=== PATIENT | female | born 1940 | race African-American/Black ===

== ENCOUNTER 2016-08-03 15:34 | Emergency (ER) | payer MEDICARE, OTHER ==
[~2016-08-03] VITALS: Ht 154.9 cm; Wt 51.3 kg
[~2016-08-03 15:34] MED LIST: ACYCLOVIR400 MG ORAL; AMLODIPINE BESY10 MG ORAL; AMOXICILLIN500 MG ORAL; ASPIRIN81 MG ORAL; GUAIFENESIN1200 MG PO; IBUPROFEN600 MG ORAL; KEFLEX500 MG ORAL; NKM; PRAVASTATIN SOD20 M1 ORAL; PROMETHAZINE-C118 M1 ORAL; PROMETHAZINE-D118 ML ORAL; TRAMADOL HCL50 MG ORAL; ZITHROMAX250 MG ORAL
--- NOTE | 2016-08-03 16:23 | Emergency Room Report ---
History of Present Illness General Chief Complaint: Earache Source: Patient Present Illness HPI 75 YO Female presents to ED c/o right ear fullness and nasal congestion/ rhinorrhea x 2 days. denies pain, fevers, chills, cough, INIGUEZ, changes in vision, pt. states hearing is muffled in the affected ear. denies d/c from the ear. Denies CP, Palpitations, LOC, AMS, dizziness, Changes in Vision, Sensation, paresthesias, or a sudden severe headache. Allergies: Coded Allergies: No Known Allergies (Verified Allergy, Unknown, 02/26/08) Patient History Past Medical History: see triage record Past Surgical History: none Pertinent Family History: none Now: No Immunizations: UTD Reviewed Nursing Documentation: PMH: Agreed, PSxH: Agreed Nursing Documentation-PMH Past Medical History: No History, Except For Hx Cardiac Problems: Yes - heart murmur Hx Hypertension: Yes - HIGH COLESTEROL Hx Cancer: Yes - Leukemia since 2003 Review of Systems All Other Systems: negative except mentioned in HPI Physical Exam Vital Signs Date Time Temp Pulse Resp B/P Pulse Ox O2 Delivery O2 Flow Rate FiO2 08/03/16 16:03 98.1 49 16 169/69 99 Room Air Sp02 EP Interpretation: reviewed, normal, abnormal - pt bradycardic General Appearance: no apparent distress, alert, GCS 15, non-toxic Head: normocephalic, atraumatic Eyes: bilateral eye PERRL, bilateral eye normal inspection ENT: normal ENT inspection, hearing grossly normal, normal pharynx, normal voice, uvula midline, moist mucus membranes, other - fluid level noted behind the right TM, TM is non-bulging, and non erythematous. Neck: full range of motion, no meningismus, no bony tend, supple/symm/no masses Respiratory: chest non-tender, lungs clear, normal breath sounds, speaking full sentences Cardiovascular #1: regular rate, rhythm, no edema Musculoskeletal: back normal, gait/station normal, normal range of motion, non- tender Neurologic: alert, oriented x3, responsive, motor strength/tone normal, sensory intact, cerebellar normal, normal gait, speech normal Psychiatric: judgement/insight normal, memory normal, mood/affect normal Skin: normal color, no rash, warm/dry, well hydrated Lymphatic: no adenopathy Medical Decision Making PA Attestation Dr. Goodson is my supervising Physician whom patient management has been discussed with. ER Course 75 YO Female presents to ED c/o right ear fullness and nasal congestion/ rhinorrhea x 2 days. denies pain, fevers, chills, cough, INIGUEZ, changes in vision, pt. states hearing is muffled in the affected ear. denies d/c from the ear. Ddx considered but are not limited to OM, OE, mastoiditis, TM perforation, FB, serous otitis media Vital signs: are WNL, pt. is afebrile H&PE are most consistent with serous otitis media, no evidence of infection at this time. ORDERS: none required at this time, the diagnosis is clinical -OTOSCOPY: fluid level noted behind the right TM, TM is non-bulging, and non erythematous. ED INTERVENTIONS: None required at this time. d/w pt. Conservative treatment, and to follow up with PCP/ ENT specialist. DISCHARGE: At this time pt. is stable for d/c to home. With Conservative treatment.. Will provide printed patient care instructions, and any necessary prescriptions. Care plan and follow up instructions have been discussed with the patient prior to discharge. Last Vital Signs Date Time Temp Pulse Resp B/P Pulse Ox O2 Delivery O2 Flow Rate FiO2 08/03/16 16:03 98.1 49 16 169/69 99 Room Air Disposition: HOME, SELF-CARE Condition: Stable Scripts Pseudoephedrine Hcl* (NEXAFED*) 30 Mg Tablet 30 MG ORAL Q6H Y for congestion for 5 Days, #20 TAB Prov: Tavia Brandno 08/03/16 Cetirizine Hcl* (ZYRTEC*) 10 Mg Tablet 10 MG ORAL DAILY for 30 Days, #30 TAB 0 Refills Prov: Tavia Brandon 08/03/16 Patient Instructions: Serous Otitis Media Additional Instructions: Take medications as directed. Follow up with PCP in 3-5 days, May require ENT evaluation if symptoms persist. Return sooner to ED if new symptoms occur, or current symptoms become worse. - Please note that this Emergency Department Report was dictated using [email or web address] application engineer technology software, occasionally this can lead to erroneous entry secondary to interpretation by the dictation equipment. Tavia Brandon Aug 03, 2016 16:23
[2016-08-03] MEDS ORDERED: ZYRTEC10 MG ORAL (16:24)
[2016-08-03] MEDS ORDERED: NEXAFED30 MG ORAL (16:24)
[2016-08-03 16:32] VITALS: BP 149/73
[2016-08-03 16:34] VITALS: BP 149/73
== END 2016-08-03 16:34 | disposition home or self-care (01) ==
LOC: EMR 16:30
DX: H65.91 Unspecified nonsuppurative otitis media, right ear (principal); R09.81 Nasal congestion; J34.89 Other specified disorders of nose and nasal sinuses
CPT/HCPCS: 99284

== ENCOUNTER 2016-08-11 16:24 | Emergency (ER) | payer MEDICARE, OTHER ==
[~2016-08-11] VITALS: Ht 154.9 cm; Wt 52.2 kg
[~2016-08-11 16:24] MED LIST changes: +NEXAFED30 MG ORAL; +ZYRTEC10 MG ORAL
--- NOTE | 2016-08-11 17:12 | Emergency Room Report ---
History of Present Illness General Chief Complaint: Earache Present Illness HPI 75 YO Female presents to the ED c/o recently being treated with decongestants for serous otitis media. Patient states her symptoms have for the most part resolved denies fevers or chills reports increase in ability to hear out of the affected ear. Patient denies discharge, rashes, tenderness to the ear, or tinnitus. Denies CP, Palpitations, LOC, AMS, dizziness, Changes in Vision, Sensation, paresthesias, or a sudden severe headache. Allergies: Coded Allergies: No Known Allergies (Verified Allergy, Unknown, 02/26/08) Patient History Past Medical History: see triage record Past Surgical History: none Pertinent Family History: none Now: No Immunizations: UTD Reviewed Nursing Documentation: PMH: Agreed, PSxH: Agreed Nursing Documentation-PMH Past Medical History: No History, Except For Hx Hypertension: Yes Hx Cancer: Yes - Leukemia since 2003 Review of Systems All Other Systems: negative except mentioned in HPI Physical Exam Vital Signs Date Time Temp Pulse Resp B/P Pulse Ox O2 Delivery O2 Flow Rate FiO2 08/11/16 16:42 97.9 56 14 169/68 98 Room Air Sp02 EP Interpretation: reviewed, normal General Appearance: no apparent distress, alert, GCS 15, non-toxic Head: normocephalic, atraumatic Eyes: bilateral eye PERRL, bilateral eye normal inspection ENT: hearing grossly normal, normal pharynx, no angioedema, normal voice, uvula midline, moist mucus membranes, other - small fluid level noted behind the right TM, no tragal TTP, no erythema of the TM no bulging noted. Neck: full range of motion, supple/symm/no masses Respiratory: lungs clear, normal breath sounds, speaking full sentences Cardiovascular #1: regular rate, rhythm, no edema Musculoskeletal: back normal, gait/station normal, normal range of motion, non- tender Neurologic: alert, oriented x3, responsive, motor strength/tone normal, sensory intact, speech normal Psychiatric: judgement/insight normal, memory normal, mood/affect normal Skin: normal color, no rash, warm/dry, well hydrated Medical Decision Making PA Attestation Dr. Henderson is my supervising Physician whom patient management has been discussed with. Diagnostic Impression: Primary Impression: Encounter for medical screening examination ER Course Pt. presents to the ED c/o recently being treated with decongestants for serous otitis media. pt. was seen by myself on several prior visits to this ED. pt. is always highly encouraged to follow up with PCP or ENT. pt. states she has an appt. with her doctor on the th of this month. Ddx considered but are not limited to OM, OE, mastoiditis, TM perforation, FB Vital signs: are WNL, pt. is afebrile H&PE are most consistent with improved serous otitis media of the right ear. ORDERS: none required at this time, the diagnosis is clinical ED INTERVENTIONS: None required at this time. - D/w pt. that follow up is to be with PMD or ENT specialist. To return to the ED only with worsening or new symptoms. DISCHARGE: At this time pt. is stable for d/c to home. Will provide printed patient care instructions, and any necessary prescriptions. Care plan and follow up instructions have been discussed with the patient prior to discharge. Last Vital Signs Date Time Temp Pulse Resp B/P Pulse Ox O2 Delivery O2 Flow Rate FiO2 08/11/16 16:42 97.9 56 14 169/68 98 Room Air Disposition: HOME, SELF-CARE Condition: Stable Patient Instructions: Medical Screening Exam Additional Instructions: Take previously prescribed medications as directed if needed. Follow up with your PCP or ears, nose throat specialist in 7 days - Please note that this Emergency Department Report was dictated using PeopleMatterpaint tester technology software, occasionally this can lead to erroneous entry secondary to interpretation by the dictation equipment. Tavia Brandon August 11, 2016 17:12
[2016-08-11 17:21] VITALS: BP 158/70
== END 2016-08-11 17:21 | disposition home or self-care (01) ==
LOC: EMR 17:10
DX: H65.90 Unspecified nonsuppurative otitis media, unspecified ear (principal); I10 Essential (primary) hypertension; Z85.6 Personal history of leukemia
CPT/HCPCS: 99281

== ENCOUNTER 2017-03-03 12:03 | Inpatient (IN) | payer MEDICARE, OTHER ==
[~2017-03-03] VITALS: Ht 154.9 cm; Wt 49.9 kg
[2017-03-03] MEDS ORDERED: Albuterol ud Inhalation HHN ONE (12:15)
[2017-03-03] MEDS ORDERED: Ipratropium 0.02% Inh Soln 2.5ml UD HHN ONE (12:15)
--- NOTE | 2017-03-03 12:28 | Emergency Room Report ---
History of Present Illness General Chief Complaint: Upper Respiratory Illness Source: Patient Present Illness HPI Patient reports that she was seen recently by her physician told that she likely has a bronchitis Her cough however continues Patient has had previous CML is in remission Last chemotherapy was about one year ago Denies any obvious fevers she had some chest tightness from her cough denies any recent travel denies any pleurisy Denies any vomiting or diarrhea Allergies: Coded Allergies: No Known Allergies (Verified Allergy, Unknown, 02/26/08) Patient History Past Medical History: see triage record Pertinent Family History: none Reviewed Nursing Documentation: PMH: Agreed, PSxH: Agreed Nursing Documentation-PMH Hx Hypertension: Yes Hx Cancer: Yes - Leukemia since 2003 Review of Systems All Other Systems: negative except mentioned in HPI Physical Exam Vital Signs Date Time Temp Pulse Resp B/P (MAP) Pulse Ox O2 Delivery O2 Flow Rate FiO2 03/03/17 12:12 98.2 82 20 125/66 93 Room Air Sp02 EP Interpretation: reviewed, normal General Appearance: no apparent distress Head: normocephalic, atraumatic Eyes: bilateral eye PERRL, bilateral eye EOMI ENT: hearing grossly normal, normal pharynx, TMs + canals normal, uvula midline Neck: full range of motion, supple, no meningismus, no bony tend Respiratory: no respiratory distress, no retraction, no accessory muscle use, crackles, wheezing Cardiovascular #1: normal peripheral pulses, regular rate, rhythm, no edema, no gallop, no JVD, no murmur Gastrointestinal: normal bowel sounds, non tender, soft, no mass, no organomegaly, non-distended, no guarding, no hernia, no pulsatile mass, no rebound Genitourinary: no CVA tenderness Musculoskeletal: normal inspection Neurologic: oriented x3, responsive, visually impaired teacher III-XII nml as tested, motor strength/ tone normal, sensory intact Psychiatric: mood/affect normal Skin: normal color, no rash, warm/dry, palpation normal Lymphatic: normal inspection, no adenopathy Medical Decision Making Diagnostic Impression: Primary Impression: Upper respiratory infection Additional Impressions: Hypoxia Leukocytosis Hypokalemia ER Course Patient is a fairly complex patient with multiple differential to consideration including but not limited to cardiac cardiopulmonary and vascular emergencies Patient was observed throughout her stay having hypoxic episodes on room air At this time requiring nasal cannula oxygenation Patient's white blood for count is elevated however the patient has had CML with significant elevation before Unclear the etiology of this Patient with covered with antibiotics and admitted for further care Labs Test 03/03/17 12:25 White Blood Count 18.3 K/UL (4.8-10.8) Red Blood Count 4.33 M/UL (4.20-5.40) Hemoglobin 13.3 G/DL (12.0-16.0) Hematocrit 40.3 % (37.0-47.0) Mean Corpuscular Volume 93 FL (80-99) Mean Corpuscular Hemoglobin 30.7 PG (27.0-31.0) Mean Corpuscular Hemoglobin Concent 33.1 G/DL (32.0-36.0) Red Cell Distribution Width 13.7 % (11.6-14.8) Platelet Count 139 K/UL (150-450) Mean Platelet Volume 7.3 FL (6.5-10.1) Neutrophils (%) (Auto) % (45.0-75.0) Lymphocytes (%) (Auto) % (20.0-45.0) Monocytes (%) (Auto) % (1.0-10.0) Eosinophils (%) (Auto) % (0.0-3.0) Basophils (%) (Auto) % (0.0-2.0) Differential Total Cells Counted 100 Neutrophils % (Manual) 16 % (45-75) Lymphocytes % (Manual) 79 % (20-45) Monocytes % (Manual) 5 % (1-10) Eosinophils % (Manual) 0 % (0-3) Basophils % (Manual) 0 % (0-2) Band Neutrophils 0 % (0-8) Reactive Lymphocytes 1+ Platelet Estimate Decreased Platelet Morphology Normal Red Blood Cell Morphology Normal Sodium Level 141 MMOL/L (136-145) Potassium Level 3.1 MMOL/L (3.5-5.1) Chloride Level 103 MMOL/L (98-107) Carbon Dioxide Level 27 MMOL/L (21-32) Anion Gap 11 mmol/L (5-15) Blood Urea Nitrogen 11 mg/dL (7-18) Creatinine 1.0 MG/DL (0.55-1.30) Estimat Glomerular Filtration Rate mL/min (>60) Glucose Level 112 MG/DL (74-106) Calcium Level 9.1 MG/DL (8.5-10.1) Total Bilirubin 0.3 MG/DL (0.2-1.0) Aspartate Amino Transf (AST/SGOT) 29 U/L (15-37) Alanine Aminotransferase (ALT/SGPT) 25 U/L (12-78) Alkaline Phosphatase 112 U/L (46-116) Total Creatine Kinase 185 U/L (26-308) Creatine Kinase MB 1.9 NG/ML (0.0-3.6) Creatine Kinase MB Relative Index 1.0 Troponin I 0.000 ng/mL (0.000-0.056) Pro-B-Type Natriuretic Peptide 150 pg/mL (0-125) Total Protein 8.1 G/DL (6.4-8.2) Albumin 4.1 G/DL (3.4-5.0) Globulin 4.0 g/dL Albumin/Globulin Ratio 1.0 (1.0-2.7) Lipase 102 U/L (73-393) Rhythm Strip Diag. Results EP Interpretation: yes Rate: 66 Rhythm: NSR, no PVC's, no ectopy Chest X-Ray Diagnostic Results Chest X-Ray Diagnostic Results : Chest X-Ray Ordered: Yes # of Views/Limited/Complete: 1 View Indication: Shortness of Breath EP Interpretation: Yes Interpretation: no consolidation, no effusion, no pneumothorax, no acute cardiopulmonary disease Impression: No acute disease Electronically Signed by: DO Yosi Tavarez Vital Signs Date Time Temp Pulse Resp B/P (MAP) Pulse Ox O2 Delivery O2 Flow Rate FiO2 03/03/17 12:12 98.2 82 20 125/66 93 Room Air Status: improved Disposition: ADMITTED INPATIENT Condition: Serious BERTHA MARUCS D.O. Mar 03, 2017 12:28
[2017-03-03 12:30] VITALS: BP 141/117
[2017-03-03 13:02] LABS: ANION GAP 11 mmol/L (5-15); CALCIUM 9.1 MG/DL (8.5-10.1); CARBON DIOXIDE 27 MMOL/L (21-32); CHLORIDE 103 MMOL/L (98-107); POTASSIUM 3.1 MMOL/L (3.5-5.1); SODIUM 141 MMOL/L (136-145)
[2017-03-03] MEDS ORDERED: FERROUS SULFAT325 MG ORAL (13:02)
[2017-03-03] MEDS ORDERED: VENTOLIN HFA18 GM INH (13:02)
[2017-03-03 13:08] LABS: MEAN CORPUSCULAR HEMOGLOBIN 30.7 PG (27.0-31.0); MEAN CORPUSCULAR HGB CONC 33.1 G/DL (32.0-36.0); MEAN CORPUSCULAR VOLUME 93 FL (80-99); MEAN PLATELET VOLUME 7.3 FL (6.5-10.1); PLATELET COUNT 139 K/UL (150-450); RED BLOOD COUNT 4.33 M/UL (4.20-5.40); RED CELL DISTRIBUTION WIDTH 13.7 % (11.6-14.8); WHITE BLOOD COUNT 18.3 K/UL (4.8-10.8)
[2017-03-03 13:15] LABS: ALANINE AMINOTRANSFERASE 25 U/L (12-78); ASPARTATE AMINO TRANSFERASE 29 U/L (15-37); CKMB 1.9 NG/ML (0.0-3.6); LIPASE 102 U/L (73-393); TOTAL PROTEIN 8.1 G/DL (6.4-8.2)
--- NOTE | 2017-03-03 13:29 | Diagnostic Imaging Report ---
Indication: SOB Technique: One view of the chest Comparison: 03/05/2016 Findings: Lungs and pleural spaces are clear. Heart size is normal. The aorta is elongated tortuous and calcified. There is no significant change Impression: No acute process
[2017-03-03 13:34] LABS: BAND NEUTROPHILS % (MANUAL) 0 % (0-8); BASOPHILS % (MANUAL) 0 % (0-2); EOSINOPHILS % (MANUAL) 0 % (0-3); LYMPHOCYTES % (MANUAL) 79 % (20-45); NEUTROPHILS % (MANUAL) 16 % (45-75); PLATELET ESTIMATE DECREASED; PLATELET MORPHOLOGY NORMAL; TOTAL CELLS COUNTED 100
[2017-03-03 13:36] LABS: REACTIVE LYMPHOCYTES 1+
[2017-03-03] MEDS ORDERED: LORazepam Inj 2mg/ml 1ml IV PRN (15:15)
[2017-03-03] MEDS ORDERED: Albuterol/Ipratropium 3ml neb HHN PRN (15:15)
[2017-03-03] MEDS ORDERED: Morphine Sulfate 4mg/ml Inj IVP PRN (15:15)
[2017-03-03] MEDS ORDERED: Miralax 17gm pkt ORAL PRN (15:15)
[2017-03-03] MEDS ORDERED: traMADol 50mg tab ORAL PRN (15:15)
[2017-03-03 15:55] VITALS: BP 145/67
[2017-03-03] MEDS ORDERED: Vancomycin 1gm/D5W 275ml IVPB ONE ×2 (17:00)
[2017-03-03] MEDS ORDERED: Flu Vaccine Quadrivalent 0.5ml IM ONE (17:30)
[2017-03-03] MEDS ORDERED: Pneumococcal Vaccine 25mcg/0.5ml IM ONE (17:30)
[2017-03-03] MEDS ORDERED: Cefepime HCl 2 GM in D5W 55 ML IV SCH (19:30)
[2017-03-03] MEDS ORDERED: Cefepime HCl 2 GM in D5W 110 ML IV SCH (19:30)
[2017-03-03 20:00] VITALS: BP 119/50
[2017-03-03] MEDS: Heparin 5000 units/ml inj SUBQ SCH (20:49)
--- NOTE | 2017-03-03 22:13 | History and Physical ---
History of Present Illness General Date patient seen: Mar 03, 2017 Reason for Hospitalization: Upper Respiratory Illness Present Illness HPI 76 year old female with hx of CML is in remission presented to ER with cc of cough for a protracted time. she was told that she likely has a bronchitis and received abx from PMD but her cough however continued. She denies any obvious fevers she had some chest tightness from her cough denies any recent travel denies any pleurisy she was found to have leukocytosis and admitted for further work up. Allergies: Coded Allergies: No Known Allergies (Verified Allergy, Unknown, 02/26/08) Medication History Scheduled Acyclovir* (Acyclovir*), 400 MG ORAL BID, (Reported) Albuterol Sulfate (Ventolin Hfa), 1 PUFF INH EVERY 6 HOURS, (Reported) Amlodipine Besylate* (Amlodipine Besylate*), 10 MG ORAL DAILY, (Reported) Amoxicillin* (Amoxil*), 500 MG ORAL THREE TIMES A DAY Aspirin* (Aspirin*), 81 MG ORAL DAILY, (Reported) Azithromycin* (Zithromax*), 250 MG ORAL DAILY Cephalexin* (Keflex*), 500 MG ORAL EVERY 12 HOURS Cetirizine Hcl* (Zyrtec*), 10 MG ORAL DAILY Ferrous Sulfate* (Ferrous Sulfate*), 325 MG ORAL DAILY, (Reported) Guaifenesin (Guaifenesin), 1,200 MG PO Q12HR No Known Medications* (NKM - No Known Medications*), 0 ., (Reported) Pravastatin Sod* (Pravastatin Sod*), 10 MG ORAL BEDTIME, (Reported) Scheduled PRN Codeine/Promethazine Hcl* (Promethazine-Codeine Syrup*), 5 ML ORAL Q6H PRN for For Cough D-Methorphan Hb/Prometh Hcl* (Promethazine-Dm Syrup*), 5 ML ORAL Q6H PRN for For Cough Ibuprofen* (Motrin*), 600 MG ORAL Q6H PRN for For Pain Pseudoephedrine Hcl* (Nexafed*), 30 MG ORAL Q6H PRN for congestion Tramadol Hcl* (Ultram*), 50 MG ORAL Q6H PRN for For Pain Tramadol Hcl* (Ultram*), 50 MG ORAL Q6H PRN for For Pain Patient History Healthcare decision maker Joshua Young (son) Resuscitation status Full Code Advanced Directive on File Past Medical/Surgical History Past Medical/Surgical History: (1) CML (chronic myeloid leukemia) Review of Systems Constitutional: Reports: malaise Respiratory: Reports: cough, [facility] All Other Systems: negative except mentioned in HPI Physical Exam General Appearance: cachetic Lines, tubes and drains: peripheral HEENT: normocephalic, atraumatic Neck: non-tender, normal alignment Respiratory/Chest: chest wall non-tender, lungs clear Cardiovascular/Chest: normal peripheral pulses, normal rate Abdomen: normal bowel sounds, non tender Last 24 Hour Vital Signs Date Time Temp Pulse Resp B/P (MAP) Pulse Ox O2 Delivery O2 Flow Rate FiO2 03/03/17 20:00 58 03/03/17 20:00 97.0 61 18 119/50 93 Nasal Cannula 2.0 28 03/03/17 20:00 Nasal Cannula 2.0 28 03/03/17 20:00 94 Nasal Cannula 2.0 28 03/03/17 16:00 68 03/03/17 15:55 97.0 74 18 145/67 94 03/03/17 14:41 98.2 20 133/109 93 Room Air 2.0 21 03/03/17 12:46 82 20 93 Room Air 21 03/03/17 12:31 21 03/03/17 12:31 82 20 Room Air 21 03/03/17 12:31 82 20 93 Room Air 21 03/03/17 12:30 82 20 Room Air 03/03/17 12:30 98.2 20 141/117 93 Nasal Cannula 2.0 03/03/17 12:12 98.2 82 20 125/66 93 Room Air Intake and Output 03/03/17 03/04/17 19:00 07:00 Intake Total 352 ml 100 ml Balance 352 ml 100 ml Intake Oral 240 ml IV Total 112 ml 100 ml # Bowel Movements 1 Laboratory Tests Test 03/03/17 12:25 White Blood Count 18.3 K/UL (4.8-10.8) H Red Blood Count 4.33 M/UL (4.20-5.40) Hemoglobin 13.3 G/DL (12.0-16.0) Hematocrit 40.3 % (37.0-47.0) Mean Corpuscular Volume 93 FL (80-99) Mean Corpuscular Hemoglobin 30.7 PG (27.0-31.0) Mean Corpuscular Hemoglobin Concent 33.1 G/DL (32.0-36.0) Red Cell Distribution Width 13.7 % (11.6-14.8) Platelet Count 139 K/UL (150-450) L Mean Platelet Volume 7.3 FL (6.5-10.1) Neutrophils (%) (Auto) % (45.0-75.0) Lymphocytes (%) (Auto) % (20.0-45.0) Monocytes (%) (Auto) % (1.0-10.0) Eosinophils (%) (Auto) % (0.0-3.0) Basophils (%) (Auto) % (0.0-2.0) Differential Total Cells Counted 100 Neutrophils % (Manual) 16 % (45-75) L Lymphocytes % (Manual) 79 % (20-45) H Monocytes % (Manual) 5 % (1-10) Eosinophils % (Manual) 0 % (0-3) Basophils % (Manual) 0 % (0-2) Band Neutrophils 0 % (0-8) Reactive Lymphocytes 1+ Platelet Estimate Decreased L Platelet Morphology Normal Red Blood Cell Morphology Normal Sodium Level 141 MMOL/L (136-145) Potassium Level 3.1 MMOL/L (3.5-5.1) L Chloride Level 103 MMOL/L (98-107) Carbon Dioxide Level 27 MMOL/L (21-32) Anion Gap 11 mmol/L (5-15) Blood Urea Nitrogen 11 mg/dL (7-18) Creatinine 1.0 MG/DL (0.55-1.30) Estimat Glomerular Filtration Rate mL/min (>60) Glucose Level 112 MG/DL (74-106) H Calcium Level 9.1 MG/DL (8.5-10.1) Total Bilirubin 0.3 MG/DL (0.2-1.0) Aspartate Amino Transf (AST/SGOT) 29 U/L (15-37) Alanine Aminotransferase (ALT/SGPT) 25 U/L (12-78) Alkaline Phosphatase 112 U/L (46-116) Total Creatine Kinase 185 U/L (26-308) Creatine Kinase MB 1.9 NG/ML (0.0-3.6) Creatine Kinase MB Relative Index 1.0 Troponin I 0.000 ng/mL (0.000-0.056) Pro-B-Type Natriuretic Peptide 150 pg/mL (0-125) H Total Protein 8.1 G/DL (6.4-8.2) Albumin 4.1 G/DL (3.4-5.0) Globulin 4.0 g/dL Albumin/Globulin Ratio 1.0 (1.0-2.7) Lipase 102 U/L (73-393) Height (Feet): 5 Height (Inches): 1.00 Weight (Pounds): 110 Medications Current Medications Medications (Trade) Dose Ordered Sig/Adalgisa Route PRN Reason Start Time Stop Time Status Last Admin Dose Admin Acetaminophen (Tylenol) 650 mg Q4H PRN ORAL T>100.5 F 03/03/17 15:15 04/02/17 15:14 Albuterol/ Ipratropium (Albuterol/ Ipratropium) 3 ml Q4H PRN HHN Shortness of Breath 03/03/17 15:15 03/08/17 15:14 Amlodipine Besylate (Norvasc) 10 mg DAILY ORAL 03/04/17 09:00 04/03/17 08:59 Cefepime HCl 2 gm/ Dextrose 55 ml @ 110 mls/hr Q24H IV 03/03/17 19:30 03/10/17 19:29 03/03/17 20:47 Dextrose (Dextrose 50%) STAT PRN IV Hypoglycemia 03/03/17 15:15 04/02/17 15:14 Heparin Sodium (Porcine) (Heparin 5000 units/ml) 5,000 units EVERY 12 HOURS SUBQ 03/03/17 21:00 04/02/17 20:59 03/03/17 20:49 Lorazepam (Ativan 2mg/ml 1ml) 2 mg Q2H PRN IV For Anxiety 03/03/17 15:15 03/10/17 15:14 Morphine Sulfate (Morphine Sulfate) 4 mg Q4H PRN IVP Severe Pain (Pain Scale 7-10) 03/03/17 15:15 03/10/17 15:14 Ondansetron HCl (Zofran) 4 mg Q6H PRN IVP Nausea & Vomiting 03/03/17 15:15 04/02/17 15:14 Polyethylene Glycol (Miralax) 17 gm DAILYPRN PRN ORAL Constipation 03/03/17 15:15 04/02/17 15:14 Pravastatin Sodium (Pravachol) 10 mg BEDTIME ORAL 03/03/17 21:00 04/02/17 20:59 03/03/17 20:47 Sodium Chloride 1,000 ml @ 50 mls/hr Q20H IV 03/03/17 16:00 04/02/17 15:59 03/03/17 16:33 Tramadol HCl (Ultram) 50 mg Q6H PRN ORAL Moderate Pain (Pain Scale 4-6) 03/03/17 15:15 03/10/17 15:14 Vancomycin HCl (Vanco rx to dose) 1 ea DAILY PRN MISC . 03/03/17 15:30 04/02/17 15:29 Vancomycin/Sodium Chloride 250 ml @ 166.667 mls/hr Q24H IVPB 03/04/17 17:00 03/09/17 16:59 Assessment/Plan Problem List: (1) Purulent bronchitis ICD Codes: J41.1 - Mucopurulent chronic bronchitis SNOMED: 36608074 (2) CML (chronic myeloid leukemia) ICD Codes: C92.90 - Myeloid leukemia, unspecified, not having achieved remission SNOMED: 33931469 (3) Leukocytosis ICD Codes: D72.829 - Elevated white blood cell count, unspecified SNOMED: 877568400, 847308416 (4) Upper respiratory infection ICD Codes: J06.9 - Acute upper respiratory infection, unspecified SNOMED: 99330795 Assessment/Plan check sputum Iv abx check cultures blood smear by pathology hematology evaluation LOW CARTWRIGHT Mar 03, 2017 22:13
[2017-03-03] MEDS ORDERED: Vancomycin 1 GM in D5W 275 ML IV SCH (23:00)
[2017-03-04] VITALS (7 sets, daily range): BP systolic 120–141; BP diastolic 55–117
[2017-03-04 08:15] LABS: MEAN CORPUSCULAR HEMOGLOBIN 31.7 PG (27.0-31.0); MEAN CORPUSCULAR VOLUME 93 FL (80-99); MEAN PLATELET VOLUME 7.6 FL (6.5-10.1); PLATELET COUNT 122 K/UL (150-450); RED BLOOD COUNT 3.89 M/UL (4.20-5.40); RED CELL DISTRIBUTION WIDTH 13.7 % (11.6-14.8); WHITE BLOOD COUNT 15.7 K/UL (4.8-10.8)
[2017-03-04] MEDS: Heparin 5000 units/ml inj SUBQ SCH ×2 (08:46→21:17)
[2017-03-04 09:17] LABS: ANION GAP 7 mmol/L (5-15); CALCIUM 8.9 MG/DL (8.5-10.1); CARBON DIOXIDE 27 MMOL/L (21-32); CHLORIDE 105 MMOL/L (98-107); CREATININE 0.9 MG/DL (0.55-1.30); PHOSPHORUS 3.1 MG/DL (2.5-4.9); POTASSIUM 4.6 MMOL/L (3.5-5.1); SODIUM 139 MMOL/L (136-145)
[2017-03-04 09:31] LABS: LYMPHOCYTES % (MANUAL) 78 % (20-45); NEUTROPHILS % (MANUAL) 20 % (45-75); TOTAL CELLS COUNTED 100
[2017-03-04 09:32] LABS: BAND NEUTROPHILS % (MANUAL) 0 % (0-8); BASOPHILS % (MANUAL) 0 % (0-2); EOSINOPHILS % (MANUAL) 0 % (0-3); PLATELET ESTIMATE DECREASED; PLATELET MORPHOLOGY NORMAL
--- NOTE | 2017-03-04 10:28 | Pulmonology Progress Note ---
Assessment/Plan Problems: (1) Purulent bronchitis (2) CML (chronic myeloid leukemia) (3) Leukocytosis (4) Upper respiratory infection (5) Protein-calorie malnutrition, severe Assessment/Plan improving check sputum IV abx titrate fio2 to sat of 92% chest pt respiratory treatment Subjective Interval Events: doing better Allergies: Coded Allergies: No Known Allergies (Verified Allergy, Unknown, 02/26/08) Objective Last 24 Hour Vital Signs Date Time Temp Pulse Resp B/P (MAP) Pulse Ox O2 Delivery O2 Flow Rate FiO2 03/04/17 08:44 60 120/55 03/04/17 08:00 54 03/04/17 08:00 98.4 60 18 120/55 95 Nasal Cannula 2.0 28 03/04/17 07:43 Nasal Cannula 2.0 28 03/04/17 07:42 96 Nasal Cannula 2.0 28 03/04/17 04:00 56 03/04/17 04:00 97.9 75 20 141/117 95 Nasal Cannula 2.0 03/04/17 00:00 58 03/04/17 00:00 98.1 66 18 122/62 94 Nasal Cannula 2.0 28 03/03/17 20:00 58 03/03/17 20:00 97.0 61 18 119/50 93 Nasal Cannula 2.0 28 03/03/17 20:00 Nasal Cannula 2.0 28 03/03/17 20:00 94 Nasal Cannula 2.0 28 03/03/17 16:00 68 03/03/17 15:55 97.0 74 18 145/67 94 03/03/17 14:41 98.2 20 133/109 93 Room Air 2.0 21 03/03/17 12:46 82 20 93 Room Air 21 03/03/17 12:31 21 03/03/17 12:31 82 20 Room Air 21 03/03/17 12:31 82 20 93 Room Air 21 03/03/17 12:30 82 20 Room Air 03/03/17 12:30 98.2 20 141/117 93 Nasal Cannula 2.0 03/03/17 12:12 98.2 82 20 125/66 93 Room Air General Appearance: cachetic HEENT: normocephalic, atraumatic Respiratory/Chest: chest wall non-tender, lungs clear Breasts: no masses Cardiovascular: normal rate Abdomen: normal bowel sounds, soft, non tender Genitourinary: normal external genitalia Extremities: no cyanosis Skin: no rash Laboratory Tests 03/03/17 12:25: White Blood Count 18.3H, Red Blood Count 4.33, Hemoglobin 13.3, Hematocrit 40.3 , Mean Corpuscular Volume 93, Mean Corpuscular Hemoglobin 30.7, Mean Corpuscular Hemoglobin Concent 33.1, Red Cell Distribution Width 13.7, Platelet Count 139L, Mean Platelet Volume 7.3, Neutrophils (%) (Auto) , Lymphocytes (%) ( Auto) , Monocytes (%) (Auto) , Eosinophils (%) (Auto) , Basophils (%) (Auto) , Differential Total Cells Counted 100, Neutrophils % (Manual) 16L, Lymphocytes % (Manual) 79H, Monocytes % (Manual) 5, Eosinophils % (Manual) 0, Basophils % ( Manual) 0, Band Neutrophils 0, Reactive Lymphocytes 1+, Platelet Estimate DecreasedL, Platelet Morphology Normal, Red Blood Cell Morphology Normal, Sodium Level 141, Potassium Level 3.1L, Chloride Level 103, Carbon Dioxide Level 27, Anion Gap 11, Blood Urea Nitrogen 11, Creatinine 1.0, Estimat Glomerular Filtration Rate , Glucose Level 112H, Calcium Level 9.1, Total Bilirubin 0.3, Aspartate Amino Transf (AST/SGOT) 29, Alanine Aminotransferase ( ALT/SGPT) 25, Alkaline Phosphatase 112, Total Creatine Kinase 185, Creatine Kinase MB 1.9, Creatine Kinase MB Relative Index 1.0, Troponin I 0.000, Pro-B- Type Natriuretic Peptide 150H, Total Protein 8.1, Albumin 4.1, Globulin 4.0, Albumin/Globulin Ratio 1.0, Lipase 102 03/04/17 07:32: White Blood Count 15.7H, Red Blood Count 3.89L, Hemoglobin 12.4, Hematocrit 36.3L, Mean Corpuscular Volume 93, Mean Corpuscular Hemoglobin 31.7H, Mean Corpuscular Hemoglobin Concent 34.0, Red Cell Distribution Width 13.7, Platelet Count 122L, Mean Platelet Volume 7.6, Neutrophils (%) (Auto) , Lymphocytes (%) ( Auto) , Monocytes (%) (Auto) , Eosinophils (%) (Auto) , Basophils (%) (Auto) , Differential Total Cells Counted 100, Neutrophils % (Manual) 20L, Lymphocytes % (Manual) 78H, Monocytes % (Manual) 2, Eosinophils % (Manual) 0, Basophils % ( Manual) 0, Band Neutrophils 0, Platelet Estimate DecreasedL, Platelet Morphology Normal, Red Blood Cell Morphology Normal, Sodium Level 139, Potassium Level 4.6, Chloride Level 105, Carbon Dioxide Level 27, Anion Gap 7, Blood Urea Nitrogen 10, Creatinine 0.9, Estimat Glomerular Filtration Rate , Glucose Level 88, Calcium Level 8.9, Troponin I 0.005, Albumin 3.5, Phosphorus Level 3.1 Current Medications Medications (Trade) Dose Ordered Sig/Adalgisa Route PRN Reason Start Time Stop Time Status Last Admin Dose Admin Acetaminophen (Tylenol) 650 mg Q4H PRN ORAL T>100.5 F 03/03/17 15:15 04/02/17 15:14 Albuterol/ Ipratropium (Albuterol/ Ipratropium) 3 ml Q4H PRN HHN Shortness of Breath 03/03/17 15:15 03/08/17 15:14 Amlodipine Besylate (Norvasc) 10 mg DAILY ORAL 03/04/17 09:00 04/03/17 08:59 03/04/17 08:44 Cefepime HCl 2 gm/ Dextrose 55 ml @ 110 mls/hr Q24H IV 03/03/17 19:30 03/10/17 19:29 03/03/17 20:47 Dextrose (Dextrose 50%) STAT PRN IV Hypoglycemia 03/03/17 15:15 04/02/17 15:14 Heparin Sodium (Porcine) (Heparin 5000 units/ml) 5,000 units EVERY 12 HOURS SUBQ 03/03/17 21:00 04/02/17 20:59 03/04/17 08:46 Lorazepam (Ativan 2mg/ml 1ml) 2 mg Q2H PRN IV For Anxiety 03/03/17 15:15 03/10/17 15:14 Morphine Sulfate (Morphine Sulfate) 4 mg Q4H PRN IVP Severe Pain (Pain Scale 7-10) 03/03/17 15:15 03/10/17 15:14 Ondansetron HCl (Zofran) 4 mg Q6H PRN IVP Nausea & Vomiting 03/03/17 15:15 04/02/17 15:14 Polyethylene Glycol (Miralax) 17 gm DAILYPRN PRN ORAL Constipation 03/03/17 15:15 04/02/17 15:14 Pravastatin Sodium (Pravachol) 10 mg BEDTIME ORAL 03/03/17 21:00 04/02/17 20:59 03/03/17 20:47 Sodium Chloride 1,000 ml @ 50 mls/hr Q20H IV 03/03/17 16:00 04/02/17 15:59 03/03/17 16:33 Tramadol HCl (Ultram) 50 mg Q6H PRN ORAL Moderate Pain (Pain Scale 4-6) 03/03/17 15:15 03/10/17 15:14 Vancomycin HCl (Vanco rx to dose) 1 ea DAILY PRN MISC . 03/03/17 15:30 04/02/17 15:29 Vancomycin/Sodium Chloride 250 ml @ 166.667 mls/hr Q24H IVPB 03/04/17 17:00 03/09/17 16:59 LOW CARTWRIGHT Mar 04, 2017 10:28
--- NOTE | 2017-03-04 13:36 | History & Physical ---
History and Physical History & Physicial Dictated for Int Med-Dr Galarza no. [id number]. OBI DAWSON Mar 04, 2017 13:36
--- NOTE | 2017-03-04 15:21 | Cardiology Progress Note ---
Assessment/Plan Assessment/Plan [id number] cxr neg but exam shows sig crakles on th left side ekg abn trop all neg will repeat trop and ekg in am may need stress testign at some point in future Objective Last 24 Hour Vital Signs Date Time Temp Pulse Resp B/P (MAP) Pulse Ox O2 Delivery O2 Flow Rate FiO2 03/04/17 12:00 79 03/04/17 12:00 98.2 67 18 137/67 94 Nasal Cannula 2.0 03/04/17 08:44 60 120/55 03/04/17 08:00 54 03/04/17 08:00 98.4 60 18 120/55 95 Nasal Cannula 2.0 28 03/04/17 07:43 Nasal Cannula 2.0 28 03/04/17 07:42 96 Nasal Cannula 2.0 28 03/04/17 04:00 56 03/04/17 04:00 97.9 75 20 141/117 95 Nasal Cannula 2.0 03/04/17 00:00 58 03/04/17 00:00 98.1 66 18 122/62 94 Nasal Cannula 2.0 28 03/03/17 20:00 58 03/03/17 20:00 97.0 61 18 119/50 93 Nasal Cannula 2.0 28 03/03/17 20:00 Nasal Cannula 2.0 28 03/03/17 20:00 94 Nasal Cannula 2.0 28 03/03/17 16:00 68 03/03/17 15:55 97.0 74 18 145/67 94 Intake and Output 03/04/17 03/05/17 19:00 07:00 Intake Total 930 ml Balance 930 ml Intake Oral 530 ml IV Total 400 ml # Voids 2 Laboratory Tests Test 03/04/17 07:32 White Blood Count 15.7 K/UL (4.8-10.8) H Red Blood Count 3.89 M/UL (4.20-5.40) L Hemoglobin 12.4 G/DL (12.0-16.0) Hematocrit 36.3 % (37.0-47.0) L Mean Corpuscular Volume 93 FL (80-99) Mean Corpuscular Hemoglobin 31.7 PG (27.0-31.0) H Mean Corpuscular Hemoglobin Concent 34.0 G/DL (32.0-36.0) Red Cell Distribution Width 13.7 % (11.6-14.8) Platelet Count 122 K/UL (150-450) L Mean Platelet Volume 7.6 FL (6.5-10.1) Neutrophils (%) (Auto) % (45.0-75.0) Lymphocytes (%) (Auto) % (20.0-45.0) Monocytes (%) (Auto) % (1.0-10.0) Eosinophils (%) (Auto) % (0.0-3.0) Basophils (%) (Auto) % (0.0-2.0) Differential Total Cells Counted 100 Neutrophils % (Manual) 20 % (45-75) L Lymphocytes % (Manual) 78 % (20-45) H Monocytes % (Manual) 2 % (1-10) Eosinophils % (Manual) 0 % (0-3) Basophils % (Manual) 0 % (0-2) Band Neutrophils 0 % (0-8) Platelet Estimate Decreased L Platelet Morphology Normal Red Blood Cell Morphology Normal Sodium Level 139 MMOL/L (136-145) Potassium Level 4.6 MMOL/L (3.5-5.1) Chloride Level 105 MMOL/L (98-107) Carbon Dioxide Level 27 MMOL/L (21-32) Anion Gap 7 mmol/L (5-15) Blood Urea Nitrogen 10 mg/dL (7-18) Creatinine 0.9 MG/DL (0.55-1.30) Estimat Glomerular Filtration Rate mL/min (>60) Glucose Level 88 MG/DL (74-106) Calcium Level 8.9 MG/DL (8.5-10.1) Phosphorus Level 3.1 MG/DL (2.5-4.9) Troponin I 0.005 ng/mL (0.000-0.056) Albumin 3.5 G/DL (3.4-5.0) RAINER LEE Mar 04, 2017 15:21
[2017-03-04] MEDS ORDERED: Vancomycin 750mg/NS 250ml IVPB SCH (17:00)
--- NOTE | 2017-03-04 17:28 | Consultation ---
Consult Note Consult Note ID DIC # [id number] LAURA FARIA M.D. Mar 04, 2017 17:27
--- NOTE | 2017-03-04 20:45 | Consultation ---
DATE OF CONSULTATION: 03/04/2017 INFECTIOUS DISEASE CONSULTATION CONSULTING PHYSICIAN: Baljeet Winkler M.D. REQUESTING PHYSICIAN: Ramila Dumont M.D. and Mandeep Galarza M.D. REASON FOR CONSULTATION: Evaluation of the patient for leukocytosis and pneumonia. HISTORY OF PRESENT ILLNESS: The patient is a 76-year-old pleasant female with multiple medical problems as listed below, who was admitted to this medical center due to cough, chest tightness. Infectious Disease consultation has been requested for evaluation of the patient and antibiotic management. After admission, the patient was found to have leukocytosis. PAST MEDICAL HISTORY: 1. Hyperlipidemia. 2. History of CML, (? in remission). 3. Hypertension. ALLERGIES: No known drug allergies. MEDICATIONS: Vancomycin and cefepime. SOCIAL HISTORY: The patient lives with family at home. The patient is a lifetime smoker. FAMILY HISTORY: Not contributing. There is nobody in the family currently sick or have respiratory complains. PHYSICAL EXAMINATION: VITAL SIGNS: Temperature 98.4, pulse 86, respiratory rate 18, and blood pressure 137/67. HEENT: No pale conjunctivae. No icterus. NECK: No lymphadenopathy. CHEST: Coarse breathing sounds. HEART: S1, S2. ABDOMEN: Soft, nontender. EXTREMITIES: No cyanosis. NEUROLOGIC: Awake and alert. LABORATORY AND DIAGNOSTIC DATA: White blood cells 15.7, hemoglobin 12, and platelets 122,000. BUN 10 creatinine 0.9. ALT, AST, and alkaline phosphatase unremarkable. Chest x-ray, no acute process. ASSESSMENT: 1. The patient is a 76-year-old female with bronchitis/community-acquired pneumonia (despite of the unremarkable chest x-ray). 2. Leukocytosis, most likely due to chronic myeloid leukemia. PLAN: 1. We will change antibiotics to Levaquin for a total of five days. 2. Monitor CBC. 3. Monitor BMP. 4. Monitor cultures (blood, sputum). 5. Monitor chest x-ray. 6. Based on the patient's clinical course and laboratories, we will do further recommendation. Thank you, Dr. Dumont, for allowing me to participate in the care of this patient. I will follow the patient with you during this hospitalization. Baljeet Winkler M.D. DR: RAMILA JOB#: [id number] CC:
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
--- NOTE | 2017-03-05 01:45 | Consultation ---
DATE OF CONSULTATION: 03/04/2017 CARDIOLOGY CONSULTATION CONSULTING PHYSICIAN: Levi Donald M.D. REFERRING PHYSICIAN: Ramila Dumont M.D. REASON FOR REFERRAL: Shortness of breath. HISTORY OF PRESENT ILLNESS: This is a 76-year-old female with history of multiple medical problems as delineated below. The patient presented to the hospital because of coughing, congestion, persistent sputum production and really not short of breath. No PND. No orthopnea. She uses one pillow all time and she did have some tightness in the chest that was present all the time initially, but that is resolved now. She does not have any dizziness on standing. No palpitations. PAST MEDICAL HISTORY: Positive for high blood pressure, high cholesterol, and CML was reportedly felt to be in remission. She denies any diabetes or any heart attack. No stroke. No hepatitis, tuberculosis, asthma, or emphysema. No ulcers, kidney problems, liver problems, thyroid problems, anemia, arthritis or any other medical problems. ALLERGIES: She is not allergic to any medications. SOCIAL HISTORY: Does not smoke. Does not drink alcoholic beverages. She lives by herself. REVIEW OF SYSTEMS: GASTROINTESTINAL: She has some nausea. She also has dark stools related to iron supplement that she takes, otherwise negative. GENITOURINARY: Negative. PULMONARY: As mentioned in history of present illness. CARDIAC: As mentioned in history of present illness. NEUROLOGIC: Negative. PHYSICAL EXAMINATION: GENERAL: Shows to be an elderly female, very pleasant, in no apparent respiratory distress. NECK: Supple. There is a carotid extension with cardiac murmur. LUNGS: Crackles noted at the left side of the lungs. No wheezes are noted. CARDIOVASCULAR: Regular rate and rhythm. A systolic ejection murmur is noted. No RV lifts, heaves, thrills, or gallops noted. ABDOMEN: Soft and nontender. Positive bowel sounds. EXTREMITIES: There is no clubbing, cyanosis, nor is there any edema. NEUROLOGICAL: She is awake, alert, responsive, and in no apparent respiratory distress. IMAGING STUDIES: A chest x-ray has been performed, the results of which interpreted by the radiologist as showing no acute processes. The telemetry data has sinus rhythm and no evidence of AFib or other ventricular arrhythmias are noted. Her EKG shows sinus rhythm at a rate of [address] or T-wave abnormalities are noted. The venous duplex study of the lower extremities is negative. She did have an EKG yesterday that showed some minor ST-segment depression in II, III, and aVF as well as V5 through V6, which was more prominent than she had on the present EKG. Preliminary echocardiogram shows normal left ventricular systolic function and no significant valvular disease. ASSESSMENT: 1. Cough. 2. Abnormal electrocardiogram. 3. Hypertension. 4. Hyperlipidemia. PLAN: Dr. Dumont, this patient was seen in cardiac consultation. The patient had some minor symptoms of chest pain with no evidence of myonecrosis on her blood tests, in fact all of her troponins have been negative during this hospitalization, both of them were done last night and this morning and the third one will be ordered. She has no other abnormalities on her laboratories on arrival. She did have some low potassium on her labs that was supplemented and now resolved. Her BNP was only 150. Her lung exam, however, showed some abnormality including crackles that are more evident on the left side than on the right side. Yet, the chest x-ray does not show evidence of heart failure or pneumonia. I think she may need to be considered for further imaging. I would leave that decision up to you and I will follow the patient along with you. Levi Donald M.D. DR: IAM JOB#: [id number] CC:
[2017-03-05 04:11] VITALS: BP 122/58
[2017-03-05 06:33] LABS: MEAN CORPUSCULAR HEMOGLOBIN 31.6 PG (27.0-31.0); MEAN CORPUSCULAR HGB CONC 34.1 G/DL (32.0-36.0); MEAN CORPUSCULAR VOLUME 92 FL (80-99); MEAN PLATELET VOLUME 7.5 FL (6.5-10.1); PLATELET COUNT 122 K/UL (150-450); RED BLOOD COUNT 3.87 M/UL (4.20-5.40); RED CELL DISTRIBUTION WIDTH 13.6 % (11.6-14.8); WHITE BLOOD COUNT 17.8 K/UL (4.8-10.8)
[2017-03-05 06:41] LABS: ANION GAP 10 mmol/L (5-15); CALCIUM 8.9 MG/DL (8.5-10.1); CARBON DIOXIDE 25 MMOL/L (21-32); CHLORIDE 104 MMOL/L (98-107); POTASSIUM 4.1 MMOL/L (3.5-5.1); SODIUM 139 MMOL/L (136-145)
[2017-03-05 08:25] VITALS: BP 138/67
[2017-03-05] MEDS: Heparin 5000 units/ml inj SUBQ SCH ×2 (08:32→21:42)
[2017-03-05 09:15] LABS: BAND NEUTROPHILS % (MANUAL) 0 % (0-8); BASOPHILS % (MANUAL) 0 % (0-2); EOSINOPHILS % (MANUAL) 0 % (0-3); LYMPHOCYTES % (MANUAL) 69 % (20-45); NEUTROPHILS % (MANUAL) 18 % (45-75); PLATELET ESTIMATE DECREASED; PLATELET MORPHOLOGY NORMAL; REACTIVE LYMPHOCYTES 2+; TOTAL CELLS COUNTED 100
[2017-03-05] MEDS ORDERED: Guaifenesin/DM 10ml syrup ORAL PRN ×2 (09:45→17:45)
--- NOTE | 2017-03-05 12:29 | Pulmonology Progress Note ---
Assessment/Plan Problems: (1) Purulent bronchitis (2) CML (chronic myeloid leukemia) (3) Leukocytosis (4) Upper respiratory infection (5) Protein-calorie malnutrition, severe Assessment/Plan improving check sputum IV abx titrate fio2 to sat of 92% chest pt respiratory treatment Subjective ROS Limited/Unobtainable: No Interval Events: less short of breath phlegm is getting clearer Allergies: Coded Allergies: No Known Allergies (Verified Allergy, Unknown, 02/26/08) Objective Last 24 Hour Vital Signs Date Time Temp Pulse Resp B/P (MAP) Pulse Ox O2 Delivery O2 Flow Rate FiO2 03/05/17 09:32 63 16 99 Nasal Cannula 2.0 28 03/05/17 09:27 63 15 94 Nasal Cannula 2.0 28 03/05/17 08:27 63 138/67 03/05/17 08:25 98.1 63 18 138/67 96 Nasal Cannula 03/05/17 08:04 63 03/05/17 07:19 95 Nasal Cannula 2.0 28 03/05/17 07:19 Nasal Cannula 2.0 28 03/05/17 04:11 98.6 63 16 122/58 96 Nasal Cannula 96 03/05/17 04:00 66 03/05/17 00:00 63 03/04/17 23:45 98.4 62 16 136/67 97 Nasal Cannula 62 03/04/17 21:54 96 Nasal Cannula 2.0 28 03/04/17 21:54 Nasal Cannula 2.0 28 03/04/17 20:00 70 03/04/17 19:48 98.5 70 16 139/67 94 Nasal Cannula 70 03/04/17 16:06 98.6 66 16 135/75 95 Nasal Cannula 2.0 03/04/17 16:00 73 Intake and Output 03/05/17 03/06/17 19:00 07:00 Intake Total 50 ml Balance 50 ml IV Total 50 ml Objective General Appearance: cachetic Lines, tubes and drains: peripheral HEENT: normocephalic, atraumatic Neck: non-tender, normal alignment Respiratory/Chest: chest wall non-tender, bilateral rhonchi Cardiovascular/Chest: normal peripheral pulses, regular rhythm, no gallop/ murmur Abdomen: normal bowel sounds, non tender Genitourinary/Rectal: normal genital exam Extremities: normal range of motion, non-tender Microbiology Date/Time Source Procedure Growth Status 03/03/17 12:25 Blood Blood Culture - Preliminary NO GROWTH AFTER 24 HOURS Resulted 03/03/17 12:25 Blood Blood Culture - Preliminary NO GROWTH AFTER 24 HOURS Resulted Laboratory Tests 03/05/17 05:27: White Blood Count 17.8H, Red Blood Count 3.87L, Hemoglobin 12.2, Hematocrit 35.7L, Mean Corpuscular Volume 92, Mean Corpuscular Hemoglobin 31.6H, Mean Corpuscular Hemoglobin Concent 34.1, Red Cell Distribution Width 13.6, Platelet Count 122L, Mean Platelet Volume 7.5, Neutrophils (%) (Auto) , Lymphocytes (%) ( Auto) , Monocytes (%) (Auto) , Eosinophils (%) (Auto) , Basophils (%) (Auto) , Differential Total Cells Counted 100, Neutrophils % (Manual) 18L, Lymphocytes % (Manual) 69H, Monocytes % (Manual) 13H, Eosinophils % (Manual) 0, Basophils % ( Manual) 0, Band Neutrophils 0, Reactive Lymphocytes 2+, Platelet Estimate DecreasedL, Platelet Morphology Normal, Sodium Level 139, Potassium Level 4.1, Chloride Level 104, Carbon Dioxide Level 25, Anion Gap 10, Blood Urea Nitrogen 10, Creatinine 1.0, Estimat Glomerular Filtration Rate , Glucose Level 86, Calcium Level 8.9, Troponin I 0.003 Current Medications Medications (Trade) Dose Ordered Sig/Adalgisa Route PRN Reason Start Time Stop Time Status Last Admin Dose Admin Acetaminophen (Tylenol) 650 mg Q4H PRN ORAL T>100.5 F 03/03/17 15:15 04/02/17 15:14 Albuterol/ Ipratropium (Albuterol/ Ipratropium) 3 ml Q4H PRN HHN Shortness of Breath 03/03/17 15:15 03/08/17 15:14 03/05/17 09:22 Amlodipine Besylate (Norvasc) 10 mg DAILY ORAL 03/04/17 09:00 04/03/17 08:59 03/05/17 08:27 Dextrose (Dextrose 50%) STAT PRN IV Hypoglycemia 03/03/17 15:15 04/02/17 15:14 Guaifenesin/ Dextromethorphan (Robitussin DM Syrup) 10 ml Q4H PRN ORAL For Cough 03/05/17 09:45 04/04/17 09:44 03/05/17 10:17 Heparin Sodium (Porcine) (Heparin 5000 units/ml) 5,000 units EVERY 12 HOURS SUBQ 03/03/17 21:00 04/02/17 20:59 03/05/17 08:32 Levofloxacin 150 ml @ 100 mls/hr Q48H IVPB 03/05/17 14:00 03/12/17 13:59 Lorazepam (Ativan 2mg/ml 1ml) 2 mg Q2H PRN IV For Anxiety 03/03/17 15:15 03/10/17 15:14 Morphine Sulfate (Morphine Sulfate) 4 mg Q4H PRN IVP Severe Pain (Pain Scale 7-10) 03/03/17 15:15 03/10/17 15:14 Ondansetron HCl (Zofran) 4 mg Q6H PRN IVP Nausea & Vomiting 03/03/17 15:15 04/02/17 15:14 Polyethylene Glycol (Miralax) 17 gm DAILYPRN PRN ORAL Constipation 03/03/17 15:15 04/02/17 15:14 Pravastatin Sodium (Pravachol) 10 mg BEDTIME ORAL 03/03/17 21:00 04/02/17 20:59 03/04/17 21:16 Sodium Chloride 1,000 ml @ 50 mls/hr Q20H IV 03/03/17 16:00 04/02/17 15:59 03/05/17 06:00 Tramadol HCl (Ultram) 50 mg Q6H PRN ORAL Moderate Pain (Pain Scale 4-6) 03/03/17 15:15 03/10/17 15:14 LOW CARTWRIGTH Mar 05, 2017 12:29
[2017-03-05 12:33] VITALS: BP 126/60
--- NOTE | 2017-03-05 14:32 | Cardiology Progress Note ---
Assessment/Plan Assessment/Plan 1. Cough. 2. Abnormal electrocardiogram. 3. Hypertension. 4. Hyperlipidemia. all trop neg despite abn ekg may be chronic no sign or sx to suggest acs still abn lung finding out of proportion to cxr will review echo tele neg ' ok to dc tele ekg noted Subjective Cardiovascular: Denies: chest pain, irregular heart rate, lightheadedness Respiratory: Reports: cough, Denies: shortness of breath Gastrointestinal/Abdominal: Denies: abdominal pain Genitourinary: Denies: burning Objective Last 24 Hour Vital Signs Date Time Temp Pulse Resp B/P (MAP) Pulse Ox O2 Delivery O2 Flow Rate FiO2 03/05/17 12:33 97.7 68 18 126/60 95 Nasal Cannula 03/05/17 11:54 70 03/05/17 09:32 63 16 99 Nasal Cannula 2.0 28 03/05/17 09:27 63 15 94 Nasal Cannula 2.0 28 03/05/17 08:27 63 138/67 03/05/17 08:25 98.1 63 18 138/67 96 Nasal Cannula 03/05/17 08:04 63 03/05/17 07:19 95 Nasal Cannula 2.0 28 03/05/17 07:19 Nasal Cannula 2.0 28 03/05/17 04:11 98.6 63 16 122/58 96 Nasal Cannula 96 03/05/17 04:00 66 03/05/17 00:00 63 03/04/17 23:45 98.4 62 16 136/67 97 Nasal Cannula 62 03/04/17 21:54 96 Nasal Cannula 2.0 28 03/04/17 21:54 Nasal Cannula 2.0 28 03/04/17 20:00 70 03/04/17 19:48 98.5 70 16 139/67 94 Nasal Cannula 70 03/04/17 16:06 98.6 66 16 135/75 95 Nasal Cannula 2.0 03/04/17 16:00 73 General Appearance: alert Neck: supple Cardiovascular: normal rate, regular rhythm Respiratory/Chest: crackles/rales, rhonchi - bilaterally Abdomen: normal bowel sounds, non tender, soft Extremities: no swelling Intake and Output 03/05/17 03/06/17 19:00 07:00 Intake Total 530 ml Balance 530 ml Intake Oral 480 ml IV Total 50 ml # Voids 2 # Bowel Movements 1 Laboratory Tests Test 03/05/17 05:27 White Blood Count 17.8 K/UL (4.8-10.8) H Red Blood Count 3.87 M/UL (4.20-5.40) L Hemoglobin 12.2 G/DL (12.0-16.0) Hematocrit 35.7 % (37.0-47.0) L Mean Corpuscular Volume 92 FL (80-99) Mean Corpuscular Hemoglobin 31.6 PG (27.0-31.0) H Mean Corpuscular Hemoglobin Concent 34.1 G/DL (32.0-36.0) Red Cell Distribution Width 13.6 % (11.6-14.8) Platelet Count 122 K/UL (150-450) L Mean Platelet Volume 7.5 FL (6.5-10.1) Neutrophils (%) (Auto) % (45.0-75.0) Lymphocytes (%) (Auto) % (20.0-45.0) Monocytes (%) (Auto) % (1.0-10.0) Eosinophils (%) (Auto) % (0.0-3.0) Basophils (%) (Auto) % (0.0-2.0) Differential Total Cells Counted 100 Neutrophils % (Manual) 18 % (45-75) L Lymphocytes % (Manual) 69 % (20-45) H Monocytes % (Manual) 13 % (1-10) H Eosinophils % (Manual) 0 % (0-3) Basophils % (Manual) 0 % (0-2) Band Neutrophils 0 % (0-8) Reactive Lymphocytes 2+ Platelet Estimate Decreased L Platelet Morphology Normal Sodium Level 139 MMOL/L (136-145) Potassium Level 4.1 MMOL/L (3.5-5.1) Chloride Level 104 MMOL/L (98-107) Carbon Dioxide Level 25 MMOL/L (21-32) Anion Gap 10 mmol/L (5-15) Blood Urea Nitrogen 10 mg/dL (7-18) Creatinine 1.0 MG/DL (0.55-1.30) Estimat Glomerular Filtration Rate mL/min (>60) Glucose Level 86 MG/DL (74-106) Calcium Level 8.9 MG/DL (8.5-10.1) Troponin I 0.003 ng/mL (0.000-0.056) Microbiology Date/Time Source Procedure Growth Status 03/03/17 12:25 Blood Blood Culture - Preliminary NO GROWTH AFTER 24 HOURS Resulted 03/03/17 12:25 Blood Blood Culture - Preliminary NO GROWTH AFTER 24 HOURS Resulted RAINER LEE Mar 05, 2017 14:32
[2017-03-05] MEDS ORDERED: Albuterol/Ipratropium 3ml neb HHN PRN (15:15)
[2017-03-05] MEDS ORDERED: Morphine Sulfate 4mg/ml Inj IVP PRN (15:15)
[2017-03-05] MEDS ORDERED: Miralax 17gm pkt ORAL PRN (15:15)
[2017-03-05] MEDS ORDERED: LORazepam Inj 2mg/ml 1ml IV PRN (15:15)
[2017-03-05] MEDS ORDERED: traMADol 50mg tab ORAL PRN (15:15)
--- NOTE | 2017-03-05 15:18 | Cardiology Report ---
APPROVED REPORT EXAM: Two-dimensional and M-mode echocardiogram with Doppler and color Doppler. INDICATION Hypertension/HCVD M-Mode DIMENSIONS IVSd0.8 (0.7-1.1cm)Left Atrium (MM)3.1 (1.6-4.0cm) LVDd4.5 (3.5-5.6cm)Aortic Root2.2 (2.0-3.7cm) PWd0.7 (0.7-1.1cm)Aortic Cusp Exc.1.5 (1.5-2.0cm) LVDs2.1 (2.5-4.0cm) PWs1.5 cm Normal left ventricular chamber size, systolic function and wall motion. Left ventricular ejection fraction estimated to be 65-70 %. No evidence of left ventricular hypertrophy. Anterior Echo-free space, may be due to pericardial fat or effusion. All other cardiac chamber sizes are within normal limits. Mild focal aortic valve CALCIFICATION with MILD DECREASE cusp excursion. Mildly thickened mitral valve leaflets with normal excursion. Mild mitral annulus and aortic root calcification. Pulmonic valve not well visualized. Normal tricuspid valve structure. IVC at normal size with physiologic collapse. A color flow and spectral Doppler study was performed and revealed: Trace aortic regurgitation. AV peak gradient 21 Mean gradiwent 10 mmhg No mitral regurgitation. Mitral diastolic velocities suggest reduced left ventricular relaxation c/w mild LV diastolic dysfunction (Grade I ). Mild tricuspid regurgitation. Tricuspid systolic velocities suggests peak right ventricular systolic pressure of 37 mmHg, consistent with mild pulmonary hypertension. Trace pulmonic regurgitation present.
--- NOTE | 2017-03-05 15:26 | Internal Med Progress Note ---
Subjective Date of Service: Mar 05, 2017 Physician Name VioletteObi Attending Physician Mandeep Galarza MD Current Medications Medications (Trade) Dose Ordered Sig/Adalgisa Route PRN Reason Start Time Stop Time Status Last Admin Dose Admin Acetaminophen (Tylenol) 650 mg Q4H PRN ORAL T>100.5 F 03/05/17 15:15 04/02/17 15:14 Albuterol/ Ipratropium (Albuterol/ Ipratropium) 3 ml Q4H PRN HHN Shortness of Breath 03/05/17 15:15 03/08/17 15:14 Amlodipine Besylate (Norvasc) 10 mg DAILY ORAL 03/06/17 09:00 04/03/17 08:59 Dextrose (Dextrose 50%) STAT PRN IV Hypoglycemia 03/05/17 15:15 04/02/17 15:14 Guaifenesin/ Dextromethorphan (Robitussin DM Syrup) 10 ml Q4H PRN ORAL For Cough 03/05/17 17:45 04/04/17 09:44 Heparin Sodium (Porcine) (Heparin 5000 units/ml) 5,000 units EVERY 12 HOURS SUBQ 03/05/17 21:00 04/02/17 20:59 Levofloxacin 150 ml @ 100 mls/hr Q48H IVPB 03/07/17 14:00 03/12/17 13:59 Lorazepam (Ativan 2mg/ml 1ml) 2 mg Q2H PRN IV For Anxiety 03/05/17 15:15 03/10/17 15:14 Morphine Sulfate (Morphine Sulfate) 4 mg Q4H PRN IVP Severe Pain (Pain Scale 7-10) 03/05/17 15:15 03/10/17 15:14 Ondansetron HCl (Zofran) 4 mg Q6H PRN IVP Nausea & Vomiting 03/05/17 15:15 04/02/17 15:14 Polyethylene Glycol (Miralax) 17 gm DAILYPRN PRN ORAL Constipation 03/05/17 15:15 04/02/17 15:14 Pravastatin Sodium (Pravachol) 10 mg BEDTIME ORAL 03/05/17 21:00 04/02/17 20:59 Tramadol HCl (Ultram) 50 mg Q6H PRN ORAL Moderate Pain (Pain Scale 4-6) 03/05/17 15:15 03/10/17 15:14 Allergies: Coded Allergies: No Known Allergies (Verified Allergy, Unknown, 02/26/08) ROS Limited/Unobtainable: No Constitutional: Reports: no symptoms HEENT: Reports: no symptoms Cardiovascular: Reports: no symptoms Respiratory: Reports: cough, shortness of breath Gastrointestinal/Abdominal: Reports: no symptoms Genitourinary: Reports: no symptoms Neurologic/Psychiatric: Reports: no symptoms Subjective 76YO F admitted with cough and now bronchitis. Cover for Int Med-Dr Galarza. Objective Last Vital Signs Date Time Temp Pulse Resp B/P (MAP) Pulse Ox O2 Delivery O2 Flow Rate FiO2 03/05/17 12:33 97.7 68 18 126/60 95 Nasal Cannula 03/05/17 09:32 2.0 28 General Appearance: WD/WN, alert, thin EENT: PERRL/EOMI, normal ENT inspection, TMs normal Neck: non-tender, normal alignment, supple, normal inspection Cardiovascular: normal peripheral pulses, normal rate, regular rhythm, no gallop/murmur, no JVD Respiratory/Chest: chest wall non-tender, no respiratory distress, no accessory muscle use, rhonchi - bilaterally, expiratory wheezing Abdomen: normal bowel sounds, non tender, soft, no organomegaly, no mass, abnormal bowel sounds Extremities: normal range of motion, non-tender 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, no motor/sensory deficits Skin: normal pigmentation, warm/dry Laboratory Tests Test 03/05/17 05:27 White Blood Count 17.8 K/UL (4.8-10.8) H Red Blood Count 3.87 M/UL (4.20-5.40) L Hemoglobin 12.2 G/DL (12.0-16.0) Hematocrit 35.7 % (37.0-47.0) L Mean Corpuscular Volume 92 FL (80-99) Mean Corpuscular Hemoglobin 31.6 PG (27.0-31.0) H Mean Corpuscular Hemoglobin Concent 34.1 G/DL (32.0-36.0) Red Cell Distribution Width 13.6 % (11.6-14.8) Platelet Count 122 K/UL (150-450) L Mean Platelet Volume 7.5 FL (6.5-10.1) Neutrophils (%) (Auto) % (45.0-75.0) Lymphocytes (%) (Auto) % (20.0-45.0) Monocytes (%) (Auto) % (1.0-10.0) Eosinophils (%) (Auto) % (0.0-3.0) Basophils (%) (Auto) % (0.0-2.0) Differential Total Cells Counted 100 Neutrophils % (Manual) 18 % (45-75) L Lymphocytes % (Manual) 69 % (20-45) H Monocytes % (Manual) 13 % (1-10) H Eosinophils % (Manual) 0 % (0-3) Basophils % (Manual) 0 % (0-2) Band Neutrophils 0 % (0-8) Reactive Lymphocytes 2+ Platelet Estimate Decreased L Platelet Morphology Normal Sodium Level 139 MMOL/L (136-145) Potassium Level 4.1 MMOL/L (3.5-5.1) Chloride Level 104 MMOL/L (98-107) Carbon Dioxide Level 25 MMOL/L (21-32) Anion Gap 10 mmol/L (5-15) Blood Urea Nitrogen 10 mg/dL (7-18) Creatinine 1.0 MG/DL (0.55-1.30) Estimat Glomerular Filtration Rate mL/min (>60) Glucose Level 86 MG/DL (74-106) Calcium Level 8.9 MG/DL (8.5-10.1) Troponin I 0.003 ng/mL (0.000-0.056) Microbiology Date/Time Source Procedure Growth Status 03/03/17 12:25 Blood Blood Culture - Preliminary NO GROWTH AFTER 24 HOURS Resulted 03/03/17 12:25 Blood Blood Culture - Preliminary NO GROWTH AFTER 24 HOURS Resulted Intake and Output 03/05/17 03/06/17 19:00 07:00 Intake Total 890 ml Balance 890 ml Intake Oral 840 ml IV Total 50 ml # Voids 3 # Bowel Movements 1 Assessment/Plan Problem List: (1) HTN (hypertension) Assessment & Plan: Cont norvasc (2) Hypercholesteremia (3) Bronchitis Assessment & Plan: See pulmonary note. Continue levaquin (4) Chronic lymphocytic leukemia (5) Upper respiratory infection Status: not improved OBI DAWSON Mar 05, 2017 15:26
--- NOTE | 2017-03-05 15:28 | Cardiology Report ---
APPROVED REPORT EKG Measurement Heart [id number] MT [id number] Sinus bradycardia Nonspecific T wave abnormality Abnormal ECG
--- NOTE | 2017-03-05 15:32 | Cardiology Report ---
APPROVED REPORT EKG Measurement Heart [id number] GA 134P61 [id number] Sinus bradycardia Nonspecific T wave abnormality Abnormal ECG
--- NOTE | 2017-03-05 15:35 | Cardiology Report ---
APPROVED REPORT EKG Measurement Heart [id number] CA 124P66 [id number] Normal sinus rhythm Left ventricular hypertrophy with repolarization abnormality Abnormal ECG
[2017-03-05 15:53] VITALS: BP 133/56
[2017-03-05] MEDS ORDERED: Tubing IV Secondary IV ONE (16:03)
[2017-03-05] MEDS ORDERED: 1/2 NS 1000ml IV ONE (16:03)
[2017-03-05 20:00] VITALS: BP 156/52
[2017-03-06] VITALS: BP 123/56
[2017-03-06 04:00] VITALS: BP 128/60
[2017-03-06 07:19] LABS: MEAN CORPUSCULAR HEMOGLOBIN 31.8 PG (27.0-31.0); MEAN CORPUSCULAR HGB CONC 34.3 G/DL (32.0-36.0); MEAN CORPUSCULAR VOLUME 93 FL (80-99); MEAN PLATELET VOLUME 7.8 FL (6.5-10.1); PLATELET COUNT 118 K/UL (150-450); RED BLOOD COUNT 3.66 M/UL (4.20-5.40); RED CELL DISTRIBUTION WIDTH 13.5 % (11.6-14.8); WHITE BLOOD COUNT 13.6 K/UL (4.8-10.8)
[2017-03-06 07:39] LABS: ALANINE AMINOTRANSFERASE 16 U/L (12-78); ALBUMIN/GLOBULIN RATIO 0.8 (1.0-2.7); ANION GAP 9 mmol/L (5-15); ASPARTATE AMINO TRANSFERASE 23 U/L (15-37); CARBON DIOXIDE 27 MMOL/L (21-32); CHLORIDE 106 MMOL/L (98-107); POTASSIUM 4.4 MMOL/L (3.5-5.1); SODIUM 142 MMOL/L (136-145); TOTAL PROTEIN 7.1 G/DL (6.4-8.2)
--- NOTE | 2017-03-06 07:45 | Consultation ---
DATE OF CONSULTATION: 03/04/2017 HEMATOLOGY/ONCOLOGY CONSULTATION CONSULTING PHYSICIAN: Orlin Mckeon M.D. REQUESTING PHYSICIAN: Mandeep Galarza M.D. REASON FOR CONSULTATION: Evaluation and management of CML. IDENTIFICATION DATA: Dear Dr. Galarza, The patient is a pleasant 76-year-old female with past medical history significant for CML, which is in remission. At this time, presents to [facility], found to have leukocytosis and with a history bronchitis, received antibiotics and has been seen by Cardiology service and also ID service. Chest x-ray is negative. on left side. EKG with abnormal , all negative. Hematology service was consulted for history of CML. PAST MEDICAL HISTORY: CML and . MEDICATIONS: , albuterol, amlodipine, morphine sulfate, Keppra, . ALLERGIES: No known drug allergies. SOCIAL HISTORY: No alcohol, tobacco, or illicit drug use. FAMILY HISTORY: Noncontributory. REVIEW OF SYSTEMS: Constitutional: No fevers, chills, or night sweats. Skin: No rashes, bumps, or itching. HEENT: No headache, hearing or vision changes. Breasts: No lumps, pain, or discharge. Pulmonary: No cough, sputum, or shortness of breath is noted. PHYSICAL EXAMINATION: GENERAL: No distress. VITAL SIGNS: Reviewed. PULMONARY: Decreased breath sounds. CARDIOVASCULAR: Regular rate. No S3 or S4. ABDOMEN: Soft, nontender, and nondistended. EXTREMITIES: A 1+ edema. LABORATORY AND DIAGNOSTIC DATA: WBC of 18, hemoglobin 13.2, hematocrit 40, and platelet count of 139,000. ASSESSMENT AND RECOMMENDATIONS: 1. Chronic myelogenous leukemia, currently in remission. Continue to closely monitor. In case, the patient requires Gleevec, continue to monitor. No evidence of recurrence at this time. 2. Leukocytosis secondary to underlying infection. We will continue to monitor. 3. Anemia secondary to chronic disease. 4. Bronchitis, seen by Infectious Disease service, on antibiotics. 5. Upper respiratory infection, treatment. I appreciate the consultation. Orlin Mckeon M.D. DR: ENRIQUE JOB#: [id number] CC:
[2017-03-06 08:00] VITALS: BP 132/63
[2017-03-06 08:18] LABS: BAND NEUTROPHILS % (MANUAL) 0 % (0-8); BASOPHILS % (MANUAL) 0 % (0-2); EOSINOPHILS % (MANUAL) 0 % (0-3); LYMPHOCYTES % (MANUAL) 71 % (20-45); NEUTROPHILS % (MANUAL) 19 % (45-75); PLATELET ESTIMATE DECREASED; PLATELET MORPHOLOGY NORMAL; REACTIVE LYMPHOCYTES 2+; TOTAL CELLS COUNTED 100
[2017-03-06] MEDS: Heparin 5000 units/ml inj SUBQ SCH ×2 (08:48→21:00)
--- NOTE | 2017-03-06 10:13 | Diagnostic Imaging Report ---
APPROVED REPORT CPT Code: 02083 Present Symptoms Shortness of breath BILATERAL: Imaging reveals a patent deep venous system bilaterally. There is no evidence of thrombus within the femoral, popliteal or tibial segments. The greater saphenous veins are also within normal limits. Doppler indicates normal spontaneous flow within these segments.
--- NOTE | 2017-03-06 10:32 | Internal Med Progress Note ---
Subjective Date of Service: Mar 06, 2017 Physician Name Dario Dawson Attending Physician Mandeep Galarza MD Current Medications Medications (Trade) Dose Ordered Sig/Adalgisa Route PRN Reason Start Time Stop Time Status Last Admin Dose Admin Acetaminophen (Tylenol) 650 mg Q4H PRN ORAL T>100.5 F 03/05/17 15:15 04/02/17 15:14 Albuterol/ Ipratropium (Albuterol/ Ipratropium) 3 ml Q4H PRN HHN Shortness of Breath 03/05/17 15:15 03/08/17 15:14 Amlodipine Besylate (Norvasc) 10 mg DAILY ORAL 03/06/17 09:00 04/03/17 08:59 03/06/17 08:48 Dextrose (Dextrose 50%) STAT PRN IV Hypoglycemia 03/05/17 15:15 04/02/17 15:14 Guaifenesin/ Dextromethorphan (Robitussin DM Syrup) 10 ml Q4H PRN ORAL For Cough 03/05/17 17:45 04/04/17 09:44 Heparin Sodium (Porcine) (Heparin 5000 units/ml) 5,000 units EVERY 12 HOURS SUBQ 03/05/17 21:00 04/02/17 20:59 03/05/17 21:42 Levofloxacin 150 ml @ 100 mls/hr Q48H IVPB 03/07/17 14:00 03/12/17 13:59 Lorazepam (Ativan 2mg/ml 1ml) 2 mg Q2H PRN IV For Anxiety 03/05/17 15:15 03/10/17 15:14 Morphine Sulfate (Morphine Sulfate) 4 mg Q4H PRN IVP Severe Pain (Pain Scale 7-10) 03/05/17 15:15 03/10/17 15:14 Ondansetron HCl (Zofran) 4 mg Q6H PRN IVP Nausea & Vomiting 03/05/17 15:15 04/02/17 15:14 Polyethylene Glycol (Miralax) 17 gm DAILYPRN PRN ORAL Constipation 03/05/17 15:15 04/02/17 15:14 Pravastatin Sodium (Pravachol) 10 mg BEDTIME ORAL 03/05/17 21:00 04/02/17 20:59 03/05/17 21:40 Tramadol HCl (Ultram) 50 mg Q6H PRN ORAL Moderate Pain (Pain Scale 4-6) 03/05/17 15:15 03/10/17 15:14 Allergies: Coded Allergies: No Known Allergies (Verified Allergy, Unknown, 02/26/08) ROS Limited/Unobtainable: No Constitutional: Reports: no symptoms HEENT: Reports: no symptoms Cardiovascular: Reports: no symptoms Respiratory: Reports: cough Gastrointestinal/Abdominal: Reports: no symptoms Genitourinary: Reports: no symptoms Neurologic/Psychiatric: Reports: no symptoms Subjective 76YO F admitted with cough and now bronchitis. Cover for Int Med-Dr Galarza. Objective Last Vital Signs Date Time Temp Pulse Resp B/P (MAP) Pulse Ox O2 Delivery O2 Flow Rate FiO2 03/06/17 08:48 63 128/60 03/06/17 08:31 96 Room Air 21 03/06/17 08:30 2.0 03/06/17 08:00 97.8 18 Laboratory Tests Test 03/06/17 05:20 White Blood Count 13.6 K/UL (4.8-10.8) H Red Blood Count 3.66 M/UL (4.20-5.40) L Hemoglobin 11.7 G/DL (12.0-16.0) L Hematocrit 34.0 % (37.0-47.0) L Mean Corpuscular Volume 93 FL (80-99) Mean Corpuscular Hemoglobin 31.8 PG (27.0-31.0) H Mean Corpuscular Hemoglobin Concent 34.3 G/DL (32.0-36.0) Red Cell Distribution Width 13.5 % (11.6-14.8) Platelet Count 118 K/UL (150-450) L Mean Platelet Volume 7.8 FL (6.5-10.1) Neutrophils (%) (Auto) % (45.0-75.0) Lymphocytes (%) (Auto) % (20.0-45.0) Monocytes (%) (Auto) % (1.0-10.0) Eosinophils (%) (Auto) % (0.0-3.0) Basophils (%) (Auto) % (0.0-2.0) Differential Total Cells Counted 100 Neutrophils % (Manual) 19 % (45-75) L Lymphocytes % (Manual) 71 % (20-45) H Monocytes % (Manual) 10 % (1-10) Eosinophils % (Manual) 0 % (0-3) Basophils % (Manual) 0 % (0-2) Band Neutrophils 0 % (0-8) Reactive Lymphocytes 2+ Platelet Estimate Decreased L Platelet Morphology Normal Sodium Level 142 MMOL/L (136-145) Potassium Level 4.4 MMOL/L (3.5-5.1) Chloride Level 106 MMOL/L (98-107) Carbon Dioxide Level 27 MMOL/L (21-32) Anion Gap 9 mmol/L (5-15) Blood Urea Nitrogen 9 mg/dL (7-18) Creatinine 1.0 MG/DL (0.55-1.30) Estimat Glomerular Filtration Rate mL/min (>60) Glucose Level 83 MG/DL (74-106) Calcium Level 9.0 MG/DL (8.5-10.1) Total Bilirubin 0.3 MG/DL (0.2-1.0) Aspartate Amino Transf (AST/SGOT) 23 U/L (15-37) Alanine Aminotransferase (ALT/SGPT) 16 U/L (12-78) Alkaline Phosphatase 89 U/L (46-116) Pro-B-Type Natriuretic Peptide 101 pg/mL (0-125) Total Protein 7.1 G/DL (6.4-8.2) Albumin 3.2 G/DL (3.4-5.0) L Globulin 3.9 g/dL Albumin/Globulin Ratio 0.8 (1.0-2.7) L Microbiology Date/Time Source Procedure Growth Status 03/03/17 12:25 Blood Blood Culture - Preliminary NO GROWTH AFTER 48 HOURS Resulted 03/03/17 12:25 Blood Blood Culture - Preliminary NO GROWTH AFTER 48 HOURS Resulted Objective General Appearance: WD/WN, alert, thin EENT: PERRL/EOMI, normal ENT inspection, TMs normal Neck: non-tender, normal alignment, supple, normal inspection Cardiovascular: normal peripheral pulses, normal rate, regular rhythm, no gallop/murmur, no JVD Respiratory/Chest: chest wall non-tender, no respiratory distress, no accessory muscle use, rhonchi - bilaterally, expiratory wheezing Abdomen: normal bowel sounds, non tender, soft, no organomegaly, no mass, abnormal bowel sounds Extremities: normal range of motion, non-tender 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 Continue levaquin (4) Chronic lymphocytic leukemia Assessment & Plan: See onc note. (5) Upper respiratory infection Status: progressing DARIO DAWSON Mar 06, 2017 10:32
[2017-03-06 12:00] VITALS: BP 131/65
--- NOTE | 2017-03-06 12:29 | Pulmonology Progress Note ---
Assessment/Plan Problems: (1) Purulent bronchitis (2) CML (chronic myeloid leukemia) (3) Leukocytosis (4) Upper respiratory infection (5) Protein-calorie malnutrition, severe Assessment/Plan improving check sputum, still pending IV abx on levafloxacine titrate fio2 to sat of 92% chest pt respiratory treatment blood smear reviewed, atypical Lymphocytes, hematology consult requested. Subjective ROS Limited/Unobtainable: No Interval Events: getting better, less cough Allergies: Coded Allergies: No Known Allergies (Verified Allergy, Unknown, 02/26/08) Objective Last 24 Hour Vital Signs Date Time Temp Pulse Resp B/P (MAP) Pulse Ox O2 Delivery O2 Flow Rate FiO2 03/06/17 08:48 63 128/60 03/06/17 08:31 96 Room Air 21 03/06/17 08:30 Nasal Cannula 2.0 28 03/06/17 08:00 97.8 62 18 132/63 99 Nasal Cannula 2.0 03/06/17 04:00 98.2 63 20 128/60 98 Nasal Cannula 2.0 63 03/06/17 00:00 98.4 63 18 123/56 98 Nasal Cannula 2.0 63 03/05/17 23:37 96 Nasal Cannula 2.0 28 03/05/17 23:37 Nasal Cannula 2.0 28 03/05/17 20:00 98.6 63 18 156/52 98 Nasal Cannula 2.0 63 03/05/17 15:53 97.4 67 18 133/56 97 Nasal Cannula 2.0 67 03/05/17 12:33 97.7 68 18 126/60 95 Nasal Cannula Objective General Appearance: cachetic Lines, tubes and drains: peripheral HEENT: normocephalic, atraumatic Neck: non-tender, normal alignment Respiratory/Chest: chest wall non-tender, bilateral rhonchi Cardiovascular/Chest: normal peripheral pulses, regular rhythm, no gallop/ murmur Abdomen: normal bowel sounds, non tender Genitourinary/Rectal: normal genital exam Extremities: normal range of motion, non-tender Laboratory Tests 03/06/17 05:20: White Blood Count 13.6H, Red Blood Count 3.66L, Hemoglobin 11.7L, Hematocrit 34.0L, Mean Corpuscular Volume 93, Mean Corpuscular Hemoglobin 31.8H, Mean Corpuscular Hemoglobin Concent 34.3, Red Cell Distribution Width 13.5, Platelet Count 118L, Mean Platelet Volume 7.8, Neutrophils (%) (Auto) , Lymphocytes (%) ( Auto) , Monocytes (%) (Auto) , Eosinophils (%) (Auto) , Basophils (%) (Auto) , Differential Total Cells Counted 100, Neutrophils % (Manual) 19L, Lymphocytes % (Manual) 71H, Monocytes % (Manual) 10, Eosinophils % (Manual) 0, Basophils % ( Manual) 0, Band Neutrophils 0, Reactive Lymphocytes 2+, Platelet Estimate DecreasedL, Platelet Morphology Normal, Sodium Level 142, Potassium Level 4.4, Chloride Level 106, Carbon Dioxide Level 27, Anion Gap 9, Blood Urea Nitrogen 9 , Creatinine 1.0, Estimat Glomerular Filtration Rate , Glucose Level 83, Calcium Level 9.0, Total Bilirubin 0.3, Aspartate Amino Transf (AST/SGOT) 23, Alanine Aminotransferase (ALT/SGPT) 16, Alkaline Phosphatase 89, Pro-B-Type Natriuretic Peptide 101, Total Protein 7.1, Albumin 3.2L, Globulin 3.9, Albumin/ Globulin Ratio 0.8L Current Medications Medications (Trade) Dose Ordered Sig/Adlagisa Route PRN Reason Start Time Stop Time Status Last Admin Dose Admin Acetaminophen (Tylenol) 650 mg Q4H PRN ORAL T>100.5 F 03/05/17 15:15 04/02/17 15:14 Albuterol/ Ipratropium (Albuterol/ Ipratropium) 3 ml Q4H PRN HHN Shortness of Breath 03/05/17 15:15 03/08/17 15:14 Amlodipine Besylate (Norvasc) 10 mg DAILY ORAL 03/06/17 09:00 04/03/17 08:59 03/06/17 08:48 Dextrose (Dextrose 50%) STAT PRN IV Hypoglycemia 03/05/17 15:15 04/02/17 15:14 Guaifenesin/ Dextromethorphan (Robitussin DM Syrup) 10 ml Q4H PRN ORAL For Cough 03/05/17 17:45 04/04/17 09:44 Heparin Sodium (Porcine) (Heparin 5000 units/ml) 5,000 units EVERY 12 HOURS SUBQ 03/05/17 21:00 04/02/17 20:59 03/05/17 21:42 Levofloxacin 150 ml @ 100 mls/hr Q48H IVPB 03/07/17 14:00 03/12/17 13:59 Lorazepam (Ativan 2mg/ml 1ml) 2 mg Q2H PRN IV For Anxiety 03/05/17 15:15 03/10/17 15:14 Morphine Sulfate (Morphine Sulfate) 4 mg Q4H PRN IVP Severe Pain (Pain Scale 7-10) 03/05/17 15:15 03/10/17 15:14 Ondansetron HCl (Zofran) 4 mg Q6H PRN IVP Nausea & Vomiting 03/05/17 15:15 04/02/17 15:14 Polyethylene Glycol (Miralax) 17 gm DAILYPRN PRN ORAL Constipation 03/05/17 15:15 04/02/17 15:14 Pravastatin Sodium (Pravachol) 10 mg BEDTIME ORAL 03/05/17 21:00 04/02/17 20:59 03/05/17 21:40 Tramadol HCl (Ultram) 50 mg Q6H PRN ORAL Moderate Pain (Pain Scale 4-6) 03/05/17 15:15 03/10/17 15:14 LOW CARTWRIGHT Mar 06, 2017 12:29
--- NOTE | 2017-03-06 12:43 | Infectious Diseases Prog Note ---
Assessment/Plan Assessment/Plan ASSESSMENT: 1. The patient is a 76-year-old female with bronchitis/community-acquired pneumonia (despite of the unremarkable chest x-ray). 2. Leukocytosis, most likely due to chronic myeloid leukemia.- improving PLAN: 1. Continue Levaquin #3/5 for bronchitis-? PNA; switch to PO -03/04 SP IV Vanco and Cefepime #2 2. Monitor CBC. 3. Monitor BMP. 4. Monitor cultures (blood, sputum). 5. Monitor chest x-ray. Thank you, Dr. Dumont, for allowing me to participate in the care of this patient. I will follow the patient with you during this hospitalization. Subjective Allergies: Coded Allergies: No Known Allergies (Verified Allergy, Unknown, 02/26/08) Subjective afebrile leukocytosis improving Bcx NTD Objective Vital Signs Last 24 Hour Vital Signs Date Time Temp Pulse Resp B/P (MAP) Pulse Ox O2 Delivery O2 Flow Rate FiO2 03/06/17 08:48 63 128/60 03/06/17 08:31 96 Room Air 21 03/06/17 08:30 Nasal Cannula 2.0 28 03/06/17 08:00 97.8 62 18 132/63 99 Nasal Cannula 2.0 03/06/17 04:00 98.2 63 20 128/60 98 Nasal Cannula 2.0 63 03/06/17 00:00 98.4 63 18 123/56 98 Nasal Cannula 2.0 63 03/05/17 23:37 96 Nasal Cannula 2.0 28 03/05/17 23:37 Nasal Cannula 2.0 28 03/05/17 20:00 98.6 63 18 156/52 98 Nasal Cannula 2.0 63 03/05/17 15:53 97.4 67 18 133/56 97 Nasal Cannula 2.0 67 Height (Feet): 5 Height (Inches): 1.00 Weight (Pounds): 110 Objective PHYSICAL EXAMINATION: HEENT: No pale conjunctivae. No icterus. NECK: No lymphadenopathy. CHEST: Coarse breathing sounds. HEART: S1, S2. ABDOMEN: Soft, nontender. EXTREMITIES: No cyanosis. NEUROLOGIC: Awake and alert. Laboratory Tests Test 03/06/17 05:20 White Blood Count 13.6 K/UL (4.8-10.8) H Red Blood Count 3.66 M/UL (4.20-5.40) L Hemoglobin 11.7 G/DL (12.0-16.0) L Hematocrit 34.0 % (37.0-47.0) L Mean Corpuscular Volume 93 FL (80-99) Mean Corpuscular Hemoglobin 31.8 PG (27.0-31.0) H Mean Corpuscular Hemoglobin Concent 34.3 G/DL (32.0-36.0) Red Cell Distribution Width 13.5 % (11.6-14.8) Platelet Count 118 K/UL (150-450) L Mean Platelet Volume 7.8 FL (6.5-10.1) Neutrophils (%) (Auto) % (45.0-75.0) Lymphocytes (%) (Auto) % (20.0-45.0) Monocytes (%) (Auto) % (1.0-10.0) Eosinophils (%) (Auto) % (0.0-3.0) Basophils (%) (Auto) % (0.0-2.0) Differential Total Cells Counted 100 Neutrophils % (Manual) 19 % (45-75) L Lymphocytes % (Manual) 71 % (20-45) H Monocytes % (Manual) 10 % (1-10) Eosinophils % (Manual) 0 % (0-3) Basophils % (Manual) 0 % (0-2) Band Neutrophils 0 % (0-8) Reactive Lymphocytes 2+ Platelet Estimate Decreased L Platelet Morphology Normal Sodium Level 142 MMOL/L (136-145) Potassium Level 4.4 MMOL/L (3.5-5.1) Chloride Level 106 MMOL/L (98-107) Carbon Dioxide Level 27 MMOL/L (21-32) Anion Gap 9 mmol/L (5-15) Blood Urea Nitrogen 9 mg/dL (7-18) Creatinine 1.0 MG/DL (0.55-1.30) Estimat Glomerular Filtration Rate mL/min (>60) Glucose Level 83 MG/DL (74-106) Calcium Level 9.0 MG/DL (8.5-10.1) Total Bilirubin 0.3 MG/DL (0.2-1.0) Aspartate Amino Transf (AST/SGOT) 23 U/L (15-37) Alanine Aminotransferase (ALT/SGPT) 16 U/L (12-78) Alkaline Phosphatase 89 U/L (46-116) Pro-B-Type Natriuretic Peptide 101 pg/mL (0-125) Total Protein 7.1 G/DL (6.4-8.2) Albumin 3.2 G/DL (3.4-5.0) L Globulin 3.9 g/dL Albumin/Globulin Ratio 0.8 (1.0-2.7) L Current Medications Medications (Trade) Dose Ordered Sig/Adalgisa Route PRN Reason Start Time Stop Time Status Last Admin Dose Admin Acetaminophen (Tylenol) 650 mg Q4H PRN ORAL T>100.5 F 03/05/17 15:15 04/02/17 15:14 Albuterol/ Ipratropium (Albuterol/ Ipratropium) 3 ml Q4H PRN HHN Shortness of Breath 03/05/17 15:15 03/08/17 15:14 Amlodipine Besylate (Norvasc) 10 mg DAILY ORAL 03/06/17 09:00 04/03/17 08:59 03/06/17 08:48 Dextrose (Dextrose 50%) STAT PRN IV Hypoglycemia 03/05/17 15:15 04/02/17 15:14 Guaifenesin/ Dextromethorphan (Robitussin DM Syrup) 10 ml Q4H PRN ORAL For Cough 03/05/17 17:45 04/04/17 09:44 Heparin Sodium (Porcine) (Heparin 5000 units/ml) 5,000 units EVERY 12 HOURS SUBQ 03/05/17 21:00 04/02/17 20:59 03/05/17 21:42 Levofloxacin 150 ml @ 100 mls/hr Q48H IVPB 03/07/17 14:00 03/12/17 13:59 Lorazepam (Ativan 2mg/ml 1ml) 2 mg Q2H PRN IV For Anxiety 03/05/17 15:15 03/10/17 15:14 Morphine Sulfate (Morphine Sulfate) 4 mg Q4H PRN IVP Severe Pain (Pain Scale 7-10) 03/05/17 15:15 03/10/17 15:14 Ondansetron HCl (Zofran) 4 mg Q6H PRN IVP Nausea & Vomiting 03/05/17 15:15 04/02/17 15:14 Polyethylene Glycol (Miralax) 17 gm DAILYPRN PRN ORAL Constipation 03/05/17 15:15 04/02/17 15:14 Pravastatin Sodium (Pravachol) 10 mg BEDTIME ORAL 03/05/17 21:00 04/02/17 20:59 03/05/17 21:40 Tramadol HCl (Ultram) 50 mg Q6H PRN ORAL Moderate Pain (Pain Scale 4-6) 03/05/17 15:15 03/10/17 15:14 Janae Murillo M.D. Mar 06, 2017 12:43
--- NOTE | 2017-03-06 15:26 | Diagnostic Imaging Report ---
Indication: DYSPNEA Technique: One view of the chest Comparison: 03/03/2017 Findings: There is minimal bilateral costophrenic angle blunting, small effusions are not excludable. There are questionably some patchy parenchymal opacities now present at the left lung base. The remainder the lungs are clear. Heart size is normal. Aorta is elongated and calcified. Impression: Equivocal parenchymal opacities at the left lung base, early infiltrate not excludable. Cannot rule out small bilateral pleural effusions
[2017-03-06 16:00] VITALS: BP 122/59
--- NOTE | 2017-03-06 18:47 | Cardiology Progress Note ---
Assessment/Plan Assessment/Plan 1. Cough. 2. Abnormal electrocardiogram. 3. Hypertension. 4. Hyperlipidemia. all trop neg despite abn ekg may be chronic no sign or sx to suggest acs still abn lung finding out of proportion to cxr echo neg probnp normal ekg noted out pt stress testing in future noted plans for heme eval Subjective Cardiovascular: Denies: chest pain Respiratory: Reports: cough - sptum clear , Denies: shortness of breath Gastrointestinal/Abdominal: Denies: abdominal pain Genitourinary: Denies: burning Objective Last 24 Hour Vital Signs Date Time Temp Pulse Resp B/P (MAP) Pulse Ox O2 Delivery O2 Flow Rate FiO2 03/06/17 16:00 97.8 61 18 122/59 99 Nasal Cannula 2.0 03/06/17 12:00 98.3 63 18 131/65 97 Nasal Cannula 2.0 03/06/17 08:48 63 128/60 03/06/17 08:31 96 Room Air 21 03/06/17 08:30 Nasal Cannula 2.0 28 03/06/17 08:00 97.8 62 18 132/63 99 Nasal Cannula 2.0 03/06/17 04:00 98.2 63 20 128/60 98 Nasal Cannula 2.0 63 03/06/17 00:00 98.4 63 18 123/56 98 Nasal Cannula 2.0 63 03/05/17 23:37 96 Nasal Cannula 2.0 28 03/05/17 23:37 Nasal Cannula 2.0 28 03/05/17 20:00 98.6 63 18 156/52 98 Nasal Cannula 2.0 63 General Appearance: no apparent distress, alert Neck: no JVD Cardiovascular: normal rate, regular rhythm Respiratory/Chest: rhonchi - bilaterally Abdomen: normal bowel sounds, non tender, soft Extremities: no swelling Intake and Output 03/06/17 03/07/17 19:00 07:00 Intake Total 790 ml Balance 790 ml Intake Oral 790 ml # Voids 1 Laboratory Tests Test 03/06/17 05:20 White Blood Count 13.6 K/UL (4.8-10.8) H Red Blood Count 3.66 M/UL (4.20-5.40) L Hemoglobin 11.7 G/DL (12.0-16.0) L Hematocrit 34.0 % (37.0-47.0) L Mean Corpuscular Volume 93 FL (80-99) Mean Corpuscular Hemoglobin 31.8 PG (27.0-31.0) H Mean Corpuscular Hemoglobin Concent 34.3 G/DL (32.0-36.0) Red Cell Distribution Width 13.5 % (11.6-14.8) Platelet Count 118 K/UL (150-450) L Mean Platelet Volume 7.8 FL (6.5-10.1) Neutrophils (%) (Auto) % (45.0-75.0) Lymphocytes (%) (Auto) % (20.0-45.0) Monocytes (%) (Auto) % (1.0-10.0) Eosinophils (%) (Auto) % (0.0-3.0) Basophils (%) (Auto) % (0.0-2.0) Differential Total Cells Counted 100 Neutrophils % (Manual) 19 % (45-75) L Lymphocytes % (Manual) 71 % (20-45) H Monocytes % (Manual) 10 % (1-10) Eosinophils % (Manual) 0 % (0-3) Basophils % (Manual) 0 % (0-2) Band Neutrophils 0 % (0-8) Reactive Lymphocytes 2+ Platelet Estimate Decreased L Platelet Morphology Normal Sodium Level 142 MMOL/L (136-145) Potassium Level 4.4 MMOL/L (3.5-5.1) Chloride Level 106 MMOL/L (98-107) Carbon Dioxide Level 27 MMOL/L (21-32) Anion Gap 9 mmol/L (5-15) Blood Urea Nitrogen 9 mg/dL (7-18) Creatinine 1.0 MG/DL (0.55-1.30) Estimat Glomerular Filtration Rate mL/min (>60) Glucose Level 83 MG/DL (74-106) Calcium Level 9.0 MG/DL (8.5-10.1) Total Bilirubin 0.3 MG/DL (0.2-1.0) Aspartate Amino Transf (AST/SGOT) 23 U/L (15-37) Alanine Aminotransferase (ALT/SGPT) 16 U/L (12-78) Alkaline Phosphatase 89 U/L (46-116) Pro-B-Type Natriuretic Peptide 101 pg/mL (0-125) Total Protein 7.1 G/DL (6.4-8.2) Albumin 3.2 G/DL (3.4-5.0) L Globulin 3.9 g/dL Albumin/Globulin Ratio 0.8 (1.0-2.7) L RAINER LEE Mar 06, 2017 18:47
--- NOTE | 2017-03-06 18:50 | General Progress Note ---
Assessment/Plan Assessment/Plan ASSESSMENT AND RECOMMENDATIONS: 1. Chronic lymphocytic leukemia, stable at this time and does not require treatment. 2. Leukocytosis secondary to underlying infection. We will continue to monitor. 3. Anemia secondary to chronic disease. Watch H&H. 4. Bronchitis, seen by Infectious Disease service, on antibiotics. Subjective Gastrointestinal/Abdominal: Reports: rectal bleeding Allergies: Coded Allergies: No Known Allergies (Verified Allergy, Unknown, 02/26/08) All Systems: reviewed and negative except above Subjective afebrile, no chills Objective Last 24 Hour Vital Signs Date Time Temp Pulse Resp B/P (MAP) Pulse Ox O2 Delivery O2 Flow Rate FiO2 03/06/17 16:00 97.8 61 18 122/59 99 Nasal Cannula 2.0 03/06/17 12:00 98.3 63 18 131/65 97 Nasal Cannula 2.0 03/06/17 08:48 63 128/60 03/06/17 08:31 96 Room Air 21 03/06/17 08:30 Nasal Cannula 2.0 28 03/06/17 08:00 97.8 62 18 132/63 99 Nasal Cannula 2.0 03/06/17 04:00 98.2 63 20 128/60 98 Nasal Cannula 2.0 63 03/06/17 00:00 98.4 63 18 123/56 98 Nasal Cannula 2.0 63 03/05/17 23:37 96 Nasal Cannula 2.0 28 03/05/17 23:37 Nasal Cannula 2.0 28 03/05/17 20:00 98.6 63 18 156/52 98 Nasal Cannula 2.0 63 Intake and Output 03/06/17 03/07/17 19:00 07:00 Intake Total 790 ml Balance 790 ml Intake Oral 790 ml # Voids 1 Laboratory Tests 03/06/17 05:20: White Blood Count 13.6H, Red Blood Count 3.66L, Hemoglobin 11.7L, Hematocrit 34.0L, Mean Corpuscular Volume 93, Mean Corpuscular Hemoglobin 31.8H, Mean Corpuscular Hemoglobin Concent 34.3, Red Cell Distribution Width 13.5, Platelet Count 118L, Mean Platelet Volume 7.8, Neutrophils (%) (Auto) , Lymphocytes (%) ( Auto) , Monocytes (%) (Auto) , Eosinophils (%) (Auto) , Basophils (%) (Auto) , Differential Total Cells Counted 100, Neutrophils % (Manual) 19L, Lymphocytes % (Manual) 71H, Monocytes % (Manual) 10, Eosinophils % (Manual) 0, Basophils % ( Manual) 0, Band Neutrophils 0, Reactive Lymphocytes 2+, Platelet Estimate DecreasedL, Platelet Morphology Normal, Sodium Level 142, Potassium Level 4.4, Chloride Level 106, Carbon Dioxide Level 27, Anion Gap 9, Blood Urea Nitrogen 9 , Creatinine 1.0, Estimat Glomerular Filtration Rate , Glucose Level 83, Calcium Level 9.0, Total Bilirubin 0.3, Aspartate Amino Transf (AST/SGOT) 23, Alanine Aminotransferase (ALT/SGPT) 16, Alkaline Phosphatase 89, Pro-B-Type Natriuretic Peptide 101, Total Protein 7.1, Albumin 3.2L, Globulin 3.9, Albumin/ Globulin Ratio 0.8L Height (Feet): 5 Height (Inches): 1.00 Weight (Pounds): 110 General Appearance: no apparent distress EENT: normal ENT inspection Neck: normal alignment Cardiovascular: normal peripheral pulses Abdomen: non tender Neurologic: low vision therapist II-XII grossly normal Skin: normal pigmentation Orlin Mckeon Mar 06, 2017 18:50
[2017-03-06 20:00] VITALS: BP 135/69
[2017-03-07] VITALS: BP 127/54
[2017-03-07 04:00] VITALS: BP 144/53
[2017-03-07 06:51] LABS: MEAN CORPUSCULAR HEMOGLOBIN 31.6 PG (27.0-31.0); MEAN CORPUSCULAR HGB CONC 34.2 G/DL (32.0-36.0); MEAN CORPUSCULAR VOLUME 93 FL (80-99); MEAN PLATELET VOLUME 7.3 FL (6.5-10.1); PLATELET COUNT 131 K/UL (150-450); RED BLOOD COUNT 3.89 M/UL (4.20-5.40); RED CELL DISTRIBUTION WIDTH 13.4 % (11.6-14.8); WHITE BLOOD COUNT 14.5 K/UL (4.8-10.8)
[2017-03-07 07:14] LABS: ALANINE AMINOTRANSFERASE 17 U/L (12-78); ALBUMIN/GLOBULIN RATIO 0.8 (1.0-2.7); ANION GAP 9 mmol/L (5-15); ASPARTATE AMINO TRANSFERASE 22 U/L (15-37); CALCIUM 9.1 MG/DL (8.5-10.1); CARBON DIOXIDE 27 MMOL/L (21-32); CHLORIDE 105 MMOL/L (98-107); POTASSIUM 4.2 MMOL/L (3.5-5.1); SODIUM 140 MMOL/L (136-145); TOTAL PROTEIN 7.1 G/DL (6.4-8.2)
[2017-03-07 08:00] VITALS: BP 140/59
[2017-03-07 08:10] LABS: BAND NEUTROPHILS % (MANUAL) 0 % (0-8); BASOPHILS % (MANUAL) 0 % (0-2); EOSINOPHILS % (MANUAL) 0 % (0-3); LYMPHOCYTES % (MANUAL) 79 % (20-45); NEUTROPHILS % (MANUAL) 19 % (45-75); PLATELET ESTIMATE DECREASED; PLATELET MORPHOLOGY NORMAL; TOTAL CELLS COUNTED 100
[2017-03-07 08:13] LABS: MAGNESIUM 1.8 MG/DL (1.8-2.4); PHOSPHORUS 3.5 MG/DL (2.5-4.9)
[2017-03-07] MEDS: Heparin 5000 units/ml inj SUBQ SCH (08:50)
[2017-03-07] MEDS ORDERED: Levofloxacin 500mg tab ORAL SCH (09:00)
[2017-03-07] MEDS ORDERED: Heparin 5000 units/ml inj SUBQ SCH ×2 (09:30→21:00)
--- NOTE | 2017-03-07 11:59 | Infectious Diseases Prog Note ---
Assessment/Plan Assessment/Plan ASSESSMENT: 1. The patient is a 76-year-old female with bronchitis/community-acquired pneumonia (despite of the unremarkable chest x-ray). -03/06 CXR: : Equivocal parenchymal opacities at the left lung base, early infiltrate not excludable. Cannot rule out small bilateral pleural effusions 2. Leukocytosis, most likely due to chronic myeloid leukemia.- overall improved PLAN: 1. Continue Levaquin #4/5 for bronchitis- -03/04 SP IV Vanco and Cefepime #2 -monitor qtc 2. Monitor CBC. 3. Monitor BMP. 4. Monitor cultures (blood, sputum). 5. Monitor chest x-ray. Thank you, Dr. Dumont, for allowing me to participate in the care of this patient. I will follow the patient with you during this hospitalization. Subjective Allergies: Coded Allergies: No Known Allergies (Verified Allergy, Unknown, 02/26/08) Subjective afebrile leukocytosis improving Bcx NTD Objective Vital Signs Last 24 Hour Vital Signs Date Time Temp Pulse Resp B/P (MAP) Pulse Ox O2 Delivery O2 Flow Rate FiO2 03/07/17 08:57 Nasal Cannula 2.0 28 03/07/17 08:56 98 Nasal Cannula 2.0 28 03/07/17 08:49 61 140/59 03/07/17 08:00 97.7 61 19 140/59 03/07/17 04:00 97.7 50 22 144/53 98 Nasal Cannula 03/07/17 00:00 98.1 61 22 127/54 96 Nasal Cannula 03/06/17 20:00 98.1 56 20 135/69 97 Nasal Cannula 03/06/17 16:00 97.8 61 18 122/59 99 Nasal Cannula 2.0 03/06/17 12:00 98.3 63 18 131/65 97 Nasal Cannula 2.0 Height (Feet): 5 Height (Inches): 1.00 Weight (Pounds): 110 Objective HEENT: No pale conjunctivae. No icterus. NECK: No lymphadenopathy. CHEST: Coarse breathing sounds. HEART: S1, S2. ABDOMEN: Soft, nontender. EXTREMITIES: No cyanosis. NEUROLOGIC: Awake and alert. Laboratory Tests Test 03/07/17 05:50 White Blood Count 14.5 K/UL (4.8-10.8) H Red Blood Count 3.89 M/UL (4.20-5.40) L Hemoglobin 12.3 G/DL (12.0-16.0) Hematocrit 36.0 % (37.0-47.0) L Mean Corpuscular Volume 93 FL (80-99) Mean Corpuscular Hemoglobin 31.6 PG (27.0-31.0) H Mean Corpuscular Hemoglobin Concent 34.2 G/DL (32.0-36.0) Red Cell Distribution Width 13.4 % (11.6-14.8) Platelet Count 131 K/UL (150-450) L Mean Platelet Volume 7.3 FL (6.5-10.1) Neutrophils (%) (Auto) % (45.0-75.0) Lymphocytes (%) (Auto) % (20.0-45.0) Monocytes (%) (Auto) % (1.0-10.0) Eosinophils (%) (Auto) % (0.0-3.0) Basophils (%) (Auto) % (0.0-2.0) Differential Total Cells Counted 100 Neutrophils % (Manual) 19 % (45-75) L Lymphocytes % (Manual) 79 % (20-45) H Monocytes % (Manual) 2 % (1-10) Eosinophils % (Manual) 0 % (0-3) Basophils % (Manual) 0 % (0-2) Band Neutrophils 0 % (0-8) Platelet Estimate Decreased L Platelet Morphology Normal Red Blood Cell Morphology Normal Sodium Level 140 MMOL/L (136-145) Potassium Level 4.2 MMOL/L (3.5-5.1) Chloride Level 105 MMOL/L (98-107) Carbon Dioxide Level 27 MMOL/L (21-32) Anion Gap 9 mmol/L (5-15) Blood Urea Nitrogen 10 mg/dL (7-18) Creatinine 1.0 MG/DL (0.55-1.30) Estimat Glomerular Filtration Rate mL/min (>60) Glucose Level 85 MG/DL (74-106) Calcium Level 9.1 MG/DL (8.5-10.1) Phosphorus Level 3.5 MG/DL (2.5-4.9) Magnesium Level 1.8 MG/DL (1.8-2.4) Total Bilirubin 0.3 MG/DL (0.2-1.0) Aspartate Amino Transf (AST/SGOT) 22 U/L (15-37) Alanine Aminotransferase (ALT/SGPT) 17 U/L (12-78) Alkaline Phosphatase 92 U/L (46-116) Total Protein 7.1 G/DL (6.4-8.2) Albumin 3.2 G/DL (3.4-5.0) L Globulin 3.9 g/dL Albumin/Globulin Ratio 0.8 (1.0-2.7) L Current Medications Medications (Trade) Dose Ordered Sig/Adalgisa Route PRN Reason Start Time Stop Time Status Last Admin Dose Admin Acetaminophen (Tylenol) 650 mg Q4H PRN ORAL T>100.5 F 03/05/17 15:15 04/02/17 15:14 Albuterol/ Ipratropium (Albuterol/ Ipratropium) 3 ml Q4H PRN HHN Shortness of Breath 03/05/17 15:15 03/08/17 15:14 Amlodipine Besylate (Norvasc) 10 mg DAILY ORAL 03/06/17 09:00 04/03/17 08:59 03/07/17 08:49 Dextrose (Dextrose 50%) STAT PRN IV Hypoglycemia 03/05/17 15:15 04/02/17 15:14 Guaifenesin/ Dextromethorphan (Robitussin DM Syrup) 10 ml Q4H PRN ORAL For Cough 03/05/17 17:45 04/04/17 09:44 Heparin Sodium (Porcine) (Heparin 5000 units/ml) 5,000 units EVERY 12 HOURS SUBQ 03/07/17 21:00 04/06/17 20:59 Levofloxacin (Levaquin) 750 mg EVERY OTHER DAY ORAL 03/07/17 09:00 03/14/17 08:59 03/07/17 08:49 Lorazepam (Ativan 2mg/ml 1ml) 2 mg Q2H PRN IV For Anxiety 03/05/17 15:15 03/10/17 15:14 Morphine Sulfate (Morphine Sulfate) 4 mg Q4H PRN IVP Severe Pain (Pain Scale 7-10) 03/05/17 15:15 03/10/17 15:14 Ondansetron HCl (Zofran) 4 mg Q6H PRN IVP Nausea & Vomiting 03/05/17 15:15 04/02/17 15:14 Polyethylene Glycol (Miralax) 17 gm DAILYPRN PRN ORAL Constipation 03/05/17 15:15 04/02/17 15:14 Pravastatin Sodium (Pravachol) 10 mg BEDTIME ORAL 03/05/17 21:00 04/02/17 20:59 03/06/17 20:27 Tramadol HCl (Ultram) 50 mg Q6H PRN ORAL Moderate Pain (Pain Scale 4-6) 03/05/17 15:15 03/10/17 15:14 Janae Murillo M.D. Mar 07, 2017 11:59
[2017-03-07 12:00] VITALS: BP 122/64
--- NOTE | 2017-03-07 14:44 | Cardiology Progress Note ---
Assessment/Plan Assessment/Plan 1. Cough. 2. Abnormal electrocardiogram. 3. Hypertension. 4. Hyperlipidemia. all trop neg despite abn ekg may be chronic no sign or sx to suggest acs still abn lung finding out of proportion to cxr echo neg probnp normal ekg noted out pt stress testing in future noted plans for heme eval pt understand the need for outpt follow up to make suer resolution of her lung sx and stress test Subjective Cardiovascular: Denies: chest pain Respiratory: Denies: shortness of breath Gastrointestinal/Abdominal: Denies: abdominal pain Genitourinary: Denies: burning Objective Last 24 Hour Vital Signs Date Time Temp Pulse Resp B/P (MAP) Pulse Ox O2 Delivery O2 Flow Rate FiO2 03/07/17 12:00 98.1 69 18 122/64 03/07/17 08:57 Nasal Cannula 2.0 03/07/17 08:56 98 Nasal Cannula 2.0 28 03/07/17 08:49 61 140/59 03/07/17 08:00 97.7 61 19 140/59 03/07/17 04:00 97.7 50 22 144/53 98 Nasal Cannula 03/07/17 00:00 98.1 61 22 127/54 96 Nasal Cannula 03/06/17 20:00 98.1 56 20 135/69 97 Nasal Cannula 03/06/17 16:00 97.8 61 18 122/59 99 Nasal Cannula 2.0 General Appearance: alert Neck: normal alignment Cardiovascular: normal rate, regular rhythm Respiratory/Chest: lungs clear Abdomen: normal bowel sounds, non tender, soft Extremities: no swelling Laboratory Tests Test 03/07/17 05:50 White Blood Count 14.5 K/UL (4.8-10.8) H Red Blood Count 3.89 M/UL (4.20-5.40) L Hemoglobin 12.3 G/DL (12.0-16.0) Hematocrit 36.0 % (37.0-47.0) L Mean Corpuscular Volume 93 FL (80-99) Mean Corpuscular Hemoglobin 31.6 PG (27.0-31.0) H Mean Corpuscular Hemoglobin Concent 34.2 G/DL (32.0-36.0) Red Cell Distribution Width 13.4 % (11.6-14.8) Platelet Count 131 K/UL (150-450) L Mean Platelet Volume 7.3 FL (6.5-10.1) Neutrophils (%) (Auto) % (45.0-75.0) Lymphocytes (%) (Auto) % (20.0-45.0) Monocytes (%) (Auto) % (1.0-10.0) Eosinophils (%) (Auto) % (0.0-3.0) Basophils (%) (Auto) % (0.0-2.0) Differential Total Cells Counted 100 Neutrophils % (Manual) 19 % (45-75) L Lymphocytes % (Manual) 79 % (20-45) H Monocytes % (Manual) 2 % (1-10) Eosinophils % (Manual) 0 % (0-3) Basophils % (Manual) 0 % (0-2) Band Neutrophils 0 % (0-8) Platelet Estimate Decreased L Platelet Morphology Normal Red Blood Cell Morphology Normal Sodium Level 140 MMOL/L (136-145) Potassium Level 4.2 MMOL/L (3.5-5.1) Chloride Level 105 MMOL/L (98-107) Carbon Dioxide Level 27 MMOL/L (21-32) Anion Gap 9 mmol/L (5-15) Blood Urea Nitrogen 10 mg/dL (7-18) Creatinine 1.0 MG/DL (0.55-1.30) Estimat Glomerular Filtration Rate mL/min (>60) Glucose Level 85 MG/DL (74-106) Calcium Level 9.1 MG/DL (8.5-10.1) Phosphorus Level 3.5 MG/DL (2.5-4.9) Magnesium Level 1.8 MG/DL (1.8-2.4) Total Bilirubin 0.3 MG/DL (0.2-1.0) Aspartate Amino Transf (AST/SGOT) 22 U/L (15-37) Alanine Aminotransferase (ALT/SGPT) 17 U/L (12-78) Alkaline Phosphatase 92 U/L (46-116) Total Protein 7.1 G/DL (6.4-8.2) Albumin 3.2 G/DL (3.4-5.0) L Globulin 3.9 g/dL Albumin/Globulin Ratio 0.8 (1.0-2.7) RAINER GONCALVES Mar 07, 2017 14:44
--- NOTE | 2017-03-07 15:52 | General Progress Note ---
Assessment/Plan Assessment/Plan ASSESSMENT AND RECOMMENDATIONS: 1. Chronic lymphocytic leukemia, stable at this time and does not require treatment. 2. Leukocytosis secondary to underlying infection. We will continue to monitor. 3. Anemia secondary to chronic disease. Watch H&H. 4. Thrombocytopenia, due to infection vs medications. Hold heparin if plt less than 100k Subjective Allergies: Coded Allergies: No Known Allergies (Verified Allergy, Unknown, 02/26/08) All Systems: reviewed and negative except above Subjective on 2L o2 Objective Last 24 Hour Vital Signs Date Time Temp Pulse Resp B/P (MAP) Pulse Ox O2 Delivery O2 Flow Rate FiO2 03/07/17 12:00 98.1 69 18 122/64 03/07/17 08:57 Nasal Cannula 2.0 03/07/17 08:56 98 Nasal Cannula 2.0 03/07/17 08:49 61 140/59 03/07/17 08:00 97.7 61 19 140/59 03/07/17 04:00 97.7 50 22 144/53 98 Nasal Cannula 03/07/17 00:00 98.1 61 22 127/54 96 Nasal Cannula 03/06/17 20:00 98.1 56 20 135/69 97 Nasal Cannula 03/06/17 16:00 97.8 61 18 122/59 99 Nasal Cannula 2.0 Intake and Output 03/07/17 03/08/17 19:00 07:00 Intake Total 250 ml Balance 250 ml Intake Oral 250 ml # Voids 1 Laboratory Tests 03/07/17 05:50: White Blood Count 14.5H, Red Blood Count 3.89L, Hemoglobin 12.3, Hematocrit 36.0L, Mean Corpuscular Volume 93, Mean Corpuscular Hemoglobin 31.6H, Mean Corpuscular Hemoglobin Concent 34.2, Red Cell Distribution Width 13.4, Platelet Count 131L, Mean Platelet Volume 7.3, Neutrophils (%) (Auto) , Lymphocytes (%) ( Auto) , Monocytes (%) (Auto) , Eosinophils (%) (Auto) , Basophils (%) (Auto) , Differential Total Cells Counted 100, Neutrophils % (Manual) 19L, Lymphocytes % (Manual) 79H, Monocytes % (Manual) 2, Eosinophils % (Manual) 0, Basophils % ( Manual) 0, Band Neutrophils 0, Platelet Estimate DecreasedL, Platelet Morphology Normal, Red Blood Cell Morphology Normal, Sodium Level 140, Potassium Level 4.2, Chloride Level 105, Carbon Dioxide Level 27, Anion Gap 9, Blood Urea Nitrogen 10, Creatinine 1.0, Estimat Glomerular Filtration Rate , Glucose Level 85, Calcium Level 9.1, Phosphorus Level 3.5, Magnesium Level 1.8, Total Bilirubin 0.3, Aspartate Amino Transf (AST/SGOT) 22, Alanine Aminotransferase (ALT/SGPT) 17, Alkaline Phosphatase 92, Total Protein 7.1, Albumin 3.2L, Globulin 3.9, Albumin/Globulin Ratio 0.8L Height (Feet): 5 Height (Inches): 1.00 Weight (Pounds): 110 General Appearance: no apparent distress EENT: normal ENT inspection Neck: normal alignment Cardiovascular: no gallop/murmur Extremities: normal inspection Neurologic: receiving teller II-XII grossly normal Orlin Mckeon Mar 07, 2017 15:52
[2017-03-07 16:00] VITALS: BP 133/66
[2017-03-07] MEDS ORDERED: LEVOFLOXACIN500 MG ORAL (16:21)
--- NOTE | 2017-03-07 16:22 | Pulmonology Progress Note ---
Assessment/Plan Problems: (1) Purulent bronchitis (2) CML (chronic myeloid leukemia) (3) Leukocytosis (4) Upper respiratory infection (5) Protein-calorie malnutrition, severe Assessment/Plan improving check sputum, still pending continue levafloxacine titrate fio2 to sat of 92% chest pt respiratory treatment blood smear reviewed, atypical Lymphocytes, hematology consult requested. hem consult reviewed and appreciated dc home with oral medz Subjective ROS Limited/Unobtainable: No Constitutional: Reports: no symptoms HEENT: Repors: no symptoms Respiratory: Reports: no symptoms Allergies: Coded Allergies: No Known Allergies (Verified Allergy, Unknown, 02/26/08) Objective Last 24 Hour Vital Signs Date Time Temp Pulse Resp B/P (MAP) Pulse Ox O2 Delivery O2 Flow Rate FiO2 03/07/17 12:00 98.1 69 18 122/64 03/07/17 08:57 Nasal Cannula 2.0 03/07/17 08:56 98 Nasal Cannula 2.0 03/07/17 08:49 61 140/59 03/07/17 08:00 97.7 61 19 140/59 03/07/17 04:00 97.7 50 22 144/53 98 Nasal Cannula 03/07/17 00:00 98.1 61 22 127/54 96 Nasal Cannula 03/06/17 20:00 98.1 56 20 135/69 97 Nasal Cannula Intake and Output 03/07/17 03/08/17 19:00 07:00 Intake Total 250 ml Balance 250 ml Intake Oral 250 ml # Voids 1 Objective General Appearance: cachetic Lines, tubes and drains: peripheral HEENT: normocephalic, atraumatic Neck: non-tender, normal alignment Respiratory/Chest: chest wall non-tender, bilateral rhonchi Cardiovascular/Chest: normal peripheral pulses, regular rhythm, no gallop/ murmur Abdomen: normal bowel sounds, non tender Genitourinary/Rectal: normal genital exam Extremities: normal range of motion, non-tender Laboratory Tests 03/07/17 05:50: White Blood Count 14.5H, Red Blood Count 3.89L, Hemoglobin 12.3, Hematocrit 36.0L, Mean Corpuscular Volume 93, Mean Corpuscular Hemoglobin 31.6H, Mean Corpuscular Hemoglobin Concent 34.2, Red Cell Distribution Width 13.4, Platelet Count 131L, Mean Platelet Volume 7.3, Neutrophils (%) (Auto) , Lymphocytes (%) ( Auto) , Monocytes (%) (Auto) , Eosinophils (%) (Auto) , Basophils (%) (Auto) , Differential Total Cells Counted 100, Neutrophils % (Manual) 19L, Lymphocytes % (Manual) 79H, Monocytes % (Manual) 2, Eosinophils % (Manual) 0, Basophils % ( Manual) 0, Band Neutrophils 0, Platelet Estimate DecreasedL, Platelet Morphology Normal, Red Blood Cell Morphology Normal, Sodium Level 140, Potassium Level 4.2, Chloride Level 105, Carbon Dioxide Level 27, Anion Gap 9, Blood Urea Nitrogen 10, Creatinine 1.0, Estimat Glomerular Filtration Rate , Glucose Level 85, Calcium Level 9.1, Phosphorus Level 3.5, Magnesium Level 1.8, Total Bilirubin 0.3, Aspartate Amino Transf (AST/SGOT) 22, Alanine Aminotransferase (ALT/SGPT) 17, Alkaline Phosphatase 92, Total Protein 7.1, Albumin 3.2L, Globulin 3.9, Albumin/Globulin Ratio 0.8L Current Medications Medications (Trade) Dose Ordered Sig/Adalgisa Route PRN Reason Start Time Stop Time Status Last Admin Dose Admin Acetaminophen (Tylenol) 650 mg Q4H PRN ORAL T>100.5 F 03/05/17 15:15 04/02/17 15:14 Albuterol/ Ipratropium (Albuterol/ Ipratropium) 3 ml Q4H PRN HHN Shortness of Breath 03/05/17 15:15 03/08/17 15:14 Amlodipine Besylate (Norvasc) 10 mg DAILY ORAL 03/06/17 09:00 04/03/17 08:59 03/07/17 08:49 Dextrose (Dextrose 50%) STAT PRN IV Hypoglycemia 03/05/17 15:15 04/02/17 15:14 Guaifenesin/ Dextromethorphan (Robitussin DM Syrup) 10 ml Q4H PRN ORAL For Cough 03/05/17 17:45 04/04/17 09:44 Heparin Sodium (Porcine) (Heparin 5000 units/ml) 5,000 units EVERY 12 HOURS SUBQ 03/07/17 21:00 04/06/17 20:59 Levofloxacin (Levaquin) 750 mg EVERY OTHER DAY ORAL 03/07/17 09:00 03/14/17 08:59 03/07/17 08:49 Lorazepam (Ativan 2mg/ml 1ml) 2 mg Q2H PRN IV For Anxiety 03/05/17 15:15 03/10/17 15:14 Morphine Sulfate (Morphine Sulfate) 4 mg Q4H PRN IVP Severe Pain (Pain Scale 7-10) 03/05/17 15:15 03/10/17 15:14 Ondansetron HCl (Zofran) 4 mg Q6H PRN IVP Nausea & Vomiting 03/05/17 15:15 04/02/17 15:14 Polyethylene Glycol (Miralax) 17 gm DAILYPRN PRN ORAL Constipation 03/05/17 15:15 04/02/17 15:14 Pravastatin Sodium (Pravachol) 10 mg BEDTIME ORAL 03/05/17 21:00 04/02/17 20:59 03/06/17 20:27 Tramadol HCl (Ultram) 50 mg Q6H PRN ORAL Moderate Pain (Pain Scale 4-6) 03/05/17 15:15 03/10/17 15:14 LOW CARTWRIGHT Mar 07, 2017 16:22
[2017-03-07] MEDS ORDERED: PREDNISONE10 M2 PO (16:32)
--- NOTE | 2017-03-07 16:46 | Internal Med Progress Note ---
Subjective Date of Service: Mar 07, 2017 Physician Name Dario Dawson Attending Physician Mandeep Galarza MD Current Medications Medications (Trade) Dose Ordered Sig/Adalgisa Route PRN Reason Start Time Stop Time Status Last Admin Dose Admin Acetaminophen (Tylenol) 650 mg Q4H PRN ORAL T>100.5 F 03/05/17 15:15 04/02/17 15:14 Albuterol/ Ipratropium (Albuterol/ Ipratropium) 3 ml Q4H PRN HHN Shortness of Breath 03/05/17 15:15 03/08/17 15:14 Amlodipine Besylate (Norvasc) 10 mg DAILY ORAL 03/06/17 09:00 04/03/17 08:59 03/07/17 08:49 Dextrose (Dextrose 50%) STAT PRN IV Hypoglycemia 03/05/17 15:15 04/02/17 15:14 Guaifenesin/ Dextromethorphan (Robitussin DM Syrup) 10 ml Q4H PRN ORAL For Cough 03/05/17 17:45 04/04/17 09:44 Heparin Sodium (Porcine) (Heparin 5000 units/ml) 5,000 units EVERY 12 HOURS SUBQ 03/07/17 21:00 04/06/17 20:59 Levofloxacin (Levaquin) 750 mg EVERY OTHER DAY ORAL 03/07/17 09:00 03/14/17 08:59 03/07/17 08:49 Lorazepam (Ativan 2mg/ml 1ml) 2 mg Q2H PRN IV For Anxiety 03/05/17 15:15 03/10/17 15:14 Morphine Sulfate (Morphine Sulfate) 4 mg Q4H PRN IVP Severe Pain (Pain Scale 7-10) 03/05/17 15:15 03/10/17 15:14 Ondansetron HCl (Zofran) 4 mg Q6H PRN IVP Nausea & Vomiting 03/05/17 15:15 04/02/17 15:14 Polyethylene Glycol (Miralax) 17 gm DAILYPRN PRN ORAL Constipation 03/05/17 15:15 04/02/17 15:14 Pravastatin Sodium (Pravachol) 10 mg BEDTIME ORAL 03/05/17 21:00 04/02/17 20:59 03/06/17 20:27 Tramadol HCl (Ultram) 50 mg Q6H PRN ORAL Moderate Pain (Pain Scale 4-6) 03/05/17 15:15 03/10/17 15:14 Allergies: Coded Allergies: No Known Allergies (Verified Allergy, Unknown, 02/26/08) ROS Limited/Unobtainable: No Constitutional: Reports: no symptoms HEENT: Reports: no symptoms Cardiovascular: Reports: no symptoms Respiratory: Reports: cough Gastrointestinal/Abdominal: Reports: no symptoms Genitourinary: Reports: no symptoms Neurologic/Psychiatric: Reports: no symptoms Subjective 76YO F admitted with cough and now bronchitis. Cover for Int Med-Dr Galarza. Await discharge home today Objective Last Vital Signs Date Time Temp Pulse Resp B/P (MAP) Pulse Ox O2 Delivery O2 Flow Rate FiO2 03/07/17 12:00 98.1 69 18 122/64 03/07/17 08:57 Nasal Cannula 2.0 03/07/17 08:56 98 Laboratory Tests Test 03/07/17 05:50 White Blood Count 14.5 K/UL (4.8-10.8) H Red Blood Count 3.89 M/UL (4.20-5.40) L Hemoglobin 12.3 G/DL (12.0-16.0) Hematocrit 36.0 % (37.0-47.0) L Mean Corpuscular Volume 93 FL (80-99) Mean Corpuscular Hemoglobin 31.6 PG (27.0-31.0) H Mean Corpuscular Hemoglobin Concent 34.2 G/DL (32.0-36.0) Red Cell Distribution Width 13.4 % (11.6-14.8) Platelet Count 131 K/UL (150-450) L Mean Platelet Volume 7.3 FL (6.5-10.1) Neutrophils (%) (Auto) % (45.0-75.0) Lymphocytes (%) (Auto) % (20.0-45.0) Monocytes (%) (Auto) % (1.0-10.0) Eosinophils (%) (Auto) % (0.0-3.0) Basophils (%) (Auto) % (0.0-2.0) Differential Total Cells Counted 100 Neutrophils % (Manual) 19 % (45-75) L Lymphocytes % (Manual) 79 % (20-45) H Monocytes % (Manual) 2 % (1-10) Eosinophils % (Manual) 0 % (0-3) Basophils % (Manual) 0 % (0-2) Band Neutrophils 0 % (0-8) Platelet Estimate Decreased L Platelet Morphology Normal Red Blood Cell Morphology Normal Sodium Level 140 MMOL/L (136-145) Potassium Level 4.2 MMOL/L (3.5-5.1) Chloride Level 105 MMOL/L (98-107) Carbon Dioxide Level 27 MMOL/L (21-32) Anion Gap 9 mmol/L (5-15) Blood Urea Nitrogen 10 mg/dL (7-18) Creatinine 1.0 MG/DL (0.55-1.30) Estimat Glomerular Filtration Rate mL/min (>60) Glucose Level 85 MG/DL (74-106) Calcium Level 9.1 MG/DL (8.5-10.1) Phosphorus Level 3.5 MG/DL (2.5-4.9) Magnesium Level 1.8 MG/DL (1.8-2.4) Total Bilirubin 0.3 MG/DL (0.2-1.0) Aspartate Amino Transf (AST/SGOT) 22 U/L (15-37) Alanine Aminotransferase (ALT/SGPT) 17 U/L (12-78) Alkaline Phosphatase 92 U/L (46-116) Total Protein 7.1 G/DL (6.4-8.2) Albumin 3.2 G/DL (3.4-5.0) L Globulin 3.9 g/dL Albumin/Globulin Ratio 0.8 (1.0-2.7) L Intake and Output 03/07/17 03/08/17 19:00 07:00 Intake Total 250 ml Balance 250 ml Intake Oral 250 ml # Voids 1 Objective General Appearance: WD/WN, alert, thin EENT: PERRL/EOMI, normal ENT inspection, TMs normal Neck: non-tender, normal alignment, supple, normal inspection Cardiovascular: normal peripheral pulses, normal rate, regular rhythm, no gallop/murmur, no JVD Respiratory/Chest: chest wall non-tender, no respiratory distress, no accessory muscle use, rhonchi - bilaterally, expiratory wheezing Abdomen: normal bowel sounds, non tender, soft, no organomegaly, no mass, abnormal bowel sounds Extremities: normal range of motion, non-tender 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 Continue levaquin (4) Chronic lymphocytic leukemia Assessment & Plan: See onc note. (5) Upper respiratory infection Assessment/Plan D/C home today with PO levaquin and prednisone. F/U Dr Galarza in 1 week DARIO DAWSON Mar 07, 2017 16:46
[2017-03-08 09:08] LABS: OTHERS PATHOLOGIST COMMENT
[2017-03-08 09:10] LABS: OTHERS PATHOLOGIST COMMENT
--- NOTE | 2017-03-09 09:25 | Discharge Summary ---
Discharge Summary Hospital Course Date of Admission Mar 03, 2017 at 12:57 Date of Discharge Mar 07, 2017 at 17:27 Admitting Diagnosis UPPER RESPIRATORY INFECTION GERALDO Young is a 76 year old female who was admitted on Mar 03, 2017 at 12: 57 for Upper Respiratory Infection Hospital Course [id number] Discharge Discharge Disposition Patient was discharged to home Discharge Diagnoses: Sharlene Minor NP Mar 09, 2017 09:25
--- NOTE | 2017-03-09 21:00 | Discharge Summary 2 SIG ---
DATE OF ADMISSION: 03/03/2017 DATE OF DISCHARGE: 03/07/2017 ATTENDING PHYSICIAN: Mandeep Galarza M.D. CONSULTANTS: 1. Ramila Dumont M.D. 2. Levi Donald M.D. 3. Janae Murillo M.D. 4. Orlin Mckeon M.D. BRIEF HOSPITAL COURSE: The patient is a 76-year-old female, who presented to ED with chief complaint of cough that started a week prior to admission. She has history of chronic lymphocytic leukemia, history of hypertension, and hypercholesterolemia. She was at the cancer center on 02/23/2017 where she had CAT scan of the chest. She was not aware of the results and was not given antibiotic at that time. On 03/03/2017, she complained of prolonged cough that was productive of yellowish sputum. Denied fever or chills. Workup at ED showed elevated WBC count to 18. Potassium was 3.1. Troponin was negative. She had an EKG done that showed normal sinus rhythm and chest x-ray showed no acute process. She was observed to have hypoxic episodes on room air requiring nasal cannula oxygenation. She was admitted for upper respiratory infection, hypoxia, leukocytosis, and hypokalemia. She was initially given levofloxacin IV. Throughout her stay, she was followed by infectious disease specialist. She was given IV vancomycin and cefepime initially and was switched to Levaquin. She underwent cardiac evaluation. Telemetry data showed sinus rhythm with no evidence of AFib or other ventricular arrhythmias. EKG was in sinus rhythm at rate of [address] or T-wave abnormalities. Venous study of lower extremity was negative. Echocardiogram showed EF 65% to 70% with aortic valve calcification and mild decrease in cusp excursion. There was trace aortic regurgitation, mild tricuspid regurgitation, pulmonary hypertension, and trace pulmonic regurgitation present. Cardiac enzymes were negative. She had an EKG that showed some minor ST-segment depression in leads II, III, and aVF as well as V5 and V6. Abnormal EKG may be chronic with no sign or symptom to suggest acute coronary syndrome. Troponin was likewise negative and would eventually need outpatient stress testing in the future. She continued to have abnormal lung findings out of proportion to imaging results. She was continued on respiratory treatments and chest physiotherapy. Blood culture did not isolate any growth. She had CML which is currently in remission with no evidence of recurrence at this time. Leukocytosis was secondary to underlying infection. She had thrombocytopenia secondary to infection and medications. Repeat chest x-ray done showed equivocal opacities in the left lung base. She was saturating well and leukocytosis improved. She was eventually discharged home. FINAL DIAGNOSES: 1. Upper respiratory infection. 2. Acute purulent bronchitis. 3. Chronic myeloid leukemia. 4. Severe protein-calorie malnutrition. 5. Hypercholesterolemia. 6. Hypertension. 7. Thrombocytopenia. 8. Anemia secondary to chronic disease. 9. Hyperlipidemia. 10. Possible community-acquired pneumonia despite of unremarkable chest x-ray. DISPOSITION: The patient was discharged home. DISCHARGE MEDICATIONS: Continue levofloxacin 500 mg daily for three more days. DISCHARGE INSTRUCTIONS: May eventually need outpatient stress testing. Follow up with Dr. Galarza in a week. Dario Oakes M.D. I have been assigned to dictate discharge summary on this account and I was not involved in the patient's management. Sharlene Minor N.P. DR: TRUPTI JOB#: [id number] CC: HUNG
== END 2017-03-07 17:27 | disposition home or self-care (01) | DRG 152 ==
LOC: EMR 12:30 → 2E 12:57 → EDBEDREQ 13:18 → 2E 03-04 02:06 → 3E 03-05 14:45
DX: J06.9 Acute upper respiratory infection, unspecified (principal); E43 Unspecified severe protein-calorie malnutrition; J18.9 Pneumonia, unspecified organism; D63.8 Anemia in other chronic diseases classified elsewhere; D69.6 Thrombocytopenia, unspecified; C91.11 Chronic lymphocytic leukemia of B-cell type in remission; Z68.1 Body mass index [BMI] 19.9 or less, adult; J20.9 Acute bronchitis, unspecified; I10 Essential (primary) hypertension; E87.6 Hypokalemia; E78.5 Hyperlipidemia, unspecified; F17.200 Nicotine dependence, unspecified, uncomplicated; R94.31 Abnormal electrocardiogram [ECG] [EKG]; R09.02 Hypoxemia
CPT/HCPCS: 36415; 71010; 80048; 80053; 80069; 82550; 82553; 83690; 83735; 83880; 84100; 84484; 85007; 85025; 87040; 90630; 90732; 93005; 93306; 93970; 94640; 94664; 94760; 99285; J7620; J8499

== ENCOUNTER 2017-03-17 15:26 | Emergency (ER) | payer MEDICARE, OTHER ==
[~2017-03-17] VITALS: Ht 154.9 cm; Wt 49.0 kg
[~2017-03-17 15:26] MED LIST changes: +FERROUS SULFAT325 MG ORAL; +LEVOFLOXACIN500 MG ORAL; +PREDNISONE10 M2 PO; +VENTOLIN HFA18 GM INH
[2017-03-17 15:41] VITALS: BP 154/71
[2017-03-17 17:38] VITALS: BP 154/71
--- NOTE | 2017-03-17 19:36 | Emergency Room Report ---
History of Present Illness General Chief Complaint: General Complaint Source: Patient Present Illness [facility] The patient is a 76 yo F with Hx of CML presenting for follow up after being DC' ed for respiratory infection. She was DC'ed several days prior with Levaquin and finished this course of abx. She states that she has been feeling much better since being discharged. She denies any pain, coughing, fever, chills, fatigue, weight loss, or any other symptoms Allergies: Coded Allergies: No Known Allergies (Verified Allergy, Unknown, 02/26/08) Patient History Past Medical History: see triage record Pertinent Family History: none Reviewed Nursing Documentation: PMH: Agreed, PSxH: Agreed Nursing Documentation-PMH Past Medical History: No History, Except For Hx Hypertension: Yes Hx Cancer: No - Leukemia since 2003 (Chronic Lymphoid Leukemia) Hx Gastrointestinal Problems: No Hx Neurological Problems: No Review of Systems All Other Systems: negative except mentioned in HPI Physical Exam Vital Signs Date Time Temp Pulse Resp B/P (MAP) Pulse Ox O2 Delivery O2 Flow Rate FiO2 03/17/17 15:34 97.2 70 18 154/71 97 Room Air Sp02 EP Interpretation: reviewed, normal General Appearance: no apparent distress, alert, GCS 15, non-toxic Head: normocephalic, atraumatic Eyes: bilateral eye normal inspection, bilateral eye PERRL ENT: hearing grossly normal, normal pharynx, no angioedema, normal voice Neck: full range of motion, supple/symm/no masses Respiratory: chest non-tender, lungs clear, normal breath sounds, no accessory muscle use, speaking full sentences Cardiovascular #1: regular rate, rhythm, no edema Gastrointestinal: normal bowel sounds, non tender, soft, non-distended, no guarding, no rebound Genitourinary: normal inspection, no CVA tenderness Musculoskeletal: back normal, gait/station normal, normal range of motion, non- tender Neurologic: alert, oriented x3, responsive, motor strength/tone normal, sensory intact, speech normal Skin: normal color, no rash, warm/dry, well hydrated Lymphatic: adenopathy - cervical Medical Decision Making PA Attestation Dr. Coon is my supervising physician. Patient management was discussed with my supervising physician Diagnostic Impression: Primary Impression: Upper respiratory infection Qualified Codes: J06.9 - Acute upper respiratory infection, unspecified ER Course The patient is a 76 yo F with Hx of CML presenting for follow up after being DC' ed for respiratory infection Differential diagnosis include but not limited to pneumonia,pharyngitis, sinusitis, bronchitis PE: afebrile. NAD HEENT exam: There is cervical lymphadenopathy with enlarged lymph node to the right anterior chain. The patient is aware of this and has been diagnosed with CML. Lungs are clear to auscultation bilaterally. No accessory muscle use or respiratory distress. RRR Two-view chest x-ray shows improvement from previous x-ray. No effusion The patient will be discharged home and has appointment for follow up with her primary doctor within one week. ER precautions given Chest X-Ray Diagnostic Results Chest X-Ray Diagnostic Results : Chest X-Ray Ordered: Yes # of Views/Limited/Complete: 2 View, Complete Indication: Other - cough EP Interpretation: Yes PA Xray: Interpretation reviewed, by supervising MD, and agrees with findings. Interpretation: no consolidation, no effusion, no pneumothorax, no acute cardiopulmonary disease Impression: No acute disease Electronically Signed by: Kelly Vanessa PA-C Last Vital Signs Date Time Temp Pulse Resp B/P (MAP) Pulse Ox O2 Delivery O2 Flow Rate FiO2 03/17/17 17:38 97.2 18 154/71 97 Room Air 03/17/17 15:34 70 Status: improved Disposition: HOME, SELF-CARE Condition: Improved Referrals: Mandeep Galarza MD (PCP) Patient Instructions: Cough, Adult Additional Instructions: I discussed my findings with the patient. All questions and concerns have been answered. Treatment and medication compliance have been addressed. Please follow up with your primary doctor as we discussed. Return to ED if pain remains or worsens, cough worsens or remains, you notice blood in your sputum, you notice wheezing, you experience a fever, or if needed for any reason. Patient verbalized understanding of discharge instructions. KELLY VANESSA Mar 17, 2017 19:36
--- NOTE | 2017-03-18 10:16 | Diagnostic Imaging Report ---
Indication: Cough Technique: XRAY CHEST 2V Comparison: 03/06/17 Findings: Cardiomediastinal silhouette is stable. Mild linear opacities are noted in the left mid and lower lung talbot. There is no pneumothorax or pleural effusion. Osseous structures are grossly stable. Impression: Mild linear opacities of the left mid and lower lung talbot could represent atelectasis. Clinical correlation/followup recommended.
== END 2017-03-17 17:39 | disposition home or self-care (01) ==
LOC: EMR 16:11
DX: J06.9 Acute upper respiratory infection, unspecified (principal); C92.10 Chronic myeloid leukemia, BCR/ABL-positive, not having achieved remission
CPT/HCPCS: 71020; 99283

== ENCOUNTER 2017-08-02 03:26 | Inpatient (IN) | payer MEDICARE, MEDICAID ==
[2017-08-02] VITALS (8 sets, daily range): BP systolic 115–143; BP diastolic 56–80
[~2017-08-02] VITALS: Ht 154.9 cm; Wt 47.6 kg
[2017-08-02] MEDS ORDERED: Sodium Chloride 500ML 500 ML IV ONE (03:43)
--- NOTE | 2017-08-02 03:58 | Emergency Room Report ---
History of Present Illness General Chief Complaint: Nausea, Vomiting, and Diarrhea Source: Patient, EMS Present Illness HPI Patient presents with complaints of significant nausea vomiting Patient had diarrhea yesterday however not today Patient had an episode of feeling significantly dizzy lightheaded and generally weak and presents by paramedics Denies any chest pain or shortness of breath Patient appears uncomfortable Denies any neck pain or photophobia and eyes any fevers patient contributes her symptoms to a barbecue she had yesterday Allergies: Coded Allergies: No Known Allergies (Verified , 02/26/08) Patient History Past Medical History: see triage record Pertinent Family History: none Reviewed Nursing Documentation: PMH: Agreed; PSxH: Agreed Nursing Documentation-PMH Past Medical History: No History, Except For Hx Hypertension: Yes Hx Cancer: Yes - Leukemia - currently on chemo Hx Gastrointestinal Problems: No Hx Neurological Problems: No Review of Systems All Other Systems: negative except mentioned in HPI Physical Exam Vital Signs Date Time Temp Pulse Resp B/P (MAP) Pulse Ox O2 Delivery O2 Flow Rate FiO2 08/02/17 03:29 80 16 160/80 98 Room Air Sp02 EP Interpretation: reviewed, normal General Appearance: mild distress - Appears uncofortable Head: normocephalic, atraumatic Eyes: bilateral eye PERRL, bilateral eye EOMI ENT: hearing grossly normal, normal pharynx, TMs + canals normal, uvula midline Neck: full range of motion, supple, no meningismus, no bony tend Respiratory: lungs clear, normal breath sounds, no rhonchi, no respiratory distress, no retraction, no accessory muscle use Cardiovascular #1: normal peripheral pulses, regular rate, rhythm, no edema, no gallop, no JVD, no murmur Gastrointestinal: normal bowel sounds, non tender, soft, no mass, no organomegaly, non-distended, no guarding, no hernia, no pulsatile mass, no rebound Genitourinary: no CVA tenderness Musculoskeletal: normal inspection Neurologic: oriented x3, responsive, 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, motor strength/ tone normal, sensory intact Psychiatric: mood/affect normal Skin: normal color, no rash, warm/dry, palpation normal Lymphatic: normal inspection, no adenopathy Medical Decision Making Diagnostic Impression: Primary Impression: Nausea, vomiting, and diarrhea Additional Impression: Dehydration ER Course Patient is a fairly complex patient with multiple differential to consideration including but not limited to cardiac, gastrointestinal, infectious, cardiopulmonary and vascular emergencies Patient has done significantly better with acute intervention still continues to feel significantly nauseated And uncomfortable and requires further inpatient care Labs Test 08/02/17 04:00 White Blood Count 4.9 K/UL (4.8-10.8) Red Blood Count 3.56 M/UL (4.20-5.40) Hemoglobin 12.0 G/DL (12.0-16.0) Hematocrit 34.0 % (37.0-47.0) Mean Corpuscular Volume 95 FL (80-99) Mean Corpuscular Hemoglobin 33.7 PG (27.0-31.0) Mean Corpuscular Hemoglobin Concent 35.3 G/DL (32.0-36.0) Red Cell Distribution Width 13.4 % (11.6-14.8) Platelet Count 167 K/UL (150-450) Mean Platelet Volume 6.3 FL (6.5-10.1) Neutrophils (%) (Auto) 50.9 % (45.0-75.0) Lymphocytes (%) (Auto) 40.7 % (20.0-45.0) Monocytes (%) (Auto) 7.7 % (1.0-10.0) Eosinophils (%) (Auto) 0.1 % (0.0-3.0) Basophils (%) (Auto) 0.5 % (0.0-2.0) Sodium Level 136 MMOL/L (136-145) Potassium Level 3.2 MMOL/L (3.5-5.1) Chloride Level 100 MMOL/L (98-107) Carbon Dioxide Level 26 MMOL/L (21-32) Anion Gap 11 mmol/L (5-15) Blood Urea Nitrogen 17 mg/dL (7-18) Creatinine 1.1 MG/DL (0.55-1.30) Estimat Glomerular Filtration Rate mL/min (>60) Glucose Level 186 MG/DL (74-106) Calcium Level 9.5 MG/DL (8.5-10.1) Total Bilirubin 0.2 MG/DL (0.2-1.0) Aspartate Amino Transf (AST/SGOT) 27 U/L (15-37) Alanine Aminotransferase (ALT/SGPT) 29 U/L (12-78) Alkaline Phosphatase 95 U/L (46-116) Total Creatine Kinase 200 U/L (26-308) Creatine Kinase MB 5.1 NG/ML (0.0-3.6) Creatine Kinase MB Relative Index 2.5 Troponin I 0.000 ng/mL (0.000-0.056) Total Protein 7.9 G/DL (6.4-8.2) Albumin 3.9 G/DL (3.4-5.0) Globulin 4.0 g/dL Albumin/Globulin Ratio 1.0 (1.0-2.7) Lipase 344 U/L (73-393) Rhythm Strip Diag. Results EP Interpretation: yes Rate: 66 Rhythm: NSR, no PVC's, no ectopy Last Vital Signs Date Time Temp Pulse Resp B/P (MAP) Pulse Ox O2 Delivery O2 Flow Rate FiO2 08/02/17 03:48 77 20 140/56 98 Room Air Status: improved Disposition: ADMITTED INPATIENT Condition: Serious Stu Henderson DO Aug 02, 2017 03:57
[2017-08-02 04:10] LABS: BASOPHILS % (AUTO) 0.5 % (0.0-2.0); EOSINOPHILS % (AUTO) 0.1 % (0.0-3.0); LYMPHOCYTES % (AUTO) 40.7 % (20.0-45.0); MEAN CORPUSCULAR VOLUME 95 FL (80-99); MONOCYTES % (AUTO) 7.7 % (1.0-10.0); NEUTROPHILS % (AUTO) 50.9 % (45.0-75.0); PLATELET COUNT 167 K/UL (150-450); RED BLOOD COUNT 3.56 M/UL (4.20-5.40); RED CELL DISTRIBUTION WIDTH 13.4 % (11.6-14.8); WHITE BLOOD COUNT 4.9 K/UL (4.8-10.8)
[2017-08-02] MEDS ORDERED: VENCLEXTA PO (04:26)
[2017-08-02] MEDS ORDERED: ALLOPURINOL300 M1 ORAL (04:26)
[2017-08-02] MEDS ORDERED: MIRTAZAPINE15 M3 ORAL (04:26)
[2017-08-02 04:32] LABS: ANION GAP 11 mmol/L (5-15); BLOOD UREA NITROGEN 17 mg/dL (7-18); CALCIUM 9.5 MG/DL (8.5-10.1); CARBON DIOXIDE 26 MMOL/L (21-32); CHLORIDE 100 MMOL/L (98-107); CREATININE 1.1 MG/DL (0.55-1.30); POTASSIUM 3.2 MMOL/L (3.5-5.1); SODIUM 136 MMOL/L (136-145)
[2017-08-02 04:46] LABS: ALANINE AMINOTRANSFERASE 29 U/L (12-78); ALBUMIN 3.9 G/DL (3.4-5.0); ALKALINE PHOSPHATASE 95 U/L (46-116); ASPARTATE AMINO TRANSFERASE 27 U/L (15-37); BILIRUBIN,TOTAL 0.2 MG/DL (0.2-1.0); CKMB 5.1 NG/ML (0.0-3.6); CREATINE KINASE 200 U/L (26-308)
[2017-08-02] MEDS ORDERED: Miralax 17gm pkt ORAL PRN (07:00)
[2017-08-02] MEDS ORDERED: Morphine Sulfate 2mg/ml Inj IVP PRN (07:00)
[2017-08-02] MEDS ORDERED: Nitroglycerin Subl 0.4mg tab SL PRN (07:00)
[2017-08-02] MEDS ORDERED: Promethazine HCl 25 MG in NS 55 ML IV PRN (07:00)
[2017-08-02] MEDS ORDERED: LORazepam Inj 2mg/ml 1ml IV PRN (07:00)
[2017-08-02] MEDS ORDERED: Mylanta II UD 30ml ORAL PRN (07:00)
[2017-08-02] MEDS ORDERED: Promethazine HCl 12.5 MG in NS 55 ML IV PRN (07:00)
[2017-08-02] MEDS: D5 1/2NS 1,000 ML IV SCH ×2 (07:43→21:16)
[2017-08-02] MEDS ORDERED: Promethazine HCl 25 MG in D5W 55 ML IV PRN (08:30)
[2017-08-02] MEDS: Pantoprazole Inj IV SCH (08:51)
[2017-08-02] MEDS: Heparin 5000 units/ml inj SUBQ SCH ×2 (08:54→21:16)
[2017-08-02] MEDS ORDERED: Morphine Sulfate 4mg/ml Inj IVP PRN (12:00)
--- NOTE | 2017-08-02 12:47 | History & Physical ---
History and Physical History & Physicial Dictated for Int Med-Dr Galarza no. [id number]. OBI DAWSON Aug 02, 2017 12:47
--- NOTE | 2017-08-02 14:30 | History and Physical Report ---
DATE OF ADMISSION: 08/02/2017 CHIEF COMPLAINT: The patient is a 76-year-old female, who presents with chief complaint of nausea and vomiting. HISTORY OF PRESENT ILLNESS: The patient states she ate barbecue with macaroni and cheese on August 01, 2017. The patient began to experience nausea and vomiting. Nausea and vomiting was intractable. The patient presented to [facility]. The patient was admitted for nausea and vomiting to rule out acute gastroenteritis versus food poisoning. REVIEW OF SYSTEMS: CONSTITUTIONAL: The patient denies weight loss or weight gain. The patient denies fevers or chills. HEENT: The present denies ear or throat pain. The patient denies headache. CARDIOVASCULAR: The patient denies palpitations or chest pain. CHEST: The patient denies wheeze or shortness of breath. ABDOMINAL: The patient complains of nausea and vomiting as above. The patient denies diarrhea or constipation. GENITOURINARY: The patient denies dysuria or increased frequency of urination. NEUROMUSCULAR: The patient denies seizures or generalized weakness. PAST MEDICAL HISTORY: Significant for: 1. Chronic lymphocytic leukemia, the patient is followed at [facility] and currently is undergoing chemotherapy. The patient was diagnosed in 2003. 2. Hypertension. 3. Hypercholesterolemia. 4. Anemia of chronic disease. PAST SURGICAL HISTORY: The patient denies. CURRENT MEDICATIONS: 1. Acyclovir 400 mg p.o. twice daily. 2. Allopurinol 300 mg p.o. daily. 3. Aspirin 81 mg p.o. daily. 4. Iron sulfate 325 mg p.o. daily. 5. Mirtazapine 15 mg p.o. nightly. 6. Pravastatin 10 mg p.o. nightly. 7. Venclexta unknown dose daily. ALLERGIES: No known drug allergies. SOCIAL HISTORY: The patient is a and lives alone. The patient denies tobacco or alcohol use. The patient is retired. PHYSICAL EXAMINATION: VITAL SIGNS: Temperature 97.2, respirations 18, pulse 54, blood pressure 115/62. GENERAL: The patient is a well-developed, well-nourished female, in no apparent distress. HEENT: Eyes, pupils equal and responsive to light and accommodation. Extraocular movements are intact. NECK: Supple without lymphadenopathy. CHEST: Lungs are clear to auscultation bilaterally without wheezes or rales. CARDIOVASCULAR: Regular rate. S1, S2 normal without murmurs, rubs, or gallops. ABDOMEN: Soft, nontender, nondistended. Positive bowel sounds. No evidence of hepatosplenomegaly. Currently, no rebound or guarding noted. EXTREMITIES: Negative for clubbing, cyanosis, or edema. RECTAL: Refused. GENITAL: Refused. NEUROLOGIC: Cranial nerves II through XII are grossly intact without focal deficits. Motor strength is 5/5 bilaterally intact. Deep tendon reflexes are 2+, plantar. LABORATORY STUDIES: WBC 4.9, hemoglobin 12.0, hematocrit 34.0, platelets 167,000. Sodium 136, potassium 3.2, chloride 100, CO2 26, BUN 17, creatinine 1.1, glucose 186. Lipase was normal at 344. ASSESSMENT: This is a 76-year-old female with: 1. Nausea with vomiting. 2. Hypokalemia. 3. Probable gastroenteritis. 4. Chronic lymphocytic leukemia. 5. Hypertension. 6. Hypercholesterolemia. 7. Anemia. TREATMENT: 1. Nausea with vomiting/gastroenteritis. Gastroenterology consultation has been obtained with Dr. Campbell Genao. The patient is currently on intravenous fluids and n.p.o. The patient will be offered diabetic diet. We will follow recommendations of Gastroenterology. 2. Chronic lymphocytic leukemia. The patient is followed at and is currently on chemotherapy. 3. Hypertension. The patient is currently off antihypertensive medication. 4. Hypercholesterolemia. Continue Pravachol as above. 5. Anemia. Anemia is probably secondary to chronic lymphocytic leukemia. Continue iron sulfate as above. Dario Oakes M.D. DR: Bruce JOB#: [id number] CC:
--- NOTE | 2017-08-02 14:31 | GI Initial Consult Note ---
HassanlAea Flemingoi N.P. 08/02/17 1431: History of Present Illness General Date patient seen: Aug 02, 2017 Time patient seen: 15:06 Reason for Hospitalization: Nausea, Vomiting, and Diarrhea Referring physician: GEENA JULIAN Reason for Consultation: VOMITING Present Illness HPI The patient states she ate barbecue with macaroni and cheese on August 01, 2017. The patient began to experience nausea and vomiting. Nausea and vomiting was intractable. The patient presented to [place] [facility]. The patient was admitted for nausea and vomiting to rule out acute gastroenteritis versus food poisoning. GI consulted for vomiting. Pt seen on floor, awake A&Ox 4 NAD with no active s/ sx of N/V/D. Per pt, she had BBQ prior to her episode of emesis and states this is the reasoning behind her episode. She denies any abdominal pain, nausea /vomiting at this time. Last colonoscopy x 5 years ago, last endoscopy within the year. No leukocytosis. No anemia. Home Meds Reported Medications [Venclexta] No Conflict Check, PO 08/02/17 Mirtazapine* (MIRTAZAPINE*) 15 Mg Tablet, 15 MG ORAL BEDTIME, TAB 08/02/17 Allopurinol* (ALLOPURINOL*) 300 Mg Tablet, 300 MG ORAL DAILY, TAB 08/02/17 Ferrous Sulfate* (FERROUS SULFATE*) 325 Mg Tablet, 325 MG ORAL DAILY, #30 TAB 0 Refills 03/03/17 Pravastatin Sod* (PRAVASTATIN SOD*) 20 Mg Tablet, 10 MG ORAL BEDTIME, TAB 12/14/13 Aspirin* (ASPIRIN*) 81 Mg Tab.chew, 81 MG ORAL DAILY, TAB 12/14/13 Amlodipine Besylate* (AMLODIPINE BESYLATE*) 10 Mg Tablet, 10 MG ORAL DAILY, TAB 12/14/13 Acyclovir* (ACYCLOVIR*) 400 Mg Tablet, 400 MG ORAL BID, TAB 12/14/13 Discontinued Reported Medications Prednisone (PREDNISONE) 10 Mg Tab.ds.pk, 20 MG PO DAILY for 5 Days, PACK 03/07/17 Albuterol Sulfate (VENTOLIN HFA) 18 Gm Hfa.aer.ad, 1 PUFF INH EVERY 6 HOURS, # 18 GM 0 Refills 03/03/17 No Known Medications* (NKM - No Known Medications*) ., 0 ., 0 Refills 11/07/15 Discontinued Scripts Levofloxacin (LEVOFLOXACIN*) 500 Mg Tablet, 500 MG ORAL DAILY for 3 Days, TAB Prov:Ramila Dumont MD 03/07/17 Pseudoephedrine Hcl* (NEXAFED*) 30 Mg Tablet, 30 MG ORAL Q6H PRN for congestion for 5 Days, #20 TAB Prov:Tavia Brandon P.A. 08/03/16 Cetirizine Hcl* (ZYRTEC*) 10 Mg Tablet, 10 MG ORAL DAILY for 30 Days, #30 TAB 0 Refills Prov:Tavia Brandon P.A. 08/03/16 D-Methorphan Hb/Prometh Hcl* (PROMETHAZINE-DM SYRUP*) 118 Ml Syrup, 5 ML ORAL Q6H PRN for For Cough, #118 ML 0 Refills Prov:Tavia Brandon P.A. 03/05/16 Azithromycin* (ZITHROMAX*) 250 Mg Tablet, 250 MG ORAL DAILY, #6 TAB 0 Refills Take two tables once daily for 1 day, then one tablet once daily for 4 days. Prov:Tavia Brandon P.A. 03/05/16 Guaifenesin (Guaifenesin) 1,200 Mg Tab.er.12h, 1200 MG PO Q12HR for 7 Days, TAB Prov:Tavia Brandon P.A. 02/27/16 Codeine/Promethazine Hcl* (PROMETHAZINE-CODEINE SYRUP*) 118 Ml Syrup, 5 ML ORAL Q6H PRN for For Cough, #118 ML 0 Refills Prov:Tavia Brandon P.A. 02/27/16 Amoxicillin* (AMOXIL*) 500 Mg Capsule, 500 MG ORAL THREE TIMES A DAY, #21 CAP 0 Refills Prov:MICHEL MILLER P.AEdgard 11/07/15 Tramadol Hcl* (ULTRAM*) 50 Mg Tablet, 50 MG ORAL Q6H PRN for For Pain, #14 TAB 0 Refills Prov:Juan Calderon M.D. 07/25/15 Ibuprofen* (MOTRIN*) 600 Mg Tablet, 600 MG ORAL Q6H PRN for For Pain, #20 TAB Prov:Juan Calderon M.D. 07/25/15 Tramadol Hcl* (ULTRAM*) 50 Mg Tablet, 50 MG ORAL Q6H PRN for For Pain, #30 TAB 0 Refills Prov:LAWSON HANEY 10/24/14 Cephalexin* (KEFLEX*) 500 Mg Capsule, 500 MG ORAL EVERY 12 HOURS for 7 Days, CAP 0 Refills Prov:Gael Cochran MD 08/23/14 Med list reviewed/reconciled: Yes Allergies: Coded Allergies: No Known Allergies (Verified , 02/26/08) Patient History History Provided By: Patient, Medical Record H Narrative PAST MEDICAL HISTORY: Significant for: 1. Chronic lymphocytic leukemia, the patient is followed at [facility] and currently is undergoing chemotherapy. The patient was diagnosed in 2003. 2. Hypertension. 3. Hypercholesterolemia. 4. Anemia of chronic disease. PAST SURGICAL HISTORY: The patient denies. Social History: Denies: smoking, alcohol use, drug use, other Review of Systems All Other Systems: negative except mentioned in HPI Physical Exam Vital Signs Date Time Temp Pulse Resp B/P (MAP) Pulse Ox O2 Delivery O2 Flow Rate FiO2 08/02/17 03:29 80 16 160/80 98 Room Air 08/02/17 06:00 97.2 97.2 Sp02 EP Interpretation: reviewed, normal Labs Laboratory Tests Test 08/02/17 04:00 White Blood Count 4.9 K/UL (4.8-10.8) Red Blood Count 3.56 M/UL (4.20-5.40) L Hemoglobin 12.0 G/DL (12.0-16.0) Hematocrit 34.0 % (37.0-47.0) L Mean Corpuscular Volume 95 FL (80-99) Mean Corpuscular Hemoglobin 33.7 PG (27.0-31.0) H Mean Corpuscular Hemoglobin Concent 35.3 G/DL (32.0-36.0) Red Cell Distribution Width 13.4 % (11.6-14.8) Platelet Count 167 K/UL (150-450) Mean Platelet Volume 6.3 FL (6.5-10.1) L Neutrophils (%) (Auto) 50.9 % (45.0-75.0) Lymphocytes (%) (Auto) 40.7 % (20.0-45.0) Monocytes (%) (Auto) 7.7 % (1.0-10.0) Eosinophils (%) (Auto) 0.1 % (0.0-3.0) Basophils (%) (Auto) 0.5 % (0.0-2.0) Sodium Level 136 MMOL/L (136-145) Potassium Level 3.2 MMOL/L (3.5-5.1) L Chloride Level 100 MMOL/L (98-107) Carbon Dioxide Level 26 MMOL/L (21-32) Anion Gap 11 mmol/L (5-15) Blood Urea Nitrogen 17 mg/dL (7-18) Creatinine 1.1 MG/DL (0.55-1.30) Estimat Glomerular Filtration Rate mL/min (>60) Glucose Level 186 MG/DL (74-106) H Calcium Level 9.5 MG/DL (8.5-10.1) Total Bilirubin 0.2 MG/DL (0.2-1.0) Aspartate Amino Transf (AST/SGOT) 27 U/L (15-37) Alanine Aminotransferase (ALT/SGPT) 29 U/L (12-78) Alkaline Phosphatase 95 U/L (46-116) Total Creatine Kinase 200 U/L (26-308) Creatine Kinase MB 5.1 NG/ML (0.0-3.6) H Creatine Kinase MB Relative Index 2.5 Troponin I 0.000 ng/mL (0.000-0.056) Total Protein 7.9 G/DL (6.4-8.2) Albumin 3.9 G/DL (3.4-5.0) Globulin 4.0 g/dL Albumin/Globulin Ratio 1.0 (1.0-2.7) Lipase 344 U/L (73-393) General Appearance: well appearing, no apparent distress, alert, thin Head: normocephalic EENT: PERRL/EOMI, normal ENT inspection Neck: supple Respiratory: normal breath sounds, no respiratory distress Cardiovascular: normal rate Gastrointestinal: normal inspection, non tender, soft, normal bowel sounds, non -distended Rectal: deferred Genitourinary: no CVA tenderness Musculoskeletal: normal inspection, back normal Neurologic: normal inspection, alert, oriented x3, responsive Psychiatric: normal inspection, judgement/insight normal, memory normal Skin: normal inspection, normal color, no rash, warm/dry, palpation normal, well hydrated Lymphatic: normal inspection, no adenopathy Current Medications Current Medications Medications (Trade) Dose Ordered Sig/Adalgisa Route PRN Reason Start Time Stop Time Status Last Admin Dose Admin Acetaminophen (Tylenol) 650 mg Q4H PRN ORAL fever 08/02/17 07:00 09/01/17 06:59 Al Hydroxide/Mg Hydroxide (Mylanta II) 30 ml Q6H PRN ORAL dyspepsia 08/02/17 07:00 09/01/17 06:59 Allopurinol (Allopurinol) 300 mg DAILY ORAL 08/02/17 09:00 09/01/17 08:59 08/02/17 08:51 Amlodipine Besylate (Norvasc) 10 mg DAILY ORAL 08/02/17 09:00 09/01/17 08:59 Dextrose (Dextrose 50%) STAT PRN IV Hypoglycemia 08/02/17 07:00 09/01/17 06:59 Dextrose/Sodium Chloride 1,000 ml @ 75 mls/hr [id number] IV 08/02/17 06:56 09/01/17 06:55 08/02/17 07:43 Diphenhydramine HCl (Benadryl) 25 mg Q6H PRN ORAL Itching/Pruritis 08/02/17 07:00 09/01/17 06:59 Ferrous Sulfate (Feosol) 325 mg DAILY ORAL 08/02/17 12:45 09/01/17 12:44 08/02/17 12:53 Heparin Sodium (Porcine) (Heparin 5000 units/ml) 5,000 units EVERY 12 HOURS SUBQ 08/02/17 09:00 09/01/17 08:59 08/02/17 08:54 Lorazepam (Ativan 2mg/ml 1ml) 1 mg EVERY 4 HOURS PRN IV agitation 08/02/17 07:00 08/09/17 06:59 Mirtazapine (Remeron) 15 mg BEDTIME ORAL 08/02/17 21:00 09/01/17 20:59 Morphine Sulfate (Morphine Sulfate) 2 mg Q4H PRN IVP severe pain 7-10 08/02/17 12:00 08/09/17 11:59 Nitroglycerin (Ntg) 0.4 mg Q5M X 3 DOSES PRN SL Prn Chest Pain 08/02/17 07:00 09/01/17 06:59 Ondansetron HCl (Zofran) 4 mg Q6H PRN IVP Nausea & Vomiting 08/02/17 07:00 09/01/17 06:59 Pantoprazole (Protonix) 40 mg DAILY IV 08/02/17 09:00 09/01/17 08:59 08/02/17 08:51 Polyethylene Glycol (Miralax) 17 gm HSPRN PRN ORAL Constipation 08/02/17 07:00 09/01/17 06:59 Pravastatin Sodium (Pravachol) 10 mg BEDTIME ORAL 08/02/17 21:00 09/01/17 20:59 Promethazine HCl 25 mg/Dextrose 56 ml @ 110 mls/hr Q6H PRN IV Refractory N/V 08/02/17 08:30 09/01/17 06:59 Temazepam (Restoril) 15 mg HSPRN PRN ORAL Insomnia 08/02/17 07:00 08/09/17 06:59 GI: Plan Problems: (1) Enteritis (2) Diarrhea (3) Vomiting (4) Nausea, vomiting, and diarrhea (5) Dehydration Plan NPO @ [place], will consider EGD tomorrow if necessary. ok to advance diet today electrolyte correction zofran ppi anemia work up OB stool r/o GI bleed fu HgA1C, labs Discussed with Dr. De Leon. Thank you for this patient referral, we will follow. MARSHALL DE LEON 08/08/17 0650: History of Present Illness General Reason for Hospitalization: Nausea, Vomiting, and Diarrhea Present Illness Home Meds Reported Medications [Venclexta] No Conflict Check, PO 08/02/17 Mirtazapine* (MIRTAZAPINE*) 15 Mg Tablet, 15 MG ORAL BEDTIME, TAB 08/02/17 Allopurinol* (ALLOPURINOL*) 300 Mg Tablet, 300 MG ORAL DAILY, TAB 08/02/17 Ferrous Sulfate* (FERROUS SULFATE*) 325 Mg Tablet, 325 MG ORAL DAILY, #30 TAB 0 Refills 03/03/17 Pravastatin Sod* (PRAVASTATIN SOD*) 20 Mg Tablet, 10 MG ORAL BEDTIME, TAB 12/14/13 Aspirin* (ASPIRIN*) 81 Mg Tab.chew, 81 MG ORAL DAILY, TAB 12/14/13 Amlodipine Besylate* (AMLODIPINE BESYLATE*) 10 Mg Tablet, 10 MG ORAL DAILY, TAB 12/14/13 Acyclovir* (ACYCLOVIR*) 400 Mg Tablet, 400 MG ORAL BID, TAB 12/14/13 Discontinued Reported Medications Prednisone (PREDNISONE) 10 Mg Tab.ds.pk, 20 MG PO DAILY for 5 Days, PACK 03/07/17 Albuterol Sulfate (VENTOLIN HFA) 18 Gm Hfa.aer.ad, 1 PUFF INH EVERY 6 HOURS, # 18 GM 0 Refills 03/03/17 No Known Medications* (NKM - No Known Medications*) ., 0 ., 0 Refills 11/07/15 Discontinued Scripts Levofloxacin (LEVOFLOXACIN*) 500 Mg Tablet, 500 MG ORAL DAILY for 3 Days, TAB Prov:Ramila Dumont MD 03/07/17 Pseudoephedrine Hcl* (NEXAFED*) 30 Mg Tablet, 30 MG ORAL Q6H PRN for congestion for 5 Days, #20 TAB Prov:Tavia Brandon P.A. 08/03/16 Cetirizine Hcl* (ZYRTEC*) 10 Mg Tablet, 10 MG ORAL DAILY for 30 Days, #30 TAB 0 Refills Prov:Tavia Brandon P.A. 08/03/16 D-Methorphan Hb/Prometh Hcl* (PROMETHAZINE-DM SYRUP*) 118 Ml Syrup, 5 ML ORAL Q6H PRN for For Cough, #118 ML 0 Refills Prov:Tavia Brandon P.A. 03/05/16 Azithromycin* (ZITHROMAX*) 250 Mg Tablet, 250 MG ORAL DAILY, #6 TAB 0 Refills Take two tables once daily for 1 day, then one tablet once daily for 4 days. Prov:Tavia Brandon P.A. 03/05/16 Guaifenesin (Guaifenesin) 1,200 Mg Tab.er.12h, 1200 MG PO Q12HR for 7 Days, TAB Prov:Tavia Brandon P.A. 02/27/16 Codeine/Promethazine Hcl* (PROMETHAZINE-CODEINE SYRUP*) 118 Ml Syrup, 5 ML ORAL Q6H PRN for For Cough, #118 ML 0 Refills Prov:Tavia Brandon P.A. 02/27/16 Amoxicillin* (AMOXIL*) 500 Mg Capsule, 500 MG ORAL THREE TIMES A DAY, #21 CAP 0 Refills Prov:MICHEL MILLER 11/07/15 Tramadol Hcl* (ULTRAM*) 50 Mg Tablet, 50 MG ORAL Q6H PRN for For Pain, #14 TAB 0 Refills Prov:Juan Calderon M.D. 07/25/15 Ibuprofen* (MOTRIN*) 600 Mg Tablet, 600 MG ORAL Q6H PRN for For Pain, #20 TAB Prov:Juan Calderon M.D. 07/25/15 Tramadol Hcl* (ULTRAM*) 50 Mg Tablet, 50 MG ORAL Q6H PRN for For Pain, #30 TAB 0 Refills Prov:LAWSON HANEY 10/24/14 Cephalexin* (KEFLEX*) 500 Mg Capsule, 500 MG ORAL EVERY 12 HOURS for 7 Days, CAP 0 Refills Prov:Gael Cochran MD 08/23/14 Allergies: Coded Allergies: No Known Allergies (Verified , 02/26/08) GI: Plan Plan The patient was seen and examined at bedside and all new and available data was reviewed in the patients chart. I agree with the above findings, impression and plan. (Patient seen earlier today. Signature stamp does not reflect patient encounter time.). - MD Sonya Wakefield Anh Du Yanes Aug 02, 2017 14:31 MARSHALL DE LEON August 08, 2017 06:50
--- NOTE | 2017-08-02 14:43 | Cardiology Report ---
APPROVED REPORT EKG Measurement Heart [id number] Normal sinus rhythm Nonspecific T wave abnormality Abnormal ECG
--- NOTE | 2017-08-02 15:27 | Consultation ---
History of Present Illness General Date patient seen: Aug 02, 2017 Chief Complaint: Nausea, Vomiting, and Diarrhea Referring physician: GEENA JULIAN Reason for Consultation: inpatient management Present Illness HPI 76 year old female with hx of HTN, depression, chronic leukemia, on chemotherapy , presented to with complaints of significant nausea vomiting, diarrhea She had an episode of feeling significantly dizzy lightheaded and generally weak. Her blood pressure was slightly elevated as well in ER. She is admitted for further evaluation. Allergies: Coded Allergies: No Known Allergies (Verified , 02/26/08) Medication History Scheduled Acyclovir* (Acyclovir*), 400 MG ORAL BID, (Reported) Allopurinol* (Allopurinol*), 300 MG ORAL DAILY, (Reported) Amlodipine Besylate* (Amlodipine Besylate*), 10 MG ORAL DAILY, (Reported) Aspirin* (Aspirin*), 81 MG ORAL DAILY, (Reported) Ferrous Sulfate* (Ferrous Sulfate*), 325 MG ORAL DAILY, (Reported) Mirtazapine* (Mirtazapine*), 15 MG ORAL BEDTIME, (Reported) Pravastatin Sod* (Pravastatin Sod*), 10 MG ORAL BEDTIME, (Reported) Miscellaneous Medications [Venclexta], Unknown Dose PO, (Reported) Discontinued Medications Albuterol Sulfate (Ventolin Hfa), 1 PUFF INH EVERY 6 HOURS, (Reported) Discontinued Reason: Pt stopped taking med Amoxicillin* (Amoxil*), 500 MG ORAL THREE TIMES A DAY Discontinued Reason: Pt stopped taking med Azithromycin* (Zithromax*), 250 MG ORAL DAILY Discontinued Reason: Pt stopped taking med Cephalexin* (Keflex*), 500 MG ORAL EVERY 12 HOURS Discontinued Reason: Pt stopped taking med Cetirizine Hcl* (Zyrtec*), 10 MG ORAL DAILY Discontinued Reason: Pt stopped taking med Codeine/Promethazine Hcl* (Promethazine-Codeine Syrup*), 5 ML ORAL Q6H PRN for For Cough Discontinued Reason: Pt stopped taking med D-Methorphan Hb/Prometh Hcl* (Promethazine-Dm Syrup*), 5 ML ORAL Q6H PRN for For Cough Discontinued Reason: Pt stopped taking med Guaifenesin (Guaifenesin), 1,200 MG PO Q12HR Discontinued Reason: Pt stopped taking med Ibuprofen* (Motrin*), 600 MG ORAL Q6H PRN for For Pain Discontinued Reason: Pt stopped taking med Levofloxacin (Levofloxacin*), 500 MG ORAL DAILY Discontinued Reason: Pt stopped taking med No Known Medications* (NKM - No Known Medications*), 0 ., (Reported) Discontinued Reason: Pt stopped taking med Prednisone (Prednisone), 20 MG PO DAILY, (Reported) Discontinued Reason: Pt stopped taking med Pseudoephedrine Hcl* (Nexafed*), 30 MG ORAL Q6H PRN for congestion Discontinued Reason: Pt stopped taking med Tramadol Hcl* (Ultram*), 50 MG ORAL Q6H PRN for For Pain Discontinued Reason: Pt stopped taking med Tramadol Hcl* (Ultram*), 50 MG ORAL Q6H PRN for For Pain Discontinued Reason: Pt stopped taking med Patient History Healthcare decision maker Resuscitation status Advanced Directive on File Past Medical/Surgical History Past Medical/Surgical History: (1) HTN (hypertension) (2) Chronic lymphocytic leukemia (3) Protein-calorie malnutrition, severe Review of Systems All Other Systems: negative except mentioned in HPI Physical Exam General Appearance: cachetic Lines, tubes and drains: peripheral Neck: non-tender, normal alignment Respiratory/Chest: lungs clear, normal breath sounds Breasts: no masses Cardiovascular/Chest: normal peripheral pulses Abdomen: normal bowel sounds, non tender Genitourinary/Rectal: normal genital exam Last 24 Hour Vital Signs Date Time Temp Pulse Resp B/P (MAP) Pulse Ox O2 Delivery O2 Flow Rate FiO2 08/02/17 12:36 97.5 72 18 141/80 100 97.5 08/02/17 08:54 73 117/63 08/02/17 08:00 96.8 73 15 117/63 95 96.8 08/02/17 08:00 96.8 73 15 117/63 95 Room Air 96.8 08/02/17 06:00 97.2 54 18 115/62 99 97.2 08/02/17 05:33 64 14 131/66 99 Room Air 08/02/17 05:00 64 14 131/66 99 Room Air 08/02/17 03:48 77 20 140/56 98 Room Air 08/02/17 03:29 80 16 160/80 98 Room Air Intake and Output 08/01/17 08/02/17 19:00 07:00 # Voids 1 Laboratory Tests Test 08/02/17 04:00 White Blood Count 4.9 K/UL (4.8-10.8) Red Blood Count 3.56 M/UL (4.20-5.40) L Hemoglobin 12.0 G/DL (12.0-16.0) Hematocrit 34.0 % (37.0-47.0) L Mean Corpuscular Volume 95 FL (80-99) Mean Corpuscular Hemoglobin 33.7 PG (27.0-31.0) H Mean Corpuscular Hemoglobin Concent 35.3 G/DL (32.0-36.0) Red Cell Distribution Width 13.4 % (11.6-14.8) Platelet Count 167 K/UL (150-450) Mean Platelet Volume 6.3 FL (6.5-10.1) L Neutrophils (%) (Auto) 50.9 % (45.0-75.0) Lymphocytes (%) (Auto) 40.7 % (20.0-45.0) Monocytes (%) (Auto) 7.7 % (1.0-10.0) Eosinophils (%) (Auto) 0.1 % (0.0-3.0) Basophils (%) (Auto) 0.5 % (0.0-2.0) Sodium Level 136 MMOL/L (136-145) Potassium Level 3.2 MMOL/L (3.5-5.1) L Chloride Level 100 MMOL/L (98-107) Carbon Dioxide Level 26 MMOL/L (21-32) Anion Gap 11 mmol/L (5-15) Blood Urea Nitrogen 17 mg/dL (7-18) Creatinine 1.1 MG/DL (0.55-1.30) Estimat Glomerular Filtration Rate mL/min (>60) Glucose Level 186 MG/DL (74-106) H Calcium Level 9.5 MG/DL (8.5-10.1) Total Bilirubin 0.2 MG/DL (0.2-1.0) Aspartate Amino Transf (AST/SGOT) 27 U/L (15-37) Alanine Aminotransferase (ALT/SGPT) 29 U/L (12-78) Alkaline Phosphatase 95 U/L (46-116) Total Creatine Kinase 200 U/L (26-308) Creatine Kinase MB 5.1 NG/ML (0.0-3.6) H Creatine Kinase MB Relative Index 2.5 Troponin I 0.000 ng/mL (0.000-0.056) Total Protein 7.9 G/DL (6.4-8.2) Albumin 3.9 G/DL (3.4-5.0) Globulin 4.0 g/dL Albumin/Globulin Ratio 1.0 (1.0-2.7) Lipase 344 U/L (73-393) Height (Feet): 5 Height (Inches): 1.00 Weight (Pounds): 105 Medications Current Medications Medications (Trade) Dose Ordered Sig/Adalgisa Route PRN Reason Start Time Stop Time Status Last Admin Dose Admin Acetaminophen (Tylenol) 650 mg Q4H PRN ORAL fever 08/02/17 07:00 09/01/17 06:59 Al Hydroxide/Mg Hydroxide (Mylanta II) 30 ml Q6H PRN ORAL dyspepsia 08/02/17 07:00 09/01/17 06:59 Allopurinol (Allopurinol) 300 mg DAILY ORAL 08/02/17 09:00 09/01/17 08:59 08/02/17 08:51 Amlodipine Besylate (Norvasc) 10 mg DAILY ORAL 08/02/17 09:00 09/01/17 08:59 Dextrose (Dextrose 50%) STAT PRN IV Hypoglycemia 08/02/17 07:00 09/01/17 06:59 Dextrose/Sodium Chloride 1,000 ml @ 75 mls/hr [id number] IV 08/02/17 06:56 09/01/17 06:55 08/02/17 07:43 Diphenhydramine HCl (Benadryl) 25 mg Q6H PRN ORAL Itching/Pruritis 08/02/17 07:00 09/01/17 06:59 Ferrous Sulfate (Feosol) 325 mg DAILY ORAL 08/02/17 12:45 09/01/17 12:44 08/02/17 12:53 Heparin Sodium (Porcine) (Heparin 5000 units/ml) 5,000 units EVERY 12 HOURS SUBQ 08/02/17 09:00 09/01/17 08:59 08/02/17 08:54 Lorazepam (Ativan 2mg/ml 1ml) 1 mg EVERY 4 HOURS PRN IV agitation 08/02/17 07:00 08/09/17 06:59 Mirtazapine (Remeron) 15 mg BEDTIME ORAL 08/02/17 21:00 09/01/17 20:59 Morphine Sulfate (Morphine Sulfate) 2 mg Q4H PRN IVP severe pain 7-10 08/02/17 12:00 08/09/17 11:59 Nitroglycerin (Ntg) 0.4 mg Q5M X 3 DOSES PRN SL Prn Chest Pain 08/02/17 07:00 09/01/17 06:59 Ondansetron HCl (Zofran) 4 mg Q6H PRN IVP Nausea & Vomiting 08/02/17 07:00 09/01/17 06:59 Pantoprazole (Protonix) 40 mg DAILY IV 08/02/17 09:00 09/01/17 08:59 08/02/17 08:51 Polyethylene Glycol (Miralax) 17 gm HSPRN PRN ORAL Constipation 08/02/17 07:00 09/01/17 06:59 Pravastatin Sodium (Pravachol) 10 mg BEDTIME ORAL 08/02/17 21:00 09/01/17 20:59 Promethazine HCl 25 mg/Dextrose 56 ml @ 110 mls/hr Q6H PRN IV Refractory N/V 08/02/17 08:30 09/01/17 06:59 Temazepam (Restoril) 15 mg HSPRN PRN ORAL Insomnia 08/02/17 07:00 08/09/17 06:59 Assessment/Plan Problem List: (1) Enteritis ICD Codes: K52.9 - Noninfective gastroenteritis and colitis, unspecified SNOMED: 82227488 (2) Vomiting ICD Codes: R11.10 - Vomiting, unspecified SNOMED: 299709522 (3) Chronic lymphocytic leukemia ICD Codes: C91.10 - Chronic lymphocytic leukemia of B-cell type not having achieved remission SNOMED: 29290929 (4) Protein-calorie malnutrition, severe ICD Codes: E43 - Unspecified severe protein-calorie malnutrition SNOMED: 679012569 (5) HTN (hypertension) ICD Codes: I10 - Essential (primary) hypertension SNOMED: 79263337 Assessment/Plan NPO IV fluids check electrolytes symptomatic treatment hematology to see GI evaluation Ramila Dumont MD Aug 02, 2017 15:27
--- NOTE | 2017-08-02 16:43 | Diagnostic Imaging Report ---
Indication: Abdominal pain; history of leukemia, Technique: US ABD Complete Comparison: 02/28/2008; CT of the abdomen 02/26/2008 Findings: There are predominantly hypoechoic mass lesions adjacent to the pancreatic head in the region of the maylin hepatis. There are least 2 of the lesions, with one measuring 3.1 x 1.6 cm and the other measuring approximately 4.5 x 2.3 cm. On cine loops that do appear to be separate from the pancreatic head. The right liver the liver is borderline enlarged, measuring 18 cm in length. The portal vein is patent with normal direction of flow. There is probable anechoic lesion within the central liver posteriorly representing the likely cyst seen on the prior CT. These are poorly evaluated on ultrasound. The gallbladder is unremarkable in appearance. There is no gallbladder wall thickening or pericholecystic fluid. No definite gallbladder stones or sludge identified. No intrahepatic biliary ductal dilatation. Common bile measures approximately 2.5 mm in diameter. The kidneys are symmetric in size. They demonstrate normal parenchymal thickness and echogenicity. There is mild fullness of the bilateral renal collecting systems which seems to resolve on postvoid imaging. There is no significant post void residual bladder volume. No appreciable renal stones identified. Spleen is normal in size. A shadowing calcification is noted within the anterior spleen. Imaged portions of the aorta normal in caliber. Atherosclerotic vascular calcifications are seen. No interval ascites. IMPRESSION: Hypoechoic mass lesions in the region of the pancreatic head/maylin hepatis. These findings are most concerning for neoplasm/lymphadenopathy, especially given history of leukemia. Further evaluation with contrast-enhanced CT scan of the abdomen recommended.
[2017-08-03 04:00] VITALS: BP 129/74
[2017-08-03 07:21] LABS: HEMATOCRIT 31.1 % (37.0-47.0); HEMOGLOBIN 10.8 G/DL (12.0-16.0); MEAN CORPUSCULAR VOLUME 97 FL (80-99); PLATELET COUNT 162 K/UL (150-450); RED BLOOD COUNT 3.21 M/UL (4.20-5.40); RED CELL DISTRIBUTION WIDTH 13.6 % (11.6-14.8); WHITE BLOOD COUNT 2.9 K/UL (4.8-10.8)
[2017-08-03 07:37] LABS: ALANINE AMINOTRANSFERASE 31 U/L (12-78); ALBUMIN 3.3 G/DL (3.4-5.0); ALBUMIN/GLOBULIN RATIO 0.9 (1.0-2.7); ALKALINE PHOSPHATASE 82 U/L (46-116); AMYLASE 194 U/L (25-115); ANION GAP 10 mmol/L (5-15); ASPARTATE AMINO TRANSFERASE 26 U/L (15-37); BILIRUBIN,TOTAL 0.2 MG/DL (0.2-1.0); BLOOD UREA NITROGEN 12 mg/dL (7-18); CALCIUM 8.8 MG/DL (8.5-10.1); CARBON DIOXIDE 24 MMOL/L (21-32); CHLORIDE 108 MMOL/L (98-107); CREATININE 0.9 MG/DL (0.55-1.30); POTASSIUM 3.8 MMOL/L (3.5-5.1); SODIUM 142 MMOL/L (136-145)
[2017-08-03 08:13] VITALS: BP 132/61
[2017-08-03] MEDS ORDERED: Isovue 100 ml bottle INJ PRN (08:30)
[2017-08-03] MEDS ORDERED: Gastrograffin 30ml ORAL PRN (08:30)
[2017-08-03] MEDS: Pantoprazole Inj IV SCH (08:45)
[2017-08-03] MEDS: Heparin 5000 units/ml inj SUBQ SCH ×2 (08:47→20:48)
--- NOTE | 2017-08-03 09:52 | Anethesia Preoperative Eval ---
Anesthesia Pre-op PMH/ROS General Date of Evaluation: Aug 03, 2017 Time of Evaluation: 09:44 ASA Score: ASA 3 Mallampati Score Class I : Soft palate, uvula, fauces, pillars visible Class II: Soft palate, uvula, fauces visible Class III: Soft palate, base of uvula visible Class IV: Only hard plate visible Mallampati Classification: Class II Surgeon: surendra Surgical Procedure: egd Anesthesia History: none Social History: smoking - nonsmoker Family History: no anesthesia problems Allergies: Coded Allergies: No Known Allergies (Verified , 02/26/08) Medications: see eMAR Past Medical History Cardiovascular: Reports: HTN, other - hypercholesterolemia Gastrointestinal/Genitourinary: Reports: other - uti Hematology/Immune: Reports: other - cml, Anesthesia Pre-op Phys. Exam Physician Exam Last Vital Signs Date Time Temp Pulse Resp B/P (MAP) Pulse Ox O2 Delivery O2 Flow Rate FiO2 08/03/17 08:49 62 132/61 08/03/17 08:13 98.4 18 100 98.4 08/03/17 08:13 Room Air Constitutional: NAD Neurologic: CN 2-12 intact Cardiovascular: RRR Respiratory: CTA Gastrointestinal: S/NT/ND Airway Exam Mallampati Score: Class II MO: limited Neck: short TMD: 2fb ROM: limited Anesthesia Pre-op A/P Labs Hematology Test 08/03/17 05:10 White Blood Count 2.9 K/UL (4.8-10.8) L Red Blood Count 3.21 M/UL (4.20-5.40) L Hemoglobin 10.8 G/DL (12.0-16.0) L Hematocrit 31.1 % (37.0-47.0) L Mean Corpuscular Volume 97 FL (80-99) Mean Corpuscular Hemoglobin 33.7 PG (27.0-31.0) H Mean Corpuscular Hemoglobin Concent 34.8 G/DL (32.0-36.0) Red Cell Distribution Width 13.6 % (11.6-14.8) Platelet Count 162 K/UL (150-450) Mean Platelet Volume 5.9 FL (6.5-10.1) L Neutrophils (%) (Auto) % (45.0-75.0) Lymphocytes (%) (Auto) % (20.0-45.0) Monocytes (%) (Auto) % (1.0-10.0) Eosinophils (%) (Auto) % (0.0-3.0) Basophils (%) (Auto) % (0.0-2.0) Differential Total Cells Counted 100 Neutrophils % (Manual) 43 % (45-75) L Lymphocytes % (Manual) 51 % (20-45) H Monocytes % (Manual) 6 % (1-10) Eosinophils % (Manual) 0 % (0-3) Basophils % (Manual) 0 % (0-2) Band Neutrophils 0 % (0-8) Platelet Estimate Adequate Platelet Morphology Normal Hypochromasia 1+ Coagulation Test 08/03/17 05:10 Activated Partial Thromboplast Time 24 SEC (23-33) Chemistry Test 08/03/17 05:10 Sodium Level 142 MMOL/L (136-145) Potassium Level 3.8 MMOL/L (3.5-5.1) Chloride Level 108 MMOL/L (98-107) H Carbon Dioxide Level 24 MMOL/L (21-32) Anion Gap 10 mmol/L (5-15) Blood Urea Nitrogen 12 mg/dL (7-18) Creatinine 0.9 MG/DL (0.55-1.30) Estimat Glomerular Filtration Rate mL/min (>60) Glucose Level 114 MG/DL (74-106) H Hemoglobin A1c 5.8 % (4.3-6.0) Calcium Level 8.8 MG/DL (8.5-10.1) Total Bilirubin 0.2 MG/DL (0.2-1.0) Aspartate Amino Transf (AST/SGOT) 26 U/L (15-37) Alanine Aminotransferase (ALT/SGPT) 31 U/L (12-78) Alkaline Phosphatase 82 U/L (46-116) Total Protein 7.0 G/DL (6.4-8.2) Albumin 3.3 G/DL (3.4-5.0) L Globulin 3.7 g/dL Albumin/Globulin Ratio 0.9 (1.0-2.7) L Amylase Level 194 U/L (25-115) H Lipase 232 U/L (73-393) Risk Assessment & Plan Assessment: asa3 Plan: mac Status Change Before Surgery: No Pre-Antibiotics Drug: SERA Barahona Aug 03, 2017 09:52
[2017-08-03] MEDS ORDERED: fentaNYL 100 mcg/2 mL IV PRN (10:00)
[2017-08-03] MEDS ORDERED: Midazolam 2mg/2ml Inj IVP PRN (10:00)
[2017-08-03] MEDS ORDERED: Atropine Inj 1mg/10ml Syr IV PRN (10:00)
[2017-08-03] MEDS ORDERED: DiphenhydrAMINE 50mg/ml Inj IVP PRN (10:00)
--- NOTE | 2017-08-03 10:52 | GI Progress Note ---
Assessment/Plan Problems: (1) Pancreatic mass ICD Codes: K86.9 - Disease of pancreas, unspecified SNOMED: 929543642 (2) Protein-calorie malnutrition, severe ICD Codes: E43 - Unspecified severe protein-calorie malnutrition SNOMED: 809355355 (3) Vomiting ICD Codes: R11.10 - Vomiting, unspecified SNOMED: 221669078 (4) Enteritis ICD Codes: K52.9 - Noninfective gastroenteritis and colitis, unspecified SNOMED: 29811370 (5) Diarrhea ICD Codes: R19.7 - Diarrhea, unspecified SNOMED: 22732718 (6) Dehydration ICD Codes: E86.0 - Dehydration SNOMED: 60484882 Status: unchanged Status Narrative Discussed with Dr. Genao. Assessment/Plan abdominal U/S reviewed >> Hypoechoic mass lesions in the region of the pancreatic head/maylin hepatis. These findings are most concerning for neoplasm/ lymphadenopathy, especially given history of leukemia. CT AP reviewed CT AP, pancreatic protocol ordered. EGD/EUS scheduled for tomorrow. - NPO @ [place]. oh to advance diet today electrolyte correction zofran ppi anemia work up OB stool r/o GI bleed fu labs, CA19-9 The patient was seen and examined at bedside and all new and available data was reviewed in the patients chart. I agree with the above findings, impression and plan. (Patient seen earlier today. Signature stamp does not reflect patient encounter time.). - Kenneth Genao MD Subjective Gastrointestinal/Abdominal: Reports: no symptoms Objective Last 24 Hour Vital Signs Date Time Temp Pulse Resp B/P (MAP) Pulse Ox O2 Delivery O2 Flow Rate FiO2 08/03/17 08:49 62 132/61 08/03/17 08:13 98.4 62 18 132/61 100 98.4 08/03/17 08:13 Room Air 08/03/17 04:00 98.1 60 18 129/74 95 98.1 08/02/17 23:59 97.9 58 18 136/67 99 97.9 08/02/17 20:00 98.5 61 18 143/77 98 98.5 08/02/17 16:00 97.4 70 19 133/69 98 97.4 08/02/17 12:36 97.5 72 18 141/80 100 97.5 Intake and Output 08/02/17 08/03/17 19:00 07:00 Intake Total 1150 ml 400 ml Balance 1150 ml 400 ml Intake Oral 400 ml 400 ml IV Total 750 ml # Voids 2 2 Laboratory Tests Test 08/03/17 05:10 White Blood Count 2.9 K/UL (4.8-10.8) L Red Blood Count 3.21 M/UL (4.20-5.40) L Hemoglobin 10.8 G/DL (12.0-16.0) L Hematocrit 31.1 % (37.0-47.0) L Mean Corpuscular Volume 97 FL (80-99) Mean Corpuscular Hemoglobin 33.7 PG (27.0-31.0) H Mean Corpuscular Hemoglobin Concent 34.8 G/DL (32.0-36.0) Red Cell Distribution Width 13.6 % (11.6-14.8) Platelet Count 162 K/UL (150-450) Mean Platelet Volume 5.9 FL (6.5-10.1) L Neutrophils (%) (Auto) % (45.0-75.0) Lymphocytes (%) (Auto) % (20.0-45.0) Monocytes (%) (Auto) % (1.0-10.0) Eosinophils (%) (Auto) % (0.0-3.0) Basophils (%) (Auto) % (0.0-2.0) Differential Total Cells Counted 100 Neutrophils % (Manual) 43 % (45-75) L Lymphocytes % (Manual) 51 % (20-45) H Monocytes % (Manual) 6 % (1-10) Eosinophils % (Manual) 0 % (0-3) Basophils % (Manual) 0 % (0-2) Band Neutrophils 0 % (0-8) Platelet Estimate Adequate Platelet Morphology Normal Hypochromasia 1+ Activated Partial Thromboplast Time 24 SEC (23-33) Sodium Level 142 MMOL/L (136-145) Potassium Level 3.8 MMOL/L (3.5-5.1) Chloride Level 108 MMOL/L (98-107) H Carbon Dioxide Level 24 MMOL/L (21-32) Anion Gap 10 mmol/L (5-15) Blood Urea Nitrogen 12 mg/dL (7-18) Creatinine 0.9 MG/DL (0.55-1.30) Estimat Glomerular Filtration Rate mL/min (>60) Glucose Level 114 MG/DL (74-106) H Hemoglobin A1c 5.8 % (4.3-6.0) Calcium Level 8.8 MG/DL (8.5-10.1) Total Bilirubin 0.2 MG/DL (0.2-1.0) Aspartate Amino Transf (AST/SGOT) 26 U/L (15-37) Alanine Aminotransferase (ALT/SGPT) 31 U/L (12-78) Alkaline Phosphatase 82 U/L (46-116) Total Protein 7.0 G/DL (6.4-8.2) Albumin 3.3 G/DL (3.4-5.0) L Globulin 3.7 g/dL Albumin/Globulin Ratio 0.9 (1.0-2.7) L Amylase Level 194 U/L (25-115) H Lipase 232 U/L (73-393) Height (Feet): 5 Height (Inches): 1.00 Weight (Pounds): 105 General Appearance: WD/WN, no apparent distress, alert Cardiovascular: normal rate Respiratory/Chest: normal breath sounds, no respiratory distress Abdominal Exam: normal bowel sounds, non tender, soft Extremities: normal range of motion, non-tender Alea Hassan N.P. Aug 03, 2017 10:52 MARSHALL GENAO August 08, 2017 06:52
[2017-08-03 11:41] VITALS: BP 150/56
--- NOTE | 2017-08-03 14:59 | Pulmonology Progress Note ---
Assessment/Plan Problems: (1) Pancreatic mass (2) Chronic lymphocytic leukemia (3) Protein-calorie malnutrition, severe (4) HTN (hypertension) (5) Vomiting (6) Enteritis Assessment/Plan advance diet EUS scheduled by GI symptomatic treatment check labs check tumor markers Oncology f/u Subjective ROS Limited/Unobtainable: No Interval Events: no new complains Allergies: Coded Allergies: No Known Allergies (Verified , 02/26/08) Objective Last 24 Hour Vital Signs Date Time Temp Pulse Resp B/P (MAP) Pulse Ox O2 Delivery O2 Flow Rate FiO2 08/03/17 11:41 Room Air 08/03/17 11:41 97.6 75 18 150/56 100 97.6 08/03/17 08:49 62 132/61 08/03/17 08:13 98.4 62 18 132/61 100 98.4 08/03/17 08:13 Room Air 08/03/17 04:00 98.1 60 18 129/74 95 98.1 08/02/17 23:59 97.9 58 18 136/67 99 97.9 08/02/17 20:00 98.5 61 18 143/77 98 98.5 08/02/17 16:00 97.4 70 19 133/69 98 97.4 Intake and Output 08/02/17 08/03/17 19:00 07:00 Intake Total 1150 ml 400 ml Balance 1150 ml 400 ml Intake Oral 400 ml 400 ml IV Total 750 ml # Voids 2 2 General Appearance: WD/WN HEENT: normocephalic Respiratory/Chest: chest wall non-tender, lungs clear Breasts: no masses Cardiovascular: normal peripheral pulses, normal rate Abdomen: normal bowel sounds, soft, non tender, no scars Extremities: no cyanosis Skin: no ulcers Neurologic/Psychiatric: abnormal gait Lymphatic: no neck adenopathy Laboratory Tests 08/03/17 05:10: White Blood Count 2.9L, Red Blood Count 3.21L, Hemoglobin 10.8L, Hematocrit 31.1L, Mean Corpuscular Volume 97, Mean Corpuscular Hemoglobin 33.7H, Mean Corpuscular Hemoglobin Concent 34.8, Red Cell Distribution Width 13.6, Platelet Count 162, Mean Platelet Volume 5.9L, Neutrophils (%) (Auto) , Lymphocytes (%) ( Auto) , Monocytes (%) (Auto) , Eosinophils (%) (Auto) , Basophils (%) (Auto) , Differential Total Cells Counted 100, Neutrophils % (Manual) 43L, Lymphocytes % (Manual) 51H, Monocytes % (Manual) 6, Eosinophils % (Manual) 0, Basophils % ( Manual) 0, Band Neutrophils 0, Platelet Estimate Adequate, Platelet Morphology Normal, Hypochromasia 1+, Activated Partial Thromboplast Time 24, Sodium Level 142, Potassium Level 3.8, Chloride Level 108H, Carbon Dioxide Level 24, Anion Gap 10, Blood Urea Nitrogen 12, Creatinine 0.9, Estimat Glomerular Filtration Rate , Glucose Level 114H, Hemoglobin A1c 5.8, Calcium Level 8.8, Total Bilirubin 0.2, Aspartate Amino Transf (AST/SGOT) 26, Alanine Aminotransferase ( ALT/SGPT) 31, Alkaline Phosphatase 82, Total Protein 7.0, Albumin 3.3L, Globulin 3.7, Albumin/Globulin Ratio 0.9L, Amylase Level 194H, Lipase 232 Current Medications Medications (Trade) Dose Ordered Sig/Adalgisa Route PRN Reason Start Time Stop Time Status Last Admin Dose Admin Acetaminophen (Tylenol) 650 mg Q4H PRN ORAL fever 08/02/17 07:00 09/01/17 06:59 Al Hydroxide/Mg Hydroxide (Mylanta II) 30 ml Q6H PRN ORAL dyspepsia 08/02/17 07:00 09/01/17 06:59 Allopurinol (Allopurinol) 300 mg DAILY ORAL 08/02/17 09:00 09/01/17 08:59 08/03/17 08:45 Amlodipine Besylate (Norvasc) 10 mg DAILY ORAL 08/02/17 09:00 09/01/17 08:59 08/03/17 08:49 Dextrose (Dextrose 50%) STAT PRN IV Hypoglycemia 08/02/17 07:00 09/01/17 06:59 Dextrose/Sodium Chloride 1,000 ml @ 75 mls/hr [id number] IV 08/02/17 06:56 09/01/17 06:55 08/02/17 21:16 Diatrizoate Meglum/ Diatrizoate Sod (Gastrografin) 30 ml NOW PRN ORAL Radiology Procedure 08/03/17 08:30 08/05/17 08:29 Diphenhydramine HCl (Benadryl) 25 mg Q6H PRN ORAL Itching/Pruritis 08/02/17 07:00 09/01/17 06:59 Ferrous Sulfate (Feosol) 325 mg DAILY ORAL 08/02/17 12:45 09/01/17 12:44 08/03/17 08:45 Heparin Sodium (Porcine) (Heparin 5000 units/ml) 5,000 units EVERY 12 HOURS SUBQ 08/02/17 09:00 09/01/17 08:59 08/03/17 08:47 Ioversol (Isovue) 100 ml NOW PRN INJ Radiology Procedure 08/03/17 08:30 08/05/17 08:29 Lorazepam (Ativan 2mg/ml 1ml) 1 mg EVERY 4 HOURS PRN IV agitation 08/02/17 07:00 08/09/17 06:59 Mirtazapine (Remeron) 15 mg BEDTIME ORAL 08/02/17 21:00 09/01/17 20:59 08/02/17 21:13 Morphine Sulfate (Morphine Sulfate) 2 mg Q4H PRN IVP severe pain 7-10 08/02/17 12:00 08/09/17 11:59 Nitroglycerin (Ntg) 0.4 mg Q5M X 3 DOSES PRN SL Prn Chest Pain 08/02/17 07:00 09/01/17 06:59 Ondansetron HCl (Zofran) 4 mg Q6H PRN IVP Nausea & Vomiting 08/02/17 07:00 09/01/17 06:59 Pantoprazole (Protonix) 40 mg DAILY IV 08/02/17 09:00 09/01/17 08:59 08/03/17 08:45 Polyethylene Glycol (Miralax) 17 gm HSPRN PRN ORAL Constipation 08/02/17 07:00 09/01/17 06:59 Pravastatin Sodium (Pravachol) 10 mg BEDTIME ORAL 08/02/17 21:00 09/01/17 20:59 08/02/17 21:13 Promethazine HCl 25 mg/Dextrose 56 ml @ 110 mls/hr Q6H PRN IV Refractory N/V 08/02/17 08:30 09/01/17 06:59 Temazepam (Restoril) 15 mg HSPRN PRN ORAL Insomnia 08/02/17 07:00 08/09/17 06:59 Ramila Dumont MD Aug 03, 2017 14:59
[2017-08-03] MEDS: D5 1/2NS 1,000 ML IV SCH ×2 (15:25→22:56)
--- NOTE | 2017-08-03 15:35 | Diagnostic Imaging Report ---
Clinical Indication: Abdominal pain, pancreatitis Technique: Patient given oral contrast. IV administration nonionic contrast. Arterial and venous phase spiral acquisition obtained through the abdomen and pelvis. Multiplanar reconstructions were generated. Total dose length product 1109.73 mGycm. CTDIvol(s) 13.48,16.55 mGy. Dose reduction achieved using automated exposure control Comparison: 02/26/2008, also ultrasound 08/02/2017 Findings: Again demonstrated are enlarged peripancreatic lymph nodes. Largest of these measures 5 cm long axis dimension. This represents a slight increase in size from the previous exam. A large node is seen anterior to the pancreatic head body junction which has increased considerably in size from the previous study, currently measuring 5.3 cm long axis dimension. Other nodes appear overall similar in size. These appear overall homogeneous but slightly hypoattenuating. Previously demonstrated retroperitoneal lymphadenopathy and bilateral iliac chain lymphadenopathy have improved considerably. The largest residual lymph node is in the pelvic sidewall, measuring 2.3 x 0.7 cm, previously 3.4 x 1 cm. Prominent lymph nodes are seen adjacent to the hepatic flexure of the colon, also evident previously but much smaller currently. Lymphadenopathy is seen within the splenic hilum, only equivocally evident previously, considerably larger currently, largest node measuring 2.7 cm long axis dimension, with other smaller nodes also seen in the vicinity. Enlarged pericecal nodes are smaller there previously. Nodes in the transverse mesocolon appears smaller than before A lobulated cyst versus 2 adjacent cysts again demonstrated within segment 2 of the liver, appearing smaller than previously. There are some scattered subcentimeter low-attenuation lesions which are too small to characterize. No definite solid mass demonstrated. Multiple calcifications are seen within the left hepatic lobe. The gallbladder, bile ducts, pancreas are unremarkable. The spleen is prominent but not frankly enlarged. It contains a calcification inferiorly The adrenals and kidneys are unremarkable. The uterus is not visualized, presumed surgically absent. A surgical clip is seen within the pelvis. There is considerable soft tissue fullness in the perineal region, although this appears similar to the previous study. There is no evidence of diverticulosis or diverticulitis. What may be a normal appendix is demonstrated. In any case, no findings to suggest acute appendicitis are evident. Contrast is seen throughout the entirety of the small bowel and into a short segment of the proximal colon. No small bowel wall thickening or small bowel distention demonstrated. No free or loculated intraperitoneal air or fluid is evident. There is a small fat-containing umbilical hernia again demonstrated. There is apparent gastric wall thickening, although this is probably an artifact of under distention. There is a small hiatal hernia and suggestion of distal esophageal wall thickening. This appearance is similar to the prior exam. The lung bases demonstrate some scarring or atelectasis in the lingula and minimal scarring or atelectasis in both lower lobes. The bones demonstrate degenerative spondylosis changes. Impression: Abdominal and pelvic lymphadenopathy, as described. The largest are peripancreatic nodes and these appear significantly increased in size from the previous exam of 02/26/2008. However, most of the nodes elsewhere are decreased in size. According to prior reports, patient has a history of leukemia. Lymphadenopathy is presumably related to this. Soft tissue fullness of the perineal region, also evident previously, of uncertain significance. Recommend correlation with findings on physical exam Equivocal gastric wall thickening, less likely artifact of under distention, but gastritis, peptic ulcer disease, or neoplasm or possible Small hiatal hernia. Possible distal esophageal wall thickening, could indicate esophagitis. This appearance, however, is similar to the prior study Left lobe liver cyst, smaller than on prior study. Subcentimeter low-attenuation hepatic lesions, too small to characterize, most likely benign simple cyst or bile hamartomas. No further follow-up necessary Other findings as noted, including bilateral basilar pulmonary parenchymal scarring and/or atelectasis, degenerative spondylosis, small fat-containing umbilical hernia, splenic and hepatic calcifications, pelvic surgical clip, evidence of prior hysterectomy The CT scanner at [facility] is accredited by the [employer] and the scans are performed using protocols designed to limit radiation exposure to as low as reasonably achievable to attain images of sufficient resolution adequate for diagnostic evaluation.
[2017-08-03 15:51] VITALS: BP 147/66
[2017-08-03 19:22] VITALS: BP 146/72
--- NOTE | 2017-08-03 22:43 | Internal Med Progress Note ---
Subjective Physician Name Mandeep Galarza Attending Physician Mandeep Galarza MD Current Medications Medications (Trade) Dose Ordered Sig/Adalgisa Route PRN Reason Start Time Stop Time Status Last Admin Dose Admin Acetaminophen (Tylenol) 650 mg Q4H PRN ORAL fever 08/02/17 07:00 09/01/17 06:59 Al Hydroxide/Mg Hydroxide (Mylanta II) 30 ml Q6H PRN ORAL dyspepsia 08/02/17 07:00 09/01/17 06:59 Allopurinol (Allopurinol) 300 mg DAILY ORAL 08/02/17 09:00 09/01/17 08:59 08/03/17 08:45 Amlodipine Besylate (Norvasc) 10 mg DAILY ORAL 08/02/17 09:00 09/01/17 08:59 08/03/17 08:49 Dextrose (Dextrose 50%) STAT PRN IV Hypoglycemia 08/02/17 07:00 09/01/17 06:59 Dextrose/Sodium Chloride 1,000 ml @ 75 mls/hr [id number] IV 08/02/17 06:56 09/01/17 06:55 08/03/17 15:25 Diatrizoate Meglum/ Diatrizoate Sod (Gastrografin) 30 ml NOW PRN ORAL Radiology Procedure 08/03/17 08:30 08/05/17 08:29 Diphenhydramine HCl (Benadryl) 25 mg Q6H PRN ORAL Itching/Pruritis 08/02/17 07:00 09/01/17 06:59 Ferrous Sulfate (Feosol) 325 mg DAILY ORAL 08/02/17 12:45 09/01/17 12:44 08/03/17 08:45 Heparin Sodium (Porcine) (Heparin 5000 units/ml) 5,000 units EVERY 12 HOURS SUBQ 08/02/17 09:00 09/01/17 08:59 08/03/17 08:47 Ioversol (Isovue) 100 ml NOW PRN INJ Radiology Procedure 08/03/17 08:30 08/05/17 08:29 Lorazepam (Ativan 2mg/ml 1ml) 1 mg EVERY 4 HOURS PRN IV agitation 08/02/17 07:00 08/09/17 06:59 Mirtazapine (Remeron) 15 mg BEDTIME ORAL 08/02/17 21:00 09/01/17 20:59 08/03/17 20:47 Morphine Sulfate (Morphine Sulfate) 2 mg Q4H PRN IVP severe pain 7-10 08/02/17 12:00 08/09/17 11:59 Nitroglycerin (Ntg) 0.4 mg Q5M X 3 DOSES PRN SL Prn Chest Pain 08/02/17 07:00 09/01/17 06:59 Ondansetron HCl (Zofran) 4 mg Q6H PRN IVP Nausea & Vomiting 08/02/17 07:00 09/01/17 06:59 Pantoprazole (Protonix) 40 mg DAILY IV 08/02/17 09:00 09/01/17 08:59 08/03/17 08:45 Patient Own Medication (Patient's Own Med) 4 ea QHS ORAL 08/03/17 22:30 09/02/17 22:29 08/03/17 21:59 Polyethylene Glycol (Miralax) 17 gm HSPRN PRN ORAL Constipation 08/02/17 07:00 09/01/17 06:59 Pravastatin Sodium (Pravachol) 10 mg BEDTIME ORAL 08/02/17 21:00 09/01/17 20:59 08/03/17 20:47 Promethazine HCl 25 mg/Dextrose 56 ml @ 110 mls/hr Q6H PRN IV Refractory N/V 08/02/17 08:30 09/01/17 06:59 Temazepam (Restoril) 15 mg HSPRN PRN ORAL Insomnia 08/02/17 07:00 08/09/17 06:59 Allergies: Coded Allergies: No Known Allergies (Verified , 02/26/08) Subjective awake, alert, responsive, feeling good. Objective Last Vital Signs Date Time Temp Pulse Resp B/P (MAP) Pulse Ox O2 Delivery O2 Flow Rate FiO2 08/03/17 19:22 97.7 64 20 146/72 98 Room Air 97.7 Laboratory Tests Test 08/03/17 05:10 White Blood Count 2.9 K/UL (4.8-10.8) L Red Blood Count 3.21 M/UL (4.20-5.40) L Hemoglobin 10.8 G/DL (12.0-16.0) L Hematocrit 31.1 % (37.0-47.0) L Mean Corpuscular Volume 97 FL (80-99) Mean Corpuscular Hemoglobin 33.7 PG (27.0-31.0) H Mean Corpuscular Hemoglobin Concent 34.8 G/DL (32.0-36.0) Red Cell Distribution Width 13.6 % (11.6-14.8) Platelet Count 162 K/UL (150-450) Mean Platelet Volume 5.9 FL (6.5-10.1) L Neutrophils (%) (Auto) % (45.0-75.0) Lymphocytes (%) (Auto) % (20.0-45.0) Monocytes (%) (Auto) % (1.0-10.0) Eosinophils (%) (Auto) % (0.0-3.0) Basophils (%) (Auto) % (0.0-2.0) Differential Total Cells Counted 100 Neutrophils % (Manual) 43 % (45-75) L Lymphocytes % (Manual) 51 % (20-45) H Monocytes % (Manual) 6 % (1-10) Eosinophils % (Manual) 0 % (0-3) Basophils % (Manual) 0 % (0-2) Band Neutrophils 0 % (0-8) Platelet Estimate Adequate Platelet Morphology Normal Hypochromasia 1+ Activated Partial Thromboplast Time 24 SEC (23-33) Sodium Level 142 MMOL/L (136-145) Potassium Level 3.8 MMOL/L (3.5-5.1) Chloride Level 108 MMOL/L (98-107) H Carbon Dioxide Level 24 MMOL/L (21-32) Anion Gap 10 mmol/L (5-15) Blood Urea Nitrogen 12 mg/dL (7-18) Creatinine 0.9 MG/DL (0.55-1.30) Estimat Glomerular Filtration Rate mL/min (>60) Glucose Level 114 MG/DL (74-106) H Hemoglobin A1c 5.8 % (4.3-6.0) Calcium Level 8.8 MG/DL (8.5-10.1) Total Bilirubin 0.2 MG/DL (0.2-1.0) Aspartate Amino Transf (AST/SGOT) 26 U/L (15-37) Alanine Aminotransferase (ALT/SGPT) 31 U/L (12-78) Alkaline Phosphatase 82 U/L (46-116) Total Protein 7.0 G/DL (6.4-8.2) Albumin 3.3 G/DL (3.4-5.0) L Globulin 3.7 g/dL Albumin/Globulin Ratio 0.9 (1.0-2.7) L Amylase Level 194 U/L (25-115) H Lipase 232 U/L (73-393) Intake and Output 08/02/17 08/03/17 19:00 07:00 Intake Total 1150 ml 400 ml Balance 1150 ml 400 ml Intake Oral 400 ml 400 ml IV Total 750 ml # Voids 2 2 Objective General: No acute distress, awake and alert HEENT: NCAT, sclera anicteric, PERRL, EOMI. Neck: Supple, no significant jugular venous distention, Lungs: Good inspiratory effort, no accessory muscle use, clear to auscultation bilaterally, no Wheeze or Rales. Heart: Regular rate and rhythm, normal S1/S2, no murmurs/gallops Abdomen: soft, nontender, nondistended. Normoactive bowel sounds. / Rectal: Refused and deferred. Extremities: No Cyanosis , clubbing or edema. Neuro: A&O x 3, Able to move all extremities Skin: warm, no rashes or lesions Psych: Normal mood and affect Assessment/Plan Assessment/Plan (1) Pancreatic mass ICD Codes: K86.9 - Disease of pancreas, unspecified (2) Protein-calorie malnutrition, severe ICD Codes: E43 - Unspecified severe protein-calorie malnutrition (3) Vomiting ICD Codes: R11.10 - Vomiting, unspecified (4) Enteritis ICD Codes: K52.9 - Noninfective gastroenteritis and colitis, unspecified (5) Diarrhea ICD Codes: R19.7 - Diarrhea, unspecified (6) Dehydration ICD Codes: E86.0 - Dehydration Assessment/Plan abdominal U/S reviewed >> Hypoechoic mass lesions in the region of the pancreatic head/maylin hepatis. These findings are most concerning for neoplasm/ lymphadenopathy, especially given history of leukemia. CT AP reviewed Plan: EGD/EUS scheduled for tomorrow. - NPO @ [facility]. Monitor Labs zofran ppi anemia work up OB stool r/o GI bleed fu labs, [id number] Mandeep Galarza MD Aug 03, 2017 22:43
[2017-08-04] VITALS (11 sets, daily range): BP systolic 116–148; BP diastolic 61–68
[2017-08-04] MEDS: D5 1/2NS 1,000 ML IV SCH ×2 (04:18→22:21)
[2017-08-04 08:12] LABS: BASOPHILS % (AUTO) 0.8 % (0.0-2.0); EOSINOPHILS % (AUTO) 0.2 % (0.0-3.0); HEMATOCRIT 32.6 % (37.0-47.0); HEMOGLOBIN 11.3 G/DL (12.0-16.0); MEAN CORPUSCULAR VOLUME 97 FL (80-99); MONOCYTES % (AUTO) 10.5 % (1.0-10.0); NEUTROPHILS % (AUTO) 42.6 % (45.0-75.0); PLATELET COUNT 162 K/UL (150-450); RED BLOOD COUNT 3.34 M/UL (4.20-5.40); RED CELL DISTRIBUTION WIDTH 13.8 % (11.6-14.8); WHITE BLOOD COUNT 3.7 K/UL (4.8-10.8)
[2017-08-04 08:17] LABS: INR 0.9 (0.9-1.1)
[2017-08-04 08:31] LABS: ANION GAP 8 mmol/L (5-15); BLOOD UREA NITROGEN 9 mg/dL (7-18); CALCIUM 9.2 MG/DL (8.5-10.1); CARBON DIOXIDE 28 MMOL/L (21-32); CHLORIDE 105 MMOL/L (98-107); CREATININE 0.9 MG/DL (0.55-1.30); SODIUM 140 MMOL/L (136-145)
[2017-08-04 08:36] LABS: PHOSPHORUS 3.4 MG/DL (2.5-4.9)
[2017-08-04] MEDS: Heparin 5000 units/ml inj SUBQ SCH ×2 (09:00→20:19)
[2017-08-04] MEDS ORDERED: LR 1000ml 1,000 ML IVLG SCH (10:26)
[2017-08-04] MEDS ORDERED: DiphenhydrAMINE 50mg/ml Inj IVP PRN (10:30)
[2017-08-04] MEDS ORDERED: Hydromorphone 0.5mg/0.5ml inj IVP PRN (10:30)
--- NOTE | 2017-08-04 11:17 | Pre-Procedure Note/Attestation ---
Pre-Procedure Note/Attestation Complete Prior to Procedure Planned Procedure: not applicable Procedure Narrative: esophagogastroduodenoscopy and eus Indications for Procedure Pre-Operative Diagnosis: abd lymphadenopathy Attestation I attest that I discussed the nature of the procedure; its benefits; risks and complications; and alternatives (and the risks and benefits of such alternatives ), prior to the procedure, with the patient (or the patient's legal sales representative publications). I attest that, if there was a reasonable possibility of needing a blood transfusion, the patient (or the patient's legal sales representative publications) was given the [facility] standardized written summary, pursuant to the [place] Blood Safety Act ([place] Health and Safety Code # 1645, as amended). I attest that I re-evaluated the patient just prior to the surgery and that there has been no change in the patient's H&P, except as documented below: MARSHALL DE LEON Aug 04, 2017 11:17
[2017-08-04] MEDS ORDERED: LR 1000ml ONE (11:30)
[2017-08-04] MEDS ORDERED: Propofol 200mg/20ml IV ONE (11:30)
[2017-08-04] MEDS ORDERED: fentaNYL 100 mcg/2 mL IV ONE (11:30)
[2017-08-04] MEDS ORDERED: Midazolam 2mg/2ml Inj ONE (11:30)
[2017-08-04] MEDS ORDERED: Heplock Flush 100 units/ml 3 ml syr ONE (11:33)
--- NOTE | 2017-08-04 12:21 | Endoscopy Procedure Note ---
Endoscopy Procedure Note General Indication for Procedure: abd lymphadenopathy Procedures Performed: EGD, other - EUS Operative Findings/Diagnosis: same Specimen: yes Pt Tolerated Procedure Well: Yes Estimated Blood Loss: none Anesthesia Anesthesiologist: hollis Anesthesia: MAC Inserted Devices Implant(s) used?: No GI Core Measures 50 yrs or older w/o bx or poly: Not Applicable 10yrs. F/U not recommended: Not Applicable MARSHALL DE LEON Aug 04, 2017 12:21
[2017-08-04] MEDS ORDERED: Tums 500mg ORAL PRN (14:15)
--- NOTE | 2017-08-04 14:26 | Pulmonology Progress Note ---
Assessment/Plan Problems: (1) Pancreatic mass (2) Chronic lymphocytic leukemia (3) Protein-calorie malnutrition, severe (4) HTN (hypertension) (5) Vomiting (6) Enteritis Assessment/Plan advance diet EUS done by GI, tolerated well symptomatic treatment check labs check tumor markers Oncology f/u Subjective ROS Limited/Unobtainable: No Allergies: Coded Allergies: No Known Allergies (Verified , 02/26/08) Objective Last 24 Hour Vital Signs Date Time Temp Pulse Resp B/P (MAP) Pulse Ox O2 Delivery O2 Flow Rate FiO2 08/04/17 13:00 97.8 70 20 129/64 100 97.8 08/04/17 12:55 98.0 62 18 130/64 100 Room Air 98.0 08/04/17 12:40 65 20 139/68 100 Room Air 08/04/17 12:35 64 17 133/68 100 Room Air 08/04/17 12:30 65 18 133/68 100 Room Air 08/04/17 12:25 98.4 68 16 148/62 100 Room Air 98.4 08/04/17 08:21 98.4 66 19 130/65 99 Room Air 98.4 08/04/17 04:00 96 Room Air 08/04/17 03:58 97.5 51 20 116/61 96 Room Air 97.5 08/04/17 00:00 98 Room Air 08/04/17 00:00 97.5 66 20 121/64 98 Room Air 97.5 08/03/17 19:25 98 Room Air 08/03/17 19:22 97.7 64 20 146/72 98 Room Air 97.7 08/03/17 15:51 Room Air 08/03/17 15:51 97.2 62 18 147/66 99 97.2 Intake and Output 08/03/17 08/04/17 19:00 07:00 Intake Total 1500 ml 850 ml Balance 1500 ml 850 ml Intake Oral 600 ml IV Total 900 ml 850 ml # Voids 4 3 General Appearance: WD/WN HEENT: normocephalic, anicteric Respiratory/Chest: chest wall non-tender, normal breath sounds Cardiovascular: normal peripheral pulses, normal rate Abdomen: normal bowel sounds, no organomegaly Genitourinary: normal external genitalia Skin: no lesions Neurologic/Psychiatric: emergency room clerk II-XII grossly normal, no motor/sensory deficits Lymphatic: no neck adenopathy Microbiology Date/Time Source Procedure Growth Status 08/02/17 04:40 Nasal Nares MRSA Culture - Final NO METHICILLIN RESISTANT STAPH AUREUS... Complete 08/02/17 04:40 Rectum VRE Culture - Final Enterococcus Faecalis - Vre Complete Laboratory Tests 08/04/17 05:10: White Blood Count 3.7L, Red Blood Count 3.34L, Hemoglobin 11.3L, Hematocrit 32.6L, Mean Corpuscular Volume 97, Mean Corpuscular Hemoglobin 33.8H, Mean Corpuscular Hemoglobin Concent 34.7, Red Cell Distribution Width 13.8, Platelet Count 162, Mean Platelet Volume 6.0L, Neutrophils (%) (Auto) 42.6L, Lymphocytes (%) (Auto) 46.0H, Monocytes (%) (Auto) 10.5H, Eosinophils (%) (Auto) 0.2, Basophils (%) (Auto) 0.8, Prothrombin Time 9.7, Prothromb Time International Ratio 0.9, Activated Partial Thromboplast Time 24, Sodium Level 140, Potassium Level 4.0, Chloride Level 105, Carbon Dioxide Level 28, Anion Gap 8, Blood Urea Nitrogen 9, Creatinine 0.9, Estimat Glomerular Filtration Rate , Glucose Level 108H, Calcium Level 9.2, Phosphorus Level 3.4, Magnesium Level 1.8 Current Medications Medications (Trade) Dose Ordered Sig/Adalgisa Route PRN Reason Start Time Stop Time Status Last Admin Dose Admin Acetaminophen (Tylenol) 650 mg Q4H PRN ORAL fever 08/02/17 07:00 09/01/17 06:59 Al Hydroxide/Mg Hydroxide (Mylanta II) 30 ml Q6H PRN ORAL dyspepsia 08/02/17 07:00 09/01/17 06:59 Allopurinol (Allopurinol) 300 mg DAILY ORAL 08/02/17 09:00 09/01/17 08:59 08/03/17 08:45 Amlodipine Besylate (Norvasc) 10 mg DAILY ORAL 08/02/17 09:00 09/01/17 08:59 08/03/17 08:49 Calcium Carbonate (Tums) 1,000 mg Q4H PRN ORAL indigetion 08/04/17 14:15 09/03/17 14:14 Dextrose (Dextrose 50%) STAT PRN IV Hypoglycemia 08/02/17 07:00 09/01/17 06:59 Dextrose/Sodium Chloride 1,000 ml @ 75 mls/hr [id number] IV 08/02/17 06:56 09/01/17 06:55 08/04/17 04:18 Diatrizoate Meglum/ Diatrizoate Sod (Gastrografin) 30 ml NOW PRN ORAL Radiology Procedure 08/03/17 08:30 08/05/17 08:29 Diphenhydramine HCl (Benadryl) 25 mg Q15M PRN IVP Itching 08/04/17 10:30 08/04/17 17:00 Diphenhydramine HCl (Benadryl) 25 mg Q6H PRN ORAL Itching/Pruritis 08/02/17 07:00 09/01/17 06:59 Ferrous Sulfate (Feosol) 325 mg DAILY ORAL 08/02/17 12:45 09/01/17 12:44 08/03/17 08:45 Heparin Sodium (Porcine) (Heparin 5000 units/ml) 5,000 units EVERY 12 HOURS SUBQ 08/02/17 09:00 09/01/17 08:59 08/03/17 08:47 Hydromorphone HCl (Dilaudid) 0.5 mg Q15M PRN IVP Severe Pain (Pain Scale 7-10) 08/04/17 10:30 08/04/17 17:00 Ioversol (Isovue) 100 ml NOW PRN INJ Radiology Procedure 08/03/17 08:30 08/05/17 08:29 Lactated Ringer's 1,000 ml @ 10 mls/hr Q24H IVLG 08/04/17 10:26 08/04/17 17:00 Lorazepam (Ativan 2mg/ml 1ml) 1 mg EVERY 4 HOURS PRN IV agitation 08/02/17 07:00 08/09/17 06:59 Mirtazapine (Remeron) 15 mg BEDTIME ORAL 08/02/17 21:00 09/01/17 20:59 08/03/17 20:47 Morphine Sulfate (Morphine Sulfate) 2 mg Q4H PRN IVP severe pain 7-10 08/02/17 12:00 08/09/17 11:59 Nitroglycerin (Ntg) 0.4 mg Q5M X 3 DOSES PRN SL Prn Chest Pain 08/02/17 07:00 09/01/17 06:59 Ondansetron HCl (Zofran) 4 mg Q1H PRN IVP Nausea & Vomiting 08/04/17 10:30 08/04/17 17:00 Ondansetron HCl (Zofran) 4 mg Q6H PRN IVP Nausea & Vomiting 08/02/17 07:00 09/01/17 06:59 Pantoprazole (Protonix) 40 mg DAILY IV 08/02/17 09:00 09/01/17 08:59 08/03/17 08:45 Patient Own Medication (Patient's Own Med) 4 ea QHS ORAL 08/03/17 22:30 09/02/17 22:29 08/03/17 21:59 Polyethylene Glycol (Miralax) 17 gm HSPRN PRN ORAL Constipation 08/02/17 07:00 09/01/17 06:59 Pravastatin Sodium (Pravachol) 10 mg BEDTIME ORAL 08/02/17 21:00 09/01/17 20:59 08/03/17 20:47 Promethazine HCl 25 mg/Dextrose 56 ml @ 110 mls/hr Q6H PRN IV Refractory N/V 08/02/17 08:30 09/01/17 06:59 Temazepam (Restoril) 15 mg HSPRN PRN ORAL Insomnia 08/02/17 07:00 08/09/17 06:59 Ramila Dumont MD Aug 04, 2017 14:26
--- NOTE | 2017-08-04 14:45 | Consultation ---
History of Present Illness General Date patient seen: Aug 03, 2017 Chief Complaint: Nausea, Vomiting, and Diarrhea Referring physician: GEENA JULIAN Reason for Consultation: inpatient management Present Illness HPI 76-year-old female with hx of depression and anxiety, who presents with chief complaint of nausea and vomiting. the pt was admitted on remeron. the pt is sleeping adequately. still has bouts of depression and anxiety. no si/hi. Allergies: Coded Allergies: No Known Allergies (Verified , 02/26/08) Medication History Scheduled Acyclovir* (Acyclovir*), 400 MG ORAL BID, (Reported) Allopurinol* (Allopurinol*), 300 MG ORAL DAILY, (Reported) Amlodipine Besylate* (Amlodipine Besylate*), 10 MG ORAL DAILY, (Reported) Aspirin* (Aspirin*), 81 MG ORAL DAILY, (Reported) Ferrous Sulfate* (Ferrous Sulfate*), 325 MG ORAL DAILY, (Reported) Mirtazapine* (Mirtazapine*), 15 MG ORAL BEDTIME, (Reported) Pravastatin Sod* (Pravastatin Sod*), 10 MG ORAL BEDTIME, (Reported) Miscellaneous Medications [Venclexta], Unknown Dose PO, (Reported) Discontinued Medications Albuterol Sulfate (Ventolin Hfa), 1 PUFF INH EVERY 6 HOURS, (Reported) Discontinued Reason: Pt stopped taking med Amoxicillin* (Amoxil*), 500 MG ORAL THREE TIMES A DAY Discontinued Reason: Pt stopped taking med Azithromycin* (Zithromax*), 250 MG ORAL DAILY Discontinued Reason: Pt stopped taking med Cephalexin* (Keflex*), 500 MG ORAL EVERY 12 HOURS Discontinued Reason: Pt stopped taking med Cetirizine Hcl* (Zyrtec*), 10 MG ORAL DAILY Discontinued Reason: Pt stopped taking med Codeine/Promethazine Hcl* (Promethazine-Codeine Syrup*), 5 ML ORAL Q6H PRN for For Cough Discontinued Reason: Pt stopped taking med D-Methorphan Hb/Prometh Hcl* (Promethazine-Dm Syrup*), 5 ML ORAL Q6H PRN for For Cough Discontinued Reason: Pt stopped taking med Guaifenesin (Guaifenesin), 1,200 MG PO Q12HR Discontinued Reason: Pt stopped taking med Ibuprofen* (Motrin*), 600 MG ORAL Q6H PRN for For Pain Discontinued Reason: Pt stopped taking med Levofloxacin (Levofloxacin*), 500 MG ORAL DAILY Discontinued Reason: Pt stopped taking med No Known Medications* (NKM - No Known Medications*), 0 ., (Reported) Discontinued Reason: Pt stopped taking med Prednisone (Prednisone), 20 MG PO DAILY, (Reported) Discontinued Reason: Pt stopped taking med Pseudoephedrine Hcl* (Nexafed*), 30 MG ORAL Q6H PRN for congestion Discontinued Reason: Pt stopped taking med Tramadol Hcl* (Ultram*), 50 MG ORAL Q6H PRN for For Pain Discontinued Reason: Pt stopped taking med Tramadol Hcl* (Ultram*), 50 MG ORAL Q6H PRN for For Pain Discontinued Reason: Pt stopped taking med Patient History Limited by: medical condition History Provided By: Patient, Medical Record, PMD Healthcare decision maker Resuscitation status Advanced Directive on File Past Medical/Surgical History Past Medical/Surgical History: (1) UTI (lower urinary tract infection) (2) CML (chronic myeloid leukemia) (3) Shoulder pain, bilateral (4) Shoulder pain, bilateral (5) Chest wall contusion (6) Earache symptoms in right ear (7) Middle ear effusion (8) Acute serous otitis media of right ear without rupture (9) Pneumonia (10) CML (chronic myeloid leukemia) (11) Upper respiratory infection (12) Purulent bronchitis (13) Hypercholesteremia (14) Bronchitis (15) Nausea, vomiting, and diarrhea (16) Dehydration (17) Diarrhea (18) Enteritis (19) Vomiting (20) Chronic lymphocytic leukemia (21) HTN (hypertension) (22) Protein-calorie malnutrition, severe (23) Pancreatic mass Review of Systems Psychiatric: Reports: prior hx, anxiety, depressed feelings, emotional problems Physical Exam General Appearance: no apparent distress, alert Neurologic: oriented x 3, responsive, depressed affect Last 24 Hour Vital Signs Date Time Temp Pulse Resp B/P (MAP) Pulse Ox O2 Delivery O2 Flow Rate FiO2 08/04/17 13:00 97.8 70 20 129/64 100 97.8 08/04/17 12:55 98.0 62 18 130/64 100 Room Air 98.0 08/04/17 12:40 65 20 139/68 100 Room Air 08/04/17 12:35 64 17 133/68 100 Room Air 08/04/17 12:30 65 18 133/68 100 Room Air 08/04/17 12:25 98.4 68 16 148/62 100 Room Air 98.4 08/04/17 08:21 98.4 66 19 130/65 99 Room Air 98.4 08/04/17 04:00 96 Room Air 08/04/17 03:58 97.5 51 20 116/61 96 Room Air 97.5 08/04/17 00:00 98 Room Air 08/04/17 00:00 97.5 66 20 121/64 98 Room Air 97.5 08/03/17 19:25 98 Room Air 08/03/17 19:22 97.7 64 20 146/72 98 Room Air 97.7 08/03/17 15:51 Room Air 08/03/17 15:51 97.2 62 18 147/66 99 97.2 Intake and Output 08/03/17 08/04/17 19:00 07:00 Intake Total 1500 ml 850 ml Balance 1500 ml 850 ml Intake Oral 600 ml IV Total 900 ml 850 ml # Voids 4 3 Laboratory Tests Test 08/04/17 05:10 White Blood Count 3.7 K/UL (4.8-10.8) L Red Blood Count 3.34 M/UL (4.20-5.40) L Hemoglobin 11.3 G/DL (12.0-16.0) L Hematocrit 32.6 % (37.0-47.0) L Mean Corpuscular Volume 97 FL (80-99) Mean Corpuscular Hemoglobin 33.8 PG (27.0-31.0) H Mean Corpuscular Hemoglobin Concent 34.7 G/DL (32.0-36.0) Red Cell Distribution Width 13.8 % (11.6-14.8) Platelet Count 162 K/UL (150-450) Mean Platelet Volume 6.0 FL (6.5-10.1) L Neutrophils (%) (Auto) 42.6 % (45.0-75.0) L Lymphocytes (%) (Auto) 46.0 % (20.0-45.0) H Monocytes (%) (Auto) 10.5 % (1.0-10.0) H Eosinophils (%) (Auto) 0.2 % (0.0-3.0) Basophils (%) (Auto) 0.8 % (0.0-2.0) Prothrombin Time 9.7 SEC (9.30-11.50) Prothromb Time International Ratio 0.9 (0.9-1.1) Activated Partial Thromboplast Time 24 SEC (23-33) Sodium Level 140 MMOL/L (136-145) Potassium Level 4.0 MMOL/L (3.5-5.1) Chloride Level 105 MMOL/L (98-107) Carbon Dioxide Level 28 MMOL/L (21-32) Anion Gap 8 mmol/L (5-15) Blood Urea Nitrogen 9 mg/dL (7-18) Creatinine 0.9 MG/DL (0.55-1.30) Estimat Glomerular Filtration Rate mL/min (>60) Glucose Level 108 MG/DL (74-106) H Calcium Level 9.2 MG/DL (8.5-10.1) Phosphorus Level 3.4 MG/DL (2.5-4.9) Magnesium Level 1.8 MG/DL (1.8-2.4) Height (Feet): 5 Height (Inches): 1.00 Weight (Pounds): 105 Medications Current Medications Medications (Trade) Dose Ordered Sig/Adalgisa Route PRN Reason Start Time Stop Time Status Last Admin Dose Admin Acetaminophen (Tylenol) 650 mg Q4H PRN ORAL fever 08/02/17 07:00 09/01/17 06:59 Al Hydroxide/Mg Hydroxide (Mylanta II) 30 ml Q6H PRN ORAL dyspepsia 08/02/17 07:00 09/01/17 06:59 Allopurinol (Allopurinol) 300 mg DAILY ORAL 08/02/17 09:00 09/01/17 08:59 08/03/17 08:45 Amlodipine Besylate (Norvasc) 10 mg DAILY ORAL 08/02/17 09:00 09/01/17 08:59 08/03/17 08:49 Calcium Carbonate (Tums) 1,000 mg Q4H PRN ORAL indigetion 08/04/17 14:15 09/03/17 14:14 Dextrose (Dextrose 50%) STAT PRN IV Hypoglycemia 08/02/17 07:00 09/01/17 06:59 Dextrose/Sodium Chloride 1,000 ml @ 75 mls/hr [id number] IV 08/02/17 06:56 09/01/17 06:55 08/04/17 04:18 Diatrizoate Meglum/ Diatrizoate Sod (Gastrografin) 30 ml NOW PRN ORAL Radiology Procedure 08/03/17 08:30 08/05/17 08:29 Diphenhydramine HCl (Benadryl) 25 mg Q15M PRN IVP Itching 08/04/17 10:30 08/04/17 17:00 Diphenhydramine HCl (Benadryl) 25 mg Q6H PRN ORAL Itching/Pruritis 08/02/17 07:00 09/01/17 06:59 Ferrous Sulfate (Feosol) 325 mg DAILY ORAL 08/02/17 12:45 09/01/17 12:44 08/03/17 08:45 Heparin Sodium (Porcine) (Heparin 5000 units/ml) 5,000 units EVERY 12 HOURS SUBQ 08/02/17 09:00 09/01/17 08:59 08/03/17 08:47 Hydromorphone HCl (Dilaudid) 0.5 mg Q15M PRN IVP Severe Pain (Pain Scale 7-10) 08/04/17 10:30 08/04/17 17:00 Ioversol (Isovue) 100 ml NOW PRN INJ Radiology Procedure 08/03/17 08:30 08/05/17 08:29 Lactated Ringer's 1,000 ml @ 10 mls/hr Q24H IVLG 08/04/17 10:26 08/04/17 17:00 Lorazepam (Ativan 2mg/ml 1ml) 1 mg EVERY 4 HOURS PRN IV agitation 08/02/17 07:00 08/09/17 06:59 Mirtazapine (Remeron) 15 mg BEDTIME ORAL 08/02/17 21:00 09/01/17 20:59 08/03/17 20:47 Morphine Sulfate (Morphine Sulfate) 2 mg Q4H PRN IVP severe pain 7-10 08/02/17 12:00 08/09/17 11:59 Nitroglycerin (Ntg) 0.4 mg Q5M X 3 DOSES PRN SL Prn Chest Pain 08/02/17 07:00 09/01/17 06:59 Ondansetron HCl (Zofran) 4 mg Q1H PRN IVP Nausea & Vomiting 08/04/17 10:30 08/04/17 17:00 Ondansetron HCl (Zofran) 4 mg Q6H PRN IVP Nausea & Vomiting 08/02/17 07:00 09/01/17 06:59 Pantoprazole (Protonix) 40 mg DAILY IV 08/02/17 09:00 09/01/17 08:59 08/03/17 08:45 Patient Own Medication (Patient's Own Med) 4 ea QHS ORAL 08/03/17 22:30 09/02/17 22:29 08/03/17 21:59 Polyethylene Glycol (Miralax) 17 gm HSPRN PRN ORAL Constipation 08/02/17 07:00 09/01/17 06:59 Pravastatin Sodium (Pravachol) 10 mg BEDTIME ORAL 08/02/17 21:00 09/01/17 20:59 08/03/17 20:47 Promethazine HCl 25 mg/Dextrose 56 ml @ 110 mls/hr Q6H PRN IV Refractory N/V 08/02/17 08:30 09/01/17 06:59 Temazepam (Restoril) 15 mg HSPRN PRN ORAL Insomnia 08/02/17 07:00 08/09/17 06:59 Assessment/Plan Status: stable Assessment/Plan mdd anxiety Remeron 15mg qhs Ativan prn this is a late entry the pt was seen 08/03/17 Pk Mccormick M.D. Aug 04, 2017 14:45
--- NOTE | 2017-08-04 14:46 | General Progress Note ---
Assessment/Plan Status: stable Assessment/Plan mdd anxiety Remeron 15mg qhs Ativan prn Subjective Date patient seen: Aug 04, 2017 Neurologic/Psychiatric: Reports: anxiety, depressed, emotional problems, other Allergies: Coded Allergies: No Known Allergies (Verified , 02/26/08) Objective Last 24 Hour Vital Signs Date Time Temp Pulse Resp B/P (MAP) Pulse Ox O2 Delivery O2 Flow Rate FiO2 08/04/17 13:00 97.8 70 20 129/64 100 97.8 08/04/17 12:55 98.0 62 18 130/64 100 Room Air 98.0 08/04/17 12:40 65 20 139/68 100 Room Air 08/04/17 12:35 64 17 133/68 100 Room Air 08/04/17 12:30 65 18 133/68 100 Room Air 08/04/17 12:25 98.4 68 16 148/62 100 Room Air 98.4 08/04/17 08:21 98.4 66 19 130/65 99 Room Air 98.4 08/04/17 04:00 96 Room Air 08/04/17 03:58 97.5 51 20 116/61 96 Room Air 97.5 08/04/17 00:00 98 Room Air 08/04/17 00:00 97.5 66 20 121/64 98 Room Air 97.5 08/03/17 19:25 98 Room Air 08/03/17 19:22 97.7 64 20 146/72 98 Room Air 97.7 08/03/17 15:51 Room Air 08/03/17 15:51 97.2 62 18 147/66 99 97.2 Intake and Output 08/03/17 08/04/17 19:00 07:00 Intake Total 1500 ml 850 ml Balance 1500 ml 850 ml Intake Oral 600 ml IV Total 900 ml 850 ml # Voids 4 3 Laboratory Tests 08/04/17 05:10: White Blood Count 3.7L, Red Blood Count 3.34L, Hemoglobin 11.3L, Hematocrit 32.6L, Mean Corpuscular Volume 97, Mean Corpuscular Hemoglobin 33.8H, Mean Corpuscular Hemoglobin Concent 34.7, Red Cell Distribution Width 13.8, Platelet Count 162, Mean Platelet Volume 6.0L, Neutrophils (%) (Auto) 42.6L, Lymphocytes (%) (Auto) 46.0H, Monocytes (%) (Auto) 10.5H, Eosinophils (%) (Auto) 0.2, Basophils (%) (Auto) 0.8, Prothrombin Time 9.7, Prothromb Time International Ratio 0.9, Activated Partial Thromboplast Time 24, Sodium Level 140, Potassium Level 4.0, Chloride Level 105, Carbon Dioxide Level 28, Anion Gap 8, Blood Urea Nitrogen 9, Creatinine 0.9, Estimat Glomerular Filtration Rate , Glucose Level 108H, Calcium Level 9.2, Phosphorus Level 3.4, Magnesium Level 1.8 Height (Feet): 5 Height (Inches): 1.00 Weight (Pounds): 105 General Appearance: WD/WN, no apparent distress, alert Neurologic: oriented x 3, responsive, depressed affect Pk Mccormick M.D. Aug 04, 2017 14:46
[2017-08-04] MEDS: Pantoprazole Inj IV SCH (15:11)
--- NOTE | 2017-08-04 16:33 | Internal Med Progress Note ---
Subjective Physician Name Mandeep Galarza Attending Physician Mandeep Galarza MD Current Medications Medications (Trade) Dose Ordered Sig/Adalgisa Route PRN Reason Start Time Stop Time Status Last Admin Dose Admin Acetaminophen (Tylenol) 650 mg Q4H PRN ORAL fever 08/02/17 07:00 09/01/17 06:59 Al Hydroxide/Mg Hydroxide (Mylanta II) 30 ml Q6H PRN ORAL dyspepsia 08/02/17 07:00 09/01/17 06:59 Allopurinol (Allopurinol) 300 mg DAILY ORAL 08/02/17 09:00 09/01/17 08:59 08/04/17 15:11 Amlodipine Besylate (Norvasc) 10 mg DAILY ORAL 08/02/17 09:00 09/01/17 08:59 08/04/17 15:17 Calcium Carbonate (Tums) 1,000 mg Q4H PRN ORAL indigetion 08/04/17 14:15 09/03/17 14:14 Dextrose (Dextrose 50%) STAT PRN IV Hypoglycemia 08/02/17 07:00 09/01/17 06:59 Dextrose/Sodium Chloride 1,000 ml @ 75 mls/hr [id number] IV 08/02/17 06:56 09/01/17 06:55 08/04/17 04:18 Diatrizoate Meglum/ Diatrizoate Sod (Gastrografin) 30 ml NOW PRN ORAL Radiology Procedure 08/03/17 08:30 08/05/17 08:29 Diphenhydramine HCl (Benadryl) 25 mg Q15M PRN IVP Itching 08/04/17 10:30 08/04/17 17:00 Diphenhydramine HCl (Benadryl) 25 mg Q6H PRN ORAL Itching/Pruritis 08/02/17 07:00 09/01/17 06:59 Ferrous Sulfate (Feosol) 325 mg DAILY ORAL 08/02/17 12:45 09/01/17 12:44 08/04/17 15:16 Heparin Sodium (Porcine) (Heparin 5000 units/ml) 5,000 units EVERY 12 HOURS SUBQ 08/02/17 09:00 09/01/17 08:59 08/03/17 08:47 Hydromorphone HCl (Dilaudid) 0.5 mg Q15M PRN IVP Severe Pain (Pain Scale 7-10) 08/04/17 10:30 08/04/17 17:00 Ioversol (Isovue) 100 ml NOW PRN INJ Radiology Procedure 08/03/17 08:30 08/05/17 08:29 Lactated Ringer's 1,000 ml @ 10 mls/hr Q24H IVLG 08/04/17 10:26 08/04/17 17:00 Lorazepam (Ativan 2mg/ml 1ml) 1 mg EVERY 4 HOURS PRN IV agitation 08/02/17 07:00 08/09/17 06:59 Mirtazapine (Remeron) 15 mg BEDTIME ORAL 08/02/17 21:00 09/01/17 20:59 08/03/17 20:47 Morphine Sulfate (Morphine Sulfate) 2 mg Q4H PRN IVP severe pain 7-10 08/02/17 12:00 08/09/17 11:59 Nitroglycerin (Ntg) 0.4 mg Q5M X 3 DOSES PRN SL Prn Chest Pain 08/02/17 07:00 09/01/17 06:59 Ondansetron HCl (Zofran) 4 mg Q1H PRN IVP Nausea & Vomiting 08/04/17 10:30 08/04/17 17:00 Ondansetron HCl (Zofran) 4 mg Q6H PRN IVP Nausea & Vomiting 08/02/17 07:00 09/01/17 06:59 Pantoprazole (Protonix) 40 mg DAILY IV 08/02/17 09:00 09/01/17 08:59 08/04/17 15:11 Patient Own Medication (Patient's Own Med) 4 ea QHS ORAL 08/03/17 22:30 09/02/17 22:29 08/03/17 21:59 Polyethylene Glycol (Miralax) 17 gm HSPRN PRN ORAL Constipation 08/02/17 07:00 09/01/17 06:59 Pravastatin Sodium (Pravachol) 10 mg BEDTIME ORAL 08/02/17 21:00 09/01/17 20:59 08/03/17 20:47 Promethazine HCl 25 mg/Dextrose 56 ml @ 110 mls/hr Q6H PRN IV Refractory N/V 08/02/17 08:30 09/01/17 06:59 Temazepam (Restoril) 15 mg HSPRN PRN ORAL Insomnia 08/02/17 07:00 08/09/17 06:59 Allergies: Coded Allergies: No Known Allergies (Verified , 02/26/08) Subjective awake, alert, responsive, feeling good. Objective Last Vital Signs Date Time Temp Pulse Resp B/P (MAP) Pulse Ox O2 Delivery O2 Flow Rate FiO2 08/04/17 15:17 64 136/62 08/04/17 13:00 97.8 20 100 97.8 08/04/17 12:55 Room Air Laboratory Tests Test 08/04/17 05:10 White Blood Count 3.7 K/UL (4.8-10.8) L Red Blood Count 3.34 M/UL (4.20-5.40) L Hemoglobin 11.3 G/DL (12.0-16.0) L Hematocrit 32.6 % (37.0-47.0) L Mean Corpuscular Volume 97 FL (80-99) Mean Corpuscular Hemoglobin 33.8 PG (27.0-31.0) H Mean Corpuscular Hemoglobin Concent 34.7 G/DL (32.0-36.0) Red Cell Distribution Width 13.8 % (11.6-14.8) Platelet Count 162 K/UL (150-450) Mean Platelet Volume 6.0 FL (6.5-10.1) L Neutrophils (%) (Auto) 42.6 % (45.0-75.0) L Lymphocytes (%) (Auto) 46.0 % (20.0-45.0) H Monocytes (%) (Auto) 10.5 % (1.0-10.0) H Eosinophils (%) (Auto) 0.2 % (0.0-3.0) Basophils (%) (Auto) 0.8 % (0.0-2.0) Prothrombin Time 9.7 SEC (9.30-11.50) Prothromb Time International Ratio 0.9 (0.9-1.1) Activated Partial Thromboplast Time 24 SEC (23-33) Sodium Level 140 MMOL/L (136-145) Potassium Level 4.0 MMOL/L (3.5-5.1) Chloride Level 105 MMOL/L (98-107) Carbon Dioxide Level 28 MMOL/L (21-32) Anion Gap 8 mmol/L (5-15) Blood Urea Nitrogen 9 mg/dL (7-18) Creatinine 0.9 MG/DL (0.55-1.30) Estimat Glomerular Filtration Rate mL/min (>60) Glucose Level 108 MG/DL (74-106) H Calcium Level 9.2 MG/DL (8.5-10.1) Phosphorus Level 3.4 MG/DL (2.5-4.9) Magnesium Level 1.8 MG/DL (1.8-2.4) Microbiology Date/Time Source Procedure Growth Status 08/02/17 04:40 Nasal Nares MRSA Culture - Final NO METHICILLIN RESISTANT STAPH AUREUS... Complete 08/02/17 04:40 Rectum VRE Culture - Final Enterococcus Faecalis - Vre Complete Intake and Output 08/03/17 08/04/17 19:00 07:00 Intake Total 1500 ml 850 ml Balance 1500 ml 850 ml Intake Oral 600 ml IV Total 900 ml 850 ml # Voids 4 3 Objective General: No acute distress, awake and alert HEENT: NCAT, sclera anicteric, PERRL, EOMI. Neck: Supple, no significant jugular venous distention, Lungs: Good inspiratory effort, no accessory muscle use, clear to auscultation bilaterally, no Wheeze or Rales. Heart: Regular rate and rhythm, normal S1/S2, no murmurs/gallops Abdomen: soft, nontender, nondistended. Normoactive bowel sounds. / Rectal: Refused and deferred. Extremities: No Cyanosis , clubbing or edema. Neuro: A&O x 3, Able to move all extremities Skin: warm, no rashes or lesions Psych: Normal mood and affect Assessment/Plan Assessment/Plan (1) Pancreatic mass ICD Codes: K86.9 - Disease of pancreas, unspecified (2) Protein-calorie malnutrition, severe ICD Codes: E43 - Unspecified severe protein-calorie malnutrition (3) Vomiting ICD Codes: R11.10 - Vomiting, unspecified (4) Enteritis ICD Codes: K52.9 - Noninfective gastroenteritis and colitis, unspecified (5) Diarrhea ICD Codes: R19.7 - Diarrhea, unspecified (6) Dehydration ICD Codes: E86.0 - Dehydration Assessment/Plan abdominal U/S reviewed >> Hypoechoic mass lesions in the region of the pancreatic head/maylin hepatis. These findings are most concerning for neoplasm/ lymphadenopathy, especially given history of leukemia. CT AP reviewed Plan: EGD/EUS today Monitor Labs zofran ppi anemia work up Monitor labs Dc planning for AM discuss with her Oncologist Dr. Rell Hernandez @ [phone] Mandeep Galarza MD Aug 04, 2017 16:33
--- NOTE | 2017-08-04 16:45 | Procedure Note ---
DATE OF PROCEDURE: 08/04/2017 PROCEDURE: Upper endoscopy with biopsy and endoscopic ultrasound with fine-needle aspiration. SURGEON: Campbell Genao M.D. ANESTHESIOLOGIST: Juan Mckoy M.D. REFERRING PHYSICIAN: aMndeep Galarza M.D. INSTRUMENT: Olympus flexible upper endoscope and EUS scope. INDICATION: Abdominal lymphadenopathy and gastric wall thickening seen on the CT The procedure, risks, benefits, and possible consequences, including hemorrhage, aspiration, perforation and infection, and alternative treatments, were explained to the patient/legal guardian by Dr. Campbell Genao and the patient/legal guardian understood and accepted these risks. DESCRIPTION OF PROCEDURE: After informed consent was obtained and the patient was adequately sedated, first Olympus upper endoscope was advanced from mouth to the second portion of the duodenum and retroflexion was performed in the stomach. The patient had diffuse gastritis. Random biopsy from antrum was obtained to rule out H. pylori infection. No obvious gastroesophageal mass was seen in endoscopy. At this time, the Olympus upper endoscope was retrieved and EUS radial scope was introduced. The patient had multiple lymph nodes around the pancreas, small one was around the body, it was 2.2, and then as we get to the head of the pancreas, there were multiple lymph nodes around it. The largest one about 4.5 cm. At this time, the EUS radial was removed and linear scope was introduced. A 22-gauge needle was used to get 3 passes of these lymph nodes around the head of the pancreas and 2 passes were sent for cytology after discussion with the oncologist and 1 pass was sent for slide. The patient tolerated the procedure very well without any complications. SUMMARY OF FINDINGS: 1. Diffuse gastritis, status post biopsy. 2. Multiple lymph nodes around the pancreas, the largest one about 4.5 cm, status post FNA x3. RECOMMENDATIONS: Follow up biopsies and treat accordingly. Discussed with Dr. Cheng. The patient will be following with Dr. Cheng too. I want to thank Dr. Mandeep Galarza for this kind referral. Campbell Genao M.D. DR: MV/A JOB#: [id number] CC: Mandeep Galarza M.D.; Fax#: [phone]
[2017-08-05] VITALS: BP 130/66
[2017-08-05 04:00] VITALS: BP 139/69
--- NOTE | 2017-08-05 07:40 | General Progress Note ---
Assessment/Plan Problem List: (1) Abdominal lymphadenopathy ICD Codes: R59.0 - Localized enlarged lymph nodes SNOMED: 486209936 (2) CML (chronic myeloid leukemia) ICD Codes: C92.90 - Myeloid leukemia, unspecified, not having achieved remission SNOMED: 28795751 (3) HTN (hypertension) ICD Codes: I10 - Essential (primary) hypertension SNOMED: 28568420 Assessment/Plan F/U FNA results from EUS yesterday oncology evaluation pending no panc mass fu labs Subjective ROS Limited/Unobtainable: Yes Allergies: Coded Allergies: No Known Allergies (Verified , 02/26/08) Subjective no event Objective Last 24 Hour Vital Signs Date Time Temp Pulse Resp B/P (MAP) Pulse Ox O2 Delivery O2 Flow Rate FiO2 08/05/17 04:00 98 Room Air 08/05/17 04:00 98.4 61 20 139/69 98 Room Air 98.4 08/05/17 00:00 98 Room Air 08/05/17 00:00 97.5 66 18 130/66 98 Room Air 97.5 08/04/17 19:25 98 Room Air 08/04/17 19:25 98.2 60 20 126/67 98 Room Air 98.2 08/04/17 16:00 96.8 64 18 136/62 97 Room Air 96.8 08/04/17 15:17 64 136/62 08/04/17 13:00 97.8 70 20 129/64 100 97.8 08/04/17 12:55 98.0 62 18 130/64 100 Room Air 98.0 08/04/17 12:40 65 20 139/68 100 Room Air 08/04/17 12:35 64 17 133/68 100 Room Air 08/04/17 12:30 65 18 133/68 100 Room Air 08/04/17 12:25 98.4 68 16 148/62 100 Room Air 98.4 08/04/17 08:21 98.4 66 19 130/65 99 Room Air 98.4 Intake and Output 08/04/17 08/05/17 19:00 07:00 Intake Total 1355 ml 825 ml Output Total 0 ml Balance 1355 ml 825 ml Intake Oral 480 ml IV Total 875 ml 825 ml Output Estimated Blood Loss 0 ml # Voids 2 Height (Feet): 5 Height (Inches): 1.00 Weight (Pounds): 105 General Appearance: alert EENT: normal ENT inspection Neck: supple Cardiovascular: normal rate Respiratory/Chest: decreased breath sounds Abdomen: normal bowel sounds, non tender, soft Extremities: non-tender MARSHALL DE LEON Aug 05, 2017 07:40
[2017-08-05 08:00] VITALS: BP 139/63
[2017-08-05] MEDS: Pantoprazole Inj IV SCH (08:47)
[2017-08-05] MEDS: Heparin 5000 units/ml inj SUBQ SCH (08:50)
[2017-08-05 12:00] VITALS: BP 130/72
[2017-08-05] MEDS ORDERED: D5 1/2NS 1000ml IV ONE ×2 (14:54)
--- NOTE | 2017-08-05 19:10 | Internal Med Progress Note ---
Subjective Date of Service: Aug 05, 2017 Physician Name Mandeep Galarza Attending Physician Mandeep Galarza MD Allergies: Coded Allergies: No Known Allergies (Verified , 02/26/08) Subjective awake, alert, responsive, feeling good. Objective Last Vital Signs Date Time Temp Pulse Resp B/P (MAP) Pulse Ox O2 Delivery O2 Flow Rate FiO2 08/05/17 12:00 98.1 63 18 130/72 100 98.1 08/05/17 04:00 Room Air Intake and Output 08/04/17 08/05/17 19:00 07:00 Intake Total 1355 ml 825 ml Output Total 0 ml Balance 1355 ml 825 ml Intake Oral 480 ml IV Total 875 ml 825 ml Output Estimated Blood Loss 0 ml # Voids 2 Objective General: No acute distress, awake and alert HEENT: NCAT, sclera anicteric, PERRL, EOMI. Neck: Supple, no significant jugular venous distention, Lungs: Good inspiratory effort, no accessory muscle use, clear to auscultation bilaterally, no Wheeze or Rales. Heart: Regular rate and rhythm, normal S1/S2, no murmurs/gallops Abdomen: soft, nontender, nondistended. Normoactive bowel sounds. / Rectal: Refused and deferred. Extremities: No Cyanosis , clubbing or edema. Neuro: A&O x 3, Able to move all extremities Skin: warm, no rashes or lesions Psych: Normal mood and affect Assessment/Plan Assessment/Plan (1) No Pancreatic mass found on EUS ICD Codes: (2) Protein-calorie malnutrition, severe ICD Codes: E43 - Unspecified severe protein-calorie malnutrition (3) Vomiting ICD Codes: R11.10 - Vomiting, unspecified (4) Enteritis ICD Codes: K52.9 - Noninfective gastroenteritis and colitis, unspecified (5) Diarrhea ICD Codes: R19.7 - Diarrhea, unspecified (6) Dehydration ICD Codes: E86.0 - Dehydration (7) Abdominal lymphadenopathy ICD Codes: R59.0 - Localized enlarged lymph nodes SNOMED: 383517643 (8) CML (chronic myeloid leukemia) ICD Codes: C92.90 - Myeloid leukemia, unspecified, not having achieved remission SNOMED: 50814600 (9) HTN (hypertension) ICD Codes: I10 - Essential (primary) hypertension SNOMED: 75685674 Assessment/Plan F/U FNA results from EUS as out patient Plan: Monitor Labs zofran ppi anemia work up Monitor labs Dc planning today will F/U with her Oncologist Dr. Rell Hernandez @ [phone] Mandeep Galarza MD Aug 05, 2017 19:10
--- NOTE | 2017-08-05 22:33 | Pulmonology Progress Note ---
Assessment/Plan Problems: (1) Pancreatic mass (2) Chronic lymphocytic leukemia (3) Protein-calorie malnutrition, severe (4) HTN (hypertension) (5) Vomiting (6) Enteritis Assessment/Plan advance diet check biopsy symptomatic treatment check labs check tumor markers Oncology f/u dc planning Subjective ROS Limited/Unobtainable: No Allergies: Coded Allergies: No Known Allergies (Verified , 02/26/08) Objective Last 24 Hour Vital Signs Date Time Temp Pulse Resp B/P (MAP) Pulse Ox O2 Delivery O2 Flow Rate FiO2 08/05/17 12:00 98.1 63 18 130/72 100 98.1 08/05/17 08:47 61 139/69 08/05/17 08:00 97.7 66 19 139/63 98 97.7 08/05/17 04:00 98 Room Air 08/05/17 04:00 98.4 61 20 139/69 98 Room Air 98.4 08/05/17 00:00 98 Room Air 08/05/17 00:00 97.5 66 18 130/66 98 Room Air 97.5 Intake and Output 08/04/17 08/05/17 19:00 07:00 Intake Total 1355 ml 825 ml Output Total 0 ml Balance 1355 ml 825 ml Intake Oral 480 ml IV Total 875 ml 825 ml Output Estimated Blood Loss 0 ml # Voids 2 General Appearance: cachetic HEENT: normocephalic, atraumatic Respiratory/Chest: chest wall non-tender, lungs clear Breasts: no masses Cardiovascular: normal peripheral pulses, normal rate Genitourinary: normal external genitalia Extremities: no cyanosis Skin: no lesions Neurologic/Psychiatric: no motor/sensory deficits, abnormal gait Ramila Dumont MD Aug 05, 2017 22:33
--- NOTE | 2017-08-07 11:03 | Discharge Summary ---
Discharge Summary Discharge Summary Discharge Summary DATE OF ADMISSION: [08/02/2017 DATE OF DISCHARGE: 08/05/2017 REASON FOR ADMISSION: 76 years old female with history of chronic myeloid leukemia, currently on chemotherapy, hypertension and anemia, presented to emergency department complaining of nausea ,vomiting, episode of diarrhea and feeling of generalized weakness, dizziness and lightheadedness. She denied chest pain, she denied shortness of breath. Laboratory workup revealed no leukocytosis, stable hemoglobin and hematocrit, potassium 3.2. Abdominal ultrasound revealed hypoechoic mass lesion in the region of the pancreatic head/maylin hepatis. These findings were most concerning for neoplasm/lymphadenopathy, especially given history of leukemia. Troponin was negative. EKG revealed normal sinus rhythm, no acute ischemic changes. Patient was admitted with diagnosis of nausea , vomiting and diarrhea, dehydration, hypokalemia, probable gastroenteritis, chronic myeloid leukemia, hypertension, history of anemia. CONSULTANTS: pulmonary Dr. Dumont GI specialist dr Genao psychiatrist [facility]: Patient admitted. Patient initially was kept nothing by mouth and started on intravenous hydration. GI consult was requested. Renal parameters and electrolytes were closely monitored. Electrolytes were corrected as needed. Nephrotoxics were avoided. Potassium up to normal. CT of the abdomen and pelvis revealed abdominal and pelvic lymphadenopathy. The largest peripancreatic nodes appear significantly increased in size from the previous exam in February 2008. Patient subsequently undergone EGD and endoscopic ultrasound with fine-needle aspiration. Procedure revealed diffuse gastritis, status post biopsy. Multiply lymph nodes around the pancreas, the largest one about 4.5 cm, status post fine-needle aspiration 3. Biopsy results still pending. No pancreatic mass was visualized on endoscopic ultrasound. GI recommended follow-up with the biopsy results to treat accordingly. This findings were discussed with oncologist. Patient will be follow-up with outpatient oncologist, that she uses currently. Blood pressure was managed with calcium channel jody and remained stable. Statin was continued. Pain management was provided, and pain was controlled with the current regimen. Diet was slowly introduced , antiemetics were on board as needed. Patient was able to tolerate diet. Street Commissioner recommendation implemented in plan of care. DVT and GI prophylaxis provided. Hemoglobin and hematocrit were closely monitored, remained at the baseline. Iron supplement was continued. Psychiatrist seen and evaluated the patient and diagnosed patient with major depressive disorder and anxiety disorder. Patient was started on Remeron and Ativan provided as needed. Patient clinically improved: no further nausea or vomiting,tolerated diet, diarrhea resolved. Patient was stable for discharge home with outpatient follow-up with the oncologist. FINAL DIAGNOSES: Abdominal lymphadenopathy Chronic myeloid leukemia Dehydration Enteritis Nausea, vomiting, diarrhea, resolved Hypokalemia, resolved status post EGD and endoscopic ultrasound with fine-needle aspiration Severe protein calorie malnutrition Hypertension Anemia Major depressive disorder Anxiety DISCHARGE MEDICATIONS: See Medication Reconciliation list. DISCHARGE INSTRUCTIONS: Patient was discharged home;follow- up with oncologist as outpatient . I have been assigned to dictate discharge summary for this account. I was not involved in the patient's management. Guevara ([facility] SystemThuy Garcia NP Aug 07, 2017 11:03
--- NOTE | 2017-08-07 15:51 | General Progress Note ---
Assessment/Plan Assessment/Plan mdd anxiety Remeron 15mg qhs Ativan prn Subjective Date patient seen: Aug 05, 2017 Neurologic/Psychiatric: Reports: anxiety, depressed, emotional problems Allergies: Coded Allergies: No Known Allergies (Verified , 02/26/08) Objective Height (Feet): 5 Height (Inches): 1.00 Weight (Pounds): 105 General Appearance: WD/WN, alert Pk Mccormick M.D. Aug 07, 2017 15:51
== END 2017-08-05 14:55 | disposition home or self-care (01) | DRG 438 ==
LOC: EDBD 03:26 → EDUNIT# 03:26 → EMR 03:49 → 4W 04:23 → EDBEDREQ 04:51
PROC: 0DB78ZX Excision of Stomach, Pylorus, Via Natural or Artificial Opening Endoscopic, Diagnostic (ICD-10-PCS; principal; 2017-08-04 11:42)
PROC: 079 Lymphatic and Hemic Systems, Drainage (ICD-10-PCS; principal; 2017-08-04 11:42)
DX: K86.89 Other specified diseases of pancreas (principal); E43 Unspecified severe protein-calorie malnutrition; C92.10 Chronic myeloid leukemia, BCR/ABL-positive, not having achieved remission; Z68.1 Body mass index [BMI] 19.9 or less, adult; R59.0 Localized enlarged lymph nodes; K52.9 Noninfective gastroenteritis and colitis, unspecified; R11.2 Nausea with vomiting, unspecified; E86.0 Dehydration; Z79.899 Other long term (current) drug therapy; I10 Essential (primary) hypertension; E87.6 Hypokalemia; E78.00 Pure hypercholesterolemia, unspecified; D63.8 Anemia in other chronic diseases classified elsewhere; F32.9 Major depressive disorder, single episode, unspecified; F41.9 Anxiety disorder, unspecified; K29.70 Gastritis, unspecified, without bleeding
CPT/HCPCS: 36415; 74177; 76700; 80048; 80053; 82150; 82550; 82553; 83036; 83690; 83735; 84100; 84484; 85007; 85025; 85610; 85730; 87081; 93005; 94003; 94150; 99285; J2250; J2405; J8499

== ENCOUNTER 2020-01-08 18:22 | Emergency (ER) | payer MEDICAID, MEDICARE ==
[~2020-01-08] VITALS: Ht 154.9 cm; Wt 49.9 kg
[~2020-01-08 18:22] MED LIST changes: +ALLOPURINOL300 M1 ORAL; +MIRTAZAPINE15 M3 ORAL; +UNOBMED; +VENCLEXTA PO
[2020-01-08 18:38] VITALS: BP 170/57
[2020-01-08] MEDS ORDERED: Methocarbamol 750mg tab ORAL ONE (18:45)
[2020-01-08] MEDS ORDERED: Ketorolac 30mg Inj IM ONE (18:45)
--- NOTE | 2020-01-08 19:17 | Diagnostic Imaging Report ---
EXAM: CT Head Without Intravenous Contrast CLINICAL HISTORY: TRAUMA TECHNIQUE: Axial computed tomography images of the head/brain without intravenous contrast. CTDI is 53.4 mGy and DLP is 971.5 mGy-cm. One or more of the following dose reduction techniques were used: automated exposure control, adjustment of the mA and/or kV according to patient size, use of iterative reconstruction technique. COMPARISON: 06/27/2011. FINDINGS: Brain: Minimal small vessel disease of aging. No abnormal extra-axial collection. No hemorrhage. Ventricles: There is prominence of the ventricular system, cortical sulci, basilar cisterns, compatible with age related atrophy. Bones/joints: The calvarium is unremarkable. No acute fracture. Soft tissues: Unremarkable. Vasculature: Atherosclerotic disease. Sinuses: Mild to moderate chronic left maxillary sinusitis. Mastoid air cells: Mastoid air cells are well pneumatized. IMPRESSION: 1. Atherosclerotic disease. 2. No acute intracranial pathology per 3. Age-related changes. 4. If there is concern for etiology such as early acute lacunar infarcts, magnetic resonance imaging of the brain with diffusion-weighted sequences should be performed.
--- NOTE | 2020-01-08 19:18 | Diagnostic Imaging Report ---
EXAM: CT Cervical Spine Without Intravenous Contrast CLINICAL HISTORY: TRAUMA TECHNIQUE: Axial computed tomography images of the cervical spine without intravenous contrast. CTDI is 19.7 mGy and DLP is 433.4 mGy-cm. One or more of the following dose reduction techniques were used: automated exposure control, adjustment of the mA and/or kV according to patient size, use of iterative reconstruction technique. COMPARISON: No previous study. FINDINGS: Vertebrae: There is straightening and reversal of the curvature of the cervical spine suggestive of muscle spasm. Visualized thoracic vertebral bodies are unremarkable per There is a normal relationship of C1 and C2. No acute fracture. Discs/spinal canal/neural foramina: Mild to moderate degenerative disc disease of the cervical spine. Minimal multilevel disc osteophyte complexes and posterior facet hypertrophy. No spinal canal stenosis. Soft tissues: Paraspinal and regional soft tissues are unremarkable. Vasculature: Atherosclerotic disease. Lung apices: Lung apices are unremarkable. Other findings: Spinous processes are unremarkable. IMPRESSION: 1. No acute injury to the cervical spine could 2. Degenerative changes.
--- NOTE | 2020-01-08 19:23 | Diagnostic Imaging Report ---
EXAM: CT Lumbar Spine Without Intravenous Contrast CLINICAL HISTORY: TRAUMA TECHNIQUE: Axial computed tomography images of the lumbar spine without intravenous contrast. CTDI is 5.5 mGy and DLP is 165.4 mGy-cm. One or more of the following dose reduction techniques were used: automated exposure control, adjustment of the mA and/or kV according to patient size, use of iterative reconstruction technique. COMPARISON: No previous studies. FINDINGS: Vertebrae: Alignment of the lumbar spine is within normal limits. No spondylolysis or spondylolisthesis. Lower thoracic vertebral bodies in the visualized sacrum are unremarkable. Spinous processes are unremarkable. Levoscoliosis. Transverse processes of the lumbar spine are unremarkable. Moderate osteoarthritic changes about the sacroiliac joints. No acute fracture. Discs/spinal canal/neural foramina: Moderate degenerative disc disease. Multilevel broad-based protrusions most notably at the L3-4 level. No spinal canal stenosis. Soft tissues: Paraspinal soft tissues are unremarkable. Vasculature: Atherosclerotic disease of the abdominal aorta. IMPRESSION: 1. Degenerative disc disease. 2. No acute injury to the lumbar spine.
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
[2020-01-08] MEDS ORDERED: IBUPROFEN400 MG ORAL (19:30)
[2020-01-08] MEDS ORDERED: ROBAXIN-500MG ORAL (19:30)
[2020-01-08] MEDS ORDERED: LIDODERM700 M1 TOPIC (19:30)
[2020-01-08 19:35] VITALS: BP 124/87
--- NOTE | 2020-01-09 12:20 | Diagnostic Imaging Report ---
Indication: Trauma, pain Technique: 3 views left hand Comparison: none Findings: No acute fractures. No dislocations. The bones are osteoporotic. Impression: No acute process
== END 2020-01-08 19:36 | disposition home or self-care (01) ==
LOC: EMR 19:02
DX: S16.1XXA Strain of muscle, fascia and tendon at neck level, initial encounter (principal); S39.012A Strain of muscle, fascia and tendon of lower back, initial encounter; R01.1 Cardiac murmur, unspecified; I10 Essential (primary) hypertension; C95.90 Leukemia, unspecified not having achieved remission; E78.5 Hyperlipidemia, unspecified; V44.5XXA Car driver injured in collision with heavy transport vehicle or bus in traffic accident, initial encounter; Y92.411 Interstate highway as the place of occurrence of the external cause; Z92.21 Personal history of antineoplastic chemotherapy; Z79.82 Long term (current) use of aspirin; Z79.899 Other long term (current) drug therapy
CPT/HCPCS: 70450; 72125; 72131; 73130; 96372; 99284; J1885

== ENCOUNTER 2020-05-16 16:02 | Inpatient (IN) | payer MEDICARE, MEDICAID ==
[~2020-05-16] VITALS: Ht 154.9 cm; Wt 56.7 kg
[~2020-05-16 16:02] MED LIST changes: +IBUPROFEN400 MG ORAL; +LIDODERM700 M1 TOPIC; +ROBAXIN-500MG ORAL
--- NOTE | 2020-05-16 17:09 | Diagnostic Imaging Report ---
EXAM: XR Chest, 1 View CLINICAL HISTORY: SOB TECHNIQUE: Frontal view of the chest. COMPARISON: Chest radiograph dated 05/02/2019 FINDINGS: Lungs: Increased airspace consolidation overlying the right lung base and silhouetting the right heart border. Pleural space: Unremarkable. No pneumothorax. Heart: Unremarkable. No cardiomegaly. Mediastinum: Unremarkable. Bones/joints: Unremarkable. Vasculature: Atherosclerotic vascular disease is noted within the aortic arch. IMPRESSION: Right lower lung airspace disease, suspicious for pneumonia in the appropriate clinical setting.
[2020-05-16 17:24] LABS: BASOPHILS % (AUTO) 0.5 % (0.0-2.0); EOSINOPHILS % (AUTO) 0.2 % (0.0-3.0); HEMATOCRIT 33.2 % (37.0-47.0); HEMOGLOBIN 10.7 G/DL (12.0-16.0); LYMPHOCYTES % (AUTO) 17.9 % (20.0-45.0); MEAN CORPUSCULAR VOLUME 97 FL (80-99); MONOCYTES % (AUTO) 9.5 % (1.0-10.0); PLATELET COUNT 260 K/UL (150-450); RED BLOOD COUNT 3.43 M/UL (4.20-5.40); RED CELL DISTRIBUTION WIDTH 13.3 % (11.6-14.8); WHITE BLOOD COUNT 8.6 K/UL (4.8-10.8)
[2020-05-16 17:32] LABS: CALCIUM 9.8 MG/DL (8.5-10.1); CREATININE 1.5 MG/DL (0.55-1.30); POTASSIUM 4.3 MMOL/L (3.5-5.1)
--- NOTE | 2020-05-16 17:39 | NUR ---
ED Nurse Note:pt's son called, pt wanted RN to update him for her.
[2020-05-16 17:44] LABS: ALBUMIN 2.4 G/DL (3.4-5.0); ALBUMIN/GLOBULIN RATIO 0.5 (1.0-2.7); BILIRUBIN,TOTAL 0.4 MG/DL (0.2-1.0)
[2020-05-16 18:08] VITALS: BP 112/97
[2020-05-16] MEDS ORDERED: cefTRIAXone 1 GM in NS 55 ML IVPB ONE (18:30)
[2020-05-16] MEDS ORDERED: Azithromycin 500 MG in NS 275 ML IV ONE (18:30)
--- NOTE | 2020-05-16 19:00 | NUR ---
ED Nurse Note: rcvd pt from primary RN at handoff. Pt resting comfortably on stretcher. states she is just tired. 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 pt been dealing with pain since resting from that. states PCP dx with pneumonia and put her on abx. pt started taking the medication over the counter but wasnt feeling any better. pt is on chemo for CLL since 2003. Pt vs wnl, breathing without complications on RA. a&ox3. denies any pain at this time. labs sent to lab by previous RN, antibiotics started, will continue to monitor.
--- NOTE | 2020-05-16 20:19 | Emergency Room Report ---
History of Present Illness General Chief Complaint: Generalized Weakness Source: Patient Present Illness HPI Patient is 79-year-old female brought in by self after increased generalized weakness. Reports having some increased nonproductive cough. Recently was diagnosed with pneumonia and was started on Levaquin. Reports having prior history of leukemia. Had been feeling weak all over with some generalized body aches. Normally followed by Dr. Galarza. Reports decreased appetite over the past few days. Allergies: Coded Allergies: No Known Allergies (Verified , 08/20/18) COVID-19 Screening Contact w/high risk pt: No Experienced COVID-19 symptoms?: No COVID-19 Testing performed MANAGEMENT SCIENTIST: No Patient History Past Medical History: see triage record Reviewed Nursing Documentation: PMH: Agreed; PSxH: Agreed Nursing Documentation-PMH Past Medical History: No History, Except For Hx Cardiac Problems: Yes - heart murmur Hx Hypertension: Yes Hx Pacemaker: No Hx Asthma: No Hx COPD: No Hx Cancer: Yes - leukemia Hx Gastrointestinal Problems: No Hx Dialysis: No Hx Neurological Problems: No Hx Cerebrovascular Accident: No Hx Seizures: No Review of Systems All Other Systems: negative except mentioned in HPI Physical Exam Vital Signs Date Time Temp Pulse Resp B/P (MAP) Pulse Ox O2 Delivery O2 Flow Rate FiO2 05/16/20 16:10 98.2 85 18 132/75 (94) 99 Room Air Sp02 EP Interpretation: reviewed, normal General Appearance: normal inspection, alert, GCS 15, Chronically Ill Head: atraumatic ENT: normal ENT inspection, hearing grossly normal, normal voice Neck: normal inspection, full range of motion, supple, no bony tend Respiratory: normal inspection, lungs clear, normal breath sounds, no respi ratory distress, no retraction, no wheezing Cardiovascular #1: regular rate, rhythm, no edema Gastrointestinal: normal inspection, normal bowel sounds, non tender, soft, no guarding, no hernia Genitourinary: no CVA tenderness Musculoskeletal: normal inspection, back normal, normal range of motion Neurologic: alert, motor strength/tone normal, crude oil driver III-XII nml as tested, oriented x3, responsive, speech normal, normal inspection Psychiatric: normal inspection, judgement/insight normal, mood/affect normal Medical Decision Making Diagnostic Impression: Primary Impression: Pneumonia ER Course Patient presented for generalized weakness. Differential diagnosis include was not limited to pneumonia, electrolyte abnormality, dehydration, leukemia, anemia among others. Chest x-ray 1 view read by radiology showed infiltrate consistent with possible pneumonia. Patient's laboratory testing was essentially unremarkable. She was started on IV fluids and given IV antibiotics. Coronavirus testing was sent. Dr. Mandeep Galarza was contacted for inpatient management due to primary care physician Labs Test 05/16/20 16:40 White Blood Count 8.6 K/UL (4.8-10.8) Red Blood Count 3.43 M/UL (4.20-5.40) Hemoglobin 10.7 G/DL (12.0-16.0) Hematocrit 33.2 % (37.0-47.0) Mean Corpuscular Volume 97 FL (80-99) Mean Corpuscular Hemoglobin 31.3 PG (27.0-31.0) Mean Corpuscular Hemoglobin Concent 32.3 G/DL (32.0-36.0) Red Cell Distribution Width 13.3 % (11.6-14.8) Platelet Count 260 K/UL (150-450) Mean Platelet Volume 6.4 FL (6.5-10.1) Neutrophils (%) (Auto) 72.0 % (45.0-75.0) Lymphocytes (%) (Auto) 17.9 % (20.0-45.0) Monocytes (%) (Auto) 9.5 % (1.0-10.0) Eosinophils (%) (Auto) 0.2 % (0.0-3.0) Basophils (%) (Auto) 0.5 % (0.0-2.0) Sodium Level 138 MMOL/L (136-145) Potassium Level 4.3 MMOL/L (3.5-5.1) Chloride Level 103 MMOL/L (98-107) Carbon Dioxide Level 21 MMOL/L (21-32) Anion Gap 14 mmol/L (5-15) Blood Urea Nitrogen 27 mg/dL (7-18) Creatinine 1.5 MG/DL (0.55-1.30) Estimat Glomerular Filtration Rate 40.5 mL/min (>60) Glucose Level 117 MG/DL (74-106) Calcium Level 9.8 MG/DL (8.5-10.1) Total Bilirubin 0.4 MG/DL (0.2-1.0) Aspartate Amino Transf (AST/SGOT) 37 U/L (15-37) Alanine Aminotransferase (ALT/SGPT) 63 U/L (12-78) Alkaline Phosphatase 116 U/L (46-116) Troponin I 0.000 ng/mL (0.000-0.056) Total Protein 7.7 G/DL (6.4-8.2) Albumin 2.4 G/DL (3.4-5.0) Globulin 5.3 g/dL Albumin/Globulin Ratio 0.5 (1.0-2.7) Thyroid Stimulating Hormone (TSH) 0.449 uiU/mL (0.358-3.740) Last Vital Signs Date Time Temp Pulse Resp B/P (MAP) Pulse Ox O2 Delivery O2 Flow Rate FiO2 05/16/20 18:08 98.2 80 18 112/97 99 Room Air Status: improved Disposition: ADMITTED INPATIENT Condition: Stable Referrals: Mandeep Galarza MD (PCP) Jeremy Coon MD May 16, 2020 20:19
[2020-05-16 20:23] VITALS: BP 114/86
--- NOTE | 2020-05-16 20:25 | NUR ---
TRANSFER TO FLOOR: Patient transferred to [address] [place] [address] as ordered, per ED MD . Report given to KALEE Posada. Belongings and medications given to transportation aide. Family and or S/O informed of transfer.
--- NOTE | 2020-05-16 20:40 | NUR ---
NURSE NOTES: Patient received from KALEE Agrawal. Patient transferred from ER without problem. Patient is awake, alert and oriented x 4. Patient is able to verbalize her needs and able to ambulate. Patient belongings reviewed with the patient and RN. Patient is on room air with no signs of acute respiratory distress noted. Patient noted to have no skin issue. Patient has a right AC 20 gauge, patent and flushed. Bed is in the lowest position and locked, call light within reach. Will continue to monitor.
--- NOTE | 2020-05-16 21:00 | NUR ---
NURSE NOTES: Called Dr. Galarza for Admission orders
[2020-05-16] MEDS ORDERED: Promethazine Plain 6.25mg/5ml ORAL PRN (21:30)
[2020-05-16] MEDS ORDERED: HYDROcodone/Acetamin 5/325 tab ORAL PRN (21:30)
[2020-05-17] VITALS: BP 116/43
[2020-05-17 04:00] VITALS: BP 111/50
[2020-05-17] MEDS ORDERED: LEVOFLOXACIN500 MG ORAL (06:22)
--- NOTE | 2020-05-17 07:36 | NUR ---
NURSE HAND-OFF REPORT: Important Events on Shift:[Sent medication to pharmacy. Patient appears to have low appetite and asked for frosted flakes and refused to eat breakfast] Patient Status: [Stable] Diet: [Regular diet] Pending Orders: [] Pending Results/Labs:[] Pending MD notification:[] Latest Vital Signs: Temperature 97.6 , Pulse 67 , B/P 111 /50 , Respiratory Rate 17 , O2 SAT 100 , Room Air, O2 Flow Rate . Vital Sign Comment: [] EKG Rhythm: Sinus Rhythm Rhythm change?: N MD Notified?: - MD Response: Latest Javed Fall Score: 20 Fall Risk: Low Risk Safety Measures: Call light Within Reach, Bed Alarm Zone 1, Side Rails Side Rails x2, Bed position Low and Locked. Fall Precautions: Yellow Socks Patient Fall Education Report given to [KALEE Woods].
--- NOTE | 2020-05-17 07:40 | NUR ---
NURSE NOTES: Patient lying in bed awake. No complain of pain or distress at this time. Skin intact and dry. IV dressing intact and dry. Bed lowest position and side rails up. Call light within reach. Will continue to monitor.
[2020-05-17 08:00] VITALS: BP 125/61
[2020-05-17] MEDS: Aspirin Baby 81mg ORAL SCH (09:00)
[2020-05-17] MEDS: Allopurinol 100mg Tab ORAL SCH (09:04)
[2020-05-17] MEDS: Azithromycin 250mg tab ORAL SCH (09:04)
[2020-05-17] MEDS: cefTRIAXone 1 GM in D5W 55 ML IVPB SCH (09:04)
[2020-05-17] MEDS: Heparin 5000 units/ml inj SUBQ SCH ×2 (09:05→21:51)
--- NOTE | 2020-05-17 10:15 | NUR ---
NURSE NOTES: Report received from Shailesh GRANDA. Pt in bed awake resting.
[2020-05-17 10:26] LABS: BASOPHILS % (AUTO) 0.3 % (0.0-2.0); HEMATOCRIT 29.8 % (37.0-47.0); HEMOGLOBIN 9.3 G/DL (12.0-16.0); LYMPHOCYTES % (AUTO) 19.2 % (20.0-45.0); MEAN CORPUSCULAR VOLUME 96 FL (80-99); MONOCYTES % (AUTO) 12.8 % (1.0-10.0); NEUTROPHILS % (AUTO) 67.8 % (45.0-75.0); PLATELET COUNT 242 K/UL (150-450); RED BLOOD COUNT 3.11 M/UL (4.20-5.40); RED CELL DISTRIBUTION WIDTH 13.1 % (11.6-14.8); WHITE BLOOD COUNT 5.9 K/UL (4.8-10.8)
--- NOTE | 2020-05-17 10:30 | NUR ---
NURSE HAND-OFF: Report given to Ani RN. Patient in stable condition.
[2020-05-17 10:45] LABS: ALBUMIN 2.2 G/DL (3.4-5.0); ALBUMIN/GLOBULIN RATIO 0.5 (1.0-2.7); BILIRUBIN,TOTAL 0.3 MG/DL (0.2-1.0); CALCIUM 9.3 MG/DL (8.5-10.1); CREATININE 1.4 MG/DL (0.55-1.30); POTASSIUM 4.5 MMOL/L (3.5-5.1)
[2020-05-17 12:00] VITALS: BP 119/63
--- NOTE | 2020-05-17 12:29 | Consultation ---
DATE OF CONSULTATION: 05/17/2020 PULMONARY CONSULTATION HISTORY OF PRESENT ILLNESS: This is an 79-year-old female who was seen in the emergency room with complaints of cough and shortness of breath. Her x-ray chest showed a right lung pneumonia. The patient was started on Levaquin. The patient reports history of leukemia. PAST MEDICAL HISTORY: Notable for hypertension and leukemia. HOME MEDICATIONS: Reviewed and reconciled in chart. SOCIAL HISTORY: Denies alcohol or tobacco usage. REVIEW OF SYSTEMS: Denies any headaches, hematemesis, melena, hematochezia, night sweats, or weight loss. PHYSICAL EXAMINATION: GENERAL: Reveals a 79-year-old female. VITAL SIGNS: Blood pressure 120/60, heart rate 74, respirations are 20, O2 saturation 97% on room air. HEENT: Unremarkable. LUNGS: Few crackles in the right base. ABDOMEN: Soft. EXTREMITIES: There is no edema. NEUROLOGIC: Nonfocal. LABORATORY DATA: Lab testing shows white count 5.9, hemoglobin 9.3, otherwise normal data. Creatinine 1.4, glucose 107. X-ray chest discussed above shows right lung infiltrate. IMPRESSION: 1. Right lung pneumonia. 2. Severe leukemia. 3. Hypertension. DISCUSSION: I agree with admission and care. Currently saturating well on nasal oxygen. We will start broad-spectrum antibiotics. The patient has received azithromycin and Rocephin with which I concur. DVT prophylaxis. Oxygen as needed. We will follow. Dimitris Huang M.D. DR: Brooks JOB#: [id number] CC:
--- NOTE | 2020-05-17 14:22 | History & Physical ---
History and Physical History & Physicial Dictated for Int Med-Dr Galarza no. [id number] Dario Oakes MD May 17, 2020 14:22
--- NOTE | 2020-05-17 14:59 | History and Physical Report ---
DATE OF ADMISSION: 05/16/2020 CHIEF COMPLAINT: The patient is a 79-year-old female who presents with a chief complaint of fatigue, shortness of breath, and cough. HISTORY OF PRESENT ILLNESS: Began 3 weeks prior to admission, the patient began to experience cough productive of yellow phlegm. The patient also states she has been unable to eat for the past 3 weeks. The patient also complained of extreme fatigue and shortness of breath. The patient presented to [facility] emergency room. The patient was seen by her oncologist at [facility] on May 14, . The patient was given Levaquin. The patient has taken two doses of Levaquin. The patient states the symptoms did not improve. The patient presented to [facility] emergency room. The patient was admitted with cough and generalized weakness to rule out COVID-19. REVIEW OF SYSTEMS: CONSTITUTIONAL: The patient denies weight loss or weight gain. The patient complains of fatigue as above. HEENT: The patient denies ear or throat pain. The patient denies headache. CARDIOVASCULAR: The patient denies palpitations or chest pain. CHEST: The patient complains of shortness of breath and cough as above. The patient denies wheezes. ABDOMEN: The patient denies nausea, vomiting, diarrhea, or constipation. GENITOURINARY: The patient denies dysuria or increased frequency of urination. NEUROMUSCULAR: The patient denies seizures. The patient complains of generalized weakness as above. PAST MEDICAL HISTORY: Significant for: 1. Chronic lymphocytic leukemia, diagnosed in 2003. The patient is followed as an outpatient by [facility]. 2. Hypertension. 3. Hypercholesterolemia. 4. Anemia. PAST SURGICAL HISTORY: The patient denies. CURRENT MEDICATIONS: 1. Venclexta 100 mg four tablets p.o. daily. 2. Acyclovir 400 mg p.o. twice daily. 3. Allopurinol 300 mg p.o. daily. 4. Amlodipine 10 mg p.o. daily. 5. Aspirin 81 mg p.o. daily. 6. Iron sulfate 325 mg p.o. daily. 7. Ibuprofen 400 mg p.o. q. 6 h. p.r.n. 8. Levofloxacin 500 mg p.o. daily day #2. 9. Robaxin 500 mg one tablet p.o. three times daily p.r.n. 10. Mirtazapine 15 mg p.o. at bedtime. 11. Pravastatin 20 mg p.o. at bedtime. ALLERGIES: No known drug allergies. SOCIAL HISTORY: The patient is a and lives with her granddaughter. The patient denies tobacco or alcohol use. PHYSICAL EXAMINATION: VITAL SIGNS: Temperature 97.7, respirations 17, pulse 67, blood pressure 116/43. GENERAL: The patient is well-developed and well-nourished female, in no apparent distress. HEENT: Eyes, pupils are equal and responsive to light and accommodation. Extraocular movements are intact. NECK: Supple. No lymphadenopathy. CHEST: Decreased breath sounds in bilateral bases, otherwise clear to auscultation without wheezes. ABDOMEN: Soft, nontender, and nondistended. Positive bowel sounds. No evidence of hepatosplenomegaly. Currently, no rebound or guarding noted. EXTREMITIES: Negative for clubbing, cyanosis, or edema. RECTAL: Not performed. GENITAL: Not performed. NEUROLOGIC: Cranial nerves II through XII are grossly intact without focal deficits. Motor strength is 5/5 bilaterally. Deep tendon reflexes are 2+ plantar. LABORATORY STUDIES: WBC 8.6, hemoglobin 10.7 hematocrit 33.2 platelets 260,000. Sodium 138, potassium 4.3, chloride 103, CO2 21 , BUN 27, creatinine 1.5, glucose 117. Chest x-ray revealed right lower lobe consolidation consistent with pneumonia. ASSESSMENT: This is an 79-year-old female. 1. Pneumonia. 2. Shortness of breath. 3. Chronic lymphocytic leukemia. 4. Hypertension. 5. Hypercholesterolemia. 6. Anemia. TREATMENT: 1. Right lower lobe pneumonia. A Pulmonary consultation has been obtained with Dr. Huang. The patient has been started empirically on ceftriaxone. Follow recommendations of Pulmonary. 2. Chronic lymphocytic leukemia. Continue venclexta as above. 3. Hypercholesterolemia. Continue Lipitor as above. 4. Anemia. Dario Oakes M.D. DR: Emeli JOB#: [id number] CC:
[2020-05-17 16:00] VITALS: BP 134/58
--- NOTE | 2020-05-17 17:24 | NUR ---
NURSE NOTES: report given to Palma GRANDA.
[2020-05-17] MEDS: Acyclovir 200mg Cap ORAL SCH (17:46)
--- NOTE | 2020-05-17 19:10 | NUR ---
NURSE NOTES: Receive a report from Sriram Aragon. Round is done. Pt is awake and alert. No acute distress noted. No respiratory distress noted. Denies pain. Skin intact. IV is right AC. Call light within reach. Will continue to monitor.
--- NOTE | 2020-05-17 19:55 | NUR ---
NURSE HAND-OFF: Important Events on Shift:[] Patient Status: [] Diet: [reg] Pending Orders: [cbc, bmp] Pending Results/Labs:[] Pending MD notification:[] Latest Vital Signs: Temperature 97.6 , Pulse 74 , B/P 134 /58 , Respiratory Rate 18 , O2 SAT 98 , Room Air, O2 Flow Rate . Vital Sign Comment: [] Latest Javed Fall Score: 35 Fall Risk: Medium Risk Safety Measures: Call light Within Reach, Bed Alarm Zone 1, Side Rails Side Rails x2, Bed position Low and Locked. Fall Precautions: Yellow Socks Door Sign Patient Fall Education Report given to [RN Jacquelino].
[2020-05-17 20:00] VITALS: BP 148/66
[2020-05-17] MEDS: Dyna-Hex 2% Top Sol 2oz TOPIC SCH (20:00)
--- NOTE | 2020-05-17 22:00 | NUR ---
NURSE NOTES: No SOB noted. No coughing or phlegm noted at this time. Afebrile. Encourage for oral hygiene. Will continue to monitor.
[2020-05-18] VITALS: BP 112/46
[2020-05-18 04:00] VITALS: BP 109/53
--- NOTE | 2020-05-18 06:40 | NUR ---
NURSE HAND-OFF: Important Events on Shift: Afebrile. Given cough medication x1. No distress noted. Patient Status: [stable] Diet: [regular] Pending Orders: [] Pending Results/Labs:[] Pending MD notification:[] Latest Vital Signs: Temperature 98.1 , Pulse 61 , B/P 109 /53 , Respiratory Rate 18 , O2 SAT 95 , Room Air, O2 Flow Rate . Vital Sign Comment: [] Latest Javed Fall Score: 35 Fall Risk: Medium Risk Safety Measures: Call light Within Reach, Bed Alarm Zone 1, Side Rails Side Rails x2, Bed position Low and Locked. Fall Precautions: Yellow Socks Door Sign Patient Fall Education
--- NOTE | 2020-05-18 07:00 | NUR ---
NURSE NOTES: Given report from KALEE Esparza. Round is made.
--- NOTE | 2020-05-18 07:43 | NUR ---
NURSE NOTES: Report received from [facility] RN. Patient seen on rounds, awake and eating breakfast. Not in distress or pain. PIV on right AC patent and intact. Pt is ambulatory and continent. Bed low and locked, siderails up x2, call light placed within reach and instructed to call nurse for assistance. Will continue to monitor.
[2020-05-18 08:00] VITALS: BP 106/62
[2020-05-18] MEDS: Acyclovir 200mg Cap ORAL SCH ×2 (08:45→17:20)
[2020-05-18] MEDS: Azithromycin 250mg tab ORAL SCH (08:46)
[2020-05-18] MEDS: Aspirin Baby 81mg ORAL SCH (08:47)
[2020-05-18] MEDS: Allopurinol 100mg Tab ORAL SCH (08:47)
[2020-05-18] MEDS: cefTRIAXone 1 GM in D5W 55 ML IVPB SCH (08:50)
[2020-05-18] MEDS: Heparin 5000 units/ml inj SUBQ SCH ×2 (08:51→21:22)
[2020-05-18 09:23] LABS: BASOPHILS % (AUTO) 0.3 % (0.0-2.0); EOSINOPHILS % (AUTO) 0.1 % (0.0-3.0); HEMATOCRIT 31.4 % (37.0-47.0); HEMOGLOBIN 9.9 G/DL (12.0-16.0); LYMPHOCYTES % (AUTO) 18.9 % (20.0-45.0); MEAN CORPUSCULAR VOLUME 95 FL (80-99); MONOCYTES % (AUTO) 10.2 % (1.0-10.0); NEUTROPHILS % (AUTO) 70.5 % (45.0-75.0); PLATELET COUNT 271 K/UL (150-450); RED BLOOD COUNT 3.32 M/UL (4.20-5.40); RED CELL DISTRIBUTION WIDTH 12.9 % (11.6-14.8)
[2020-05-18 09:59] LABS: CALCIUM 9.5 MG/DL (8.5-10.1); CREATININE 1.4 MG/DL (0.55-1.30); POTASSIUM 4.5 MMOL/L (3.5-5.1)
--- NOTE | 2020-05-18 11:43 | Pulmonology Progress Note ---
Subjective ROS Limited/Unobtainable: No Interval Events: none major reported per nursing Constitutional: Reports: fatigue HEENT: Repors: no symptoms Respiratory: Reports: productive cough Cardiovascular: Reports: no symptoms Gastrointestinal/Abdominal: Reports: no symptoms Allergies: Coded Allergies: No Known Allergies (Verified , 08/20/18) Objective Last 24 Hour Vital Signs Date Time Temp Pulse Resp B/P (MAP) Pulse Ox O2 Delivery O2 Flow Rate FiO2 05/18/20 08:46 76 106/62 05/18/20 08:00 97.2 76 18 106/62 (77) 98 05/18/20 04:00 98.1 61 18 109/53 (71) 95 05/18/20 00:00 98.1 73 18 112/46 (68) 95 05/17/20 21:00 Room Air 05/17/20 20:00 97.0 84 18 148/66 (93) 98 05/17/20 16:00 74 05/17/20 16:00 97.6 77 18 134/58 (83) 98 05/17/20 12:00 97.5 78 20 119/63 (81) 97 05/17/20 12:00 89 Intake and Output 05/17/20 05/18/20 19:00 07:00 Intake Total 480 ml 200 ml Balance 480 ml 200 ml Intake Oral 480 ml 200 ml # Voids 3 4 # Bowel Movements 1 General Appearance: no acute distress HEENT: atraumatic Respiratory: decreased breath sounds, crackles/rales Cardiovascular: normal rate, regular rhythm Abdomen: soft, non tender Laboratory Tests 05/18/20 09:15: White Blood Count 5.0, Red Blood Count 3.32L, Hemoglobin 9.9L, Hematocrit 31.4L, Mean Corpuscular Volume 95, Mean Corpuscular Hemoglobin 29.8, Mean Corpuscular Hemoglobin Concent 31.4L, Red Cell Distribution Width 12.9, Platelet Count 271, Mean Platelet Volume 6.0L, Neutrophils (%) (Auto) 70.5, Lymphocytes (%) (Auto) 18.9L, Monocytes (%) (Auto) 10.2H, Eosinophils (%) (Auto) 0.1, Basophils (%) (Auto) 0.3, Sodium Level 141, Potassium Level 4.5, Chloride Level 107, Carbon Dioxide Level 25, Anion Gap 9, Blood Urea Nitrogen 20H, Creatinine 1.4H, Estimat Glomerular Filtration Rate 43.9, Glucose Level 105, Calcium Level 9.5 Current Medications Medications (Trade) Dose Ordered Sig/Adalgisa Route PRN Reason Start Time Stop Time Status Last Admin Dose Admin Acetaminophen (Tylenol) 650 mg Q6H PRN ORAL Mild Pain (Pain Scale 1-3) 05/16/20 21:30 06/15/20 21:29 Acetaminophen (Tylenol) 650 mg Q6H PRN ORAL Temp >100.5 05/16/20 21:30 06/15/20 21:29 Acetaminophen/ Hydrocodone Bitart ([place] 5/325) 1 tab Q6H PRN ORAL pain 4-10 05/16/20 21:30 05/23/20 21:29 Acyclovir (Zovirax) 400 mg BID ORAL 05/17/20 18:00 06/16/20 08:59 05/18/20 08:45 Allopurinol (Zyloprim) 100 mg DAILY ORAL 05/17/20 09:00 06/16/20 08:59 05/18/20 08:47 Amlodipine Besylate (Norvasc) 5 mg DAILY ORAL 05/17/20 09:00 06/16/20 08:59 05/17/20 09:05 Aspirin (ASA) 81 mg DAILY ORAL 05/17/20 09:00 07/01/20 08:59 05/18/20 08:47 Azithromycin (Zithromax) 250 mg DAILY ORAL 05/17/20 09:00 05/21/20 09:01 05/18/20 08:46 Ceftriaxone Sodium 1 gm/ Dextrose 55 ml @ 110 mls/hr Q24H IVPB 05/17/20 09:00 05/24/20 08:59 05/18/20 08:50 Chlorhexidine Gluconate (Brenda-Hex 2%) 1 applic DAILY@2000 TOPIC 05/17/20 20:00 08/15/20 19:59 Ferrous Sulfate (Feosol) 325 mg DAILY ORAL 05/17/20 09:00 08/15/20 08:59 05/18/20 08:45 Heparin Sodium (Porcine) (Heparin 5000 units/ml) 5,000 units EVERY 12 HOURS SUBQ 05/17/20 09:00 07/01/20 08:59 05/18/20 08:51 Mirtazapine (Remeron) 15 mg BEDTIME ORAL 05/17/20 21:00 08/15/20 20:59 05/17/20 21:52 Ondansetron HCl (Zofran) 4 mg Q6H PRN IVP Nausea & Vomiting 05/16/20 21:30 06/15/20 21:29 Patient Own Medication (Patient's Own Med) 4 ea Q24H ORAL 05/17/20 22:00 06/16/20 21:59 05/17/20 21:52 Pravastatin Sodium (Pravachol) 10 mg BEDTIME ORAL 05/17/20 21:00 06/16/20 20:59 05/17/20 21:52 Promethazine HCl (Phenergan Plain) 6.25 mg Q4H PRN ORAL For Cough 05/16/20 21:30 06/15/20 21:29 05/18/20 05:27 Assessment/Plan Assessment/Plan 1. Right lung pneumonia. - On broad-spectrum Abx 2. Severe leukemia. - management per primary MD 3. Hypertension. - on Norvasc 4. DVT ppx - on Heparin The care for this patient was discussed with my supervising physician Time spent for this case was approximately 31 minutes Mino Arechiga May 18, 2020 11:43
[2020-05-18 12:00] VITALS: BP 100/56
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
[2020-05-18 16:00] VITALS: BP 111/50
--- NOTE | 2020-05-18 19:12 | Internal Med Progress Note ---
Subjective Date of Service: May 18, 2020 Physician Name OakesDario alvarez Attending Physician Mandeep Galarza MD Current Medications Medications (Trade) Dose Ordered Sig/Adalgisa Route PRN Reason Start Time Stop Time Status Last Admin Dose Admin Acetaminophen (Tylenol) 650 mg Q6H PRN ORAL Mild Pain (Pain Scale 1-3) 05/16/20 21:30 06/15/20 21:29 Acetaminophen (Tylenol) 650 mg Q6H PRN ORAL Temp >100.5 05/16/20 21:30 06/15/20 21:29 Acetaminophen/ Hydrocodone Bitart ([place] 5/325) 1 tab Q6H PRN ORAL pain 4-10 05/16/20 21:30 05/23/20 21:29 Acyclovir (Zovirax) 400 mg BID ORAL 05/17/20 18:00 06/16/20 08:59 05/18/20 17:20 Allopurinol (Zyloprim) 100 mg DAILY ORAL 05/17/20 09:00 06/16/20 08:59 05/18/20 08:47 Amlodipine Besylate (Norvasc) 5 mg DAILY ORAL 05/17/20 09:00 06/16/20 08:59 05/17/20 09:05 Aspirin (ASA) 81 mg DAILY ORAL 05/17/20 09:00 07/01/20 08:59 05/18/20 08:47 Azithromycin (Zithromax) 250 mg DAILY ORAL 05/17/20 09:00 05/21/20 09:01 05/18/20 08:46 Ceftriaxone Sodium 1 gm/ Dextrose 55 ml @ 110 mls/hr Q24H IVPB 05/17/20 09:00 05/24/20 08:59 05/18/20 08:50 Chlorhexidine Gluconate (Brenda-Hex 2%) 1 applic DAILY@2000 TOPIC 05/17/20 20:00 08/15/20 19:59 Ferrous Sulfate (Feosol) 325 mg DAILY ORAL 05/17/20 09:00 08/15/20 08:59 05/18/20 08:45 Heparin Sodium (Porcine) (Heparin 5000 units/ml) 5,000 units EVERY 12 HOURS SUBQ 05/17/20 09:00 07/01/20 08:59 05/18/20 08:51 Mirtazapine (Remeron) 15 mg BEDTIME ORAL 05/17/20 21:00 08/15/20 20:59 05/17/20 21:52 Ondansetron HCl (Zofran) 4 mg Q6H PRN IVP Nausea & Vomiting 05/16/20 21:30 06/15/20 21:29 Patient Own Medication (Patient's Own Med) 4 ea Q24H ORAL 05/17/20 22:00 06/16/20 21:59 05/17/20 21:52 Pravastatin Sodium (Pravachol) 10 mg BEDTIME ORAL 05/17/20 21:00 06/16/20 20:59 05/17/20 21:52 Promethazine HCl (Phenergan Plain) 6.25 mg Q4H PRN ORAL For Cough 05/16/20 21:30 06/15/20 21:29 05/18/20 05:27 Allergies: Coded Allergies: No Known Allergies (Verified , 08/20/18) ROS Limited/Unobtainable: No Constitutional: Reports: no symptoms HEENT: Reports: no symptoms Cardiovascular: Reports: no symptoms Respiratory: Reports: shortness of breath Gastrointestinal/Abdominal: Reports: no symptoms Genitourinary: Reports: no symptoms Neurologic/Psychiatric: Reports: no symptoms Subjective 79 YO F with history of CLL admitted with cough. Now pneumonia. Cover for Int Med-Dr Galarza Objective Last Vital Signs Date Time Temp Pulse Resp B/P (MAP) Pulse Ox O2 Delivery O2 Flow Rate FiO2 05/18/20 16:00 97.2 72 18 111/50 (70) 96 05/18/20 09:00 Room Air Laboratory Tests Test 05/18/20 09:15 White Blood Count 5.0 K/UL (4.8-10.8) Red Blood Count 3.32 M/UL (4.20-5.40) L Hemoglobin 9.9 G/DL (12.0-16.0) L Hematocrit 31.4 % (37.0-47.0) L Mean Corpuscular Volume 95 FL (80-99) Mean Corpuscular Hemoglobin 29.8 PG (27.0-31.0) Mean Corpuscular Hemoglobin Concent 31.4 G/DL (32.0-36.0) L Red Cell Distribution Width 12.9 % (11.6-14.8) Platelet Count 271 K/UL (150-450) Mean Platelet Volume 6.0 FL (6.5-10.1) L Neutrophils (%) (Auto) 70.5 % (45.0-75.0) Lymphocytes (%) (Auto) 18.9 % (20.0-45.0) L Monocytes (%) (Auto) 10.2 % (1.0-10.0) H Eosinophils (%) (Auto) 0.1 % (0.0-3.0) Basophils (%) (Auto) 0.3 % (0.0-2.0) Sodium Level 141 MMOL/L (136-145) Potassium Level 4.5 MMOL/L (3.5-5.1) Chloride Level 107 MMOL/L (98-107) Carbon Dioxide Level 25 MMOL/L (21-32) Anion Gap 9 mmol/L (5-15) Blood Urea Nitrogen 20 mg/dL (7-18) H Creatinine 1.4 MG/DL (0.55-1.30) H Estimat Glomerular Filtration Rate 43.9 mL/min (>60) Glucose Level 105 MG/DL (74-106) Calcium Level 9.5 MG/DL (8.5-10.1) Intake and Output 05/17/20 05/18/20 19:00 07:00 Intake Total 480 ml 200 ml Balance 480 ml 200 ml Intake Oral 480 ml 200 ml # Voids 3 4 # Bowel Movements 1 Objective PHYSICAL EXAMINATION: GENERAL: The patient is well-developed and well-nourished female, in no apparent distress. HEENT: Eyes, pupils are equal and responsive to light and accommodation. Extraocular movements are intact. NECK: Supple. No lymphadenopathy. CHEST: Decreased breath sounds in bilateral bases, otherwise clear to auscultation without wheezes. ABDOMEN: Soft, nontender, and nondistended. Positive bowel sounds. No evidence of hepatosplenomegaly. Currently, no rebound or guarding noted. EXTREMITIES: Negative for clubbing, cyanosis, or edema. RECTAL: Not performed. GENITAL: Not performed. NEUROLOGIC: Cranial nerves II through XII are grossly intact without focal deficits. Motor strength is 5/5 bilaterally. Deep tendon reflexes are 2+ plantar. Assessment/Plan Assessment/Plan ASSESSMENT: This is an 79-year-old female. 1. Pneumonia. 2. Shortness of breath. 3. Chronic lymphocytic leukemia. 4. Hypertension. 5. Hypercholesterolemia. 6. Anemia. TREATMENT: 1. Right lower lobe pneumonia. Pulmonary consultation=Dr. Huang. ABX=ceftriaxone. Follow recommendations of Pulmonary. await COVID 19 test result 2. Chronic lymphocytic leukemia. Continue venclexta as above. 3. Hypercholesterolemia. Continue Lipitor as above. 4. Anemia. Dario Oakes MD May 18, 2020 19:12
--- NOTE | 2020-05-18 19:32 | NUR ---
NURSE HAND-OFF: Important Events on Shift: No adverse events noted this shift Patient Status: Stable Diet: Regular Pending Orders: N Pending Results/Labs: N Pending MD notification: N Latest Vital Signs: Temperature 97.2 , Pulse 72 , B/P 111 /50 , Respiratory Rate 18 , O2 SAT 96 , Room Air, O2 Flow Rate . Vital Sign Comment: Latest Javed Fall Score: 35 Fall Risk: Medium Risk Safety Measures: Call light Within Reach, Bed Alarm Zone 1, Side Rails Side Rails x2, Bed position Low and Locked. Fall Precautions: Yellow Socks Door Sign Patient Fall Education Report given to Gordy GRANDA.
[2020-05-18 20:00] VITALS: BP 118/57
[2020-05-18] MEDS: Dyna-Hex 2% Top Sol 2oz TOPIC SCH (20:00)
[2020-05-19] VITALS: BP 103/51
[2020-05-19 04:00] VITALS: BP 108/53
[2020-05-19 06:43] LABS: BASOPHILS % (AUTO) 0.4 % (0.0-2.0); EOSINOPHILS % (AUTO) 0.1 % (0.0-3.0); HEMATOCRIT 28.9 % (37.0-47.0); HEMOGLOBIN 9.7 G/DL (12.0-16.0); LYMPHOCYTES % (AUTO) 31.1 % (20.0-45.0); MEAN CORPUSCULAR VOLUME 93 FL (80-99); MONOCYTES % (AUTO) 15.1 % (1.0-10.0); NEUTROPHILS % (AUTO) 53.3 % (45.0-75.0); PLATELET COUNT 244 K/UL (150-450); RED CELL DISTRIBUTION WIDTH 14.2 % (11.6-14.8)
--- NOTE | 2020-05-19 07:06 | NUR ---
NURSE HAND-OFF: Important Events on Shift:WNL Patient Status: WNL Diet: REG Pending Orders: Pending Results/Labs: Pending MD notification: Latest Vital Signs: Temperature 97.6 , Pulse 68 , B/P 108 /53 , Respiratory Rate 18 , O2 SAT 96 , Room Air, O2 Flow Rate . Vital Sign Comment: WNL Latest Javed Fall Score: 35 Fall Risk: Medium Risk Safety Measures: Call light Within Reach, Bed Alarm Zone 1, Side Rails Side Rails x2, Bed position Low and Locked. Fall Precautions: Yellow Socks Door Sign Patient Fall Education Report given to KALEE Monae. Addendum: 05/19/20 at 0715 by RAN ARMIJO RN RN Wrong Nurse
[2020-05-19 07:12] LABS: CALCIUM 9.7 MG/DL (8.5-10.1); CREATININE 1.3 MG/DL (0.55-1.30); POTASSIUM 4.6 MMOL/L (3.5-5.1)
--- NOTE | 2020-05-19 07:15 | NUR ---
NURSE HAND-OFF: Important Events on Shift:WNL Patient Status: WNL Diet: REG Pending Orders: Pending Results/Labs: Pending MD notification: Latest Vital Signs: Temperature 97.6 , Pulse 68 , B/P 108 /53 , Respiratory Rate 18 , O2 SAT 96 , Room Air, O2 Flow Rate . Vital Sign Comment: WNL Latest Javed Fall Score: 35 Fall Risk: Medium Risk Safety Measures: Call light Within Reach, Bed Alarm Zone 1, Side Rails Side Rails x2, Bed position Low and Locked. Fall Precautions: Yellow Socks Door Sign Patient Fall Education Report given to Sriram Santana.
--- NOTE | 2020-05-19 07:52 | NUR ---
NURSE NOTES: Patient awake, alert x4; on room air, no sing of distress and shortness of breath; no sing of chest pain; IV Right AC flushes well; patient PUI, signs at the door; side rails up x2, breaks engaged, bed at lowest position, call light within reach; will keep monitoring.
[2020-05-19 08:00] VITALS: BP 109/99
--- NOTE | 2020-05-19 08:52 | Pulmonology Progress Note ---
Subjective ROS Limited/Unobtainable: No Interval Events: none major reported per nursing Constitutional: Reports: fatigue HEENT: Repors: no symptoms Respiratory: Reports: productive cough Cardiovascular: Reports: no symptoms Gastrointestinal/Abdominal: Reports: no symptoms Allergies: Coded Allergies: No Known Allergies (Verified , 08/20/18) Objective Last 24 Hour Vital Signs Date Time Temp Pulse Resp B/P (MAP) Pulse Ox O2 Delivery O2 Flow Rate FiO2 05/19/20 04:00 97.6 68 18 108/53 (71) 96 05/19/20 00:00 97.6 74 18 103/51 (68) 96 05/18/20 21:00 Room Air 05/18/20 20:00 97.3 78 18 118/57 (77) 96 05/18/20 16:00 97.2 72 18 111/50 (70) 96 05/18/20 12:00 97.0 71 18 100/56 (71) 96 05/18/20 09:00 Room Air Intake and Output 05/18/20 05/19/20 19:00 07:00 Intake Total 355 ml Output Total 600 ml Balance 355 ml -600 ml Intake Oral 300 ml IV Total 55 ml Output Other 600 ml # Voids 3 General Appearance: no acute distress HEENT: atraumatic Respiratory: decreased breath sounds, crackles/rales Cardiovascular: normal rate, regular rhythm Abdomen: soft, non tender Laboratory Tests 05/18/20 09:15: White Blood Count 5.0, Red Blood Count 3.32L, Hemoglobin 9.9L, Hematocrit 31.4L, Mean Corpuscular Volume 95, Mean Corpuscular Hemoglobin 29.8, Mean Corpuscular Hemoglobin Concent 31.4L, Red Cell Distribution Width 12.9, Platelet Count 271, Mean Platelet Volume 6.0L, Neutrophils (%) (Auto) 70.5, Lymphocytes (%) (Auto) 18.9L, Monocytes (%) (Auto) 10.2H, Eosinophils (%) (Auto) 0.1, Basophils (%) (Auto) 0.3, Sodium Level 141, Potassium Level 4.5, Chloride Level 107, Carbon Dioxide Level 25, Anion Gap 9, Blood Urea Nitrogen 20H, Creatinine 1.4H, Estimat Glomerular Filtration Rate 43.9, Glucose Level 105, Calcium Level 9.5 05/19/20 06:05: White Blood Count 4.0L, Red Blood Count 3.10L, Hemoglobin 9.7L, Hematocrit 28.9L , Mean Corpuscular Volume 93, Mean Corpuscular Hemoglobin 31.2H, Mean Corpuscular Hemoglobin Concent 33.4, Red Cell Distribution Width 14.2, Platelet Count 244, Mean Platelet Volume 5.8L, Neutrophils (%) (Auto) 53.3, Lymphocytes (%) (Auto) 31.1, Monocytes (%) (Auto) 15.1H, Eosinophils (%) (Auto) 0.1, Basophils (%) (Auto) 0.4, Sodium Level 140, Potassium Level 4.6, Chloride Level 106, Carbon Dioxide Level 27, Anion Gap 7, Blood Urea Nitrogen 14, Creatinine 1.3, Estimat Glomerular Filtration Rate 47.8, Glucose Level 93, Calcium Level 9.7 Current Medications Medications (Trade) Dose Ordered Sig/Adalgisa Route PRN Reason Start Time Stop Time Status Last Admin Dose Admin Acetaminophen (Tylenol) 650 mg Q6H PRN ORAL Mild Pain (Pain Scale 1-3) 05/16/20 21:30 06/15/20 21:29 Acetaminophen (Tylenol) 650 mg Q6H PRN ORAL Temp >100.5 05/16/20 21:30 06/15/20 21:29 Acetaminophen/ Hydrocodone Bitart ([place] 5/325) 1 tab Q6H PRN ORAL pain 4-10 05/16/20 21:30 05/23/20 21:29 Acyclovir (Zovirax) 400 mg BID ORAL 05/17/20 18:00 06/16/20 08:59 05/18/20 17:20 Allopurinol (Zyloprim) 100 mg DAILY ORAL 05/17/20 09:00 06/16/20 08:59 05/18/20 08:47 Amlodipine Besylate (Norvasc) 5 mg DAILY ORAL 05/17/20 09:00 06/16/20 08:59 05/17/20 09:05 Aspirin (ASA) 81 mg DAILY ORAL 05/17/20 09:00 07/01/20 08:59 05/18/20 08:47 Azithromycin (Zithromax) 250 mg DAILY ORAL 05/17/20 09:00 05/21/20 09:01 05/18/20 08:46 Ceftriaxone Sodium 1 gm/ Dextrose 55 ml @ 110 mls/hr Q24H IVPB 05/17/20 09:00 05/24/20 08:59 05/18/20 08:50 Chlorhexidine Gluconate (Brenda-Hex 2%) 1 applic DAILY@2000 TOPIC 05/17/20 20:00 08/15/20 19:59 Ferrous Sulfate (Feosol) 325 mg DAILY ORAL 05/17/20 09:00 08/15/20 08:59 05/18/20 08:45 Heparin Sodium (Porcine) (Heparin 5000 units/ml) 5,000 units EVERY 12 HOURS SUBQ 05/17/20 09:00 07/01/20 08:59 05/18/20 21:22 Mirtazapine (Remeron) 15 mg BEDTIME ORAL 05/17/20 21:00 08/15/20 20:59 05/18/20 21:09 Ondansetron HCl (Zofran) 4 mg Q6H PRN IVP Nausea & Vomiting 05/16/20 21:30 06/15/20 21:29 Patient Own Medication (Patient's Own Med) 4 ea Q24H ORAL 05/17/20 22:00 06/16/20 21:59 05/18/20 21:09 Pravastatin Sodium (Pravachol) 10 mg BEDTIME ORAL 05/17/20 21:00 06/16/20 20:59 05/18/20 21:09 Promethazine HCl (Phenergan Plain) 6.25 mg Q4H PRN ORAL For Cough 05/16/20 21:30 06/15/20 21:29 05/18/20 05:27 Assessment/Plan Assessment/Plan 1. Right lung pneumonia. - On broad-spectrum Abx - Currently saturating well on room air 2. Severe leukemia. - management per primary MD 3. Hypertension. - on Norvasc 4. DVT ppx - on Heparin Continue current management The care for this patient was discussed with my supervising physician Time spent for this case was approximately 31 minutes Mino Arechiga May 19, 2020 08:51
[2020-05-19] MEDS: Aspirin Baby 81mg ORAL SCH (09:06)
[2020-05-19] MEDS: Acyclovir 200mg Cap ORAL SCH ×2 (09:07→17:30)
[2020-05-19] MEDS: Allopurinol 100mg Tab ORAL SCH (09:07)
[2020-05-19] MEDS: Azithromycin 250mg tab ORAL SCH (09:07)
[2020-05-19] MEDS: cefTRIAXone 1 GM in D5W 55 ML IVPB SCH (09:08)
[2020-05-19] MEDS: Heparin 5000 units/ml inj SUBQ SCH ×2 (09:08→20:42)
[2020-05-19 12:00] VITALS: BP 129/58
--- NOTE | 2020-05-19 12:22 | Consultation ---
History of Present Illness General Date patient seen: May 19, 2020 Reason for Hospitalization: Generalized Weakness Present Illness HPI This is a 79-year-old female multimedical comorbidities who regularly follows up with her oncologist at [facility] presenting with fatigue weakness identified to have low body weight BMI 23 low albumin 2.3 not tolerating much oral intake at all times and complaining some abdominal discomfort therefore surgery called to evaluate assist with care patient seen, patient evaluate, chart reviewed. No nausea vomiting fever chills. Passing flatus somewhat constipated at times. Abdominal discomfort cramping with some reflux. Allergies: Coded Allergies: No Known Allergies (Verified , 08/20/18) COVID-19 Screening Contact w/high risk pt: No Experienced COVID-19 symptoms?: No Medication History Scheduled Acyclovir* (Acyclovir*), 400 MG ORAL BID, (Reported) Allopurinol* (Allopurinol*), 300 MG ORAL DAILY, (Reported) Amlodipine Besylate* (Amlodipine Besylate*), 10 MG ORAL DAILY, (Reported) Aspirin* (Aspirin*), 81 MG ORAL DAILY, (Reported) Azithromycin* (Zithromax*), 250 MG ORAL TWICE A DAY Ferrous Sulfate* (Ferrous Sulfate*), 325 MG ORAL DAILY, (Reported) Ibuprofen* (Motrin*), 400 MG ORAL Q8H Levofloxacin (Levofloxacin*), 500 MG ORAL DAILY, (Reported) Lidocaine Patch* (Lidoderm Patch*), 1 PATCH TOPIC DAILY Mirtazapine* (Mirtazapine*), 15 MG ORAL BEDTIME, (Reported) Pravastatin Sod* (Pravastatin Sod*), 10 MG ORAL BEDTIME, (Reported) [Venclexta], 100 MG PO DAILY, (Reported) Scheduled PRN D-Methorphan Hb/Prometh Hcl* (Promethazine-Dm Syrup*), 5 ML ORAL Q4H PRN for For Cough Methocarbamol* (Robaxin-500*), 500 MG ORAL TID PRN for For Pain Miscellaneous Medications Unable to Obtain Medications (Unable To Obtain Meds), (Reported) Patient History History Provided By: Patient, Medical Record, PMD Healthcare decision maker Resuscitation status Advanced Directive on File Past Medical/Surgical History Past Medical/Surgical History: (1) Costochondritis (2) Cough (3) Cervical strain (4) Lumbar strain (5) Generalized weakness (6) Pneumonia (7) Enteritis (8) Chronic lymphocytic leukemia (9) Protein-calorie malnutrition, severe (10) Pancreatic mass (11) Purulent bronchitis (12) Pneumonia (13) Middle ear effusion (14) Gout (15) CML (chronic myeloid leukemia) (16) History of hypertension (17) UTI (lower urinary tract infection) (18) Chest wall contusion (19) Acute serous otitis media of right ear without rupture (20) Upper respiratory infection (21) ACS (acute coronary syndrome) Review of Systems Review of Symptoms General ROS: no weight loss or fever Psychological ROS: no depression or mood changes, no memory loss Ophthalmic ROS: no visual changes or eye irritation ENT ROS: no nasal congestion, hearing loss, dizziness Allergy and Immunology ROS: no allergic symptoms or urticaria Hematological and Lymphatic ROS: no swollen glands, unusual bleeding or bruising Endocrine ROS: no polyuria, polydipsia, weight changes, temperature intolerance Respiratory ROS: no cough, shortness of breath, or wheezing Cardiovascular ROS: no chest pain or dyspnea on exertion Gastrointestinal ROS: + abdominal pain, bright red blood in stool. Musculoskeletal ROS: no myalgias or arthralgias Neurological ROS: no TIA or stroke symptoms Dermatological ROS: no new or changing skin lesions, rashes or pruritis Physical Exam Physical Exam General appearance: alert, cooperative, no distress, appears stated age Head: Normocephalic, without obvious abnormality, atraumatic Eyes: conjunctivae/corneas clear. PERRL, EOM's intact. Fundi benign Throat: Lips, mucosa, and tongue normal. Teeth and gums normal Neck: supple, symmetrical, trachea midline, no adenopathy, thyroid: not enlarged, symmetric, no tenderness/mass/nodules, no carotid bruit and no JVD Lungs: clear to auscultation bilaterally Heart: regular rate and rhythm, S1, S2 normal, no murmur, click, rub or gallop Abdomen: soft, non-tender. Bowel sounds normal. No masses, no organomegaly Extremities: extremities normal, atraumatic, no cyanosis or edema Pulses: 2+ and symmetric Skin: Skin color, texture, turgor normal. No rashes or lesions Neurologic: Grossly normal Last 24 Hour Vital Signs Date Time Temp Pulse Resp B/P (MAP) Pulse Ox O2 Delivery O2 Flow Rate FiO2 05/19/20 09:07 71 109/99 2/9/21 09:00 Room Air 05/19/20 08:00 97.8 71 18 109/99 (102) 97 05/19/20 04:00 97.6 68 18 108/53 (71) 96 05/19/20 00:00 97.6 74 18 103/51 (68) 96 05/18/20 21:00 Room Air 05/18/20 20:00 97.3 78 18 118/57 (77) 96 05/18/20 16:00 97.2 72 18 111/50 (70) 96 Intake and Output 05/18/20 05/19/20 19:00 07:00 Intake Total 355 ml Output Total 600 ml Balance 355 ml -600 ml Intake Oral 300 ml IV Total 55 ml Output Other 600 ml # Voids 3 Laboratory Tests Test 05/19/20 06:05 White Blood Count 4.0 K/UL (4.8-10.8) L Red Blood Count 3.10 M/UL (4.20-5.40) L Hemoglobin 9.7 G/DL (12.0-16.0) L Hematocrit 28.9 % (37.0-47.0) L Mean Corpuscular Volume 93 FL (80-99) Mean Corpuscular Hemoglobin 31.2 PG (27.0-31.0) H Mean Corpuscular Hemoglobin Concent 33.4 G/DL (32.0-36.0) Red Cell Distribution Width 14.2 % (11.6-14.8) Platelet Count 244 K/UL (150-450) Mean Platelet Volume 5.8 FL (6.5-10.1) L Neutrophils (%) (Auto) 53.3 % (45.0-75.0) Lymphocytes (%) (Auto) 31.1 % (20.0-45.0) Monocytes (%) (Auto) 15.1 % (1.0-10.0) H Eosinophils (%) (Auto) 0.1 % (0.0-3.0) Basophils (%) (Auto) 0.4 % (0.0-2.0) Sodium Level 140 MMOL/L (136-145) Potassium Level 4.6 MMOL/L (3.5-5.1) Chloride Level 106 MMOL/L (98-107) Carbon Dioxide Level 27 MMOL/L (21-32) Anion Gap 7 mmol/L (5-15) Blood Urea Nitrogen 14 mg/dL (7-18) Creatinine 1.3 MG/DL (0.55-1.30) Estimat Glomerular Filtration Rate 47.8 mL/min (>60) Glucose Level 93 MG/DL (74-106) Calcium Level 9.7 MG/DL (8.5-10.1) Height (Feet): 5 Height (Inches): 1.00 Weight (Pounds): 125 Medications Current Medications Medications (Trade) Dose Ordered Sig/Adalgisa Route PRN Reason Start Time Stop Time Status Last Admin Dose Admin Acetaminophen (Tylenol) 650 mg Q6H PRN ORAL Mild Pain (Pain Scale 1-3) 05/16/20 21:30 06/15/20 21:29 Acetaminophen (Tylenol) 650 mg Q6H PRN ORAL Temp >100.5 05/16/20 21:30 06/15/20 21:29 Acetaminophen/ Hydrocodone Bitart ([place] 5/325) 1 tab Q6H PRN ORAL pain 4-10 05/16/20 21:30 05/23/20 21:29 Acyclovir (Zovirax) 400 mg BID ORAL 05/17/20 18:00 06/16/20 08:59 05/19/20 09:07 Allopurinol (Zyloprim) 100 mg DAILY ORAL 05/17/20 09:00 06/16/20 08:59 05/19/20 09:07 Amlodipine Besylate (Norvasc) 5 mg DAILY ORAL 05/17/20 09:00 06/16/20 08:59 05/19/20 09:07 Aspirin (ASA) 81 mg DAILY ORAL 05/17/20 09:00 07/01/20 08:59 05/19/20 09:06 Azithromycin (Zithromax) 250 mg DAILY ORAL 05/17/20 09:00 05/21/20 09:01 05/19/20 09:07 Ceftriaxone Sodium 1 gm/ Dextrose 55 ml @ 110 mls/hr Q24H IVPB 05/17/20 09:00 05/24/20 08:59 05/19/20 09:08 Chlorhexidine Gluconate (Brenda-Hex 2%) 1 applic DAILY@2000 TOPIC 05/17/20 20:00 08/15/20 19:59 Ferrous Sulfate (Feosol) 325 mg DAILY ORAL 05/17/20 09:00 08/15/20 08:59 05/19/20 09:07 Heparin Sodium (Porcine) (Heparin 5000 units/ml) 5,000 units EVERY 12 HOURS SUBQ 05/17/20 09:00 07/01/20 08:59 05/19/20 09:08 Mirtazapine (Remeron) 15 mg BEDTIME ORAL 05/17/20 21:00 08/15/20 20:59 05/18/20 21:09 Ondansetron HCl (Zofran) 4 mg Q6H PRN IVP Nausea & Vomiting 05/16/20 21:30 06/15/20 21:29 Patient Own Medication (Patient's Own Med) 4 ea Q24H ORAL 05/17/20 22:00 06/16/20 21:59 05/18/20 21:09 Pravastatin Sodium (Pravachol) 10 mg BEDTIME ORAL 05/17/20 21:00 06/16/20 20:59 05/18/20 21:09 Promethazine HCl (Phenergan Plain) 6.25 mg Q4H PRN ORAL For Cough 05/16/20 21:30 06/15/20 21:29 05/18/20 05:27 Assessment/Plan Problem List: (1) Generalized weakness ICD Codes: R53.1 - Weakness SNOMED: 81410424 (2) Cough ICD Codes: R05 - Cough SNOMED: 50366632 (3) Costochondritis ICD Codes: M94.0 - Chondrocostal junction syndrome [Tietze] SNOMED: 98756944 (4) Pneumonia ICD Codes: J18.9 - Pneumonia, unspecified organism SNOMED: 297601113 (5) Cervical strain ICD Codes: S16.1XXA - Strain of muscle, fascia and tendon at neck level, initial encounter SNOMED: 378084404 (6) Lumbar strain ICD Codes: S39.012A - Strain of muscle, fascia and tendon of lower back, initial encounter SNOMED: 289560102 (7) Enteritis ICD Codes: K52.9 - Noninfective gastroenteritis and colitis, unspecified SNOMED: 83533808 (8) Chronic lymphocytic leukemia ICD Codes: C91.10 - Chronic lymphocytic leukemia of B-cell type not having achieved remission SNOMED: 86207136 (9) Protein-calorie malnutrition, severe Assessment & Plan: encourage oral intake nutrition eval ICD Codes: E43 - Unspecified severe protein-calorie malnutrition SNOMED: 630134532 (10) Pancreatic mass Assessment & Plan: Patient with history of pancreatic mass biopsy in 2018 identified CLL. Mild nominal discomfort with food. Malnutrition BMI 23 low albumin. Reflect symptoms identified prior H. pylori noted scope in 2018. Patient has been doing well since currently fatigued weak does follow-up with her oncologist regularly. Likely component of constipation and reflux. PPI and bowel regimen initiated. Okay for diet as tolerated. Encourage oral intake. No acute surgical intervention planned. Will follow with recommendations thank for the reports in patient's care 02/26/2008, also ultrasound 08/02/2017 Findings: Again demonstrated are enlarged peripancreatic lymph nodes. Largest of these measures 5 cm long axis dimension. This represents a slight increase in size from the previous exam. A large node is seen anterior to the pancreatic head body junction which has increased considerably in size from the previous study, currently measuring 5.3 cm long axis dimension. Other nodes appear overall similar in size. These appear overall homogeneous but slightly hypoattenuating. Previously demonstrated retroperitoneal lymphadenopathy and bilateral iliac chain lymphadenopathy have improved considerably. The largest residual lymph node is i n the pelvic sidewall, measuring 2.3 x 0.7 cm, previously 3.4 x 1 cm. Prominent lymph nodes are seen adjacent to the hepatic flexure of the colon, also evident previously but much smaller currently. Lymphadenopathy is seen within the splenic hilum, only equivocally evident previously, considerably larger currently, largest node measuring 2.7 cm long axis dimension, with other smaller nodes also seen in the vicinity. Enlarged pericecal nodes are smaller there previously. Nodes in the transverse mesocolon appears smaller than before A lobulated cyst versus 2 adjacent cysts again demonstrated within segment 2 of the liver, appearing smaller than previously. There are some scattered subcentimeter low-attenuation lesions which are too small to characterize. No definite solid mass demonstrated. Multiple calcifications are seen within the left hepatic lobe. The gallbladder, bile ducts, pancreas are unremarkable. The spleen is prominent but not frankly enlarged. It contains a calcification inferiorly The adrenals and kidneys are unremarkable. The uterus is not visualized, presumed surgically absent. A surgical clip is seen within the pelvis. There is considerable soft tissue fullness in the perineal region, although this appears similar to the previous study. There is no evidence of diverticulosis or diverticulitis. What may be a normal appendix is demonstrated. In any case, no findings to suggest acute appendicitis are evident. Contrast is seen throughout the entirety of the small bowel and into a short segment of the proximal colon. No small bowel wall thickening or small bowel distention demonstrated. No free or loculated intraperitoneal air or fluid is evident. There is a small fat-containing umbilical hernia again demonstrated. There is apparent gastric wall thickening, although this is probably an artifact of under distention. There is a small hiatal hernia and suggestion of distal esophageal wall thickening. This appearance is similar to the prior exam. The lung bases demonstrate some scarring or atelectasis in the lingula and minimal scarring or atelectasis in both lower lobes. The bones demonstrate degenerative spondylosis changes. Impression: Abdominal and pelvic lymphadenopathy, as described. The largest are peripancreatic nodes and these appear significantly increased in size from the previous exam of 02/26/2008. However, most of the nodes elsewhere are decreased in size. According to prior reports, patient has a history of leukemia. Lymphadenopathy is presumably related to this. Soft tissue fullness of the perineal region, also evident previously, of uncertain significance. Recommend correlation with findings on physical exam Equivocal gastric wall thickening, less likely artifact of under distention, but gastritis, peptic ulcer disease, or neoplasm or possible Small hiatal hernia. Possible distal esophageal wall thickening, could indicate esophagitis. This appearance, however, is similar to the prior study Left lobe liver cyst, smaller than on prior study. Subcentimeter low-attenuation hepatic lesions, too small to characterize, most likely benign simple cyst or bile hamartomas. No further follow-up necessary ICD Codes: K86.9 - Disease of pancreas, unspecified SNOMED: 338665299 (11) Purulent bronchitis ICD Codes: J41.1 - Mucopurulent chronic bronchitis SNOMED: 54787782 (12) Pneumonia ICD Codes: J18.9 - Pneumonia, unspecified organism SNOMED: 399669446 (13) Gout ICD Codes: M10.9 - Gout, unspecified SNOMED: 69225855 (14) Middle ear effusion ICD Codes: H65.90 - Unspecified nonsuppurative otitis media, unspecified ear SNOMED: 451696400 (15) CML (chronic myeloid leukemia) ICD Codes: C92.90 - Myeloid leukemia, unspecified, not having achieved remission SNOMED: 33069957 (16) History of hypertension ICD Codes: Z86.79 - Personal history of other diseases of the circulatory system SNOMED: 340139480 (17) UTI (lower urinary tract infection) ICD Codes: N39.0 - Urinary tract infection, site not specified SNOMED: 5561991 (18) Chest wall contusion ICD Codes: S20.219A - Contusion of unspecified front wall of thorax, initial encounter SNOMED: 13260619 (19) Acute serous otitis media of right ear without rupture ICD Codes: H65.01 - Acute serous otitis media, right ear SNOMED: 038045266 (20) Upper respiratory infection ICD Codes: J06.9 - Acute upper respiratory infection, unspecified SNOMED: 36193073 (21) ACS (acute coronary syndrome) ICD Codes: I24.9 - Acute ischemic heart disease, unspecified SNOMED: 021498992 Jose Aguilar May 19, 2020 12:22
[2020-05-19 16:00] VITALS: BP 119/60
--- NOTE | 2020-05-19 18:52 | Internal Med Progress Note ---
Subjective Date of Service: May 19, 2020 Physician Name Dario Oakes Attending Physician Mandeep Galarza MD Current Medications Medications (Trade) Dose Ordered Sig/Adalgisa Route PRN Reason Start Time Stop Time Status Last Admin Dose Admin Acetaminophen (Tylenol) 650 mg Q6H PRN ORAL Mild Pain (Pain Scale 1-3) 05/16/20 21:30 06/15/20 21:29 Acetaminophen (Tylenol) 650 mg Q6H PRN ORAL Temp >100.5 05/16/20 21:30 06/15/20 21:29 Acetaminophen/ Hydrocodone Bitart ([place] 5/325) 1 tab Q6H PRN ORAL pain 4-10 05/16/20 21:30 05/23/20 21:29 Acyclovir (Zovirax) 400 mg BID ORAL 05/17/20 18:00 06/16/20 08:59 05/19/20 17:30 Allopurinol (Zyloprim) 100 mg DAILY ORAL 05/17/20 09:00 06/16/20 08:59 05/19/20 09:07 Amlodipine Besylate (Norvasc) 5 mg DAILY ORAL 05/17/20 09:00 06/16/20 08:59 05/19/20 09:07 Aspirin (ASA) 81 mg DAILY ORAL 05/17/20 09:00 07/01/20 08:59 05/19/20 09:06 Azithromycin (Zithromax) 250 mg DAILY ORAL 05/17/20 09:00 05/21/20 09:01 05/19/20 09:07 Ceftriaxone Sodium 1 gm/ Dextrose 55 ml @ 110 mls/hr Q24H IVPB 05/17/20 09:00 05/24/20 08:59 05/19/20 09:08 Chlorhexidine Gluconate (Brenda-Hex 2%) 1 applic DAILY@2000 TOPIC 05/17/20 20:00 08/15/20 19:59 Ferrous Sulfate (Feosol) 325 mg DAILY ORAL 05/17/20 09:00 08/15/20 08:59 05/19/20 09:07 Heparin Sodium (Porcine) (Heparin 5000 units/ml) 5,000 units EVERY 12 HOURS SUBQ 05/17/20 09:00 07/01/20 08:59 05/19/20 09:08 Mirtazapine (Remeron) 15 mg BEDTIME ORAL 05/17/20 21:00 08/15/20 20:59 05/18/20 21:09 Ondansetron HCl (Zofran) 4 mg Q6H PRN IVP Nausea & Vomiting 05/16/20 21:30 06/15/20 21:29 Patient Own Medication (Patient's Own Med) 4 ea Q24H ORAL 05/17/20 22:00 06/16/20 21:59 05/18/20 21:09 Pravastatin Sodium (Pravachol) 10 mg BEDTIME ORAL 05/17/20 21:00 06/16/20 20:59 05/18/20 21:09 Promethazine HCl (Phenergan Plain) 6.25 mg Q4H PRN ORAL For Cough 05/16/20 21:30 06/15/20 21:29 05/18/20 05:27 Allergies: Coded Allergies: No Known Allergies (Verified , 08/20/18) ROS Limited/Unobtainable: No Constitutional: Reports: no symptoms HEENT: Reports: no symptoms Cardiovascular: Reports: no symptoms Respiratory: Reports: no symptoms Gastrointestinal/Abdominal: Reports: no symptoms Genitourinary: Reports: no symptoms Neurologic/Psychiatric: Reports: no symptoms Subjective 79 YO F with history of CLL admitted with cough. Now pneumonia. Cover for Int Med-Dr Galarza Objective Last Vital Signs Date Time Temp Pulse Resp B/P (MAP) Pulse Ox O2 Delivery O2 Flow Rate FiO2 05/19/20 16:00 97.6 79 18 119/60 (79) 97 05/19/20 09:00 Room Air Laboratory Tests Test 05/19/20 06:05 White Blood Count 4.0 K/UL (4.8-10.8) L Red Blood Count 3.10 M/UL (4.20-5.40) L Hemoglobin 9.7 G/DL (12.0-16.0) L Hematocrit 28.9 % (37.0-47.0) L Mean Corpuscular Volume 93 FL (80-99) Mean Corpuscular Hemoglobin 31.2 PG (27.0-31.0) H Mean Corpuscular Hemoglobin Concent 33.4 G/DL (32.0-36.0) Red Cell Distribution Width 14.2 % (11.6-14.8) Platelet Count 244 K/UL (150-450) Mean Platelet Volume 5.8 FL (6.5-10.1) L Neutrophils (%) (Auto) 53.3 % (45.0-75.0) Lymphocytes (%) (Auto) 31.1 % (20.0-45.0) Monocytes (%) (Auto) 15.1 % (1.0-10.0) H Eosinophils (%) (Auto) 0.1 % (0.0-3.0) Basophils (%) (Auto) 0.4 % (0.0-2.0) Sodium Level 140 MMOL/L (136-145) Potassium Level 4.6 MMOL/L (3.5-5.1) Chloride Level 106 MMOL/L (98-107) Carbon Dioxide Level 27 MMOL/L (21-32) Anion Gap 7 mmol/L (5-15) Blood Urea Nitrogen 14 mg/dL (7-18) Creatinine 1.3 MG/DL (0.55-1.30) Estimat Glomerular Filtration Rate 47.8 mL/min (>60) Glucose Level 93 MG/DL (74-106) Calcium Level 9.7 MG/DL (8.5-10.1) Intake and Output 05/18/20 05/19/20 19:00 07:00 Intake Total 355 ml Output Total 600 ml Balance 355 ml -600 ml Intake Oral 300 ml IV Total 55 ml Output Other 600 ml # Voids 3 Objective PHYSICAL EXAMINATION: GENERAL: The patient is well-developed and well-nourished female, in no apparent distress. HEENT: Eyes, pupils are equal and responsive to light and accommodation. Extraocular movements are intact. NECK: Supple. No lymphadenopathy. CHEST: Decreased breath sounds in bilateral bases, otherwise clear to auscultation without wheezes. ABDOMEN: Soft, nontender, and nondistended. Positive bowel sounds. No evidence of hepatosplenomegaly. Currently, no rebound or guarding noted. EXTREMITIES: Negative for clubbing, cyanosis, or edema. RECTAL: Not performed. GENITAL: Not performed. NEUROLOGIC: Cranial nerves II through XII are grossly intact without focal deficits. Motor strength is 5/5 bilaterally. Deep tendon reflexes are 2+ plantar. Assessment/Plan Assessment/Plan ASSESSMENT: This is an 79-year-old female. 1. Pneumonia. 2. Shortness of breath. 3. Chronic lymphocytic leukemia. 4. Hypertension. 5. Hypercholesterolemia. 6. Anemia. TREATMENT: 1. Right lower lobe pneumonia. Pulmonary consultation=Dr. Huang. ABX=ceftriaxone. Follow recommendations of Pulmonary. COVID 19 = neg 2. Chronic lymphocytic leukemia. Continue venclexta as above. 3. Hypercholesterolemia. Continue Lipitor as above. 4. Anemia. Dario Oakes MD May 19, 2020 18:52
--- NOTE | 2020-05-19 19:21 | NUR ---
NURSE HAND-OFF: Important Events on Shift:WNL Patient Status: Diet: Pending Orders: Pending Results/Labs: Pending MD notification: Latest Vital Signs: Temperature 97.6 , Pulse 79 , B/P 119 /60 , Respiratory Rate 18 , O2 SAT 97 , Room Air, O2 Flow Rate . Vital Sign Comment: Latest Javed Fall Score: 35 Fall Risk: Medium Risk Safety Measures: Call light Within Reach, Bed Alarm Zone 1, Side Rails Side Rails x2, Bed position Low and Locked. Fall Precautions: Yellow Socks Door Sign Patient Fall Education Report given to .
[2020-05-19] MEDS: Dyna-Hex 2% Top Sol 2oz TOPIC SCH (19:43)
[2020-05-19 20:00] VITALS: BP 110/59
--- NOTE | 2020-05-19 20:00 | NUR ---
NURSE NOTES: Received patient awake, alert, verbal, ambulatory, no SOB noted.
[2020-05-20] VITALS: BP 111/57
--- NOTE | 2020-05-20 01:57 | Cardiology Report ---
APPROVED REPORT EKG Measurement Heart [id number] DC 126P62 [id number] <Conclusion> Normal sinus rhythm Minimal voltage criteria for LVH, may be normal variant Borderline ECG
[2020-05-20 04:00] VITALS: BP 111/55
--- NOTE | 2020-05-20 06:03 | NUR ---
NURSE HAND-OFF: Important Events on Shift:[]Stable,No SOB Patient Status: [] Diet: [] Pending Orders: [] Pending Results/Labs:[]Covid result Pending MD notification:[] Latest Vital Signs: Temperature 98.4 , Pulse 75 , B/P 111 /55 , Respiratory Rate 20 , O2 SAT 96 , Room Air, O2 Flow Rate . Vital Sign Comment: [] Latest Javed Fall Score: 35 Fall Risk: Medium Risk Safety Measures: Call light Within Reach, Bed Alarm Zone 1, Side Rails Side Rails x2, Bed position Low and Locked. Fall Precautions: Yellow Socks Door Sign Patient Fall Education Report given to [].
--- NOTE | 2020-05-20 07:48 | NUR ---
NURSE NOTES: Patient awake, alert x4; on room air, no sing of distress and shortness of breath; no sing of chest pain; NO IV access, will inserted IV line; patient ambulatory; side rails up x2, breaks engaged, bed at lowest position; will keep monitoring.
[2020-05-20 08:00] VITALS: BP 131/58
--- NOTE | 2020-05-20 08:50 | NUR ---
RD ASSESSMENT & RECOMMENDATIONS SEE CARE ACTIVITY FOR COMPLETE ASSESSMENT DAILY ESTIMATED NEEDS: Needs based on Cancer, pulmonary 52kg 30-35 kcals/kg 6278-0299 total kcals 1-2 g protein/kg 52-104 g total protein 25-30 mL/kg 7502-0555 total fluid mLs NUTRITION DIAGNOSIS: Increased kcal, prot needs R/T cancer as evidenced by pt w/ dx Leukemia, h/o weight loss, BMI now wnl, %IBW wnl. CURRENT DIET: regular PO DIET RECOMMENDATIONS: Regular/ Soft diet ADDITIONAL RECOMMENDATIONS: 1) Ensure 1 can BID for 2) Daily calibrated bed scale wts 3) High protein snacks TID w/ meals 4) Continue to monitor hydration status w/ variable po intake .
[2020-05-20 08:56] LABS: BASOPHILS % (AUTO) 0.5 % (0.0-2.0); EOSINOPHILS % (AUTO) 0.1 % (0.0-3.0); HEMATOCRIT 34.6 % (37.0-47.0); HEMOGLOBIN 11.2 G/DL (12.0-16.0); LYMPHOCYTES % (AUTO) 36.1 % (20.0-45.0); MEAN CORPUSCULAR VOLUME 95 FL (80-99); MONOCYTES % (AUTO) 9.3 % (1.0-10.0); PLATELET COUNT 278 K/UL (150-450); RED BLOOD COUNT 3.64 M/UL (4.20-5.40)
[2020-05-20] MEDS: Heparin 5000 units/ml inj SUBQ SCH ×2 (09:00→20:51)
[2020-05-20] MEDS: Aspirin Baby 81mg ORAL SCH (09:22)
[2020-05-20] MEDS: Azithromycin 250mg tab ORAL SCH (09:22)
[2020-05-20] MEDS: Acyclovir 200mg Cap ORAL SCH ×2 (09:22→17:18)
[2020-05-20] MEDS: Allopurinol 100mg Tab ORAL SCH (09:23)
[2020-05-20] MEDS: cefTRIAXone 1 GM in D5W 55 ML IVPB SCH (09:23)
[2020-05-20 09:34] LABS: ALBUMIN 2.8 G/DL (3.4-5.0); ALBUMIN/GLOBULIN RATIO 0.6 (1.0-2.7); BILIRUBIN,TOTAL 0.2 MG/DL (0.2-1.0); CALCIUM 10.2 MG/DL (8.5-10.1); CREATININE 1.3 MG/DL (0.55-1.30); POTASSIUM 4.5 MMOL/L (3.5-5.1)
[2020-05-20 12:00] VITALS: BP 107/53
--- NOTE | 2020-05-20 13:20 | Internal Med Progress Note ---
Subjective Date of Service: May 20, 2020 Physician Name Dario Oakes Attending Physician Mandeep Galarza MD Current Medications Medications (Trade) Dose Ordered Sig/Adalgisa Route PRN Reason Start Time Stop Time Status Last Admin Dose Admin Acetaminophen (Tylenol) 650 mg Q6H PRN ORAL Mild Pain (Pain Scale 1-3) 05/16/20 21:30 06/15/20 21:29 Acetaminophen (Tylenol) 650 mg Q6H PRN ORAL Temp >100.5 05/16/20 21:30 06/15/20 21:29 Acetaminophen/ Hydrocodone Bitart ([place] 5/325) 1 tab Q6H PRN ORAL pain 4-10 05/16/20 21:30 05/23/20 21:29 Acyclovir (Zovirax) 400 mg BID ORAL 05/17/20 18:00 06/16/20 08:59 05/20/20 09:22 Allopurinol (Zyloprim) 100 mg DAILY ORAL 05/17/20 09:00 06/16/20 08:59 05/20/20 09:23 Amlodipine Besylate (Norvasc) 5 mg DAILY ORAL 05/17/20 09:00 06/16/20 08:59 05/20/20 09:23 Aspirin (ASA) 81 mg DAILY ORAL 05/17/20 09:00 07/01/20 08:59 05/20/20 09:22 Azithromycin (Zithromax) 250 mg DAILY ORAL 05/17/20 09:00 05/21/20 09:01 05/20/20 09:22 Ceftriaxone Sodium 1 gm/ Dextrose 55 ml @ 110 mls/hr Q24H IVPB 05/17/20 09:00 05/24/20 08:59 05/20/20 09:23 Chlorhexidine Gluconate (Brenda-Hex 2%) 1 applic DAILY@2000 TOPIC 05/17/20 20:00 08/15/20 19:59 Ferrous Sulfate (Feosol) 325 mg DAILY ORAL 05/17/20 09:00 08/15/20 08:59 05/20/20 09:22 Heparin Sodium (Porcine) (Heparin 5000 units/ml) 5,000 units EVERY 12 HOURS SUBQ 05/17/20 09:00 07/01/20 08:59 05/20/20 09:00 Mirtazapine (Remeron) 15 mg BEDTIME ORAL 05/17/20 21:00 08/15/20 20:59 05/19/20 20:39 Ondansetron HCl (Zofran) 4 mg Q6H PRN IVP Nausea & Vomiting 05/16/20 21:30 06/15/20 21:29 Patient Own Medication (Patient's Own Med) 4 ea Q24H ORAL 05/17/20 22:00 06/16/20 21:59 05/19/20 20:42 Pravastatin Sodium (Pravachol) 10 mg BEDTIME ORAL 05/17/20 21:00 06/16/20 20:59 05/19/20 20:39 Promethazine HCl (Phenergan Plain) 6.25 mg Q4H PRN ORAL For Cough 05/16/20 21:30 06/15/20 21:29 05/18/20 05:27 Allergies: Coded Allergies: No Known Allergies (Verified , 08/20/18) ROS Limited/Unobtainable: No Constitutional: Reports: no symptoms HEENT: Reports: no symptoms Cardiovascular: Reports: no symptoms Respiratory: Reports: no symptoms Gastrointestinal/Abdominal: Reports: no symptoms Genitourinary: Reports: no symptoms Neurologic/Psychiatric: Reports: no symptoms Subjective 79 YO F with history of CLL admitted with cough. Now pneumonia. Cover for Int Med-Dr Galarza Objective Last Vital Signs Date Time Temp Pulse Resp B/P (MAP) Pulse Ox O2 Delivery O2 Flow Rate FiO2 05/20/20 12:00 97.5 60 18 107/53 (71) 96 05/20/20 09:00 Room Air Laboratory Tests Test 05/20/20 08:02 White Blood Count 4.0 K/UL (4.8-10.8) L Red Blood Count 3.64 M/UL (4.20-5.40) L Hemoglobin 11.2 G/DL (12.0-16.0) L Hematocrit 34.6 % (37.0-47.0) L Mean Corpuscular Volume 95 FL (80-99) Mean Corpuscular Hemoglobin 30.7 PG (27.0-31.0) Mean Corpuscular Hemoglobin Concent 32.2 G/DL (32.0-36.0) Red Cell Distribution Width 13.0 % (11.6-14.8) Platelet Count 278 K/UL (150-450) Mean Platelet Volume 6.0 FL (6.5-10.1) L Neutrophils (%) (Auto) 54.0 % (45.0-75.0) Lymphocytes (%) (Auto) 36.1 % (20.0-45.0) Monocytes (%) (Auto) 9.3 % (1.0-10.0) Eosinophils (%) (Auto) 0.1 % (0.0-3.0) Basophils (%) (Auto) 0.5 % (0.0-2.0) Sodium Level 141 MMOL/L (136-145) Potassium Level 4.5 MMOL/L (3.5-5.1) Chloride Level 106 MMOL/L (98-107) Carbon Dioxide Level 26 MMOL/L (21-32) Anion Gap 10 mmol/L (5-15) Blood Urea Nitrogen 15 mg/dL (7-18) Creatinine 1.3 MG/DL (0.55-1.30) Estimat Glomerular Filtration Rate 47.8 mL/min (>60) Glucose Level 121 MG/DL (74-106) H Calcium Level 10.2 MG/DL (8.5-10.1) H Total Bilirubin 0.2 MG/DL (0.2-1.0) Aspartate Amino Transf (AST/SGOT) 39 U/L (15-37) H Alanine Aminotransferase (ALT/SGPT) 42 U/L (12-78) Alkaline Phosphatase 113 U/L (46-116) Total Protein 7.8 G/DL (6.4-8.2) Albumin 2.8 G/DL (3.4-5.0) L Globulin 5.0 g/dL Albumin/Globulin Ratio 0.6 (1.0-2.7) L Amylase Level 112 U/L (25-115) Lipase 229 U/L (73-393) Intake and Output 05/19/20 05/20/20 19:00 07:00 Intake Total 710 ml 400 ml Balance 710 ml 400 ml Intake Oral 400 ml IV Total 110 ml Other 600 ml # Voids 4 Objective PHYSICAL EXAMINATION: GENERAL: The patient is well-developed and well-nourished female, in no apparent distress. HEENT: Eyes, pupils are equal and responsive to light and accommodation. Extraocular movements are intact. NECK: Supple. No lymphadenopathy. CHEST: Decreased breath sounds in bilateral bases, otherwise clear to auscultation without wheezes. ABDOMEN: Soft, nontender, and nondistended. Positive bowel sounds. No evidence of hepatosplenomegaly. Currently, no rebound or guarding noted. EXTREMITIES: Negative for clubbing, cyanosis, or edema. RECTAL: Not performed. GENITAL: Not performed. NEUROLOGIC: Cranial nerves II through XII are grossly intact without focal deficits. Motor strength is 5/5 bilaterally. Deep tendon reflexes are 2+ plantar. Assessment/Plan Assessment/Plan ASSESSMENT: This is an 79-year-old female. 1. Pneumonia. 2. Shortness of breath. 3. Chronic lymphocytic leukemia. 4. Hypertension. 5. Hypercholesterolemia. 6. Anemia. TREATMENT: 1. Right lower lobe pneumonia. Pulmonary consultation=Dr. Huang. ABX=ceftriaxone. Follow recommendations of Pulmonary. COVID 19 = neg 2. Chronic lymphocytic leukemia. Continue venclexta as above. 3. Hypercholesterolemia. Continue Lipitor as above. 4. Anemia. Dario Oakes MD May 20, 2020 13:20
--- NOTE | 2020-05-20 13:26 | Surgery Progress Note ---
Surgery Progress Note Subjective Additional Comments nutrition noted no n/v labs okay micro reviewed Objective Last 24 Hour Vital Signs Date Time Temp Pulse Resp B/P (MAP) Pulse Ox O2 Delivery O2 Flow Rate FiO2 05/20/20 12:00 97.5 60 18 107/53 (71) 96 05/20/20 09:23 71 131/58 05/20/20 09:00 Room Air 05/20/20 08:00 97.0 71 18 131/58 (82) 97 05/20/20 04:00 98.4 75 20 111/55 (73) 96 05/20/20 00:00 97.7 80 22 111/57 (75) 97 05/19/20 21:07 Room Air 05/19/20 20:00 97.7 71 22 110/59 (76) 97 05/19/20 16:00 97.6 79 18 119/60 (79) 97 I&O Intake and Output 05/19/20 05/20/20 19:00 07:00 Intake Total 710 ml 400 ml Balance 710 ml 400 ml Intake Oral 400 ml IV Total 110 ml Other 600 ml # Voids 4 Cardiovascular: RSR Respiratory: clear Abdomen: soft, non-tender, present bowel sounds, non-distended Extremities: no edema, no tenderness, no cyanosis Laboratory Tests Test 05/20/20 08:02 White Blood Count 4.0 K/UL (4.8-10.8) L Red Blood Count 3.64 M/UL (4.20-5.40) L Hemoglobin 11.2 G/DL (12.0-16.0) L Hematocrit 34.6 % (37.0-47.0) L Mean Corpuscular Volume 95 FL (80-99) Mean Corpuscular Hemoglobin 30.7 PG (27.0-31.0) Mean Corpuscular Hemoglobin Concent 32.2 G/DL (32.0-36.0) Red Cell Distribution Width 13.0 % (11.6-14.8) Platelet Count 278 K/UL (150-450) Mean Platelet Volume 6.0 FL (6.5-10.1) L Neutrophils (%) (Auto) 54.0 % (45.0-75.0) Lymphocytes (%) (Auto) 36.1 % (20.0-45.0) Monocytes (%) (Auto) 9.3 % (1.0-10.0) Eosinophils (%) (Auto) 0.1 % (0.0-3.0) Basophils (%) (Auto) 0.5 % (0.0-2.0) Sodium Level 141 MMOL/L (136-145) Potassium Level 4.5 MMOL/L (3.5-5.1) Chloride Level 106 MMOL/L (98-107) Carbon Dioxide Level 26 MMOL/L (21-32) Anion Gap 10 mmol/L (5-15) Blood Urea Nitrogen 15 mg/dL (7-18) Creatinine 1.3 MG/DL (0.55-1.30) Estimat Glomerular Filtration Rate 47.8 mL/min (>60) Glucose Level 121 MG/DL (74-106) H Calcium Level 10.2 MG/DL (8.5-10.1) H Total Bilirubin 0.2 MG/DL (0.2-1.0) Aspartate Amino Transf (AST/SGOT) 39 U/L (15-37) H Alanine Aminotransferase (ALT/SGPT) 42 U/L (12-78) Alkaline Phosphatase 113 U/L (46-116) Total Protein 7.8 G/DL (6.4-8.2) Albumin 2.8 G/DL (3.4-5.0) L Globulin 5.0 g/dL Albumin/Globulin Ratio 0.6 (1.0-2.7) L Amylase Level 112 U/L (25-115) Lipase 229 U/L (73-393) Plan Problems: (1) Generalized weakness (2) Cough (3) Costochondritis (4) Pneumonia (5) Cervical strain (6) Lumbar strain (7) Enteritis (8) Chronic lymphocytic leukemia (9) Protein-calorie malnutrition, severe Assessment & Plan: encourage oral intake DAILY ESTIMATED NEEDS: Needs based on Cancer, pulmonary 52kg 30-35 kcals/kg 3104-0350 total kcals 1-2 g protein/kg 52-104 g total protein 25-30 mL/kg 0482-7672 total fluid mLs NUTRITION DIAGNOSIS: Increased kcal, prot needs R/T cancer as evidenced by pt w/ dx Leukemia, h/o weight loss, BMI now wnl, %IBW wnl. CURRENT DIET: regular PO DIET RECOMMENDATIONS: Regular/ Soft diet ADDITIONAL RECOMMENDATIONS: 1) Ensure 1 can BID for 2) Daily calibrated bed scale wts 3) High protein snacks TID w/ meals 4) Continue to monitor hydration status w/ variable po intake (10) Pancreatic mass Assessment & Plan: Patient with history of pancreatic mass biopsy in 2018 identified CLL. Mild nominal discomfort with food. Malnutrition BMI 23 low albumin. Reflect symptoms identified prior H. pylori noted scope in 2018. Patient has been doing well since currently fatigued weak does follow-up with her oncologist regularly. Likely component of constipation and reflux. PPI and bowel regimen initiated. Okay for diet as tolerated. Encourage oral intake. No acute surgical intervention planned. Will follow with recommendations thank for the reports in patient's care 02/26/2008, also ultrasound 08/02/2017 Findings: Again demonstrated are enlarged peripancreatic lymph nodes. Largest of these measures 5 cm long axis dimension. This represents a slight increase in size from the previous exam. A large node is seen anterior to the pancreatic head body junction which has increased considerably in size from the previous study, currently measuring 5.3 cm long axis dimension. Other nodes appear overall similar in size. These appear overall homogeneous but slightly hypoattenuating. Previously demonstrated retroperitoneal lymphadenopathy and bilateral iliac chain lymphadenopathy have improved considerably. The largest residual lymph node is in the pelvic sidewall, measuring 2.3 x 0.7 cm, previously 3.4 x 1 cm. Prominent lymph nodes are seen adjacent to the hepatic flexure of the colon, also evident previously but much smaller currently. Lymphadenopathy is seen within the splenic hilum, only equivocally evident previously, considerably larger currently, largest node measuring 2.7 cm long axis dimension, with other smaller nodes also seen in the vicinity. Enlarged pericecal nodes are smaller there previously. Nodes in the transverse mesocolon appears smaller than before A lobulated cyst versus 2 adjacent cysts again demonstrated within segment 2 of the liver, appearing smaller than previously. There are some scattered subcentimeter low-attenuation lesions which are too small to characterize. No definite solid mass demonstrated. Multiple calcifications are seen within the left hepatic lobe. The gallbladder, bile ducts, pancreas are unremarkable. The spleen is prominent but not frankly enlarged. It contains a calcification inferiorly The adrenals and kidneys are unremarkable. The uterus is not visualized, presumed surgically absent. A surgical clip is seen within the pelvis. There is considerable soft tissue fullness in the perineal region, although this appears similar to the previous study. There is no evidence of diverticulosis or diverticulitis. What may be a normal appendix is demonstrated. In any case, no findings to suggest acute appendicitis are evident. Contrast is seen throughout the entirety of the small bowel and into a short segment of the proximal colon. No small bowel wall thickening or small bowel distention demonstrated. No free or loculated intraperitoneal air or fluid is evident. There is a small fat-containing umbilical hernia again demonstrated. There is apparent gastric wall thickening, although this is probably an artifact of under distention. There is a small hiatal hernia and suggestion of distal esophageal wall thickening. This appearance is similar to the prior exam. The lung bases demonstrate some scarring or atelectasis in the lingula and minimal scarring or atelectasis in both lower lobes. The bones demonstrate degenerative spondylosis changes. Impression: Abdominal and pelvic lymphadenopathy, as described. The largest are peripancreatic nodes and these appear significantly increased in size from the previous exam of 02/26/2008. However, most of the nodes elsewhere are decreased in size. According to prior reports, patient has a history of leukemia. Lymphadenopathy is presumably related to this. Soft tissue fullness of the perineal region, also evident previously, of uncertain significance. Recommend correlation with findings on physical exam Equivocal gastric wall thickening, less likely artifact of under distention, but gastritis, peptic ulcer disease, or neoplasm or possible Small hiatal hernia. Possible distal esophageal wall thickening, could indicate esophagitis. This appearance, however, is similar to the prior study Left lobe liver cyst, smaller than on prior study. Subcentimeter low-attenuation hepatic lesions, too small to characterize, most likely benign simple cyst or bile hamartomas. No further follow-up necessary (11) Purulent bronchitis (12) Pneumonia (13) Gout (14) Middle ear effusion (15) CML (chronic myeloid leukemia) (16) History of hypertension (17) UTI (lower urinary tract infection) (18) Chest wall contusion (19) Acute serous otitis media of right ear without rupture (20) Upper respiratory infection (21) ACS (acute coronary syndrome) Jose Aguilar May 20, 2020 13:26
--- NOTE | 2020-05-20 13:41 | Pulmonology Progress Note ---
Subjective ROS Limited/Unobtainable: No Interval Events: none major reported per nursing Constitutional: Reports: fatigue HEENT: Repors: no symptoms Respiratory: Reports: productive cough Cardiovascular: Reports: no symptoms Gastrointestinal/Abdominal: Reports: no symptoms Allergies: Coded Allergies: No Known Allergies (Verified , 08/20/18) Objective Last 24 Hour Vital Signs Date Time Temp Pulse Resp B/P (MAP) Pulse Ox O2 Delivery O2 Flow Rate FiO2 05/20/20 12:00 97.5 60 18 107/53 (71) 96 05/20/20 09:23 71 131/58 05/20/20 09:00 Room Air 05/20/20 08:00 97.0 71 18 131/58 (82) 97 05/20/20 04:00 98.4 75 20 111/55 (73) 96 05/20/20 00:00 97.7 80 22 111/57 (75) 97 05/19/20 21:07 Room Air 05/19/20 20:00 97.7 71 22 110/59 (76) 97 05/19/20 16:00 97.6 79 18 119/60 (79) 97 Intake and Output 05/19/20 05/20/20 19:00 07:00 Intake Total 710 ml 400 ml Balance 710 ml 400 ml Intake Oral 400 ml IV Total 110 ml Other 600 ml # Voids 4 General Appearance: no acute distress HEENT: atraumatic Respiratory: decreased breath sounds, crackles/rales Cardiovascular: normal rate, regular rhythm Abdomen: soft, non tender Laboratory Tests 05/20/20 08:02: White Blood Count 4.0L, Red Blood Count 3.64L, Hemoglobin 11.2L, Hematocrit 34.6L, Mean Corpuscular Volume 95, Mean Corpuscular Hemoglobin 30.7, Mean Corpuscular Hemoglobin Concent 32.2, Red Cell Distribution Width 13.0, Platelet Count 278, Mean Platelet Volume 6.0L, Neutrophils (%) (Auto) 54.0, Lymphocytes (%) (Auto) 36.1, Monocytes (%) (Auto) 9.3, Eosinophils (%) (Auto) 0.1, Basophils (%) (Auto) 0.5, Sodium Level 141, Potassium Level 4.5, Chloride Level 106, Carbon Dioxide Level 26, Anion Gap 10, Blood Urea Nitrogen 15, Creatinine 1.3, Estimat Glomerular Filtration Rate 47.8, Glucose Level 121H, Calcium Level 10.2H , Total Bilirubin 0.2, Aspartate Amino Transf (AST/SGOT) 39H, Alanine Aminotransferase (ALT/SGPT) 42, Alkaline Phosphatase 113, Total Protein 7.8, Albumin 2.8L, Globulin 5.0, Albumin/Globulin Ratio 0.6L, Amylase Level 112, Lipase 229 Current Medications Medications (Trade) Dose Ordered Sig/Adalgisa Route PRN Reason Start Time Stop Time Status Last Admin Dose Admin Acetaminophen (Tylenol) 650 mg Q6H PRN ORAL Mild Pain (Pain Scale 1-3) 05/16/20 21:30 06/15/20 21:29 Acetaminophen (Tylenol) 650 mg Q6H PRN ORAL Temp >100.5 05/16/20 21:30 06/15/20 21:29 Acetaminophen/ Hydrocodone Bitart ([place] 5/325) 1 tab Q6H PRN ORAL pain 4-10 05/16/20 21:30 05/23/20 21:29 Acyclovir (Zovirax) 400 mg BID ORAL 05/17/20 18:00 06/16/20 08:59 05/20/20 09:22 Allopurinol (Zyloprim) 100 mg DAILY ORAL 05/17/20 09:00 06/16/20 08:59 05/20/20 09:23 Amlodipine Besylate (Norvasc) 5 mg DAILY ORAL 05/17/20 09:00 06/16/20 08:59 05/20/20 09:23 Aspirin (ASA) 81 mg DAILY ORAL 05/17/20 09:00 07/01/20 08:59 05/20/20 09:22 Azithromycin (Zithromax) 250 mg DAILY ORAL 05/17/20 09:00 05/21/20 09:01 05/20/20 09:22 Ceftriaxone Sodium 1 gm/ Dextrose 55 ml @ 110 mls/hr Q24H IVPB 05/17/20 09:00 05/24/20 08:59 05/20/20 09:23 Chlorhexidine Gluconate (Brenda-Hex 2%) 1 applic DAILY@2000 TOPIC 05/17/20 20:00 08/15/20 19:59 Ferrous Sulfate (Feosol) 325 mg DAILY ORAL 05/17/20 09:00 08/15/20 08:59 05/20/20 09:22 Heparin Sodium (Porcine) (Heparin 5000 units/ml) 5,000 units EVERY 12 HOURS SUBQ 05/17/20 09:00 07/01/20 08:59 05/20/20 09:00 Mirtazapine (Remeron) 15 mg BEDTIME ORAL 05/17/20 21:00 08/15/20 20:59 05/19/20 20:39 Ondansetron HCl (Zofran) 4 mg Q6H PRN IVP Nausea & Vomiting 05/16/20 21:30 06/15/20 21:29 Patient Own Medication (Patient's Own Med) 4 ea Q24H ORAL 05/17/20 22:00 06/16/20 21:59 05/19/20 20:42 Pravastatin Sodium (Pravachol) 10 mg BEDTIME ORAL 05/17/20 21:00 06/16/20 20:59 05/19/20 20:39 Promethazine HCl (Phenergan Plain) 6.25 mg Q4H PRN ORAL For Cough 05/16/20 21:30 06/15/20 21:29 05/18/20 05:27 Assessment/Plan Assessment/Plan 1. Right lung pneumonia. - On broad-spectrum Abx - Currently saturating well on room air - COVID-19 PCR negative (05/16) 2. Severe leukemia. - management per primary MD 3. Hypertension. - on Norvasc 4. DVT ppx - on Heparin subcu Continue current management The care for this patient was discussed with my supervising physician Time spent for this case was approximately 31 minutes Mino Arechiga May 20, 2020 13:41
[2020-05-20 16:00] VITALS: BP 118/57
--- NOTE | 2020-05-20 18:40 | NUR ---
NURSE HAND-OFF: Important Events on Shift:COVID-19 Negative result; New IV inserted; antibiotic and other medication given Patient Status: Diet: Pending Orders: Pending Results/Labs: Pending MD notification: Latest Vital Signs: Temperature 97.8 , Pulse 67 , B/P 118 /57 , Respiratory Rate 18 , O2 SAT 97 , Room Air, O2 Flow Rate . Vital Sign Comment: Latest Javed Fall Score: 35 Fall Risk: Medium Risk Safety Measures: Call light Within Reach, Bed Alarm Zone 1, Side Rails Side Rails x2, Bed position Low and Locked. Fall Precautions: Yellow Socks Door Sign Patient Fall Education Report given to .
--- NOTE | 2020-05-20 18:56 | NUR ---
NURSE HAND-OFF: Important Events on Shift: Patient Status: Diet: Pending Orders: Pending Results/Labs: Pending MD notification: Latest Vital Signs: Temperature 97.8 , Pulse 67 , B/P 118 /57 , Respiratory Rate 18 , O2 SAT 97 , Room Air, O2 Flow Rate . Vital Sign Comment: Latest Javed Fall Score: 35 Fall Risk: Medium Risk Safety Measures: Call light Within Reach, Bed Alarm Zone 1, Side Rails Side Rails x2, Bed position Low and Locked. Fall Precautions: Yellow Socks Door Sign Patient Fall Education Report given to .
--- NOTE | 2020-05-20 19:32 | NUR ---
NURSE NOTES: Received patient awake, alert, verbal, ambulatory, no SOB noted.
[2020-05-20] MEDS: Dyna-Hex 2% Top Sol 2oz TOPIC SCH (19:35)
[2020-05-20 20:05] VITALS: BP 102/46
[2020-05-21 00:22] VITALS: BP 114/53
[2020-05-21 04:25] VITALS: BP 120/60
--- NOTE | 2020-05-21 06:09 | NUR ---
NURSE HAND-OFF: Important Events on Shift:[]No SOB Patient Status: []Stable Diet: [] Pending Orders: [] Pending Results/Labs:[] Pending MD notification:[] Latest Vital Signs: Temperature 97.7 , Pulse 69 , B/P 120 /60 , Respiratory Rate 16 , O2 SAT 99 , Room Air, O2 Flow Rate . Vital Sign Comment: [] Latest Javed Fall Score: 35 Fall Risk: Medium Risk Safety Measures: Call light Within Reach, Bed Alarm Zone 1, Side Rails Side Rails x2, Bed position Low and Locked. Fall Precautions: Yellow Socks Door Sign Patient Fall Education Report given to [].
[2020-05-21 06:25] LABS: BASOPHILS % (AUTO) 0.8 % (0.0-2.0); HEMATOCRIT 29.5 % (37.0-47.0); HEMOGLOBIN 9.4 G/DL (12.0-16.0); LYMPHOCYTES % (AUTO) 31.1 % (20.0-45.0); MEAN CORPUSCULAR VOLUME 94 FL (80-99); MONOCYTES % (AUTO) 15.1 % (1.0-10.0); PLATELET COUNT 209 K/UL (150-450); RED BLOOD COUNT 3.13 M/UL (4.20-5.40); WHITE BLOOD COUNT 3.8 K/UL (4.8-10.8)
[2020-05-21 06:43] LABS: CALCIUM 9.7 MG/DL (8.5-10.1); CREATININE 1.2 MG/DL (0.55-1.30); POTASSIUM 4.8 MMOL/L (3.5-5.1)
[2020-05-21 08:00] VITALS: BP 118/52
--- NOTE | 2020-05-21 08:27 | NUR ---
NURSE NOTES: Patient awake and alert,respirations unlabored.Saline lock in the right arm intact,DR Arechiga in to see patient.Call light within reach.
[2020-05-21] MEDS: Aspirin Baby 81mg ORAL SCH (08:39)
[2020-05-21] MEDS: Azithromycin 250mg tab ORAL SCH (08:40)
[2020-05-21] MEDS: Acyclovir 200mg Cap ORAL SCH ×2 (08:40→18:59)
[2020-05-21] MEDS: Heparin 5000 units/ml inj SUBQ SCH ×2 (08:42→21:09)
[2020-05-21] MEDS: Allopurinol 100mg Tab ORAL SCH (08:43)
--- NOTE | 2020-05-21 08:57 | Pulmonology Progress Note ---
Subjective ROS Limited/Unobtainable: No Interval Events: none major reported per nursing Constitutional: Reports: fatigue HEENT: Repors: no symptoms Respiratory: Reports: productive cough Cardiovascular: Reports: no symptoms Gastrointestinal/Abdominal: Reports: no symptoms Allergies: Coded Allergies: No Known Allergies (Verified , 08/20/18) Objective Last 24 Hour Vital Signs Date Time Temp Pulse Resp B/P (MAP) Pulse Ox O2 Delivery O2 Flow Rate FiO2 05/21/20 04:25 97.7 69 16 120/60 (80) 99 05/21/20 00:22 98.6 75 16 114/53 (73) 95 05/20/20 20:05 98.3 70 16 102/46 (64) 98 05/20/20 20:01 Room Air 05/20/20 16:00 97.8 67 18 118/57 (77) 97 05/20/20 12:00 97.5 60 18 107/53 (71) 96 05/20/20 09:23 71 131/58 05/20/20 09:00 Room Air l Intake and Output 05/20/20 05/21/20 19:00 07:00 Intake Total 1310 ml 360 ml Balance 1310 ml 360 ml Intake Oral 1200 ml IV Total 110 ml Other 360 ml # Voids 3 2 General Appearance: no acute distress HEENT: atraumatic Respiratory: decreased breath sounds, crackles/rales Cardiovascular: normal rate, regular rhythm Abdomen: soft, non tender Laboratory Tests 05/21/20 06:10: White Blood Count 3.8L, Red Blood Count 3.13L, Hemoglobin 9.4L, Hematocrit 29.5L , Mean Corpuscular Volume 94, Mean Corpuscular Hemoglobin 29.9, Mean Corpuscular Hemoglobin Concent 31.7L, Red Cell Distribution Width 13.0, Platelet Count 209, Mean Platelet Volume 5.8L, Neutrophils (%) (Auto) 53.0, Lymphocytes (%) (Auto) 31.1, Monocytes (%) (Auto) 15.1H, Eosinophils (%) (Auto) 0.0, Basophils (%) (Auto) 0.8, Sodium Level 143, Potassium Level 4.8, Chloride Level 108H, Carbon Dioxide Level 28, Anion Gap 8, Blood Urea Nitrogen 13, Creatinine 1.2, Estimat Glomerular Filtration Rate 52.5, Glucose Level 91, Calcium Level 9.7 Current Medications Medications (Trade) Dose Ordered Sig/Adalgisa Route PRN Reason Start Time Stop Time Status Last Admin Dose Admin Acetaminophen (Tylenol) 650 mg Q6H PRN ORAL Mild Pain (Pain Scale 1-3) 05/16/20 21:30 06/15/20 21:29 Acetaminophen (Tylenol) 650 mg Q6H PRN ORAL Temp >100.5 05/16/20 21:30 06/15/20 21:29 Acetaminophen/ Hydrocodone Bitart ([place] 5/325) 1 tab Q6H PRN ORAL pain 4-10 05/16/20 21:30 05/23/20 21:29 Acyclovir (Zovirax) 400 mg BID ORAL 05/17/20 18:00 06/16/20 08:59 05/20/20 17:18 Allopurinol (Zyloprim) 100 mg DAILY ORAL 05/17/20 09:00 06/16/20 08:59 05/20/20 09:23 Amlodipine Besylate (Norvasc) 5 mg DAILY ORAL 05/17/20 09:00 06/16/20 08:59 05/20/20 09:23 Aspirin (ASA) 81 mg DAILY ORAL 05/17/20 09:00 07/01/20 08:59 05/20/20 09:22 Azithromycin (Zithromax) 250 mg DAILY ORAL 05/17/20 09:00 05/21/20 09:01 05/20/20 09:22 Ceftriaxone Sodium 1 gm/ Dextrose 55 ml @ 110 mls/hr Q24H IVPB 05/17/20 09:00 05/24/20 08:59 05/20/20 09:23 Chlorhexidine Gluconate (Brenda-Hex 2%) 1 applic DAILY@2000 TOPIC 05/17/20 20:00 08/15/20 19:59 Ferrous Sulfate (Feosol) 325 mg DAILY ORAL 05/17/20 09:00 08/15/20 08:59 05/20/20 09:22 Heparin Sodium (Porcine) (Heparin 5000 units/ml) 5,000 units EVERY 12 HOURS SUBQ 05/17/20 09:00 07/01/20 08:59 05/20/20 20:51 Mirtazapine (Remeron) 15 mg BEDTIME ORAL 05/17/20 21:00 08/15/20 20:59 05/20/20 20:51 Ondansetron HCl (Zofran) 4 mg Q6H PRN IVP Nausea & Vomiting 05/16/20 21:30 06/15/20 21:29 Patient Own Medication (Patient's Own Med) 4 ea Q24H ORAL 05/17/20 22:00 06/16/20 21:59 05/20/20 20:52 Pravastatin Sodium (Pravachol) 10 mg BEDTIME ORAL 05/17/20 21:00 06/16/20 20:59 05/20/20 20:52 Promethazine HCl (Phenergan Plain) 6.25 mg Q4H PRN ORAL For Cough 05/16/20 21:30 06/15/20 21:29 05/18/20 05:27 Assessment/Plan Assessment/Plan 1. Right lung pneumonia. - On broad-spectrum Abx - Currently saturating well on room air - COVID-19 PCR negative (05/16) 2. Severe leukemia. - management per primary MD 3. Hypertension. - on Norvasc 4. DVT ppx - on Heparin subcu Continue current management The care for this patient was discussed with my supervising physician Time spent for this case was approximately 31 minutes Mino Arechiga May 21, 2020 08:57
[2020-05-21] MEDS: cefTRIAXone 1 GM in D5W 55 ML IVPB SCH (09:03)
[2020-05-21 12:00] VITALS: BP 122/54
--- NOTE | 2020-05-21 13:28 | Surgery Progress Note ---
Surgery Progress Note Subjective Symptoms: improved, pain absent, tolerating diet, voiding well, passing flatus, BM Objective Last 24 Hour Vital Signs Date Time Temp Pulse Resp B/P (MAP) Pulse Ox O2 Delivery O2 Flow Rate FiO2 05/21/20 09:00 Room Air 05/21/20 08:00 97.3 76 18 118/52 (74) 97 05/21/20 04:25 97.7 69 16 120/60 (80) 99 05/21/20 00:22 98.6 75 16 114/53 (73) 95 05/20/20 20:05 98.3 70 16 102/46 (64) 98 05/20/20 20:01 Room Air 05/20/20 16:00 97.8 67 18 118/57 (77) 97 I&O Intake and Output 05/20/20 05/21/20 19:00 07:00 Intake Total 1310 ml 360 ml Balance 1310 ml 360 ml Intake Oral 1200 ml IV Total 110 ml Other 360 ml # Voids 3 2 Dressing: dry Wound: clean Cardiovascular: RSR Respiratory: clear Abdomen: soft, non-tender, present bowel sounds, non-distended Extremities: no edema, no tenderness, no cyanosis Laboratory Tests Test 05/21/20 06:10 White Blood Count 3.8 K/UL (4.8-10.8) L Red Blood Count 3.13 M/UL (4.20-5.40) L Hemoglobin 9.4 G/DL (12.0-16.0) L Hematocrit 29.5 % (37.0-47.0) L Mean Corpuscular Volume 94 FL (80-99) Mean Corpuscular Hemoglobin 29.9 PG (27.0-31.0) Mean Corpuscular Hemoglobin Concent 31.7 G/DL (32.0-36.0) L Red Cell Distribution Width 13.0 % (11.6-14.8) Platelet Count 209 K/UL (150-450) Mean Platelet Volume 5.8 FL (6.5-10.1) L Neutrophils (%) (Auto) 53.0 % (45.0-75.0) Lymphocytes (%) (Auto) 31.1 % (20.0-45.0) Monocytes (%) (Auto) 15.1 % (1.0-10.0) H Eosinophils (%) (Auto) 0.0 % (0.0-3.0) Basophils (%) (Auto) 0.8 % (0.0-2.0) Sodium Level 143 MMOL/L (136-145) Potassium Level 4.8 MMOL/L (3.5-5.1) Chloride Level 108 MMOL/L (98-107) H Carbon Dioxide Level 28 MMOL/L (21-32) Anion Gap 8 mmol/L (5-15) Blood Urea Nitrogen 13 mg/dL (7-18) Creatinine 1.2 MG/DL (0.55-1.30) Estimat Glomerular Filtration Rate 52.5 mL/min (>60) Glucose Level 91 MG/DL (74-106) Calcium Level 9.7 MG/DL (8.5-10.1) Plan Problems: (1) Generalized weakness (2) Cough (3) Costochondritis (4) Pneumonia (5) Cervical strain (6) Lumbar strain (7) Enteritis (8) Chronic lymphocytic leukemia (9) Protein-calorie malnutrition, severe Assessment & Plan: encourage oral intake DAILY ESTIMATED NEEDS: Needs based on Cancer, pulmonary 52kg 30-35 kcals/kg 6732-2099 total kcals 1-2 g protein/kg 52-104 g total protein 25-30 mL/kg 4605-6642 total fluid mLs NUTRITION DIAGNOSIS: Increased kcal, prot needs R/T cancer as evidenced by pt w/ dx Leukemia, h/o weight loss, BMI now wnl, %IBW wnl. CURRENT DIET: regular PO DIET RECOMMENDATIONS: Regular/ Soft diet ADDITIONAL RECOMMENDATIONS: 1) Ensure 1 can BID for 2) Daily calibrated bed scale wts 3) High protein snacks TID w/ meals 4) Continue to monitor hydration status w/ variable po intake (10) Pancreatic mass Assessment & Plan: Patient with history of pancreatic mass biopsy in 2018 iden tified CLL. Mild nominal discomfort with food. Malnutrition BMI 23 low albumin. Reflect symptoms identified prior H. pylori noted scope in 2018. Patient has been doing well since currently fatigued weak does follow-up with her oncologist regularly. Likely component of constipation and reflux. PPI and bowel regimen initiated. Okay for diet as tolerated. Encourage oral intake. No acute surgical intervention planned. Will follow with recommendations thank for the reports in patient's care 02/26/2008, also ultrasound 08/02/2017 Findings: Again demonstrated are enlarged peripancreatic lymph nodes. Largest of these measures 5 cm long axis dimension. This represents a slight increase in size from the previous exam. A large node is seen anterior to the pancreatic head body junction which has increased considerably in size from the previous study, currently measuring 5.3 cm long axis dimension. Other nodes appear overall similar in size. These appear overall homogeneous but slightly hypoattenuating. Previously demonstrated retroperitoneal lymphadenopathy and bilateral iliac chain lymphadenopathy have improved considerably. The largest residual lymph node is in the pelvic sidewall, measuring 2.3 x 0.7 cm, previously 3.4 x 1 cm. Prominent lymph nodes are seen adjacent to the hepatic flexure of the colon, also evident previously but much smaller currently. Lymphadenopathy is seen within the splenic hilum, only equivocally evident previously, considerably larger currently, largest node measuring 2.7 cm long axis dimension, with other smaller nodes also seen in the vicinity. Enlarged pericecal nodes are smaller there previously. Nodes in the transverse mesocolon appears smaller than before A lobulated cyst versus 2 adjacent cysts again demonstrated within segment 2 of the liver, appearing smaller than previously. There are some scattered subcentimeter low-attenuation lesions which are too small to characterize. No definite solid mass demonstrated. Multiple calcifications are seen within the left hepatic lobe. The gallbladder, bile ducts, pancreas are unremarkable. The spleen is prominent but not frankly enlarged. It contains a calcification inferiorly The adrenals and kidneys are unremarkable. The uterus is not visualized, presumed surgically absent. A surgical clip is seen within the pelvis. There is considerable soft tissue fullness in the perineal region, although this appears similar to the previous study. There is no evidence of diverticulosis or diverticulitis. What may be a normal appendix is demonstrated. In any case, no findings to suggest acute appendicitis are evident. Contrast is seen throughout the entirety of the small bowel and into a short segment of the proximal colon. No small bowel wall thickening or small bowel distention demonstrated. No free or loculated intraperitoneal air or fluid is evident. There is a small fat-containing umbilical hernia again demonstrated. There is apparent gastric wall thickening, although this is probably an artifact of under distention. There is a small hiatal hernia and suggestion of distal esophageal wall thickening. This appearance is similar to the prior exam. The lung bases demonstrate some scarring or atelectasis in the lingula and minimal scarring or atelectasis in both lower lobes. The bones demonstrate degenerative spondylosis changes. Impression: Abdominal and pelvic lymphadenopathy, as described. The largest are peripancreatic nodes and these appear significantly increased in size from the previous exam of 02/26/2008. However, most of the nodes elsewhere are decreased in size. According to prior reports, patient has a history of leukemia. Lymphadenopathy is presumably related to this. Soft tissue fullness of the perineal region, also evident previously, of uncertain significance. Recommend correlation with findings on physical exam Equivocal gastric wall thickening, less likely artifact of under distention, but gastritis, peptic ulcer disease, or neoplasm or possible Small hiatal hernia. Possible distal esophageal wall thickening, could indicate esophagitis. This appearance, however, is similar to the prior study Left lobe liver cyst, smaller than on prior study. Subcentimeter low-attenuation hepatic lesions, too small to characterize, most likely benign simple cyst or bile hamartomas. No further follow-up necessary (11) Purulent bronchitis (12) Pneumonia (13) Gout (14) Middle ear effusion (15) CML (chronic myeloid leukemia) (16) History of hypertension (17) UTI (lower urinary tract infection) (18) Chest wall contusion (19) Acute serous otitis media of right ear without rupture (20) Upper respiratory infection (21) ACS (acute coronary syndrome) Jose Aguilar May 21, 2020 13:28
--- NOTE | 2020-05-21 13:53 | Internal Med Progress Note ---
Subjective Physician Name Mandeep Galarza Attending Physician Mandeep Galarza MD Current Medications Medications (Trade) Dose Ordered Sig/Adalgisa Route PRN Reason Start Time Stop Time Status Last Admin Dose Admin Acetaminophen (Tylenol) 650 mg Q6H PRN ORAL Mild Pain (Pain Scale 1-3) 05/16/20 21:30 06/15/20 21:29 Acetaminophen (Tylenol) 650 mg Q6H PRN ORAL Temp >100.5 05/16/20 21:30 06/15/20 21:29 Acetaminophen/ Hydrocodone Bitart ([place] 5/325) 1 tab Q6H PRN ORAL pain 4-10 05/16/20 21:30 05/23/20 21:29 Acyclovir (Zovirax) 400 mg BID ORAL 05/17/20 18:00 06/16/20 08:59 05/21/20 08:40 Allopurinol (Zyloprim) 100 mg DAILY ORAL 05/17/20 09:00 06/16/20 08:59 05/21/20 08:43 Amlodipine Besylate (Norvasc) 5 mg DAILY ORAL 05/17/20 09:00 06/16/20 08:59 05/20/20 09:23 Aspirin (ASA) 81 mg DAILY ORAL 05/17/20 09:00 07/01/20 08:59 05/21/20 08:39 Ceftriaxone Sodium 1 gm/ Dextrose 55 ml @ 110 mls/hr Q24H IVPB 05/17/20 09:00 05/24/20 08:59 05/21/20 09:03 Chlorhexidine Gluconate (Brenda-Hex 2%) 1 applic DAILY@2000 TOPIC 05/17/20 20:00 08/15/20 19:59 Ferrous Sulfate (Feosol) 325 mg DAILY ORAL 05/17/20 09:00 08/15/20 08:59 05/21/20 08:39 Heparin Sodium (Porcine) (Heparin 5000 units/ml) 5,000 units EVERY 12 HOURS SUBQ 05/17/20 09:00 07/01/20 08:59 05/21/20 08:42 Mirtazapine (Remeron) 15 mg BEDTIME ORAL 05/17/20 21:00 08/15/20 20:59 05/20/20 20:51 Ondansetron HCl (Zofran) 4 mg Q6H PRN IVP Nausea & Vomiting 05/16/20 21:30 06/15/20 21:29 Patient Own Medication (Patient's Own Med) 4 ea Q24H ORAL 05/17/20 22:00 06/16/20 21:59 05/20/20 20:52 Pravastatin Sodium (Pravachol) 10 mg BEDTIME ORAL 05/17/20 21:00 06/16/20 20:59 05/20/20 20:52 Promethazine HCl (Phenergan Plain) 6.25 mg Q4H PRN ORAL For Cough 05/16/20 21:30 06/15/20 21:29 05/18/20 05:27 Allergies: Coded Allergies: No Known Allergies (Verified , 08/20/18) Subjective awake, alert, responsive, denies any chest pain or shortness of breath, decreased cough, WBC: 3.8. Objective Last Vital Signs Date Time Temp Pulse Resp B/P (MAP) Pulse Ox O2 Delivery O2 Flow Rate FiO2 05/21/20 09:00 Room Air 05/21/20 08:00 97.3 76 18 118/52 (74) 97 Laboratory Tests Test 05/21/20 06:10 White Blood Count 3.8 K/UL (4.8-10.8) L Red Blood Count 3.13 M/UL (4.20-5.40) L Hemoglobin 9.4 G/DL (12.0-16.0) L Hematocrit 29.5 % (37.0-47.0) L Mean Corpuscular Volume 94 FL (80-99) Mean Corpuscular Hemoglobin 29.9 PG (27.0-31.0) Mean Corpuscular Hemoglobin Concent 31.7 G/DL (32.0-36.0) L Red Cell Distribution Width 13.0 % (11.6-14.8) Platelet Count 209 K/UL (150-450) Mean Platelet Volume 5.8 FL (6.5-10.1) L Neutrophils (%) (Auto) 53.0 % (45.0-75.0) Lymphocytes (%) (Auto) 31.1 % (20.0-45.0) Monocytes (%) (Auto) 15.1 % (1.0-10.0) H Eosinophils (%) (Auto) 0.0 % (0.0-3.0) Basophils (%) (Auto) 0.8 % (0.0-2.0) Sodium Level 143 MMOL/L (136-145) Potassium Level 4.8 MMOL/L (3.5-5.1) Chloride Level 108 MMOL/L (98-107) H Carbon Dioxide Level 28 MMOL/L (21-32) Anion Gap 8 mmol/L (5-15) Blood Urea Nitrogen 13 mg/dL (7-18) Creatinine 1.2 MG/DL (0.55-1.30) Estimat Glomerular Filtration Rate 52.5 mL/min (>60) Glucose Level 91 MG/DL (74-106) Calcium Level 9.7 MG/DL (8.5-10.1) Intake and Output 05/20/20 05/21/20 19:00 07:00 Intake Total 1310 ml 360 ml Balance 1310 ml 360 ml Intake Oral 1200 ml IV Total 110 ml Other 360 ml # Voids 3 2 Objective General: No acute distress, awake and alert HEENT: NCAT, sclera anicteric, PERRL, EOMI. Neck: Supple, no significant jugular venous distention, Lungs: Good inspiratory effort, no accessory muscle use, clear to auscultation bilaterally, no Wheeze or Rales. Heart: Regular rate and rhythm, normal S1/S2, no murmurs/gallops Abdomen: soft, nontender, nondistended. Normoactive bowel sounds. / Rectal: Refused and deferred. Extremities: No Cyanosis , clubbing or edema. Neuro: A&O x 3, Able to move all extremities Skin: warm, no rashes or lesions Psych: Normal mood and affect Assessment/Plan Assessment/Plan ASSESSMENT: This is an 79-year-old female. 1. Pneumonia. 2. Shortness of breath. 3. Chronic lymphocytic leukemia. 4. Hypertension. 5. Hypercholesterolemia. 6. Anemia. TREATMENT: 1. Right lower lobe pneumonia. Pulmonary consultation=Dr. Huang. ABX=ceftriaxone. Follow recommendations of Pulmonary. COVID 19 = neg 2. Chronic lymphocytic leukemia. Continue venclexta as above. 3. Hypercholesterolemia. Continue Lipitor as above. 4. Anemia. 5. DC home in the morning. Mandeep Galarza MD May 21, 2020 13:52
[2020-05-21 16:00] VITALS: BP 111/49
--- NOTE | 2020-05-21 18:00 | NUR ---
NURSE NOTES: Patient resting,no complaints sitting up in chair watching Television.Respirations unlabored.
--- NOTE | 2020-05-21 19:30 | NUR ---
NURSE HAND-OFF: Haider GRANDA Important Events on Shift:[uneventful] Patient Status: []stable Diet: [] Regular,patient does not want eggs or grapes. Pending Orders: [] Pending Results/Labs:[] Pending MD notification:[] Latest Vital Signs: Temperature 97.8 , Pulse 75 , B/P 101 /50 , Respiratory Rate 16 , O2 SAT 96 , Room Air, O2 Flow Rate . Vital Sign Comment: [] Latest Javed Fall Score: 35 Fall Risk: Medium Risk Safety Measures: Call light Within Reach, Bed Alarm Zone 1, Side Rails Side Rails x2, Bed position Low and Locked. Fall Precautions: Yellow Socks Door Sign Patient Fall Education Report given to [].
--- NOTE | 2020-05-21 19:44 | NUR ---
NURSE NOTES: Patient awake in bed, alert and oriented x4, no complaint of pain at this time, on room air, no SOB noted. IV access on the right AC g.22. Instructed to use call light for assistance. Bed in lowest and lock engaged. Will continue to monitor.
[2020-05-21 20:00] VITALS: BP 101/50
[2020-05-21] MEDS: Dyna-Hex 2% Top Sol 2oz TOPIC SCH (20:00)
[2020-05-22] VITALS: BP 112/47
[2020-05-22 04:00] VITALS: BP 114/53
--- NOTE | 2020-05-22 07:07 | NUR ---
NURSE HAND-OFF: Important Events on Shift: safety, monitoring Patient Status: Diet: Pending Orders: Pending Results/Labs: Pending MD notification: Latest Vital Signs: Temperature 98.3 , Pulse 66 , B/P 114 /53 , Respiratory Rate 16 , O2 SAT 95 , Room Air, O2 Flow Rate . Vital Sign Comment: Latest Javed Fall Score: 35 Fall Risk: Medium Risk Safety Measures: Call light Within Reach, Bed Alarm Zone 1, Side Rails Side Rails x2, Bed position Low and Locked. Fall Precautions: Yellow Socks Door Sign Patient Fall Education Report given to KALEE Veloz.
[2020-05-22 08:09] VITALS: BP_SYST 109; BP_SYST 113; BP_DIAS 50; BP_DIAS 52
[2020-05-22] MEDS: Aspirin Baby 81mg ORAL SCH (08:28)
[2020-05-22] MEDS: Heparin 5000 units/ml inj SUBQ SCH (08:28)
[2020-05-22] MEDS: Acyclovir 200mg Cap ORAL SCH (08:28)
[2020-05-22] MEDS: cefTRIAXone 1 GM in D5W 55 ML IVPB SCH (08:29)
[2020-05-22] MEDS: Allopurinol 100mg Tab ORAL SCH (08:29)
--- NOTE | 2020-05-22 09:23 | Pulmonology Progress Note ---
Subjective ROS Limited/Unobtainable: No Interval Events: none major reported per nursing Constitutional: Reports: fatigue HEENT: Repors: no symptoms Respiratory: Reports: productive cough Cardiovascular: Reports: no symptoms Gastrointestinal/Abdominal: Reports: no symptoms Allergies: Coded Allergies: No Known Allergies (Verified , 08/20/18) Objective Last 24 Hour Vital Signs Date Time Temp Pulse Resp B/P (MAP) Pulse Ox O2 Delivery O2 Flow Rate FiO2 05/22/20 08:47 76 109/50 05/22/20 08:09 97.8 76 18 109/50 (69) 99 05/22/20 04:00 98.3 66 16 114/53 (73) 95 05/22/20 00:00 98.1 71 16 112/47 (68) 96 05/21/20 20:22 Room Air 05/21/20 20:00 97.8 75 16 101/50 (67) 96 05/21/20 16:00 97.4 66 18 111/49 (69) 96 05/21/20 12:00 97.8 74 20 122/54 (76) 97 Intake and Output 05/21/20 05/22/20 19:00 07:00 Intake Total 960 ml 200 ml Balance 960 ml 200 ml Intake Oral 960 ml 200 ml # Voids 3 2 General Appearance: no acute distress HEENT: atraumatic Respiratory: decreased breath sounds, crackles/rales Cardiovascular: normal rate, regular rhythm Abdomen: soft, non tender Current Medications Medications (Trade) Dose Ordered Sig/Adalgisa Route PRN Reason Start Time Stop Time Status Last Admin Dose Admin Acetaminophen (Tylenol) 650 mg Q6H PRN ORAL Mild Pain (Pain Scale 1-3) 05/16/20 21:30 06/15/20 21:29 Acetaminophen (Tylenol) 650 mg Q6H PRN ORAL Temp >100.5 05/16/20 21:30 06/15/20 21:29 Acetaminophen/ Hydrocodone Bitart ([place] 5/325) 1 tab Q6H PRN ORAL pain 4-10 05/16/20 21:30 05/23/20 21:29 Acyclovir (Zovirax) 400 mg BID ORAL 05/17/20 18:00 06/16/20 08:59 05/22/20 08:28 Allopurinol (Zyloprim) 100 mg DAILY ORAL 05/17/20 09:00 06/16/20 08:59 05/22/20 08:29 Amlodipine Besylate (Norvasc) 5 mg DAILY ORAL 05/17/20 09:00 06/16/20 08:59 05/20/20 09:23 Aspirin (ASA) 81 mg DAILY ORAL 05/17/20 09:00 07/01/20 08:59 05/22/20 08:28 Ceftriaxone Sodium 1 gm/ Dextrose 55 ml @ 110 mls/hr Q24H IVPB 05/17/20 09:00 05/24/20 08:59 05/22/20 08:29 Chlorhexidine Gluconate (Brenda-Hex 2%) 1 applic DAILY@2000 TOPIC 05/17/20 20:00 08/15/20 19:59 Ferrous Sulfate (Feosol) 325 mg DAILY ORAL 05/17/20 09:00 08/15/20 08:59 05/22/20 08:28 Heparin Sodium (Porcine) (Heparin 5000 units/ml) 5,000 units EVERY 12 HOURS SUBQ 05/17/20 09:00 07/01/20 08:59 05/22/20 08:28 Mirtazapine (Remeron) 15 mg BEDTIME ORAL 05/17/20 21:00 08/15/20 20:59 05/21/20 21:04 Ondansetron HCl (Zofran) 4 mg Q6H PRN IVP Nausea & Vomiting 05/16/20 21:30 06/15/20 21:29 Patient Own Medication (Patient's Own Med) 4 ea Q24H ORAL 05/17/20 22:00 06/16/20 21:59 05/21/20 21:04 Pravastatin Sodium (Pravachol) 10 mg BEDTIME ORAL 05/17/20 21:00 06/16/20 20:59 05/21/20 21:03 Promethazine HCl (Phenergan Plain) 6.25 mg Q4H PRN ORAL For Cough 05/16/20 21:30 06/15/20 21:29 05/18/20 05:27 Assessment/Plan Assessment/Plan 1. Right lung pneumonia. - On broad-spectrum Abx - Currently saturating well on room air - COVID-19 PCR negative (05/16) 2. Severe leukemia. - management per primary MD 3. Hypertension. - on Norvasc 4. DVT ppx - on Heparin subcu Continue current management Medically stable for discharge from pulmonary standpoint Noted the plan for discharge today The care for this patient was discussed with my supervising physician Time spent for this case was approximately 31 minutes Mino Arechiga May 22, 2020 09:23
--- NOTE | 2020-05-22 10:19 | Internal Med Progress Note ---
Subjective Physician Name Mandeep Galarza Attending Physician Mandeep Galarza MD Current Medications Medications (Trade) Dose Ordered Sig/Adalgisa Route PRN Reason Start Time Stop Time Status Last Admin Dose Admin Acetaminophen (Tylenol) 650 mg Q6H PRN ORAL Mild Pain (Pain Scale 1-3) 05/16/20 21:30 06/15/20 21:29 Acetaminophen (Tylenol) 650 mg Q6H PRN ORAL Temp >100.5 05/16/20 21:30 06/15/20 21:29 Acetaminophen/ Hydrocodone Bitart ([place] 5/325) 1 tab Q6H PRN ORAL pain 4-10 05/16/20 21:30 05/23/20 21:29 Acyclovir (Zovirax) 400 mg BID ORAL 05/17/20 18:00 06/16/20 08:59 05/22/20 08:28 Allopurinol (Zyloprim) 100 mg DAILY ORAL 05/17/20 09:00 06/16/20 08:59 05/22/20 08:29 Amlodipine Besylate (Norvasc) 5 mg DAILY ORAL 05/17/20 09:00 06/16/20 08:59 05/20/20 09:23 Aspirin (ASA) 81 mg DAILY ORAL 05/17/20 09:00 07/01/20 08:59 05/22/20 08:28 Ceftriaxone Sodium 1 gm/ Dextrose 55 ml @ 110 mls/hr Q24H IVPB 05/17/20 09:00 05/24/20 08:59 05/22/20 08:29 Chlorhexidine Gluconate (Brenda-Hex 2%) 1 applic DAILY@2000 TOPIC 05/17/20 20:00 08/15/20 19:59 Ferrous Sulfate (Feosol) 325 mg DAILY ORAL 05/17/20 09:00 08/15/20 08:59 05/22/20 08:28 Heparin Sodium (Porcine) (Heparin 5000 units/ml) 5,000 units EVERY 12 HOURS SUBQ 05/17/20 09:00 07/01/20 08:59 05/22/20 08:28 Mirtazapine (Remeron) 15 mg BEDTIME ORAL 05/17/20 21:00 08/15/20 20:59 05/21/20 21:04 Ondansetron HCl (Zofran) 4 mg Q6H PRN IVP Nausea & Vomiting 05/16/20 21:30 06/15/20 21:29 Patient Own Medication (Patient's Own Med) 4 ea Q24H ORAL 05/17/20 22:00 06/16/20 21:59 05/21/20 21:04 Pravastatin Sodium (Pravachol) 10 mg BEDTIME ORAL 05/17/20 21:00 06/16/20 20:59 05/21/20 21:03 Promethazine HCl (Phenergan Plain) 6.25 mg Q4H PRN ORAL For Cough 05/16/20 21:30 06/15/20 21:29 05/18/20 05:27 Allergies: Coded Allergies: No Known Allergies (Verified , 08/20/18) Subjective awake, alert, responsive, denies any chest pain or shortness of breath, decreased cough, Feeling Good Objective Last Vital Signs Date Time Temp Pulse Resp B/P (MAP) Pulse Ox O2 Delivery O2 Flow Rate FiO2 05/22/20 08:47 76 109/50 05/22/20 08:09 97.8 18 99 05/21/20 20:22 Room Air Intake and Output 05/21/20 05/22/20 19:00 07:00 Intake Total 960 ml 200 ml Balance 960 ml 200 ml Intake Oral 960 ml 200 ml # Voids 3 2 Objective General: No acute distress, awake and alert HEENT: NCAT, sclera anicteric, PERRL, EOMI. Neck: Supple, no significant jugular venous distention, Lungs: Good inspiratory effort, no accessory muscle use, clear to auscultation bilaterally, no Wheeze or Rales. Heart: Regular rate and rhythm, normal S1/S2, no murmurs/gallops Abdomen: soft, nontender, nondistended. Normoactive bowel sounds. / Rectal: Refused and deferred. Extremities: No Cyanosis , clubbing or edema. Neuro: A&O x 3, Able to move all extremities Skin: warm, no rashes or lesions Psych: Normal mood and affect Assessment/Plan Assessment/Plan ASSESSMENT: This is an 79-year-old female. 1. Pneumonia. 2. Shortness of breath. 3. Chronic lymphocytic leukemia. 4. Hypertension. 5. Hypercholesterolemia. 6. Anemia. TREATMENT: 1. Right lower lobe pneumonia. Pulmonary consultation=Dr. Huang. ABX=ceftriaxone. Follow recommendations of Pulmonary. COVID 19 = neg 2. Chronic lymphocytic leukemia. Continue venclexta as above. 3. Hypercholesterolemia. Continue Lipitor as above. 4. Anemia. 5. DC home today. Mandeep Galarza MD May 22, 2020 10:19
[2020-05-22 12:00] VITALS: BP 123/70
--- NOTE | 2020-05-22 13:15 | NUR ---
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
--- NOTE | 2020-05-22 18:34 | Surgery Progress Note ---
Surgery Progress Note Subjective Symptoms: improved, pain absent, tolerating diet, voiding well, passing flatus, BM Objective Last 24 Hour Vital Signs Date Time Temp Pulse Resp B/P (MAP) Pulse Ox O2 Delivery O2 Flow Rate FiO2 05/22/20 12:00 98.0 74 18 123/70 (87) 97 05/22/20 09:00 Room Air 05/22/20 08:47 76 109/50 05/22/20 08:09 97.8 76 18 109/50 (69) 99 05/22/20 04:00 98.3 66 16 114/53 (73) 95 05/22/20 00:00 98.1 71 16 112/47 (68) 96 05/21/20 20:22 Room Air 05/21/20 20:00 97.8 75 16 101/50 (67) 96 I&O Intake and Output 05/21/20 05/22/20 19:00 07:00 Intake Total 960 ml 200 ml Balance 960 ml 200 ml Intake Oral 960 ml 200 ml # Voids 3 2 Cardiovascular: RSR Respiratory: clear Abdomen: soft, flat, non-tender, present bowel sounds Extremities: no edema, no tenderness, no cyanosis Plan Problems: (1) Generalized weakness (2) Cough (3) Costochondritis (4) Pneumonia (5) Cervical strain (6) Lumbar strain (7) Enteritis (8) Chronic lymphocytic leukemia (9) Protein-calorie malnutrition, severe Assessment & Plan: encourage oral intake DAILY ESTIMATED NEEDS: Needs based on Cancer, pulmonary 52kg 30-35 kcals/kg 1172-0350 total kcals 1-2 g protein/kg 52-104 g total protein 25-30 mL/kg 4466-8118 total fluid mLs NUTRITION DIAGNOSIS: Increased kcal, prot needs R/T cancer as evidenced by pt w/ dx Leukemia, h/o weight loss, BMI now wnl, %IBW wnl. CURRENT DIET: regular PO DIET RECOMMENDATIONS: Regular/ Soft diet ADDITIONAL RECOMMENDATIONS: 1) Ensure 1 can BID for 2) Daily calibrated bed scale wts 3) High protein snacks TID w/ meals 4) Continue to monitor hydration status w/ variable po intake (10) Pancreatic mass Assessment & Plan: Patient with history of pancreatic mass biopsy in 2018 identified CLL. Mild nominal discomfort with food. Malnutrition BMI 23 low albumin. Reflect symptoms identified prior H. pylori noted scope in 2018. Patient has been doing well since currently fatigued weak does follow-up with her oncologist regularly. Likely component of constipation and reflux. PPI and bowel regimen initiated. Okay for diet as tolerated. Encourage oral intake. No acute surgical intervention planned. Will follow with recommendations thank for the reports in patient's care 02/26/2008, also ultrasound 08/02/2017 Findings: Again demonstrated are enlarged peripancreatic lymph nodes. Largest of these measures 5 cm long axis dimension. This represents a slight increase in size from the previous exam. A large node is seen anterior to the pancreatic head body junction which has increased considerably in size from the previous study, currently measuring 5.3 cm long axis dimension. Other nodes appear overall similar in size. These appear overall homogeneous but slightly hypoattenuating. Previously demonstrated retroperitoneal lymphadenopathy and bilateral iliac chain lymphadenopathy have improved considerably. The largest residual lymph node is in the pelvic sidewall, measuring 2.3 x 0.7 cm, previously 3.4 x 1 cm. Prominent lymph nodes are seen adjacent to the hepatic flexure of the colon, also evident previously but much smaller currently. Lymphadenopathy is seen within the splenic hilum, only equivocally evident previously, considerably larger currently, largest node measuring 2.7 cm long axis dimension, with other smaller nodes also seen in the vicinity. Enlarged pericecal nodes are smaller there previously. Nodes in the transverse mesocolon appears smaller than before A lobulated cyst versus 2 adjacent cysts again demonstrated within segment 2 of the liver, appearing smaller than previously. There are some scattered subcentimeter low-attenuation lesions which are too small to characterize. No definite solid mass demonstrated. Multiple calcifications are seen within the left hepatic lobe. The gallbladder, bile ducts, pancreas are unremarkable. The spleen is prominent but not frankly enlarged. It contains a calcification inferiorly The adrenals and kidneys are unremarkable. The uterus is not visualized, presumed surgically absent. A surgical clip is seen within the pelvis. There is considerable soft tissue fullness in the perineal region, although this appears similar to the previous study. There is no evidence of diverticulosis or diverticulitis. What may be a normal appendix is demonstrated. In any case, no findings to suggest acute appendicitis are evident. Contrast is seen throughout the entirety of the small bowel and into a short segment of the proximal colon. No small bowel wall thickening or small bowel distention demonstrated. No free or loculated intraperitoneal air or fluid is evident. There is a small fat-containing umbilical hernia again demonstrated. There is apparent gastric wall thickening, although this is probably an artifact of under distention. There is a small hiatal hernia and suggestion of distal esophageal wall thickening. This appearance is similar to the prior exam. The lung bases demonstrate some scarring or atelectasis in the lingula and min imal scarring or atelectasis in both lower lobes. The bones demonstrate degenerative spondylosis changes. Impression: Abdominal and pelvic lymphadenopathy, as described. The largest are peripancreatic nodes and these appear significantly increased in size from the previous exam of 02/26/2008. However, most of the nodes elsewhere are decreased in size. According to prior reports, patient has a history of leukemia. Lymphadenopathy is presumably related to this. Soft tissue fullness of the perineal region, also evident previously, of uncertain significance. Recommend correlation with findings on physical exam Equivocal gastric wall thickening, less likely artifact of under distention, but gastritis, peptic ulcer disease, or neoplasm or possible Small hiatal hernia. Possible distal esophageal wall thickening, could indicate esophagitis. This appearance, however, is similar to the prior study Left lobe liver cyst, smaller than on prior study. Subcentimeter low-attenuation hepatic lesions, too small to characterize, most likely benign simple cyst or bile hamartomas. No further follow-up necessary (11) Purulent bronchitis (12) Pneumonia (13) Gout (14) Middle ear effusion (15) CML (chronic myeloid leukemia) (16) History of hypertension (17) UTI (lower urinary tract infection) (18) Chest wall contusion (19) Acute serous otitis media of right ear without rupture (20) Upper respiratory infection (21) ACS (acute coronary syndrome) Additional Comments improved d/c planning outpatient f/u with pcp for surveillance of Pancrease Jose Aguilar May 22, 2020 18:34
--- NOTE | 2020-05-25 14:10 | Discharge Summary ---
Discharge Summary Discharge Summary _ Date of admission: 05/16/2020 Date of discharge: 05/22/[address] Galarza History of Present Illness and Brief Hospital Course Ms. Young is an 79-year-old female with past medical history of hypertension, heart murmur, and leukemia, who presented to the ED for evaluation of increased generalized weakness associated with nonproductive cough. Patient reported that she was recently diagnosed with pneumonia and was started on Levaquin. Chest x- ray showed infiltrates consistent with pneumonia. Patient was started on IV fluids and IV antibiotics and was admitted to the hospital for further management. She tested negative for COVID-19 via PCR. Patient had history of chronic lymphocytic leukemia and was continued on Venclexta. Throughout her hospitalization, patient's medical condition improved. Patient remained saturating well on room air and was treated for pneumonia. Patient was medically stable for discharge and was discharged home on 05/22/2020. Consultants: Surgery Dr. Aguilar Pulmonology Dr. Huang Discharge Condition Improved and stable Final diagnoses Pneumonia Chronic lymphocytic leukemia Hypertension Costochondritis Cervical strain Lumbar strain Enteritis Protein calorie malnutrition, severe History of pancreatic mass Purulent bronchitis History of gout None history of UTI Respiratory distress I have been assigned to dictate discharge summary for this account. Mino Arechiga May 25, 2020 14:10
== END 2020-05-22 13:00 | disposition home or self-care (01) | DRG 193 ==
LOC: EMR 16:30 → 2E 17:00 → EDBEDREQ 18:42 → 2E 05-17 07:25 → 4E 05-17 17:15
DX: J18.9 Pneumonia, unspecified organism (principal); E43 Unspecified severe protein-calorie malnutrition; C91.10 Chronic lymphocytic leukemia of B-cell type not having achieved remission; I10 Essential (primary) hypertension; E78.00 Pure hypercholesterolemia, unspecified; R01.1 Cardiac murmur, unspecified; M94.0 Chondrocostal junction syndrome [Tietze]; S16.1XXA Strain of muscle, fascia and tendon at neck level, initial encounter; X58.XXXA Exposure to other specified factors, initial encounter; S39.012A Strain of muscle, fascia and tendon of lower back, initial encounter; J41.1 Mucopurulent chronic bronchitis; M10.9 Gout, unspecified; R06.03 Acute respiratory distress
CPT/HCPCS: 36415; 71045; 80048; 80053; 82150; 83690; 83735; 84443; 84484; 85025; 87040; 93005; 96365; 96367; 99285